=== PATIENT | male | born 1970 | race Caucasian/White ===

== ENCOUNTER 2016-10-22 19:08 | Inpatient (IN) | payer BC, OTHER ==
[~2016-10-22] VITALS: Ht 175.3 cm; Wt 111.5 kg
[~2016-10-22 19:08] MED LIST: ALBUAER2 INH; LACT1TAB4 PO; MULTTAB58 PO; OMEG10007 PO; PRED10TA PO; PSYL55.43 PO; SENN1TAB2 PO; SYMIN160 INH
[2016-10-22] MEDS ORDERED: ALBUT/IPRATROP 3MG/0.5MG NEB 3 ML VIAL INH STA (19:29)
[2016-10-22] MEDS ORDERED: METHYLPREDNISOLONE 125 MG VIAL IV STA (19:29)
--- NOTE | 2016-10-22 20:05 | DIAGNOSTIC IMAGING REPORT ---
CHEST ONE VIEW PORTABLE CLINICAL HISTORY: EVALUATE RESPIRATORY DISTRESS.DYSPNEA COMPARISON STUDY: 01/19/2016 FINDINGS: There is stable superior mediastinal soft tissue prominence. The heart is the upper limits of normal in size. There is no failure. There is no focal pulmonary consolidation. No pleural effusions are visualized. Slight prominence the basal interstitial markings, likely relates to technical factors IMPRESSION: AP portable study. Stable superior mediastinal fullness. No evidence of acute parenchymal consolidation Electronically signed by: Garcia Duran M.D. 10/22/2016 8:03 PM Dictated Date/Time: 10/22/2016 8:01 PM
[2016-10-22 20:24] LABS: BASO % 0.1 %; BASO ABS # 0.02 K/uL (0-0.2); COMPLETE YES; EOS % 1.1 %; HEMATOCRIT 45.5 % (42-52); IG% 0.8 %; LYMPH % 9.6 %; LYMPH ABS # 1.47 K/uL (1.2-3.4); MEAN CELL VOLUME 86.7 fL (80-100); MEAN CORPUSCULAR HEMOGLOBIN 30.1 pg (25-34); MEAN CORPUSCULAR HGB CONC 34.7 g/dl (32-36); MEAN PLATELET VOLUME 9.7 fL (7.4-10.4); MONO % 13.9 %; NEUT % 74.5 %; PLATELET COUNT 171 K/uL (130-400); RED BLOOD COUNT 5.25 M/uL (4.7-6.1); WHITE BLOOD COUNT 15.34 K/uL (4.8-10.8)
[2016-10-22] MEDS ORDERED: ALBUTEROL 0.083% NEBU SOLN 3 ML VIAL INH STA (20:26)
[2016-10-22] MEDS ORDERED: MAGNESIUM SULFATE 1GM / D5W 1 GM BAG IV STA (20:26)
[2016-10-22] MEDS ORDERED: HYDROCODONE/HOMATROPINE SYRUP 5MG/1.5MG 5ML UDP PO STA (20:31)
[2016-10-22] MEDS ORDERED: PSEU60TA80 PO (20:36)
[2016-10-22] MEDS ORDERED: CETI10TA84 PO (20:36)
[2016-10-22] MEDS ORDERED: BENZ100C84 PO (20:36)
[2016-10-22 20:40] LABS: PARTIAL THROMBOPLASTIN RATIO 0.9; PROTHROMBIN TIME (PATIENT) 10.7 SECONDS (9.0-12.0)
[2016-10-22 20:43] LABS: ALT/SGPT 51 U/L (12-78); BLOOD UREA NITROGEN 18 mg/dl (7-18); BUN/CREATININE RATIO 16.5 (10-20); CALCIUM 9.2 mg/dl (8.5-10.1); CARBON DIOXIDE 25 mmol/L (21-32); CHLORIDE 105 mmol/L (98-107); GLUCOSE 97 mg/dl (70-99); POTASSIUM 3.6 mmol/L (3.5-5.1); SODIUM 141 mmol/L (136-145)
[2016-10-22 20:44] VITALS: PULSE 111; O2SAT 95
[2016-10-22 20:47] LABS: ALB/GLOB RATIO 1.1 (0.9-2); ALKALINE PHOSPHATASE 61 U/L (45-117); AST/SGOT 30 U/L (15-37)
[2016-10-22 20:51] LABS: VEN BLD GAS O2 SATURATION 86.7 %; VEN BLOOD GAS BASE EXCESS 1.4 mmol/L
[2016-10-22] MEDS ORDERED: PIPERACILLIN/TAZOBACTAM 4.5 GM/100ML D5W IV STA (21:29)
[2016-10-22] MEDS ORDERED: PIPERACILLIN/TAZOBACTAM 4.5 GM/100ML D5W ONE (21:29)
[2016-10-22] MEDS ORDERED: LEVAQUIN 750MG / 150ML D5W IV ONE (21:30)
[2016-10-22] MEDS ORDERED: ACETAMINOPHEN IV 100 ML IV PRN (21:45)
[2016-10-22] MEDS ORDERED: DiphenhydrAMINE HCL 50 MG/ML VIAL IV PRN ×2 (21:45)
[2016-10-22] MEDS ORDERED: ACETAMINOPHEN 325 MG TAB PO PRN (21:45)
[2016-10-22] MEDS ORDERED: ONDANSETRON INJ 2 MG/ML 2 ML VIAL IV PRN (21:45)
[2016-10-22] MEDS ORDERED: ZOLPIDEM TARTRATE 5 MG TAB PO PRN (21:45)
[2016-10-22 21:50] VITALS: PULSE 126; O2SAT 92
[2016-10-22] MEDS ORDERED: LEVALBUTEROL 1.25MG/0.5ML NEB INH PRN (22:00)
[2016-10-22] MEDS ORDERED: IPRATROPIUM BROMIDE NEB SOLN 0.02% 2.5 ML VIAL INH PRN (22:00)
[2016-10-22] MEDS ORDERED: PIPERACILL/TAZOBAC IV 3.375 GM in DEXTROSE 5% 100ML 100 ML IV SCH (22:00)
[2016-10-22 22:04] VITALS: Ht 175.3 cm; Wt 111.5 kg
[2016-10-22] MEDS ORDERED: PIPERACILL/TAZOBAC CONSULT ACTIVE PRN (23:00)
[2016-10-22] MEDS ORDERED: PIPERACILL/TAZOBAC IV 4.5 GM in DEXTROSE 5% 100ML IV ONE (23:30)
[2016-10-22 23:49] VITALS: PULSE 105; O2SAT 92
[2016-10-23] VITALS (11 sets, daily range): BP systolic 127–142; BP diastolic 67–99; PULSE 82–111; TEMP 36.4–37.2; O2SAT 89–93
--- NOTE | 2016-10-23 01:23 | EMERGENCY ROOM VISIT NOTE ---
History Report prepared by Domonique: Whitney Lehman Under the Supervision of: Dr. Mehrdad Alberts D.O. First contact with patient: 19:21 Chief Complaint: RESPIRATORY PROBLEMS Stated Complaint: TROUBLE BREATHING, CHEST CONGESTION Nursing Triage Summary: Patient ambulatory to triage, states "I am having trouble breathing. I have a severe chest cold and am coughing a lot. I haven't been able to bring much up today. I was at my PCP yesterday for these symptoms and was given a shot and a zpak. I have a history of asthma and I feel worse today." Patient has been using nebs and a resuce inhaler at home without relief. History of Present Illness The patient is a 46 year old male who presents to the Emergency Room with complaints of worsening respiratory problems for the past 2 days. He has had cold symptoms including a productive cough, shortness of breath, and sinus congestion. He went to his PCP yesterday and was given "a shot" and a Z-Emery. Today he has been unable to cough anything up. He feels more short of breath that usual. He is short of breath with exertion and conversation. He rates his pain as a 6/10 in severity. The patient has a history of asthma. He is on prednisone for his asthma and has increased his dosage to 20mg BID for the past 2 days. He has also been using his inhaler and nebulizer treatments at home without relief. He denies any chest pain but reports chest tightness. He feels unable to take a deep breath. His family has been sick with similar symptoms. Pt denies headache, change in vision, fevers, nausea, vomiting, diarrhea, abdominal pain, pain with urination, and melena. He denies any recent long trips , coughing up blood, pain or swelling in his legs, and any history of blood clots. Source of History: patient Onset: 2 days ago Position: chest (respiratory) Symptom Intensity: 6/10 Quality: other (tightness) Timing: worsening Modifying Factors (Worsening): exertion, other (conversation) Associated Symptoms: + SOB, No abdominal pain, No chest pain, No diarrhea, No fevers, No headache, No melena, No nausea, No urinary symptoms, No vomiting Note: He denies any recent long trips, coughing up blood, pain or swelling in his legs , and any history of blood clots. Review of Systems See HPI for pertinent positives & negatives. A total of 10 systems reviewed and were otherwise negative. Past Medical & Surgical Medical Problems: (1) Abdominal pain (2) Asthma (3) Asthma exacerbation (4) Asthma exacerbation (5) Asthmatic bronchitis with acute exacerbation (6) Diverticulitis (7) Diverticulitis (8) Diverticulosis Colon (W/O Ment Of Hemorrhage) (9) GERD (gastroesophageal reflux disease) (10) Hyperlipidemia Nec/Nos (11) Hypoxia (12) Long-Term(Current)Use Of Steroids (13) Pancreatitis Family History No significant family history Social History Smoking Status: Never Smoker Drug Use: none Marital Status: in relationship Housing Status: lives with significant other Occupation Status: employed Current/Historical Medications Scheduled Benzonatate (Tessalon Perles), 1-2 CAP PO Q4 Budesonide/Formoterol Fumarate (Symbicort 160/4.5 Inhaler), 2 PUFFS INH BID Cetirizine (Zyrtec), 10 MG PO HS Fish Oil ([place]-3), 3 CAP PO DAILY Lactobacillus (Floranex), 1 TAB PO BID Multiple Vitamin (Multivitamin), 1 TAB PO DAILY Prednisone (Prednisone), 20 MG PO BID Pseudoephedrine-Guaifenesin (Mucinex D), 1 TAB PO BID Psyllium (Metamucil Powder), 2 TBS PO DAILY Senna-Fennel (Natural Vegetable Laxativ), 1 TAB PO BID Scheduled PRN Albuterol (Ventolin Hfa), 2 PUFFS INH UD PRN for Asthma Symptoms Allergies Coded Allergies: No Known Allergies (Unverified , 10/22/16) Physical Exam Vital Signs Date Time Temp Pulse Resp B/P Pulse Ox O2 Delivery O2 Flow Rate FiO2 10/22/16 21:02 37.1 119 30 146/98 95 Nebulizer 10/22/16 20:44 111 22 95 Room Air 10/22/16 20:26 112 32 117/87 93 3.0 10/22/16 19:41 94 Nasal Cannula 10/22/16 19:32 100 10/22/16 19:25 93 Nasal Cannula 2.0 10/22/16 19:17 89 Room Air 10/22/16 19:17 37.2 110 26 135/86 89 Room Air Physical Exam GENERAL: alert, sitting up in bed, dyspneic with conversation, ill appearing, well nourished, no distress, non-toxic EYE EXAM: normal conjunctiva OROPHARYNX: no exudate, no erythema, lips, buccal mucosa, and tongue normal and mucous membranes are moist NECK: supple, no nuchal rigidity, no adenopathy, non-tender LUNGS: Diffuse wheezing bilaterally with minimal air movement. Normal chest wall mechanics HEART: Tachycardic, no murmurs, S1 normal and S2 normal ABDOMEN: abdomen soft, non-tender, normo-active bowel sounds, no masses, no rebound or guarding. BACK: Back is symmetrical on inspection and there is no deformity, no midline tenderness, no CVA tenderness. SKIN: no rashes and no bruising UPPER EXTREMITIES: upper extremities are grossly normal. LOWER EXTREMITIES: No pitting edema. Calves equal bilaterally. NEURO EXAM: Normal sensorium, cranial nerves II-XII grossly intact, normal speech, no gross weakness of arms, no gross weakness of legs. Medical Decision & Procedures ER Provider Diagnostic Interpretation: Radiology results as stated below per my review and radiologist interpretation: CHEST ONE VIEW PORTABLE CLINICAL HISTORY: EVALUATE RESPIRATORY DISTRESS.DYSPNEA COMPARISON STUDY: 01/19/2016 FINDINGS: There is stable superior mediastinal soft tissue prominence. The heart is the upper limits of normal in size. There is no failure. There is no focal pulmonary consolidation. No pleural effusions are visualized. Slight prominence the basal interstitial markings, likely relates to technical factors IMPRESSION: AP portable study. Stable superior mediastinal fullness. No evidence of acute parenchymal consolidation Electronically signed by: Garcia Duran M.D. 10/22/2016 8:03 PM Dictated Date/Time: 10/22/2016 8:01 PM Laboratory Results 10/22/16 19:50 Red Blood Count 5.25, Mean Corpuscular Volume 86.7, Mean Corpuscular Hemoglobin 30.1, Mean Corpuscular Hemoglobin Concent 34.7, Mean Platelet Volume 9.7, Neutrophils (%) (Auto) 74.5, Lymphocytes (%) (Auto) 9.6, Monocytes (%) (Auto) 13.9, Eosinophils (%) (Auto) 1.1, Basophils (%) (Auto) 0.1, Neutrophils # (Auto ) 11.42, Lymphocytes # (Auto) 1.47, Monocytes # (Auto) 2.13, Eosinophils # (Auto ) 0.17, Basophils # (Auto) 0.02 10/22/16 19:50 Test 10/22/16 00:00 10/22/16 19:50 10/22/16 20:43 Influenza Type A Antigen Neg for Influ A (NEG) Influenza Type B Antigen Neg for Influ B (NEG) White Blood Count 15.34 K/uL (4.8-10.8) Red Blood Count 5.25 M/uL (4.7-6.1) Hemoglobin 15.8 g/dL (14.0-18.0) Hematocrit 45.5 % (42-52) Mean Corpuscular Volume 86.7 fL (80-100) Mean Corpuscular Hemoglobin 30.1 pg (25-34) Mean Corpuscular Hemoglobin Concent 34.7 g/dl (32-36) Platelet Count 171 K/uL (130-400) Mean Platelet Volume 9.7 fL (7.4-10.4) Neutrophils (%) (Auto) 74.5 % Lymphocytes (%) (Auto) 9.6 % Monocytes (%) (Auto) 13.9 % Eosinophils (%) (Auto) 1.1 % Basophils (%) (Auto) 0.1 % Neutrophils # (Auto) 11.42 K/uL (1.4-6.5) Lymphocytes # (Auto) 1.47 K/uL (1.2-3.4) Monocytes # (Auto) 2.13 K/uL (0.11-0.59) Eosinophils # (Auto) 0.17 K/uL (0-0.5) Basophils # (Auto) 0.02 K/uL (0-0.2) RDW Standard Deviation 44.5 fL (36.4-46.3) RDW Coefficient of Variation 14.0 % (11.5-14.5) Immature Granulocyte % (Auto) 0.8 % Immature Granulocyte # (Auto) 0.13 K/uL (0.00-0.02) Prothrombin Time 10.7 SECONDS (9.0-12.0) Prothromb Time International Ratio 1.0 (0.9-1.1) Activated Partial Thromboplast Time 23.9 SECONDS (21.0-31.0) Partial Thromboplastin Ratio 0.9 Anion Gap 11.0 mmol/L (3-11) Est Creatinine Clear Calc Drug Dose 102.9 ml/min Estimated GFR () 92.2 Estimated GFR (Non- 79.5 BUN/Creatinine Ratio 16.5 (10-20) Calcium Level 9.2 mg/dl (8.5-10.1) Total Bilirubin 1.1 mg/dl (0.2-1) Aspartate Amino Transf (AST/SGOT) 30 U/L (15-37) Alanine Aminotransferase (ALT/SGPT) 51 U/L (12-78) Alkaline Phosphatase 61 U/L (45-117) Troponin I < 0.015 ng/ml (0-0.045) Total Protein 7.2 gm/dl (6.4-8.2) Albumin 3.8 gm/dl (3.4-5.0) Globulin 3.4 gm/dl (2.5-4.0) Albumin/Globulin Ratio 1.1 (0.9-2) Venous Blood pH 7.45 (7.36-7.41) Venous Blood Partial Pressure CO2 38 mmHg (38.0-50.0) Venous Blood Partial Pressure O2 53 mmHg Venous Blood HCO3 25 mmol/L Venous Blood Oxygen Saturation 86.7 % Venous Blood Base Excess 1.4 mmol/L Laboratory results per my review. Medications Administered Medications (Trade) Dose Ordered Sig/Celia Route Start Time Stop Time Status Last Admin Dose Admin Methylprednisolone Sodium Succinate (Solu-Medrol IV) 125 mg NOW STAT IV 10/22/16 19:29 10/22/16 19:35 DC 10/22/16 19:51 125 MG Albuterol/ Ipratropium (Duoneb) 3 ml NOW STAT INH 10/22/16 19:29 10/22/16 19:35 DC 10/22/16 19:44 3 ML Albuterol Sulfate (Ventolin 0.083% 2.5MG/3ML Neb) 7 mg NOW STAT INH 10/22/16 20:26 10/22/16 20:27 DC 10/22/16 20:43 7 MG Magnesium Sulfate (Magnesium Sulfate) 2 gm NOW STAT IV 10/22/16 20:26 10/22/16 20:27 DC 10/22/16 21:20 2 GM Hydrocodone Bit/ Homatropine Methylb (Hycodan Syrup) 5 ml NOW STAT PO 10/22/16 20:31 10/22/16 20:32 DC 10/22/16 21:19 5 ML Piperacillin Sod/ Tazobactam Sod (Zosyn Iv) 4.5 gm STK-MED ONCE .ROUTE 10/22/16 21:29 10/22/16 21:30 DC 10/22/16 21:35 4.5 GM Levofloxacin (Levaquin / D5W) 750 mg NOW ONCE IV 10/22/16 21:30 10/22/16 21:47 DC 10/22/16 21:54 750 MG ECG Indication: SOB/dyspnea Rate (beats per minute): 108 Rhythm: sinus tachycardia Findings: no acute ischemic change, no ectopy ED Course ED COURSE: Vital signs were reviewed and showed tachycardic and hypoxic. The patients medical record was reviewed The above diagnostic studies were performed and reviewed. ED treatments and interventions as stated above. 1922: The patient was evaluated in room A11B. A complete history and physical examination was performed. 1928: Duoneb 3 ml INH, Solu-Medrol 125 mg IV 2025: Magnesium sulfate 2 gm IV, Albuterol sulfate 7 mg INH 2028: I updated the patient. He is tachypneic and his symptoms have not improved. 2030: Hycodan Syrup 5 ml PO 2058: The patient is going on BiPAP. 2120: I spoke with Dr. Granda. We discussed the patient's results and treatment plan. The patient will be evaluated by the [facility] for further management. 2146: Upon reevaluation, the patient is doing better. I discussed my findings with the patient and he understands and agrees with the treatment plan. Based on the patients age, coexisting illnesses, exam and lab findings the decision to treat as an inpatient was made. The patient remained stable while under my care. The patient will be evaluated for further management. Medical Decision Differential diagnoses includes but is not limited to pneumonia, bronchitis, COPD/Asthma exacerbation, pneumothorax, pulmonary embolism, congestive heart failure, acute coronary syndrome. Patient is a 46-year-old male who presents the ER for shortness of breath associated with cough. He is placed on antibiotics and steroids chest rate. Upon arrival he static 86% on room air. He is dyspneic with conversation. Does have a history of asthma. He was given an hour-long neb treatment along with magnesium and then later placed on BiPAP. With BiPAP. Significant improvement of symptoms. He is admitted to internal medicine on BiPAP. Patient was also given steroids and initially upon presentation. Consults Time Called: 2109 Consulting Physician: Dr. Granda Returned Call: [address] Granda. We discussed the patient's results and treatment plan. The patient will be evaluated by the [facility] for further management. Impression Primary Impression: Asthma exacerbation Critical Care I have personally spent 35 minutes of critical care time in the direct management of this patient. This includes bedside care, interpretation of diagnostic studies, and testing, discussion with consultants, patient, and family members, and other required patient management activities. This 35 minutes is in excess of all separately billable procedures. Scribe Attestation The scribe's documentation has been prepared under my direction and personally reviewed by me in its entirety. I confirm that the note above accurately reflects all work, treatment, procedures, and medical decision making performed by me. Departure Information Dispostion Being Evaluated By Hospitalist Referrals No Doctor, Assigned (PCP) Patient Instructions My [facility]
[2016-10-23] MEDS: METHYLPREDNISOLONE IV 60 MG in SYRINGE 0 ML IV SCH ×4 (01:53→20:15)
[2016-10-23] MEDS: IPRATROPIUM BROMIDE NEB SOLN 0.02% 2.5 ML VIAL INH SCH ×4 (02:03→19:37)
[2016-10-23] MEDS: LEVALBUTEROL 1.25MG/0.5ML NEB INH SCH ×4 (02:03→19:37)
[2016-10-23] MEDS ORDERED: LEVALBUTEROL/IPRATROPIUM NEB INH SCH (03:00)
[2016-10-23] MEDS: PIPERACILL/TAZOBAC IV 4.5 GM in DEXTROSE 5% 100ML IV SCH ×3 (03:42→20:16)
[2016-10-23 04:28] LABS: MANUAL MICROSCOPIC REQUIRED? NO; REVIEW REQ? NO; URINE APPEARANCE CLOUDY (CLEAR); URINE BILIRUBIN NEG (NEG); URINE COLOR YELLOW; URINE EPITHELIAL CELL AUTO 0-5 /lpf (0-5); URINE NITRITE NEG (NEG); URINE SPECIFIC GRAVITY 1.014 (1.000-1.030); UROBILINOGEN NEG (NEG)
--- NOTE | 2016-10-23 05:15 | History and Physical ---
History & Physical Date & Time of Service: Oct 23, 2016 at 05:05 Chief Complaint: Asthmatic Bronchitis With Acute Exacerbation Primary Care Physician: Elan Beasley D.O.Int.Med. History of Present Illness Source: patient, partner The patient is a 46-year-old male who presents to the emergency room with complaint of rapidly worsening difficulty breathing over the past 2 days in particular the past 12 hours. His symptoms initially began as without was a cold with sinus congestion, then led to a productive cough with shortness of breath. He saw his PCP yesterday and was given a shot of Toradol and a Z-Emery. Since he became more short of breath today, he presented to the emergency department for assessment, was very hypoxic, and was relatively quickly placed on BiPAP while in the emergency department. Past Medical/Surgical History Medical Problems: (1) Abdominal pain Status: Resolved (2) Asthma Status: Chronic (3) Asthma exacerbation Status: Resolved (4) Asthma exacerbation Status: Resolved (5) Asthmatic bronchitis with acute exacerbation Status: Resolved (6) Diverticulitis Status: Resolved (7) Diverticulitis Status: Resolved (8) Diverticulosis Colon (W/O Ment Of Hemorrhage) Status: Chronic (9) GERD (gastroesophageal reflux disease) Status: Chronic (10) Hyperlipidemia Nec/Nos Status: Chronic (11) Hypoxia Status: Resolved (12) Long-Term(Current)Use Of Steroids Status: Chronic (13) Pancreatitis Status: Resolved Family History No significant family history Social History Smoking Status: Never Smoker Smokeless Tobacco Use: No Drug Use: none Marital Status: in relationship Occupational Status: employed Multi-Drug Resistant Organisms History of MDRO: No Allergies Coded Allergies: No Known Allergies (Unverified , 10/22/16) Home Medications Scheduled Benzonatate (Tessalon Perles), 1-2 CAP PO Q4 Budesonide/Formoterol Fumarate (Symbicort 160/4.5 Inhaler), 2 PUFFS INH BID Cetirizine (Zyrtec), 10 MG PO HS Fish Oil ([place]-3), 3 CAP PO DAILY Lactobacillus (Floranex), 1 TAB PO BID Multiple Vitamin (Multivitamin), 1 TAB PO DAILY Prednisone (Prednisone), 20 MG PO BID Pseudoephedrine-Guaifenesin (Mucinex D), 1 TAB PO BID Psyllium (Metamucil Powder), 2 TBS PO DAILY Senna-Fennel (Natural Vegetable Laxativ), 1 TAB PO BID Scheduled PRN Albuterol (Ventolin Hfa), 2 PUFFS INH UD PRN for Asthma Symptoms Review of Systems The patient denies chest palpitations, lower extremity swelling, vision change, hearing change, fevers, chills, sweats, weight change, fatigue, nausea, vomiting , abdominal pain, pelvic pain, blood in urine or stool, dysuria, urinary frequency or urgency, lightheadedness, dizziness, headache, memory loss, rash, abnormal bruising or bleeding, imbalance, focal or generalized weakness, numbness or tingling in arms or legs, arthralgias or myalgias, back or neck pain , night sweats. The review of systems is otherwise negative other than for that already noted above, and at least 10 systems have been reviewed. Physical Exam Vital Signs Date Time Temp Pulse Resp B/P Pulse Ox O2 Delivery O2 Flow Rate FiO2 10/23/16 04:05 37.2 101 18 134/67 92 BiPAP 10/23/16 04:00 BiPAP 5.0 10/23/16 02:05 101 93 5.0 10/23/16 02:03 101 22 93 BiPAP/CPAP 5.0 10/22/16 23:59 BiPAP 5.0 10/22/16 23:49 105 92 5.0 10/22/16 22:36 37.1 116 24 135/95 90 10/22/16 22:32 116 24 135/95 90 BiPAP 6.0 10/22/16 22:04 BiPAP 10/22/16 21:53 122 26 135/91 90 BiPAP 6.0 10/22/16 21:50 126 92 10/22/16 21:02 37.1 119 30 146/98 95 Nebulizer 10/22/16 20:44 111 22 95 Room Air 10/22/16 20:26 112 32 117/87 93 3.0 10/22/16 19:41 94 Nasal Cannula 10/22/16 19:32 100 10/22/16 19:25 93 Nasal Cannula 2.0 10/22/16 19:17 89 Room Air 10/22/16 19:17 37.2 110 26 135/86 89 Room Air The patient is awake, well-developed and adequately nourished, alert and oriented 3, normocephalic and atraumatic, lying in bed and in moderately severe distress upon presentation to the emergency department. HEENT--PERRL, EOMI, mucous membranes moist, and oropharynx normal. Neck--supple, no JVD or bruits, thyroid normal, trachea midline, no adenopathy. Heart--tachycardic, no extra beats, no murmurs, rubs or gallops. Lungs--lungs are very tight, with wheezes and rhonchi throughout, moderately severe respiratory distress, no accessory muscle use. Abdomen--normal bowel sounds and soft, nontender and nondistended, no hernias or masses, no organomegaly. Extremities--no cyanosis, clubbing or edema. There are good distal pulses b/l. Dermatologic--normal skin turgor, normal color, warm and dry, no abnormal lymph nodes, no rash. Neurologic--cranial nerves II through XII grossly intact, motor and sensory examination normal. Rheumatologic--normal range of motion, nontender, muscles and joints. Psychiatric--normal affect. Diagnostics Laboratory Results Results Past 24 Hours Test 10/22/16 19:50 10/22/16 20:43 10/23/16 04:00 10/23/16 04:44 Range/Units White Blood Count 15.34 4.8-10.8 K/uL Red Blood Count 5.25 4.7-6.1 M/uL Hemoglobin 15.8 14.0-18.0 g/dL Hematocrit 45.5 42-52 % Mean Corpuscular Volume 86.7 80-100 fL Mean Corpuscular Hemoglobin 30.1 25-34 pg Mean Corpuscular Hemoglobin Concent 34.7 32-36 g/dl Platelet Count 171 130-400 K/uL Mean Platelet Volume 9.7 7.4-10.4 fL Neutrophils (%) (Auto) 74.5 % Lymphocytes (%) (Auto) 9.6 % Monocytes (%) (Auto) 13.9 % Eosinophils (%) (Auto) 1.1 % Basophils (%) (Auto) 0.1 % Neutrophils # (Auto) 11.42 1.4-6.5 K/uL Lymphocytes # (Auto) 1.47 1.2-3.4 K/uL Monocytes # (Auto) 2.13 0.11-0.59 K/uL Eosinophils # (Auto) 0.17 0-0.5 K/uL Basophils # (Auto) 0.02 0-0.2 K/uL RDW Standard Deviation 44.5 36.4-46.3 fL RDW Coefficient of Variation 14.0 11.5-14.5 % Immature Granulocyte % (Auto) 0.8 % Immature Granulocyte # (Auto) 0.13 0.00-0.02 K/uL Prothrombin Time 10.7 9.0-12.0 SECONDS Prothromb Time International Ratio 1.0 0.9-1.1 Activated Partial Thromboplast Time 23.9 21.0-31.0 SECONDS Partial Thromboplastin Ratio 0.9 Sodium Level 141 136-145 mmol/L Potassium Level 3.6 3.5-5.1 mmol/L Chloride Level 105 98-107 mmol/L Carbon Dioxide Level 25 21-32 mmol/L Anion Gap 11.0 3-11 mmol/L Blood Urea Nitrogen 18 7-18 mg/dl Creatinine 1.10 0.60-1.40 mg/dl Est Creatinine Clear Calc Drug Dose 102.9 ml/min Estimated GFR () 92.2 Estimated GFR (Non- 79.5 BUN/Creatinine Ratio 16.5 10-20 Random Glucose 97 70-99 mg/dl Calcium Level 9.2 8.5-10.1 mg/dl Total Bilirubin 1.1 0.2-1 mg/dl Aspartate Amino Transf (AST/SGOT) 30 15-37 U/L Alanine Aminotransferase (ALT/SGPT) 51 12-78 U/L Alkaline Phosphatase 61 45-117 U/L Troponin I < 0.015 0-0.045 ng/ml Total Protein 7.2 6.4-8.2 gm/dl Albumin 3.8 3.4-5.0 gm/dl Globulin 3.4 2.5-4.0 gm/dl Albumin/Globulin Ratio 1.1 0.9-2 Venous Blood pH 7.45 7.36-7.41 Venous Blood Partial Pressure CO2 38 38.0-50.0 mmHg Venous Blood Partial Pressure O2 53 mmHg Venous Blood HCO3 25 mmol/L Venous Blood Oxygen Saturation 86.7 % Venous Blood Base Excess 1.4 mmol/L Urine Color YELLOW Urine Appearance CLOUDY CLEAR Urine pH 5.0 4.5-7.5 Urine Specific Lillian 1.014 1.000-1.030 Urine Protein NEG NEG Urine Glucose (UA) NEG NEG Urine Ketones NEG NEG Urine Occult Blood NEG NEG Urine Nitrite NEG NEG Urine Bilirubin NEG NEG Urine Urobilinogen NEG NEG Urine Leukocyte Esterase NEG NEG Urine WBC (Auto) 1-5 0-5 /hpf Urine RBC (Auto) 0-4 0-4 /hpf Urine Hyaline Casts (Auto) 0 0-5 /lpf Urine Epithelial Cells (Auto) 0-5 0-5 /lpf Urine Bacteria (Auto) NEG NEG Diagnostic Radiology Patient Name: EMELY BAEZA Unit Number: [id number] Dictated: 10/22/162000 Transcribed: 10/22/162000 ARG Printed Date/Time: [~ rep prt dt]/[~ rep prt tm] [~ rep ct labl] - [~ rep ct ivnm] [facility] [place] [address] Dictated: 10/22/162000 Transcribed: 10/22/162000 ARG Printed Date/Time: [~ rep prt dt]/[~ rep prt tm] [~ rep ct labl] - [~ rep ct ivnm] CHEST ONE VIEW PORTABLE CLINICAL HISTORY: EVALUATE RESPIRATORY DISTRESS.DYSPNEA COMPARISON STUDY: 01/19/2016 FINDINGS: There is stable superior mediastinal soft tissue prominence. The heart is the upper limits of normal in size. There is no failure. There is no focal pulmonary consolidation. No pleural effusions are visualized. Slight prominence the basal interstitial markings, likely relates to technical factors IMPRESSION: AP portable study. Stable superior mediastinal fullness. No evidence of acute parenchymal consolidation Electronically signed by: Garcia Duran M.D. 10/22/2016 8:03 PM Dictated Date/Time: 10/22/2016 8:01 PM The status of this report is Signed. Draft = Not yet reviewed or approved by Radiologist. Signed = Reviewed and approved by Radiologist. <AttendingPhy></AttendingPhy> <FamilyPhy>Elan Beasley D.O.Int.Med.</ FamilyPhy> <PrimaryPhy>Elan Beasley D.O.Int.Med.</PrimaryPhy> <UnitNumber> [id number]</UnitNumber> <VisitNumber>[id number]</VisitNumber> <PatientName> EMELY BAEZA</PatientName> <DateOfBirth>1970</DateOfBirth> <Location>[facility]</ Location> <ServiceDate>10/22/16</ServiceDate> <MNE>ESINDI</MNE> <OrderingPhy> Mehrdad Alberts DO</OrderingPhy> <OrderingPhyMNE>f rep ord dr davalos</OrderingPhyMNE > <DictatingPhyMNE>f rep dict dr davalos</DictatingPhyMNE> <CCListMNE>f rep ct scottiee</ CCListMNE> <AdmittingPhyMNE>f pt admit dr davalos</AdmittingPhyMNE> <AttendingPhyMNE >f pt attend dr davalos</AttendingPhyMNE> <ConsultingPhyMNE>f pt consult dr davalos</ConsultingPhyMNE> <FamilyPhyMNE>f pt fam dr davalos</FamilyPhyMNE> <OtherPhyMNE>f pt other dr davalos</OtherPhyMNE> < PrimaryPhyMNE>f pt prim care dr davalos</PrimaryPhyMNE> <ReferringPhyMNE>f pt referring dr davalos</ReferringPhyMNE> EKG EKG shows sinus tachycardia at 108 bpm, there are no acute ST-T changes. Impression Assessment and Plan Moderately severe asthma exacerbation due to acute bronchitis, requiring placement of BiPAP while in the emergency department--the patient will be admitted to the telemetry unit for close oxygen monitoring and monitor tachycardia. He'll be placed on Solu-Medrol 60 mg IV every 6 hours, vancomycin IV per renal dosing, Zosyn 3.375 mg IV every 6 hours, levofloxacin 500 mg IV every 24 hours, guaifenesin extended release 600 mg by mouth twice a day, and Xopenex with Atrovent nebulizer to use every 6 hours while awake and every 2 hours when necessary. We will hold prednisone 20 mg by mouth twice a day, Symbicort, Mucinex daily, Ventolin HFA. We'll continue cetirizine 10 mg by mouth at bedtime. Level of Care Telemetry Advanced Directives Existing Advance Directive: No Existing Living Will: No Existing Power of Syruper: No Resuscitation Status FULL RESUSCITATION VTE Prophylaxis VTE Risk Assessment Done? Y/N: Yes Risk Level: Moderate Given or contraindicated: SCD's Social Service Consult None Apply
[2016-10-23 07:23] LABS: BASO % 0.1 %; BASO ABS # 0.01 K/uL (0-0.2); COMPLETE YES; EOS % 0.1 %; IG% 1.5 %; LYMPH % 5.6 %; LYMPH ABS # 0.77 K/uL (1.2-3.4); MEAN CELL VOLUME 88.1 fL (80-100); MEAN CORPUSCULAR HEMOGLOBIN 29.7 pg (25-34); MEAN CORPUSCULAR HGB CONC 33.8 g/dl (32-36); MEAN PLATELET VOLUME 9.8 fL (7.4-10.4); MONO % 3.2 %; NEUT % 89.5 %; PLATELET COUNT 175 K/uL (130-400); RED BLOOD COUNT 5.11 M/uL (4.7-6.1); WHITE BLOOD COUNT 13.78 K/uL (4.8-10.8)
[2016-10-23] MEDS: LACTOBACILLUS ACIDOPHILUS (FLORANEX) TAB PO SCH ×2 (08:00→21:09)
[2016-10-23] MEDS: MULTIVITAMIN TAB PO SCH (08:00)
[2016-10-23] MEDS: PSYLLIUM 58.6% PWD PACK S\\F PO SCH (08:00)
[2016-10-23] MEDS: GUAIFENESIN 600 MG TABCR PO SCH ×2 (08:01→21:09)
[2016-10-23 08:45] LABS: BLOOD UREA NITROGEN 17 mg/dl (7-18); BUN/CREATININE RATIO 13.8 (10-20); CALCIUM 9.3 mg/dl (8.5-10.1); CARBON DIOXIDE 24 mmol/L (21-32); CHLORIDE 105 mmol/L (98-107); GLUCOSE 165 mg/dl (70-99); SODIUM 140 mmol/L (136-145)
[2016-10-23 09:55] LABS: MAGNESIUM 2.9 mg/dl (1.8-2.4)
[2016-10-23 10:00] LABS: POTASSIUM 4.3 mmol/L (3.5-5.1)
[2016-10-23] MEDS: BENZONATATE 100MG CAP PO SCH ×2 (13:24→21:09)
--- NOTE | 2016-10-23 14:06 | CONSULTATION REPORT ---
DATE OF CONSULTATION: 10/23/2016 DATE OF CONSULTATION: 10/23/2016. HISTORY OF PRESENT ILLNESS: The patient is a 46-year-old male with past medical history of steroid dependent asthma, who was followed by Dr. Elan Beasley from pulmonology as an outpatient. The patient states that he has had asthma for a full long period of time. 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 He states she can get down to 20 mg, if they try to taper him down below 20 mg it does not really seem to improve and the patient usually has an exacerbation when he gets below 20. As long as he stays at 20 he usually does fairly well. The patient states that currently he started with symptoms on Wednesday and they progressively worsened to the point where he saw his PCP the day prior to admission. He states that at his PCP office they gave him an injection of Solu-Medrol and started him on Z-MARGAUX. Unfortunately his symptoms worsened and he presented to the Emergency Room at [facility] on 10/22/2016. In the Emergency Room, he was found to be hypoxic and was placed on BiPAP. The patient states that he is feeling better since admission. He states that his breathing is a little bit easier. He states he is not coughing as much. He states that the cough is the biggest problem and will make him very short of breath and very fatigued. He states that he was running a little bit of a fever yesterday but he has not had any other fevers that he is aware of. He states that he does have a nonproductive cough, but feels like there is mucus down in his chest. He states he feels like there is something in there that he needs to cough up but he can not do it. He states he will have wheezing which comes and goes. He states he does have some chest discomfort as well. He does get very short of breath on exertion and he states he feels like his chest is tight. He has no significant chest pain, it is more just tightness and pressure. He has no palpitations. He has no GI symptoms. He has never been diagnosed with gastroesophageal reflux disease. He states somebody did give him Prilosec at one point to use as needed. He has no difficulty swallowing. No difficulty with his bowels. No difficulty voiding. No problems with swelling in his extremities. He is on Symbicort and prednisone and he states that this usually keeps him somewhat under control. In reviewing his chart, his last PFT was in 2013 showed a forced vital capacity which was 72% predicted, an FEV1 which was 76% predicted and FEV1/FVC ratio of 105%. She did have alpha 1 antitrypsin testing done in 2015, it was negative. He also had an IgE level drawn in 2015 that was 93, but I am not sure if the patient was on prednisone at the time. PAST MEDICAL HISTORY: Includes asthma, colon polyp, diverticulitis, history of pancreatitis, hyperlipidemia and chronic steroid use. PAST SURGICAL HISTORY: Includes colon polyp removal. FAMILY HISTORY: His mother and sister have asthma. SOCIAL HISTORY: No tobacco, no alcohol. 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 HOME MEDICATIONS: Include Tessalon as needed, Symbicort 160/4.5 two puffs twice daily, Zyrtec 10 mg nightly, which he just started a week ago, fish oil 3 capsules daily, lactobacillus 1 tab twice daily, multivitamin 1 tablet daily, prednisone 20 mg twice daily, Mucinex D 1 tablet twice daily, Metamucil 2 tablespoons daily, natural vegetable laxative 1 tablet twice daily. ALLERGIES: Patient has no known drug allergies. OBJECTIVE: GENERAL: The patient is a 46-year-old male, does not appear in any acute distress, no respiratory distress. When I entered he did have BiPAP on but took that off and did not exhibit any signs of respiratory distress while I interviewed him. He is alert and oriented x3. Mood is good. Affect is good. VITAL SIGNS: Temp 36.4, pulse 95, respirations 18, blood pressure is 137/86, pulse ox 90% on room air. HEAD, EYES, EARS, NOSE, AND THROAT: Normocephalic, atraumatic. Pupils equal, round, reactive to light and accommodation. Extraocular movements are intact. [place], moist gingival and buccal mucosa. NECK: Supple, short neck. No mass, no adenopathy, no bruit. CHEST: The patient has significantly diminished breath sounds bilaterally. He does have some faint wheezing throughout. There are no rales or rhonchi noted. CARDIOVASCULAR: Regular rate and rhythm. No murmurs, gallops or rubs. ABDOMEN: Soft, nontender. No guarding, rigidity or organomegaly. Bowel sounds present. EXTREMITIES: No erythema, no edema. NEUROLOGIC: Cranial nerves II-XII are intact. No focal deficit noted. LABORATORY DATA: Shows white count of 13,000, H\T\H of 15.2 and 45.0, platelet count 175,000. Venous blood gas shows pH 7.45, pCO2 of 38, pO2 of 53, bicarbonate 25. Flu titers are negative. Chest x-ray shows some mediastinal fullness, no evidence of any other problem. IMPRESSION: This is a 46-year-old male with shelter history of steroid dependent asthma. At this point The patient is having exacerbation and I think we need to focus on treating that. I think that the patient's asthma we need to consider some other possibilities once he is back to his baseline including the possibility of using Xolair. However, currently we will work to get the patient under control. At this point I agree with his current medication regimen of antibiotics which include levofloxacin 500 mg daily, Zosyn. The patient was also given steroids at 60 mg IV q. 6 hours. He does have a pulmonary toilet q. 6 hours routinely and q. 2 hours as needed. The patient did report that the cough is usually very difficult for him and that Tessalon Perles usually work well. I will put an order in for Tessalon Perles also. I think at some point, the patient may benefit from a flutter valve or vibration vest however I am not sure that now would be appropriate for him as anything that triggers his cough really causes him some respiratory distress. May need to consider that in another day or two as he shows improvement. We may need to actually consider bronchoscopic evaluation if the patient does show improvement, but continues to have difficulty with producing mucous. Will continue to follow the patient through hospitalization. Thank you for the consultation on this patient.
--- NOTE | 2016-10-23 16:28 | Progress Note ---
Subjective Date of Service: Oct 23, 2016. Subjective pt with difficult steroid dependent asthma that is in exacerbation, and usually triggered by cough Problem List Medical Problems: (1) Acute asthma exacerbation Status: Acute (2) Asthma Status: Chronic (3) Bronchitis Status: Acute (4) Diverticulosis Colon (W/O Ment Of Hemorrhage) Status: Chronic (5) GERD (gastroesophageal reflux disease) Status: Chronic (6) Hyperlipidemia Nec/Nos Status: Chronic (7) Long-Term(Current)Use Of Steroids Status: Chronic (8) Shoulder injury Status: Acute Review of Systems Constitutional: + weakness, No chills, No fever Respiratory: + cough, + dyspnea on exertion, + shortness of breath Cardiac: No chest pain, No edema Abdomen: No diarrhea, No nausea, No pain, No vomiting Neurologic: No memory loss, No paralysis Objective Vital Signs Date Time Temp Pulse Resp B/P Pulse Ox O2 Delivery O2 Flow Rate FiO2 10/23/16 07:56 36.4 89 18 127/79 91 BiPAP 5.0 10/23/16 07:19 83 22 91 BiPAP/CPAP 5.0 10/23/16 04:05 37.2 101 18 134/67 92 BiPAP 10/23/16 04:00 BiPAP 5.0 10/23/16 02:05 101 93 5.0 10/23/16 02:03 101 22 93 BiPAP/CPAP 5.0 10/22/16 23:59 BiPAP 5.0 10/22/16 23:49 105 92 5.0 10/22/16 22:36 37.1 116 24 135/95 90 10/22/16 22:32 116 24 135/95 90 BiPAP 6.0 10/22/16 22:04 BiPAP 10/22/16 21:53 122 26 135/91 90 BiPAP 6.0 10/22/16 21:50 126 92 10/22/16 21:02 37.1 119 30 146/98 95 Nebulizer 10/22/16 20:44 111 22 95 Room Air 10/22/16 20:26 112 32 117/87 93 3.0 10/22/16 19:41 94 Nasal Cannula 10/22/16 19:32 100 10/22/16 19:25 93 Nasal Cannula 2.0 10/22/16 19:17 89 Room Air 10/22/16 19:17 37.2 110 26 135/86 89 Room Air Physical Exam General Appearance: WD/WN, + mild distress Eyes: PERRL, EOMI Neck: supple, no JVD Respiratory/Chest: chest non-tender, + respiratory distress, + decreased breath sounds, + accessory muscle use, + rhonchi Cardiovascular: regular rate, rhythm, no murmur Abdomen: non tender, soft Extremities: no pedal edema, no calf tenderness Laboratory Results Last 24 Hours Test 10/22/16 19:50 10/22/16 20:43 10/23/16 04:00 10/23/16 06:57 White Blood Count 15.34 K/uL 13.78 K/uL Red Blood Count 5.25 M/uL 5.11 M/uL Hemoglobin 15.8 g/dL 15.2 g/dL Hematocrit 45.5 % 45.0 % Mean Corpuscular Volume 86.7 fL 88.1 fL Mean Corpuscular Hemoglobin 30.1 pg 29.7 pg Mean Corpuscular Hemoglobin Concent 34.7 g/dl 33.8 g/dl Platelet Count 171 K/uL 175 K/uL Mean Platelet Volume 9.7 fL 9.8 fL Neutrophils (%) (Auto) 74.5 % 89.5 % Lymphocytes (%) (Auto) 9.6 % 5.6 % Monocytes (%) (Auto) 13.9 % 3.2 % Eosinophils (%) (Auto) 1.1 % 0.1 % Basophils (%) (Auto) 0.1 % 0.1 % Neutrophils # (Auto) 11.42 K/uL 12.35 K/uL Lymphocytes # (Auto) 1.47 K/uL 0.77 K/uL Monocytes # (Auto) 2.13 K/uL 0.44 K/uL Eosinophils # (Auto) 0.17 K/uL 0.01 K/uL Basophils # (Auto) 0.02 K/uL 0.01 K/uL RDW Standard Deviation 44.5 fL 45.5 fL RDW Coefficient of Variation 14.0 % 14.1 % Immature Granulocyte % (Auto) 0.8 % 1.5 % Immature Granulocyte # (Auto) 0.13 K/uL 0.20 K/uL Prothrombin Time 10.7 SECONDS Prothromb Time International Ratio 1.0 Activated Partial Thromboplast Time 23.9 SECONDS Partial Thromboplastin Ratio 0.9 Sodium Level 141 mmol/L Potassium Level 3.6 mmol/L Chloride Level 105 mmol/L Carbon Dioxide Level 25 mmol/L Anion Gap 11.0 mmol/L Blood Urea Nitrogen 18 mg/dl Creatinine 1.10 mg/dl Est Creatinine Clear Calc Drug Dose 102.9 ml/min Estimated GFR () 92.2 Estimated GFR (Non- 79.5 BUN/Creatinine Ratio 16.5 Random Glucose 97 mg/dl Calcium Level 9.2 mg/dl Total Bilirubin 1.1 mg/dl Aspartate Amino Transf (AST/SGOT) 30 U/L Alanine Aminotransferase (ALT/SGPT) 51 U/L Alkaline Phosphatase 61 U/L Troponin I < 0.015 ng/ml Total Protein 7.2 gm/dl Albumin 3.8 gm/dl Globulin 3.4 gm/dl Albumin/Globulin Ratio 1.1 Venous Blood pH 7.45 Venous Blood Partial Pressure CO2 38 mmHg Venous Blood Partial Pressure O2 53 mmHg Venous Blood HCO3 25 mmol/L Venous Blood Oxygen Saturation 86.7 % Venous Blood Base Excess 1.4 mmol/L Urine Color YELLOW Urine Appearance CLOUDY Urine pH 5.0 Urine Specific [place] 1.014 Urine Protein NEG Urine Glucose (UA) NEG Urine Ketones NEG Urine Occult Blood NEG Urine Nitrite NEG Urine Bilirubin NEG Urine Urobilinogen NEG Urine Leukocyte Esterase NEG Urine WBC (Auto) 1-5 /hpf Urine RBC (Auto) 0-4 /hpf Urine Hyaline Casts (Auto) 0 /lpf Urine Epithelial Cells (Auto) 0-5 /lpf Urine Bacteria (Auto) NEG Assessment and Plan 46 M with acute respiratory failure, acute exacerbation of chronic steroid dependent asthma improved with BiPAP asthma, has been seen by pulmonary med, steroids, inhalers, prn bipap, and tessalon, consideration of alternative therapy once progresses in positive way levaquin and zosyn for possible bronchitis
[2016-10-23] MEDS: CETIRIZINE HCL 10 MG TAB PO SCH (21:09)
[2016-10-23] MEDS ORDERED: LEVOFLOXACIN / D5W 500 MG in PREMIXED IN D5W 100 ML IV SCH (22:00)
[2016-10-24] VITALS (12 sets, daily range): BP systolic 138–153; BP diastolic 81–100; PULSE 89–105; TEMP 36.6–37.9; O2SAT 88–94
[2016-10-24] MEDS: IPRATROPIUM BROMIDE NEB SOLN 0.02% 2.5 ML VIAL INH SCH ×4 (02:24→20:18)
[2016-10-24] MEDS: LEVALBUTEROL 1.25MG/0.5ML NEB INH SCH ×4 (02:24→20:18)
[2016-10-24] MEDS: METHYLPREDNISOLONE IV 60 MG in SYRINGE 0 ML IV SCH ×3 (03:02→12:02)
[2016-10-24] MEDS: PIPERACILL/TAZOBAC IV 4.5 GM in DEXTROSE 5% 100ML IV SCH ×2 (04:23→12:02)
[2016-10-24 06:28] LABS: BASO % 0.1 %; BASO ABS # 0.02 K/uL (0-0.2); COMPLETE YES; HEMATOCRIT 45.4 % (42-52); IG% 1.1 %; LYMPH % 6.3 %; LYMPH ABS # 1.18 K/uL (1.2-3.4); MEAN CELL VOLUME 89.7 fL (80-100); MEAN CORPUSCULAR HEMOGLOBIN 29.4 pg (25-34); MEAN CORPUSCULAR HGB CONC 32.8 g/dl (32-36); MEAN PLATELET VOLUME 10.2 fL (7.4-10.4); MONO % 5.9 %; NEUT % 86.6 %; PLATELET COUNT 179 K/uL (130-400); RED BLOOD COUNT 5.06 M/uL (4.7-6.1); WHITE BLOOD COUNT 18.84 K/uL (4.8-10.8)
[2016-10-24 07:19] LABS: BUN/CREATININE RATIO 22.2 (10-20); CREATININE 1.2 mg/dl (0.60-1.40); MAGNESIUM 2.7 mg/dl (1.8-2.4)
[2016-10-24] MEDS: BENZONATATE 100MG CAP PO SCH ×3 (08:17→20:09)
[2016-10-24] MEDS: GUAIFENESIN 600 MG TABCR PO SCH ×2 (08:17→20:08)
[2016-10-24] MEDS: LACTOBACILLUS ACIDOPHILUS (FLORANEX) TAB PO SCH ×2 (08:17→20:08)
[2016-10-24] MEDS: PSYLLIUM 58.6% PWD PACK S\\F PO SCH (08:18)
[2016-10-24] MEDS: ENOXAPARIN 40 MG/0.4 ML SYR SQ SCH (08:19)
[2016-10-24] MEDS: MULTIVITAMIN TAB PO SCH (08:19)
--- NOTE | 2016-10-24 12:35 | Progress Note ---
Subjective Date of Service: Oct 24, 2016. Subjective pt states he feels somewhat better, less short of breath and not needing bipap, cough still persists but now is productive Problem List Medical Problems: (1) Acute asthma exacerbation Status: Acute (2) Asthma Status: Chronic (3) Bronchitis Status: Acute (4) Diverticulosis Colon (W/O Ment Of Hemorrhage) Status: Chronic (5) GERD (gastroesophageal reflux disease) Status: Chronic (6) Hyperlipidemia Nec/Nos Status: Chronic (7) Long-Term(Current)Use Of Steroids Status: Chronic (8) Shoulder injury Status: Acute Review of Systems Constitutional: No chills, No fever, No weakness Respiratory: + cough, + dyspnea on exertion, + sputum, No shortness of breath Cardiac: No chest pain, No edema Abdomen: No diarrhea, No nausea, No pain, No vomiting Male : No dysuria, No urinary frequency Objective Vital Signs Date Time Temp Pulse Resp B/P Pulse Ox O2 Delivery O2 Flow Rate FiO2 10/24/16 11:00 36.8 89 24 142/100 91 Nasal Cannula 4.0 95 144/91 10/24/16 08:02 105 20 90 Room Air 10/24/16 08:00 93 Room Air 4.0 10/24/16 07:44 36.6 91 20 153/81 88 Room Air 10/24/16 04:22 36.7 91 18 141/93 89 Room Air 10/24/16 04:00 Room Air 10/24/16 02:24 92 20 92 BiPAP/CPAP 5.0 10/24/16 00:07 36.8 96 20 142/86 89 Room Air 10/24/16 00:00 Room Air 10/23/16 20:00 Room Air 5.0 BiPAP 10/23/16 19:39 82 92 5.0 10/23/16 19:37 82 20 92 BiPAP/CPAP 5.0 10/23/16 19:34 37.0 106 18 137/93 89 Room Air 10/23/16 15:46 36.7 101 20 142/99 91 BiPAP 10/23/16 15:29 BiPAP 10/23/16 14:26 111 22 91 BiPAP/CPAP 5.0 Physical Exam General Appearance: WD/WN, + mild distress Neck: supple, thyroid normal Respiratory/Chest: + decreased breath sounds, + accessory muscle use, + rhonchi Cardiovascular: regular rate, rhythm, no murmur Abdomen: normal bowel sounds, non tender, soft Extremities: no pedal edema, no calf tenderness Laboratory Results Last 24 Hours Test 10/24/16 05:36 White Blood Count 18.84 K/uL Red Blood Count 5.06 M/uL Hemoglobin 14.9 g/dL Hematocrit 45.4 % Mean Corpuscular Volume 89.7 fL Mean Corpuscular Hemoglobin 29.4 pg Mean Corpuscular Hemoglobin Concent 32.8 g/dl Platelet Count 179 K/uL Mean Platelet Volume 10.2 fL Neutrophils (%) (Auto) 86.6 % Lymphocytes (%) (Auto) 6.3 % Monocytes (%) (Auto) 5.9 % Eosinophils (%) (Auto) 0.0 % Basophils (%) (Auto) 0.1 % Neutrophils # (Auto) 16.33 K/uL Lymphocytes # (Auto) 1.18 K/uL Monocytes # (Auto) 1.11 K/uL Eosinophils # (Auto) 0.00 K/uL Basophils # (Auto) 0.02 K/uL RDW Standard Deviation 46.0 fL RDW Coefficient of Variation 14.1 % Immature Granulocyte % (Auto) 1.1 % Immature Granulocyte # (Auto) 0.20 K/uL Sodium Level 140 mmol/L Potassium Level 4.0 mmol/L Chloride Level 103 mmol/L Carbon Dioxide Level 24 mmol/L Anion Gap 13.0 mmol/L Blood Urea Nitrogen 27 mg/dl Creatinine 1.20 mg/dl Est Creatinine Clear Calc Drug Dose 93.7 ml/min Estimated GFR () 83.0 Estimated GFR (Non- 71.6 BUN/Creatinine Ratio 22.2 Random Glucose 163 mg/dl Calcium Level 9.0 mg/dl Magnesium Level 2.7 mg/dl Assessment and Plan 46 M with acute respiratory failure, acute exacerbation of chronic steroid dependent asthma improved with BiPAP initially now after excessive mucus expectoration feels better ( ?mucus plugging) asthma, has been seen by pulmonary med, taper steriods to po, add aformoterol, continue other inhaled meds levaquin changed to po
--- NOTE | 2016-10-24 17:20 | Pulmonary Consultation ---
History General Date of Service: Oct 24, 2016. Stated Complaint: Asthmatic Bronchitis With Acute Exacerbation HPI The patient is a 46 year old male who presents to [facility] with complaints of Asthmatic Bronchitis With Acute Exacerbation. The patient's primary care provider is Elan Beasley D.O.Int.Med.. 46y/o male presented to the ED after 4-5 days of progressive respiratory insufficiency. He was seen by his PCP on 10/21/16 related to an asthma exacerbation and treated with: Kenalog, Zpak, and Benzonatate and prednisone vivian. In the ED he noted increasing SOB a rest, chest tightness, SERNA, Along with the prednisone from his PCP he was using his home nebulizer with no relief. In the ED he was tachycardia, tachypnea at 30 breaths per minute hypoxic with as SaO2 of 89% on room air. He was them placed on BiPAP for pending respiratory failure. During the interview the patient noted continuing chest tightness, intermittent mucus production and dyspnea on exertion. He has progressed in a positive direction over the last 48 hours with his current medical regimen. He no longer feels shortness of breath at rest and no signs of accessory muscle use. Denies: headache, change in vision, fevers, nausea, vomiting, diarrhea, abdominal pain, pain with urination, and melena. He denies any recent long trips , coughing up blood, pain or swelling in his legs, history of blood clots Peak flow meter: 325 Work-up: 1) WBC: 15K-14K-19K 2) CXR: evidence of acute parenchymal consolidation 3) EKG: WNL 4) Influenza A+B: negative 5) VBG (10/22/16) 7.45/38/53/25conversation to ABG---7.48/32 Treatment: 1)DuoNebs 2)Magnesium 2g IV 3)Hycodan Syrup 5ml 4)BIPAP 5)Levaquin 500mg po 6)Prednisone 40mg 7)Brovana BID 8)Zyrtec 10mg 9)Tessalon Perles 100mg ID 10)Mucinex 600mg Q12 11)Atrovent Neb 12)Xopenex Neb 13)Methylprednisolone 60mg Q6 Date: 10/31/13 PRE POST % CHANGE FEV1/FVC: 81 84 -1 FEV1: 3.02/76% 3.20/80% 6 FVC: 3.57/72% 3.82/78% 7 25-27%: 99 98 -2 T.81/86% VC: 3.69/75% RV: 2.12/114% FRC: DLCO: 68% DLCO/VA; 88% Historian: patient, family, EMS Review of Systems Constitutional: reports: weakness Eyes: reports: no symptoms ENT: reports: no symptoms Cardiovascular: reports: no symptoms Respiratory: reports: SERNA, cough, shortness of breath, wheezing Gastrointestinal: reports: no symptoms Genitourinary - Male: reports: no symptoms Musculoskeletal: reports: no symptoms Integumentary: reports: no symptoms Neurologic: reports: no symptoms Psychiatric: reports: no symptoms Endocrine: no symptoms Hematologic / Lymphatic: no symptoms Allergic / Immunologic: no symptoms Past Medical History Past Medical History: 1.Allergic rhinitis 2.Asthma/ 3.Recurrent Diverticulitis 4.GERD 5.Hypertriglyceridemia 6.Changing skin lesion 7.candidiasis of mouth 8. ETOH related pancreatitis 9.BCC right check 10.Colonic polyp Past Surgical History: 1.Oral Surgery Tooth Extraction 2.Shoulder Surgery Family History No significant family history Sibling: Asthma Social History Hx Tobacco Use In Past Year?: No Smoking Status: Never Smoker Marital status: in relationship Occupational Status: employed History of MDRO History of MDRO: No Allergies Coded Allergies: No Known Allergies (Unverified , 10/22/16) Current Medications Reported Home Medications Medications Dose Route/Sig Max Daily Dose Days Date Category Tessalon Perles (Benzonatate) 100 Mg Cap 1-2 Cap PO Q4 5 10/22/16 Reported Mucinex D (Pseudoephedrine-Guaifenesin) 1 Tab Tab 1 Tab PO BID 10 10/22/16 Reported Zyrtec (Cetirizine HCl) 10 Mg Tab 10 Mg PO HS 10/22/16 Reported Symbicort 160/4.5 Inhaler (Budesonide/Formoterol Fumarate) 120 Puffs/ Aero 2 Puffs INH BID 05/13/16 Reported Ventolin Hfa (Albuterol) Aers 2 Puffs INH UD PRN 05/13/16 Reported Prednisone 10 Mg Tab 20 Mg PO BID 06/12/15 Reported Metamucil Powder (Psyllium Hydrophilic Mucilloid) Powd 2 Tbs PO DAILY 02/11/15 Reported Natural Vegetable Laxativ (Senna-Fennel) 1 Tab Tab 1 Tab PO BID 02/11/15 Reported Floranex (Lactobacillus) 1 Tab Tab 1 Tab PO BID 02/11/15 Reported Multivitamin (Multiple Vitamin) 1 Tab Tab 1 Tab PO DAILY 02/11/15 Reported [place]-3 (Fish Oil) 1 Ea Cap 3 Cap PO DAILY 08/08/14 Reported Physical Physical Exam Vital Signs: Date Time Temp Pulse Resp B/P Pulse Ox O2 Delivery O2 Flow Rate FiO2 10/24/16 15:43 98 20 94 Nasal Cannula 4.0 10/24/16 14:55 37.9 99 18 152/93 92 Nasal Cannula 4.0 10/24/16 14:10 36.8 95 24 91 4.0 10/24/16 12:00 Room Air 4.0 10/24/16 11:00 36.8 89 24 142/100 91 Nasal Cannula 4.0 95 144/91 10/24/16 08:02 105 20 90 Room Air 10/24/16 08:00 93 Room Air 4.0 10/24/16 07:44 36.6 91 20 153/81 88 Room Air 10/24/16 04:22 36.7 91 18 141/93 89 Room Air 10/24/16 04:00 Room Air 10/24/16 02:24 92 20 92 BiPAP/CPAP 5.0 10/24/16 00:07 36.8 96 20 142/86 89 Room Air 10/24/16 00:00 Room Air 10/23/16 20:00 Room Air 5.0 BiPAP 10/23/16 19:39 82 92 5.0 10/23/16 19:37 82 20 92 BiPAP/CPAP 5.0 10/23/16 19:34 37.0 106 18 137/93 89 Room Air General Appearance: WELL-APPEARING, NO APPARENT DISTRESS Head: NORMOCEPHALIC, ATRAUMATIC Eyes: PERRLA, NO DISCHARGE, EOMI, SCLERAE NORMAL ENT: NORMAL EAR EXAM, NORMAL NASAL EXAM, NORMAL MOUTH EXAM, NORMAL THROAT EXAM , NORMAL DENTAL EXAM Neck: NORMAL RANGE OF MOTION, NO TENDERNESS, NO STRIDOR Respiratory: rhonchi, wheezing Cardiovasular: REGULAR RATE/RHYTHM, NORMAL S1S2, NO M/G/R, NO GALLOP Abdomen: NON TENDER, NORMAL BOWEL SOUNDS, NO REBOUND, NO MASSES, NO GUARDING Genitourinary - Male: EXTERNAL GENITALIA NORMAL Back: NORMAL INSPECTION, NO MIDLINE TENDERNESS, NO CVA TENDERNESS, NO PARAVERTEBRAL TTP Upper Extremities: NO EDEMA Lower Extremities: NO EDEMA Pulses: carotid (R) (2+), carotid (L) (2+), dorsalis pedis (R) (2+), dorsalis pedis (L) (2+) Neuro: ALERT, ORIENTED x 3, NORMAL MOTOR EXAM, NORMAL SENSATION, NORMAL CEREBELLAR EXAM Reflexes: biceps (R) (2+), bicpes (L) (2+) Babinski Testing: right (downgoing), left (downgoing) Psychiatric: NORMAL AFFECT, NO SUICIDAL IDEATION, CONTRACTS FOR SAFETY Diagnostics Labs Results Past 24 Hours Test 10/24/16 05:36 Range/Units White Blood Count 18.84 4.8-10.8 K/uL Red Blood Count 5.06 4.7-6.1 M/uL Hemoglobin 14.9 14.0-18.0 g/dL Hematocrit 45.4 42-52 % Mean Corpuscular Volume 89.7 80-100 fL Mean Corpuscular Hemoglobin 29.4 25-34 pg Mean Corpuscular Hemoglobin Concent 32.8 32-36 g/dl Platelet Count 179 130-400 K/uL Mean Platelet Volume 10.2 7.4-10.4 fL Neutrophils (%) (Auto) 86.6 % Lymphocytes (%) (Auto) 6.3 % Monocytes (%) (Auto) 5.9 % Eosinophils (%) (Auto) 0.0 % Basophils (%) (Auto) 0.1 % Neutrophils # (Auto) 16.33 1.4-6.5 K/uL Lymphocytes # (Auto) 1.18 1.2-3.4 K/uL Monocytes # (Auto) 1.11 0.11-0.59 K/uL Eosinophils # (Auto) 0.00 0-0.5 K/uL Basophils # (Auto) 0.02 0-0.2 K/uL RDW Standard Deviation 46.0 36.4-46.3 fL RDW Coefficient of Variation 14.1 11.5-14.5 % Immature Granulocyte % (Auto) 1.1 % Immature Granulocyte # (Auto) 0.20 0.00-0.02 K/uL Sodium Level 140 136-145 mmol/L Potassium Level 4.0 3.5-5.1 mmol/L Chloride Level 103 98-107 mmol/L Carbon Dioxide Level 24 21-32 mmol/L Anion Gap 13.0 3-11 mmol/L Blood Urea Nitrogen 27 7-18 mg/dl Creatinine 1.20 0.60-1.40 mg/dl Est Creatinine Clear Calc Drug Dose 93.7 ml/min Estimated GFR () 83.0 Estimated GFR (Non- 71.6 BUN/Creatinine Ratio 22.2 10-20 Random Glucose 163 70-99 mg/dl Calcium Level 9.0 8.5-10.1 mg/dl Magnesium Level 2.7 1.8-2.4 mg/dl Diagnostic Radiology CXR: evidence of acute parenchymal consolidation EKG Interpretation: NORMAL EKG Impression Assessment and Plan 46 year-old gentleman with acute on chronic asthma attack who is steroid dependent: #1: Asthma: Agree with current medical regimen, initial IV steroids have been switched to by mouth 40 mg per day. I suggest we titrate this very slowly over the next 2 weeks. Also suggest we initiate peak flow meter 3 times a day as a most recent one was 325 mg. I spoke to the patient and family at length as we should introduce peak flow monitoring at home morning, afternoon, and evening. We spoke that the patient should note whether his peak flow has dropped by 20% or more and if so initiate outpatient medical visit and/or titrate prednisone at that time. #2 ID: Patient's illness is most likely viral as the son was noted have viral type signs and symptoms a week prior to our patient becoming ill. Even though continuation of the current Levaquin dosing for 5 day window is appropriate for inpatient admission. #2: BINH: Patiently currently treated with CPAP at 18 cm H2O. We'll continue on BiPAP at this time as the patient is in house and still notably short of breath.
[2016-10-24] MEDS: CETIRIZINE HCL 10 MG TAB PO SCH (20:08)
[2016-10-24] MEDS: ARFORMOTEROL TART 15MCG/2ML VIAL INH SCH (20:18)
[2016-10-24] MEDS ORDERED: LEVOFLOXACIN 500 MG TAB PO SCH (21:00)
[2016-10-25 01:42] VITALS: PULSE 92; O2SAT 95
[2016-10-25] MEDS: IPRATROPIUM BROMIDE NEB SOLN 0.02% 2.5 ML VIAL INH SCH ×2 (01:42→09:00)
[2016-10-25] MEDS: LEVALBUTEROL 1.25MG/0.5ML NEB INH SCH ×2 (01:42→09:00)
[2016-10-25 07:11] VITALS: PULSE 90; O2SAT 90
[2016-10-25] MEDS: ARFORMOTEROL TART 15MCG/2ML VIAL INH SCH (07:11)
[2016-10-25 07:47] VITALS: BP 120/76; PULSE 75; TEMP 37; O2SAT 96
[2016-10-25 07:58] LABS: HEMATOCRIT 43.6 % (42-52); MEAN CELL VOLUME 87.9 fL (80-100); MEAN CORPUSCULAR HEMOGLOBIN 30.2 pg (25-34); MEAN CORPUSCULAR HGB CONC 34.4 g/dl (32-36); MEAN PLATELET VOLUME 9.8 fL (7.4-10.4); PLATELET COUNT 158 K/uL (130-400); RED BLOOD COUNT 4.96 M/uL (4.7-6.1); WHITE BLOOD COUNT 17.14 K/uL (4.8-10.8)
[2016-10-25] MEDS: MULTIVITAMIN TAB PO SCH (07:58)
[2016-10-25] MEDS: BENZONATATE 100MG CAP PO SCH (07:58)
[2016-10-25] MEDS: PSYLLIUM 58.6% PWD PACK S\\F PO SCH (07:58)
[2016-10-25] MEDS: GUAIFENESIN 600 MG TABCR PO SCH (07:59)
[2016-10-25] MEDS: ENOXAPARIN 40 MG/0.4 ML SYR SQ SCH (07:59)
[2016-10-25] MEDS: LACTOBACILLUS ACIDOPHILUS (FLORANEX) TAB PO SCH (07:59)
[2016-10-25 08:26] LABS: BASO % 0.1 %; BASO ABS # 0.02 K/uL (0-0.2); COMPLETE YES; EOS % 0.1 %; IG% 0.8 %; LYMPH % 11.7 %; LYMPH ABS # 2.01 K/uL (1.2-3.4); MONO % 9.7 %; NEUT % 77.6 %
[2016-10-25 08:34] LABS: BLOOD UREA NITROGEN 32 mg/dl (7-18); BUN/CREATININE RATIO 26.9 (10-20); CARBON DIOXIDE 27 mmol/L (21-32); CHLORIDE 103 mmol/L (98-107); GLUCOSE 125 mg/dl (70-99); SODIUM 140 mmol/L (136-145)
[2016-10-25 09:21] LABS: POTASSIUM 3.8 mmol/L (3.5-5.1)
[2016-10-25 09:22] LABS: MAGNESIUM 2.7 mg/dl (1.8-2.4)
[2016-10-25] MEDS ORDERED: PRED10TA PO (09:59)
[2016-10-25] MEDS ORDERED: NEBMAC (09:59)
[2016-10-25] MEDS ORDERED: LVQ500 PO (09:59)
[2016-10-25] MEDS ORDERED: ARFO15NE INH (09:59)
[2016-10-25] MEDS ORDERED: ATRINS INH (09:59)
[2016-10-25] MEDS ORDERED: XPNINS1255 INH (09:59)
--- NOTE | 2016-10-25 10:00 | Discharge Instructions ---
Discharge Instructions Admission Reason for Admission: Asthmatic Bronchitis With Acute Exacerbation Discharge Discharge Diagnosis / Problem: severe asthma, bronchitis Discharge Goals Goal(s): Diagnostic testing, Therapeutic intervention Activity Recommendations Activity Limitations: as noted below Lifting Limitations: gradually increase as tolerated . Current Hospital Diet Patient's current hospital diet: AHA Diet (Heart Healthy) Discharge Diet Recommended Diet: Regular Diet Pending Studies Studies pending at discharge: no Laboratory Results Lipid Panel Test 09/30/16 07:58 Range/Units Triglycerides Level 430 H 0-150 mg/dl Cholesterol Level 255 H 0-200 mg/dl HDL Cholesterol 42 mg/dl Cholesterol/HDL Ratio 6.1 LDL Cholesterol, Calculated mg/dl Medical Emergencies . Who to Call and When: Medical Emergencies: If at any time you feel your situation is an emergency, please call 911 immediately. . Non-Emergent Contact Non-Emergency issues call your: Primary Care Provider, Wrapper Layer (try to see in one week) . . "Provider Documentation" section prepared by Geo Dior. VTE Core Measure Inpt VTE Proph given/why not?: SCD's
[2016-10-25 10:53] VITALS: BP 120/76; PULSE 75; TEMP 37; O2SAT 96
--- NOTE | 2016-10-25 11:06 | Discharge Summary ---
Discharge Summary Admission Date: Oct 22, 2016 at 21:38 Discharge Date: Oct 25, 2016 Discharge Disposition: Home Principal Diagnosis: steroid dependent asthma exacerbation with bronchitis Problems/Secondary Diagnoses: (1) Asthma Status: Chronic (2) Diverticulosis Colon (W/O Ment Of Hemorrhage) Status: Chronic (3) GERD (gastroesophageal reflux disease) Status: Chronic (4) Hyperlipidemia Nec/Nos Status: Chronic (5) Long-Term(Current)Use Of Steroids Status: Chronic Consultations: Dr Carlton Medication Reconciliation New Medications: Nebulizer Machine (Home Use) (Nebulizer Machine (Home Use) ) Mis 1 EA N/A UD, #1 dx is severe asthma Arformoterol Tartrate (Brovana) 15 Mcg/2 Ml Neb 15 MCG INH BIDR for 30 Days, #60 DOSE 6 Refills Ipratropium [place] (Ipratropium [place]) 0.5 Mg/2.5 Ml Nebu 0.5 MG INH Q6R, #120 DOSE Levalbuterol (Levalbuterol) 1.25 Mg/0.5 Ml Nebu 1.25 MG INH Q6R, #120 DOSE 6 Refills Levofloxacin (Levofloxacin) 500 Mg Tab 500 MG PO DAILY@2100, #8 TAB Changed Medications: Prednisone (Prednisone) 10 Mg Tab 40 MG PO BID, #120 TAB 6 Refills (Changed from: 20 MG; Refills: ) keep on 40 mg twice a day until follow up appointment Continued Medications: Albuterol (Ventolin Hfa) Aers 2 PUFFS INH UD PRN for Asthma Symptoms Benzonatate (Tessalon Perles) 100 Mg Cap 1-2 CAP PO Q4 for 5 Days, #60 CAP Budesonide/Formoterol Fumarate (Symbicort 160/4.5 Inhaler) 120 Puffs/ Aero 2 PUFFS INH BID Cetirizine (Zyrtec) 10 Mg Tab 10 MG PO HS, TAB Fish Oil ([place]-3) 1 Ea Cap 3 CAP PO DAILY Lactobacillus (Floranex) 1 Tab Tab 1 TAB PO BID Multiple Vitamin (Multivitamin) 1 Tab Tab 1 TAB PO DAILY, TAB Pseudoephedrine-Guaifenesin (Mucinex D) 1 Tab Tab 1 TAB PO BID for 10 Days, #20 TAB Psyllium (Metamucil Powder) Powd 2 TBS PO DAILY, PACK Senna-Fennel (Natural Vegetable Laxativ) 1 Tab Tab 1 TAB PO BID Discharge Exam Review of Systems: Constitutional: No chills, No fever Respiratory: + cough, + shortness of breath, + sputum Cardiovascular: No chest pain, No edema Abdomen: No nausea, No pain, No vomiting Musculoskeletal: No joint pain, No muscle pain Genitourinary - Female: No dysuria, No urinary frequency Physical Exam: General Appearance: WD/WN, + mild distress Neck: supple, no JVD Respiratory/Chest: no respiratory distress, + decreased breath sounds ( right base), + rhonchi Cardiovascular: regular rate, rhythm, no murmur Abdomen / GI: normal bowel sounds, non tender, soft Extremities: no pedal edema, normal range of motion Neurologic/Psychiatric: alert, oriented x 3 Hospital Course 46 M with acute respiratory failure, acute exacerbation of chronic steroid dependent asthma, with bronchitis improved with BiPAP initially now after excessive mucus expectoration feels better ( ?mucus plugging) 2 step prior to discharge shows does not need home oxygen asthma, has been seen by pulmonary med, taper steriods to po, add aformoterol, continue other nebs, close outpt follow up given issues in the past with steroid taper being unachievable. discussion of bronchial thermoplasty were considered to be continued to discuss in outpt setting levaquin changed to po Total Time Spent: Greater than 30 minutes This includes examination of the patient, discharge planning, medication reconciliation, and communication with other providers. Discharge Instructions Please refer to the electronic Patient Visit Report (Discharge Instructions) for additional information.
[2017-01-09] MEDS ORDERED: LEVO-18 PO (10:32)
[2017-01-12] MEDS ORDERED: LEVO-18 PO (11:10)
[2017-01-12] MEDS ORDERED: PRED10TA PO (11:32)
== END 2016-10-25 11:37 | disposition home or self-care (01) | DRG 189 ==
LOC: ENRESERVTM → ENRESERVDT → C.EDB 19:09 → C.2T 21:38 → C.MS4W 10-24 14:35
PROVIDERS: ADMIT Hospitalist; ATTEND Hospitalist
DX: J96.00 Acute respiratory failure, unspecified whether with hypoxia or hypercapnia (principal); K57.31 Diverticulosis of large intestine without perforation or abscess with bleeding; J45.901 Unspecified asthma with (acute) exacerbation; J20.9 Acute bronchitis, unspecified; E78.5 Hyperlipidemia, unspecified; K21.9 Gastro-esophageal reflux disease without esophagitis; G47.33 Obstructive sleep apnea (adult) (pediatric); Z86.010 Personal history of colon polyps; Z79.52 Long term (current) use of systemic steroids; Z82.5 Family history of asthma and other chronic lower respiratory diseases

== ENCOUNTER 2016-11-12 00:58 | Emergency (ER) | payer BC ==
[~2016-11-12] VITALS: Ht 175.3 cm; Wt 113.0 kg
[~2016-11-12 00:58] MED LIST changes: +ARFO15NE INH; +ATRINS INH; +BENZ100C84 PO; +CETI10TA84 PO; +LVQ500 PO; +PSEU60TA80 PO; +XPNINS1255 INH
[2016-11-12 01:04] VITALS: Ht 175.3 cm; Wt 113.0 kg
[2016-11-12] MEDS ORDERED: ONDANSETRON INJ 2 MG/ML 2 ML VIAL IV STA (01:14)
[2016-11-12] MEDS ORDERED: FENTANYL CITRATE INJ 50 MCG/1 ML 2 ML VIAL IV STA (01:14)
[2016-11-12] MEDS ORDERED: SODIUM CHLORIDE 0.9% 1000ML 1,000 ML IV STA (01:14)
[2016-11-12 01:40] LABS: BASO % 0.1 %; BASO ABS # 0.01 K/uL (0-0.2); COMPLETE YES; EOS % 0.6 %; HEMATOCRIT 49.1 % (42-52); IG% 1.8 %; LYMPH % 6.2 %; LYMPH ABS # 0.74 K/uL (1.2-3.4); MEAN CELL VOLUME 89.9 fL (80-100); MEAN CORPUSCULAR HGB CONC 33.4 g/dl (32-36); MEAN PLATELET VOLUME 9.6 fL (7.4-10.4); MONO % 5.1 %; NEUT % 86.2 %; PLATELET COUNT 122 K/uL (130-400); RED BLOOD COUNT 5.46 M/uL (4.7-6.1); WHITE BLOOD COUNT 11.98 K/uL (4.8-10.8)
[2016-11-12 01:58] LABS: BUN/CREATININE RATIO 17.8 (10-20); CALCIUM 8.6 mg/dl (8.5-10.1); CREATININE 1.3 mg/dl (0.60-1.40); POTASSIUM 4.2 mmol/L (3.5-5.1)
[2016-11-12 02:00] LABS: ALB/GLOB RATIO 1.1 (0.9-2)
[2016-11-12] MEDS ORDERED: PRED10TA PO (02:01)
[2016-11-12] MEDS ORDERED: SPRIN/30 INH (02:05)
[2016-11-12] MEDS ORDERED: IPRASOL4 INH (02:07)
[2016-11-12] MEDS ORDERED: LEVA1.258 PO (02:09)
[2016-11-12] MEDS ORDERED: PSYL48.59 PO (02:10)
[2016-11-12] MEDS ORDERED: ONDA4TAB10 SL (02:55)
[2016-11-12] MEDS ORDERED: OXYC1TAB3 PO (02:55)
--- NOTE | 2016-11-12 02:58 | EMERGENCY ROOM VISIT NOTE ---
History First contact with patient: 01:06 Chief Complaint: ABDOMINAL PAIN Stated Complaint: ABD PAIN Nursing Triage Summary: Pt started with abdominal pain/nausea/vomiting around 2100 tonight. History of Present Illness The patient is a 46 year old male who presents to the Emergency Room with complaints of abdominal pain, nausea, vomiting and diarrhea. Patient reports that approximately 4 hours ago, she had a sudden onset of vomiting and diarrhea. He reports generalized abdominal cramping. He rates his discomfort a 10/10. He has a history of diverticulitis and pancreatitis. He states the symptoms feel similar to when he has had pancreatitis in the past. He has not taken any medications for his pain. He denies any chest pain, shortness of breath, urinary symptoms, blood in his stools, or blood in his vomit. The patient was recently hospitalized for asthma but states that his respiratory symptoms have significantly improved. Review of Systems A complete 10-point Review of Systems was discussed with the patient, with pertinent positives and negatives listed in the History of Present Illness. All remaining Review of Systems questions can be considered negative unless otherwise specified. Past Medical/Surgical History Medical Problems: (1) Abdominal pain (2) Asthma (3) Asthma exacerbation (4) Asthma exacerbation (5) Asthmatic bronchitis with acute exacerbation (6) Diverticulitis (7) Diverticulitis (8) Diverticulosis Colon (W/O Ment Of Hemorrhage) (9) GERD (gastroesophageal reflux disease) (10) Hyperlipidemia Nec/Nos (11) Hypoxia (12) Long-Term(Current)Use Of Steroids (13) Pancreatitis Family History No significant family history Social History Smoking Status: Never Smoker Drug Use: none Marital Status: in relationship Housing Status: lives with significant other Occupation Status: employed Current/Historical Medications Scheduled Budesonide/Formoterol Fumarate (Symbicort 160/4.5 Inhaler), 2 PUFFS INH BID Cetirizine (Zyrtec), 10 MG PO HS Fish Oil ([place]-3), 3 CAP PO DAILY Lactobacillus (Floranex), 1 TAB PO BID Multiple Vitamin (Multivitamin), 1 TAB PO DAILY Ondasetron Odt (Zofran Odt), 4 MG SL Q6H Prednisone Tab (Prednisone), 30 MG PO BID Psyllium (Metamucil), 2 TBS PO DAILY Senna-Fennel (Natural Vegetable Laxativ), 1 TAB PO BID Tiotropium [place] (Spiriva Handihaler), 1 CAP INH DAILY Scheduled PRN Benzonatate (Tessalon Perles), 1 CAP PO TID PRN for Cough Ipratropium-Albuterol (Duoneb), 1 TREATMENT INH QID PRN for SOB/Wheezing Levalbuterol Hcl (Levalbuterol Hcl), 1 DOSE PO Q6 PRN for SOB/Wheezing Oxycodone Ir (Roxicodone Ir), 1-2 TAB PO Q4H PRN for Pain Allergies Coded Allergies: No Known Allergies (Unverified , 11/12/16) Physical Exam Vital Signs Date Time Temp Pulse Resp B/P Pulse Ox O2 Delivery O2 Flow Rate FiO2 11/12/16 05:35 103 18 110/78 98 11/12/16 04:44 105 18 121/79 97 Room Air 11/12/16 03:34 101 18 110/73 94 Room Air 11/12/16 01:48 103 11/12/16 01:45 98 11/12/16 01:04 180 18 136/80 96 Room Air Physical Exam VITALS: Vitals are noted on the nurse's note and reviewed by myself. Vital signs stable. GENERAL: This is a 46-year-old male, in no acute distress, nondiaphoretic, well- developed well-nourished. SKIN: Capillary reflex less than 2 seconds. HEENT: Normocephalic. PERRLA. EOMI. Nares patent. Mucous membranes moist. Neck is supple without nuchal rigidity. HEART: Regular rate and rhythm without murmurs gallops or rubs. LUNGS: Clear to auscultation bilaterally without wheezes, rales or rhonchi. ABDOMEN: Positive bowel sounds x 4. Soft, nontender to palpation. No guarding or rebound tenderness. NEURO: Patient was alert and oriented to person place and time. Medical Decision & Procedures ER Provider Diagnostic Interpretation: CT ABDOMEN & PELVIS: Sigmoid colon diverticulosis with minimal adjacent stranding, suggesting possible minimal acute diverticulitis, but this may be residual prior episode of diverticulitis seen on CT 06/12/15, when there was extensive inflammatory change in this region. Appendix is normal. Liver is mildly enlarged. No evidence of bowel obstruction. No free air or fluid. Small fat-containing right inguinal hernia. Multiple Schmorl's nodes the lower thoracic and lumbar spine. Laboratory Results 11/12/16 01:30 Red Blood Count 5.46, Mean Corpuscular Volume 89.9, Mean Corpuscular Hemoglobin 30.0, Mean Corpuscular Hemoglobin Concent 33.4, Mean Platelet Volume 9.6, Neutrophils (%) (Auto) 86.2, Lymphocytes (%) (Auto) 6.2, Monocytes (%) (Auto) 5.1, Eosinophils (%) (Auto) 0.6, Basophils (%) (Auto) 0.1, Neutrophils # (Auto) 10.34, Lymphocytes # (Auto) 0.74, Monocytes # (Auto) 0.61, Eosinophils # (Auto) 0.07, Basophils # (Auto) 0.01 11/12/16 01:30 Test 11/12/16 01:30 11/12/16 03:32 White Blood Count 11.98 K/uL (4.8-10.8) Red Blood Count 5.46 M/uL (4.7-6.1) Hemoglobin 16.4 g/dL (14.0-18.0) Hematocrit 49.1 % (42-52) Mean Corpuscular Volume 89.9 fL (80-100) Mean Corpuscular Hemoglobin 30.0 pg (25-34) Mean Corpuscular Hemoglobin Concent 33.4 g/dl (32-36) Platelet Count 122 K/uL (130-400) Mean Platelet Volume 9.6 fL (7.4-10.4) Neutrophils (%) (Auto) 86.2 % Lymphocytes (%) (Auto) 6.2 % Monocytes (%) (Auto) 5.1 % Eosinophils (%) (Auto) 0.6 % Basophils (%) (Auto) 0.1 % Neutrophils # (Auto) 10.34 K/uL (1.4-6.5) Lymphocytes # (Auto) 0.74 K/uL (1.2-3.4) Monocytes # (Auto) 0.61 K/uL (0.11-0.59) Eosinophils # (Auto) 0.07 K/uL (0-0.5) Basophils # (Auto) 0.01 K/uL (0-0.2) RDW Standard Deviation 46.4 fL (36.4-46.3) RDW Coefficient of Variation 14.2 % (11.5-14.5) Immature Granulocyte % (Auto) 1.8 % Immature Granulocyte # (Auto) 0.21 K/uL (0.00-0.02) Anion Gap 9.0 mmol/L (3-11) Est Creatinine Clear Calc Drug Dose 87.1 ml/min Estimated GFR () 75.3 Estimated GFR (Non- 65.0 BUN/Creatinine Ratio 17.8 (10-20) Calcium Level 8.6 mg/dl (8.5-10.1) Total Bilirubin 0.8 mg/dl (0.2-1) Aspartate Amino Transf (AST/SGOT) 20 U/L (15-37) Alanine Aminotransferase (ALT/SGPT) 42 U/L (12-78) Alkaline Phosphatase 65 U/L (45-117) Total Protein 6.3 gm/dl (6.4-8.2) Albumin 3.3 gm/dl (3.4-5.0) Globulin 3.0 gm/dl (2.5-4.0) Albumin/Globulin Ratio 1.1 (0.9-2) Lipase 751 U/L (73-393) Chemistry Specimen Hemolysis Urine Color YELLOW Urine Appearance CLEAR (CLEAR) Urine pH 6.5 (4.5-7.5) Urine Specific [place] 1.020 (1.000-1.030) Urine Protein NEG (NEG) Urine Glucose (UA) NEG (NEG) Urine Ketones NEG (NEG) Urine Occult Blood NEG (NEG) Urine Nitrite NEG (NEG) Urine Bilirubin NEG (NEG) Urine Urobilinogen NEG (NEG) Urine Leukocyte Esterase NEG (NEG) Medications Administered Medications (Trade) Dose Ordered Sig/Celia Route Start Time Stop Time Status Last Admin Dose Admin Sodium Chloride (Nss 1000ml) 1,000 ml @ 999 mls/hr Q1H1M STAT IV 11/12/16 01:14 11/12/16 02:14 DC 11/12/16 01:38 999 MLS/HR Ondansetron HCl (Zofran Inj) 4 mg NOW STAT IV 11/12/16 01:14 11/12/16 01:18 DC 11/12/16 01:37 4 MG Fentanyl Citrate (Fentanyl Inj) 50 mcg NOW STAT IV 11/12/16 01:14 11/12/16 01:18 DC 11/12/16 01:38 50 MCG Oxycodone HCl (Roxicodone Immediate Rel 5MG Home Pack) 1 homepack UD ONCE PO 11/12/16 03:00 11/12/16 03:01 DC 11/12/16 05:30 1 HOMEPACK Ondansetron HCl (ZOFRAN ODT 4MG Home Pack) 1 homepack UD ONCE PO 11/12/16 03:00 11/12/16 03:01 DC 11/12/16 05:30 1 HOMEPACK Morphine Sulfate (MoRPHine SULFATE INJ) 4 mg NOW STAT IV 11/12/16 03:20 11/12/16 03:21 DC 11/12/16 03:30 4 MG Medical Decision Differential diagnosis includes appendicitis, diverticulitis, appendicitis, gastroenteritis, colitis, among others. The patient was evaluated as above. Labs were drawn and IV access was obtained. Imaging studies were performed and read by radiology as above. The patient was medicated with 1 L normal saline solution, 4 mg Zofran, and 50 g fentanyl. He did have continued pain and was then given 4 million his morphine IV. He was reassessed multiple times during their stay in the emergency department and remained in stable condition. The patient is a 46-year-old male who presents today complaining of vomiting and diarrhea. Labs revealed a mild leukocytosis consistent with vomiting. No significant anemia. Lipase is slightly elevated but not significantly. CT of the abdomen and pelvis was performed and showed questionable diverticulitis. However, the patient does not have any left lower quadrant pain or tenderness and I feel this is unlikely. He had a sudden onset of vomiting and diarrhea which would be consistent with a gastroenteritis. He may have some mild pancreatitis. The patient was reevaluated multiple times and complained of feeling sleepy, but denied any continued pain or nausea. I do feel that he is stable for outpatient treatment and follow-up with his primary care provider. He'll be given a prescription of OxyIR. Based on the patient's presentation, lab results, and imaging studies, I feel the patient is stable for outpatient treatment. The patient's case was reviewed with Dr. Wooten, ED attending physician, who agreed with my assessment and treatment plan. Discharge instructions were reviewed with the patient. The patient verbalized understanding of my assessment and treatment plan and was discharged home in good condition. [place] Drug Monitoring Program Search Results: patient reviewed within database, no issues identified Impression Primary Impression: Generalized abdominal discomfort Departure Information Dispostion Home / Self-Care Condition GOOD Prescriptions Ondasetron Odt (ZOFRAN ODT) 4 Mg Tab 4 MG SL Q6H for Nausea, #15 TAB Prov: Ana Cristina Salgado PA-C 11/12/16 Oxycodone Ir (Roxicodone Ir) 5 Mg Tab 1-2 TAB PO Q4H Y for Pain, #15 TAB For Initial Treatment Prov: Ana Cristina Salgado PA-C 11/12/16 Referrals Elan Beasley D.O.Int.Med. (PCP) Patient Instructions My [facility] Additional Instructions You have been treated in the Emergency Department your Abdominal Pain. Laboratory results and imaging studies have ruled out any emergent causes for your abdominal pain which would warrant admission or surgery. You have been prescribed OxyIR to be used for pain control. This is a narcotic medication. You cannot drive or consume alcohol while on this medicine. This medicine should only be used for pain that cannot be controlled with over-the- counter pain medicines. You have been prescribed Zofran to be used for any nausea or vomiting. Take as prescribed. For pain control, you can use the following [id number] medicines (if >12 yo): - Regular strength (325mg/tab) Tylenol (acetaminophen) 2 tabs every 4-6 hours as needed. Do not exceed 12 tablets in a 24 hour period. Avoid taking more than 4 grams (4000 mg) of Tylenol per day. This includes any other sources of acetaminophen you may take on a regular basis. - Regular strength (200 mg/tab) Advil (ibuprofen) 1-2 tabs every 4-6 hours as needed. Do not exceed a dose of 3200 mg per day. Drink plenty of water and stay well hydrated. Follow up with your primary care provider within 2-3 days for your abdominal pain. Return to the emergency department if your symptoms persist despite treatment plan outlined above or if the following symptoms occur: increased fevers, chills , worsening nausea/vomiting, blood in your stool or urine.
[2016-11-12] MEDS ORDERED: OXYCODONE IR HOME PACK PO ONE ×2 (03:00→05:22)
[2016-11-12] MEDS ORDERED: ONDANSETRON HOME PACK 4MG OD TAB PO ONE (03:00)
[2016-11-12] MEDS ORDERED: MoRPHine SULFATE 4 MG/ML 1 ML CARP\\VIAL IV STA (03:20)
[2016-11-12 03:39] LABS: URINE APPEARANCE CLEAR (CLEAR); URINE BILIRUBIN NEG (NEG); URINE COLOR YELLOW; URINE NITRITE NEG (NEG); URINE PH 6.5 (4.5-7.5); UROBILINOGEN NEG (NEG); ZZUR CULT IF INDIC CLEAN CATCH NO
[2016-11-12 03:47] LABS: MANUAL MICROSCOPIC REQUIRED? NO; REVIEW REQ? NO
[2016-11-12] MEDS ORDERED: OPTIRAY 320 IV PRN (04:15)
[2016-11-12] MEDS ORDERED: ONDANSETRON HOME PACK 4MG OD TAB ONE (05:22)
[2016-11-12 05:35] VITALS: BP 110/78; PULSE 103; O2SAT 98
--- NOTE | 2016-11-12 06:48 | DIAGNOSTIC IMAGING REPORT ---
ABDOMEN AND PELVIS CT WITH IV CONTRAST CT DOSE: 1112.01 mGy.cm HISTORY: Abdominal and pelvic pain. abdominal pain, vomiting TECHNIQUE: Multiaxial CT images of the abdomen and pelvis were performed following the use of intravenous contrast. COMPARISON STUDY: 06/12/2015 FINDINGS: Lung bases are clear. Mild fatty infiltration of liver. Spleen pancreas are unremarkable. Bowel pattern suggests a component of mild enteritis with a component of mild chronic sigmoid diverticulosis. Trace amount of pericolonic infiltrative change is identified proximal sigmoid. There is no evidence for abscess collection or obstruction. Bladder is midline. IMPRESSION: Mild chronic sigmoid diverticulosis with a trace amount of proximal sigmoid diverticulitis. No evidence for abscess collection or obstruction. Potential mild nonspecific enteritis. Electronically signed by: Donny Sesay M.D. 11/12/2016 6:47 AM Dictated Date/Time: 11/12/2016 6:45 AM
[2017-01-09] MEDS ORDERED: LEVO-18 PO (10:32)
[2017-01-12] MEDS ORDERED: LEVO-18 PO (11:10)
[2017-01-12] MEDS ORDERED: PRED10TA PO (11:32)
== END 2016-11-12 05:36 | disposition home or self-care (01) ==
LOC: C.EDB 00:59
DX: R10.84 Generalized abdominal pain (principal); R11.2 Nausea with vomiting, unspecified; R19.7 Diarrhea, unspecified; J45.909 Unspecified asthma, uncomplicated; K57.30 Diverticulosis of large intestine without perforation or abscess without bleeding; K21.9 Gastro-esophageal reflux disease without esophagitis; E78.5 Hyperlipidemia, unspecified; Z79.52 Long term (current) use of systemic steroids

== ENCOUNTER 2016-12-26 11:11 | Emergency (ER) | payer BC ==
[~2016-12-26] VITALS: Ht 172.7 cm; Wt 115.2 kg
[~2016-12-26 11:11] MED LIST changes: -ALBUAER2 INH; -ARFO15NE INH; -ATRINS INH; +IPRASOL4 INH; +LEVA1.258 PO; -LVQ500 PO; +ONDA4TAB10 SL; +OXYC1TAB3 PO; -PSEU60TA80 PO; +PSYL48.59 PO; -PSYL55.43 PO; +SPRIN/30 INH; -XPNINS1255 INH
[2016-12-26 11:15] VITALS: O2SAT 96; Ht 172.7 cm; Wt 115.2 kg
[2016-12-26] MEDS ORDERED: BLACKSEED OIL PO (12:06)
[2016-12-26 12:54] LABS: BASO % 0.6 %; BASO ABS # 0.07 K/uL (0-0.2); COMPLETE YES; EOS % 2.9 %; HEMATOCRIT 39.3 % (42-52); IG% 1.1 %; LYMPH % 24.5 %; LYMPH ABS # 2.83 K/uL (1.2-3.4); MEAN CELL VOLUME 86.6 fL (80-100); MEAN CORPUSCULAR HEMOGLOBIN 29.1 pg (25-34); MEAN CORPUSCULAR HGB CONC 33.6 g/dl (32-36); MEAN PLATELET VOLUME 9.3 fL (7.4-10.4); MONO % 10.3 %; NEUT % 60.6 %; PLATELET COUNT 203 K/uL (130-400); RED BLOOD COUNT 4.54 M/uL (4.7-6.1); WHITE BLOOD COUNT 11.56 K/uL (4.8-10.8)
[2016-12-26 13:17] LABS: ALT/SGPT 76 U/L (12-78); BLOOD UREA NITROGEN 15 mg/dl (7-18); BUN/CREATININE RATIO 13.5 (10-20); CALCIUM 9.7 mg/dl (8.5-10.1); CARBON DIOXIDE 27 mmol/L (21-32); CHLORIDE 106 mmol/L (98-107); GLUCOSE 101 mg/dl (70-99); SODIUM 142 mmol/L (136-145); URIC ACID 8.2 mg/dl (2.6-7.2)
[2016-12-26 13:27] LABS: ALB/GLOB RATIO 1.1 (0.9-2); ALKALINE PHOSPHATASE 69 U/L (45-117); AST/SGOT 34 U/L (15-37)
--- NOTE | 2016-12-26 13:36 | EMERGENCY ROOM VISIT NOTE ---
History Report prepared by Domonique: Nara Funez Under the Supervision of: Dr. Margret Tinsley D.O. First contact with patient: 11:39 Chief Complaint: SYNCOPE (NEAR SYNCOPE) Stated Complaint: SYNCOPE (NEAR SYNCOPE) Nursing Triage Summary: Pt was at [facility] to be seen for pain in right great toe. Pt was sitting and became lightheaded, dizzy, hot, and blurred vision for about 30 seconds. Pt then had BM and felt better. Denies any symptoms at this time. PT did not eat breakfast which is normal. BSG 99. Pt states "I have just been feeling really run down for the last week." History of asthma. 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 The patient came to the ED via ambulance. The patient was seen at [facility] for pain in his right great toe that started 3-4 days ago. The patient stubbed his toe 2-3 weeks ago, but denies any other injury. He states that the pain and edema in his right great toe started at the same time. He was sitting and talking to the doctor when he became lightheaded, dizzy, pale, and felt like he had to have a bowel movement. The patient then experienced blurred vision for about 30 seconds. He did not experience LOC. He states that he went to the bathroom and had a normal bowel movement. The patient felt better after he used the bathroom. The patient denies any chest pain or shortness of breath prior to the lightheadedness. He also denies urinary symptoms and any recent changes in his bowel movements. The patient denies any symptoms currently other than the pain in his right great toe. He is also experiencing chills and generalized body aches that started 1 week ago. The patient's adds that the patient the patient experiences nausea after eating and he states that he has not been eating as much recently. The patient's states that the patient has been on prednisone for the past 7-8 years for asthma. However, the patient has been taking black seed oil for his asthma and he has been off of prednisone completely for the past 7 days. The patient denies any history of kidney problems. Additionally, the patient's states that the patient was previously diagnosed with influenza but she states that has resolved. The patient denies any family history of autoimmune or rheumatological disease. 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 A total of 10 systems reviewed and were otherwise negative. Past Medical & Surgical Medical Problems: (1) Abdominal pain (2) Asthma (3) Asthma exacerbation (4) Asthma exacerbation (5) Asthmatic bronchitis with acute exacerbation (6) Diverticulitis (7) Diverticulitis (8) Diverticulosis Colon (W/O Ment Of Hemorrhage) (9) GERD (gastroesophageal reflux disease) (10) Hyperlipidemia Nec/Nos (11) Hypoxia (12) Long-Term(Current)Use Of Steroids (13) Pancreatitis Family History Asthma Social History Smoking Status: Never Smoker Drug Use: none Marital Status: in relationship Housing Status: lives with significant other Occupation Status: employed Current/Historical Medications Scheduled Budesonide/Formoterol Fumarate (Symbicort 160/4.5 Inhaler), 2 PUFFS INH BID Cetirizine (Zyrtec), 10 MG PO HS Fish Oil ([place]-3), 3 CAP PO DAILY Indomethacin (Indocin), 50 MG PO TID Lactobacillus (Floranex), 1 TAB PO BID Multiple Vitamin (Multivitamin), 1 TAB PO DAILY Ondasetron Odt (Zofran Odt), 4 MG SL Q6H Psyllium (Metamucil), 2 TBS PO DAILY Senna-Fennel (Natural Vegetable Laxativ), 1 TAB PO BID [Blackseed Oil], 1 CAP PO BID Scheduled PRN Benzonatate (Tessalon Perles), 1 CAP PO TID PRN for Cough Ipratropium-Albuterol (Duoneb), 1 TREATMENT INH QID PRN for SOB/Wheezing Levalbuterol Hcl (Levalbuterol Hcl), 1 DOSE PO Q6 PRN for SOB/Wheezing Oxycodone Ir (Roxicodone Ir), 1-2 TAB PO Q4H PRN for Pain Allergies Coded Allergies: No Known Allergies (Unverified , 11/12/16) Physical Exam Vital Signs Date Time Temp Pulse Resp B/P Pulse Ox O2 Delivery O2 Flow Rate FiO2 12/26/16 15:22 37.3 106 16 133/87 95 12/26/16 13:53 105 16 125/98 94 12/26/16 12:57 77 20 125/72 95 12/26/16 11:31 85 12/26/16 11:15 96 Room Air 12/26/16 11:15 36.7 85 18 130/94 97 Room Air Physical Exam GENERAL: alert, well appearing, well nourished, no distress, non-toxic EYE EXAM: normal conjunctiva, PERRL and EOM's grossly intact OROPHARYNX: no exudate, no erythema, lips, buccal mucosa, and tongue normal and mucous membranes are moist NECK: supple, no nuchal rigidity, no adenopathy, non-tender LUNGS: Clear to auscultation. Normal chest wall mechanics HEART: no murmurs, S1 normal and S2 normal ABDOMEN: abdomen soft, non-tender, normo-active bowel sounds, no masses, no rebound or guarding. BACK: Back is symmetrical on inspection and there is no deformity, no midline tenderness, no CVA tenderness. SKIN: no rashes and no bruising UPPER EXTREMITIES: upper extremities are grossly normal. LOWER EXTREMITIES: Right great toe and MTP have increased edema and erythema, mild warmth, tender to palpation, decreased range of motion secondary to pain, normal capillary refill, normal pulses, normal sensation, no ecchymosis, no deformity, no evidence of trauma. NEURO EXAM: Normal sensorium, cranial nerves II-XII grossly intact, normal speech, no gross weakness of arms, no gross weakness of legs. Medical Decision & Procedures ER Provider Diagnostic Interpretation: Xray results per the radiologist and my interpretation. CHEST 1 VW FRONT-NOT PORTABLE IMPRESSION: Negative chest. Electronically signed by: Donny Sesay M.D. 12/26/2016 1:54 PM Dictated Date/Time: 12/26/2016 1:54 PM RIGHT FOOT MIN 3 VIEWS ROUTINE IMPRESSION: Negative study. Electronically signed by: Donny Sesay M.D. 12/26/2016 1:57 PM Dictated Date/Time: 12/26/2016 1:57 PM Laboratory Results 12/26/16 12:40 Red Blood Count 4.54, Mean Corpuscular Volume 86.6, Mean Corpuscular Hemoglobin 29.1, Mean Corpuscular Hemoglobin Concent 33.6, Mean Platelet Volume 9.3, Neutrophils (%) (Auto) 60.6, Lymphocytes (%) (Auto) 24.5, Monocytes (%) (Auto) 10.3, Eosinophils (%) (Auto) 2.9, Basophils (%) (Auto) 0.6, Neutrophils # (Auto ) 7.01, Lymphocytes # (Auto) 2.83, Monocytes # (Auto) 1.19, Eosinophils # (Auto ) 0.33, Basophils # (Auto) 0.07 12/26/16 12:40 Test 12/26/16 00:00 12/26/16 12:40 Influenza Type A Antigen Neg for Influ A (NEG) Influenza Type B Antigen Neg for Influ B (NEG) White Blood Count 11.56 K/uL (4.8-10.8) Red Blood Count 4.54 M/uL (4.7-6.1) Hemoglobin 13.2 g/dL (14.0-18.0) Hematocrit 39.3 % (42-52) Mean Corpuscular Volume 86.6 fL (80-100) Mean Corpuscular Hemoglobin 29.1 pg (25-34) Mean Corpuscular Hemoglobin Concent 33.6 g/dl (32-36) Platelet Count 203 K/uL (130-400) Mean Platelet Volume 9.3 fL (7.4-10.4) Neutrophils (%) (Auto) 60.6 % Lymphocytes (%) (Auto) 24.5 % Monocytes (%) (Auto) 10.3 % Eosinophils (%) (Auto) 2.9 % Basophils (%) (Auto) 0.6 % Neutrophils # (Auto) 7.01 K/uL (1.4-6.5) Lymphocytes # (Auto) 2.83 K/uL (1.2-3.4) Monocytes # (Auto) 1.19 K/uL (0.11-0.59) Eosinophils # (Auto) 0.33 K/uL (0-0.5) Basophils # (Auto) 0.07 K/uL (0-0.2) RDW Standard Deviation 45.6 fL (36.4-46.3) RDW Coefficient of Variation 14.6 % (11.5-14.5) Immature Granulocyte % (Auto) 1.1 % Immature Granulocyte # (Auto) 0.13 K/uL (0.00-0.02) Anion Gap 9.0 mmol/L (3-11) Est Creatinine Clear Calc Drug Dose 102.3 ml/min Estimated GFR () 92.2 Estimated GFR (Non- 79.5 BUN/Creatinine Ratio 13.5 (10-20) Uric Acid 8.2 mg/dl (2.6-7.2) Calcium Level 9.7 mg/dl (8.5-10.1) Total Bilirubin 0.6 mg/dl (0.2-1) Aspartate Amino Transf (AST/SGOT) 34 U/L (15-37) Alanine Aminotransferase (ALT/SGPT) 76 U/L (12-78) Alkaline Phosphatase 69 U/L (45-117) Total Creatine Kinase 125 U/L (39-308) Troponin I < 0.015 ng/ml (0-0.045) Total Protein 6.9 gm/dl (6.4-8.2) Albumin 3.6 gm/dl (3.4-5.0) Globulin 3.3 gm/dl (2.5-4.0) Albumin/Globulin Ratio 1.1 (0.9-2) Thyroid Stimulating Hormone (TSH) 1.620 uIu/ml (0.300-4.500) Laboratory results per my review. Medications Administered Medications (Trade) Dose Ordered Sig/Celia Route Start Time Stop Time Status Last Admin Dose Admin Colchicine (Colchicine Tab) 1.2 mg NOW ONCE PO 12/26/16 13:45 12/26/16 13:46 DC 12/26/16 13:52 1.2 MG Indomethacin (Indocin Cap) 50 mg NOW ONCE PO 17 15:15 1817 15:16 DC 17 15:17 50 MG Colchicine (Colchicine Tab) 0.6 mg NOW ONCE PO 12/26/16 15:15 1817 15:16 DC 12/26/16 15:17 0.6 MG ECG Indication: syncope Rate (beats per minute): 95 Rhythm: sinus rhythm Findings: no acute ischemic change, no ectopy, other (normal axis, normal intervals) ED Course 1141: The patient was evaluated in room C3. A complete history and physical exam was performed. 1345: Ordered Colchicine Tab 1.2 mg PO 1500: Upon reevaluation, the patient is feeling better. I discussed the findings and the treatment plan with the patient. He verbalizes agreement and understanding. He was discharged home. 1515: Ordered Colchicine 0.6 mg PO, Indocin Cap 50 mg PO Medical Decision Differential diagnosis: Etiologies such as vasovagal syncope, medication reaction, cardiac, trauma, gout , cellulitis, as well as others were entertained. Pt well appearing here throughout, no recurrent near syncope. Likely vasovagal given pain and need to have BM. Doubt acs, dysrhythmia, underlying infectious etiology, cva/tia, sah. Normal neuro exam here. STable VS. Foot pain likely from gout, likely reason for mild leukocytosis. Possible leukocytosis from recent cessation of steroids. Doubt seizure. Possible viral syndrome related to generalized aches, no evidence of rhabdo/renal failure. Impression Primary Impression: Pain of right great toe Additional Impressions: Gout Near syncope Scribe Attestation The scribe's documentation has been prepared under my direction and personally reviewed by me in its entirety. I confirm that the note above accurately reflects all work, treatment, procedures, and medical decision making performed by me. Departure Information Dispostion Home / Self-Care Prescriptions Indomethacin (Indocin) 50 Mg Cap 50 MG PO TID, #20 CAP WITH FOOD UNTIL PAIN RESOLVES Prov: Margret Tinsley, DO 12/26/16 Referrals Elan Beasley D.O.Int.Med. (PCP) Forms HOME CARE DOCUMENTATION FORM, IMPORTANT VISIT INFORMATION Patient Instructions My [facility] Additional Instructions Please call and follow-up with your family doctor to discuss your symptoms and have them recheck your foot. Please take the antiinflammatories as prescribed and take them with food in your stomach. If you have any recurrent episodes of dizziness/lightheadedness, develop chest pain, trouble breathing, headache, fevers, increased pain/swelling in the foot or leg, develop rash, vomiting, black or bloody stools, or you have any other new or concerning symptoms, please return to the emergency room. Problem Qualifiers Additional Impressions: Gout Gout site: toe Gout etiology: unspecified cause Laterality: right Chronicity: acute Qualified Codes: M10.9 - Gout, unspecified
[2016-12-26] MEDS ORDERED: COLCHICINE 0.6 MG TAB PO ONE ×2 (13:45→15:15)
--- NOTE | 2016-12-26 13:56 | DIAGNOSTIC IMAGING REPORT ---
CHEST 1 VW FRONT-NOT PORTABLE CLINICAL HISTORY: near syncope dyspnea COMPARISON STUDY: 10/22/2016 FINDINGS: The bones soft tissues and hemidiaphragms are normal. The cardiomediastinal silhouette is normal. The lungs are clear. The pulmonary vasculature is normal. IMPRESSION: Negative chest. Electronically signed by: Donny Sesay M.D. 12/26/2016 1:54 PM Dictated Date/Time: 12/26/2016 1:54 PM
--- NOTE | 2016-12-26 13:59 | DIAGNOSTIC IMAGING REPORT ---
RIGHT FOOT MIN 3 VIEWS ROUTINE CLINICAL HISTORY: RIGHT GREAT TOE PAIN, POSS TRAUMA Right trauma. Pain. COMPARISON: None. DISCUSSION: The bones and joint spaces appear intact. There is no evidence of fracture, dislocation or bony disease. There is no evidence for soft tissue swelling. IMPRESSION: Negative study. Electronically signed by: Donny Sesay M.D. 12/26/2016 1:57 PM Dictated Date/Time: 12/26/2016 1:57 PM
[2016-12-26] MEDS ORDERED: INDOMETHACIN 25 MG CAP PO ONE (15:15)
[2016-12-26] MEDS ORDERED: INDO-24 PO (15:17)
[2016-12-26 15:22] VITALS: BP 133/87; PULSE 106; TEMP 37.3; O2SAT 95
[2017-01-09] MEDS ORDERED: LEVO-18 PO (10:32)
[2017-01-12] MEDS ORDERED: LEVO-18 PO (11:10)
[2017-01-12] MEDS ORDERED: PRED10TA PO (11:32)
== END 2016-12-26 16:23 | disposition home or self-care (01) ==
LOC: EDBD 11:11 → C.EDC 11:12
DX: M10.9 Gout, unspecified (principal); R55 Syncope and collapse; J45.909 Unspecified asthma, uncomplicated; K21.9 Gastro-esophageal reflux disease without esophagitis

== ENCOUNTER 2016-12-28 13:56 | Inpatient (IN) | payer BC ==
[~2016-12-28] VITALS: Ht 175.3 cm; Wt 114.1 kg
[~2016-12-28 13:56] MED LIST changes: +BLACKSEED OIL PO; +INDO-24 PO; -PRED10TA PO; -SPRIN/30 INH
[2016-12-28] MEDS ORDERED: DIAZEPAM INJ 5 MG/ML 2 ML CARP IV STA (15:32)
[2016-12-28] MEDS ORDERED: ONDANSETRON INJ 2 MG/ML 2 ML VIAL IV STA ×2 (15:32→17:24)
[2016-12-28] MEDS ORDERED: SODIUM CHLORIDE 0.9% 1000ML 1,000 ML IV STA (15:32)
[2016-12-28 15:41] LABS: BASO % 0.4 %; BASO ABS # 0.05 K/uL (0-0.2); COMPLETE YES; EOS % 2.8 %; IG% 1.1 %; LYMPH ABS # 3.07 K/uL (1.2-3.4); MEAN CELL VOLUME 84.6 fL (80-100); MEAN CORPUSCULAR HEMOGLOBIN 29.4 pg (25-34); MEAN CORPUSCULAR HGB CONC 34.7 g/dl (32-36); MEAN PLATELET VOLUME 9.2 fL (7.4-10.4); MONO % 10.8 %; NEUT % 58.9 %; PLATELET COUNT 221 K/uL (130-400); RED BLOOD COUNT 4.49 M/uL (4.7-6.1); WHITE BLOOD COUNT 11.83 K/uL (4.8-10.8)
--- NOTE | 2016-12-28 16:00 | EMERGENCY ROOM VISIT NOTE ---
History First contact with patient: 15:22 Chief Complaint: DIZZY Stated Complaint: DIZZINESS,HEADACHE Nursing Triage Summary: Pt states he was driving and got dizzy, "felt like things were in slow motion." H/A. N/V. Pt seen here yesterday. History of Present Illness The patient is a 46 year old male who presents to the Emergency Room with complaints of headache and dizziness. The patient states that around 1 PM he had a sudden onset of a sensation that the room was spinning. He reports associated nausea and vomiting. The patient states he was here a few days ago for toe pain but states he felt completely back to normal until 1 PM today. He reports a headache behind his eyes. He states that the spinning started first. He rates his discomfort a 7/10. He denies any fevers, chills, earache, sore throat, cough. He denies any pain in his chest or trouble breathing. He denies any numbness, tingling, weakness in the extremities. He denies any other symptoms. Review of Systems A 10 system review of systems was completed with positives and pertinent negatives listed in the HPI. Past Medical/Surgical History Medical Problems: (1) Abdominal pain (2) Asthma (3) Asthma exacerbation (4) Asthma exacerbation (5) Asthmatic bronchitis with acute exacerbation (6) Diverticulitis (7) Diverticulitis (8) Diverticulosis Colon (W/O Ment Of Hemorrhage) (9) GERD (gastroesophageal reflux disease) (10) Hyperlipidemia Nec/Nos (11) Hypoxia (12) Long-Term(Current)Use Of Steroids (13) Pancreatitis (14) Vertigo Family History Asthma Social History Smoking Status: Never Smoker Drug Use: none Marital Status: in relationship Housing Status: lives with significant other Occupation Status: employed Current/Historical Medications Scheduled Budesonide/Formoterol Fumarate (Symbicort 160/4.5 Inhaler), 2 PUFFS INH BID Cetirizine (Zyrtec), 10 MG PO HS Fish Oil ([place]-3), 3 CAP PO DAILY Indomethacin (Indocin), 50 MG PO TID Lactobacillus (Floranex), 1 TAB PO BID Multiple Vitamin (Multivitamin), 1 TAB PO DAILY Ondasetron Odt (Zofran Odt), 4 MG SL Q6H Psyllium (Metamucil), 2 TBS PO DAILY Senna-Fennel (Natural Vegetable Laxativ), 1 TAB PO BID [Blackseed Oil], 1 CAP PO BID Scheduled PRN Benzonatate (Tessalon Perles), 1 CAP PO TID PRN for Cough Ipratropium-Albuterol (Duoneb), 1 TREATMENT INH QID PRN for SOB/Wheezing Levalbuterol Hcl (Levalbuterol Hcl), 1 DOSE PO Q6 PRN for SOB/Wheezing Oxycodone Ir (Roxicodone Ir), 1-2 TAB PO Q4H PRN for Pain Allergies Coded Allergies: No Known Allergies (Unverified , 11/12/16) Physical Exam Vital Signs Date Time Temp Pulse Resp B/P Pulse Ox O2 Delivery O2 Flow Rate FiO2 12/28/16 19:22 97 Nasal Cannula 3.0 12/28/16 19:20 83 Room Air 12/28/16 18:12 87 20 145/90 95 Room Air 12/28/16 16:26 84 18 139/80 96 Room Air 12/28/16 15:13 72 28 127/89 99 Room Air 12/28/16 14:17 36.5 76 18 143/94 96 Room Air Physical Exam VITALS: Vitals are noted on the nurse's note and reviewed by myself. Vital signs stable. The patient is afebrile. GENERAL: This is a 46-year-old male, in no acute distress, nondiaphoretic, well- developed well-nourished. SKIN: The skin was without rashes, erythema, edema, or bruising. There is no tenting of the skin. Capillary reflex less than 2 seconds. HEAD: Normocephalic atraumatic. EARS: External auditory canals clear, tympanic membranes pearly ihll without erythema or effusion bilaterally. EYES: Pupils equal round and reactive to light and accommodation. Conjunctivae without injection, sclerae without icterus. Extraocular movements intact. NOSE: Patent, turbinates without inflammation or discharge. No sinus tenderness. MOUTH: Mucous membranes moist. Tonsils are not enlarged. Pharynx without erythema or exudate. Uvula midline. Airway patent. Tongue does not deviate. NECK: Supple without nuchal rigidity. No lymphadenopathy. No thyromegaly. Cervical spine is nontender. No JVD. HEART: Regular rate and rhythm without murmurs gallops or rubs. LUNGS: Clear to auscultation bilaterally without wheezes, rales or rhonchi. No retractions or accessory muscle use. ABDOMEN: Positive bowel sounds x 4. Soft, nontender, without masses or organomegaly. MUSCULOSKELETAL: No muscle atrophy, erythema, or edema noted. Full range of motion in all extremities. No tenderness to palpation Strength 5/5 throughout. NEURO: Patient was alert and oriented to person place and time. Cranial nerves II through XII grossly intact. No focal neurological deficits. Medical Decision & Procedures ER Provider Diagnostic Interpretation: [~ rep ct add3]] HEAD CT NONCONTRAST CT DOSE: 767.83 mGy.cm HISTORY: Mental status change dizziness, headache TECHNIQUE: Multiaxial CT images of the head were performed without the use of intravenous contrast. Comparison: None. Findings: Moderate mucosal thickening of the maxillary as well as ethmoid sinuses. Frontal sinuses are clear. The calvarium and skull base are intact. The ventricles and sulci are within normal limits. There is no mass, hematoma, midline shift, or acute infarct. Impression: No acute intracranial abnormality. Chronic sinusitis SINGLE VIEW CHEST CLINICAL HISTORY: Dizziness. FINDINGS: An AP, portable, upright chest radiograph is compared to study dated 12/26/2016. The examination is degraded by portable technique, large body habitus, and patient rotation. The cardiomediastinal silhouette is unremarkable. There is chronic elevation of the right hemidiaphragm with mild bibasilar atelectasis. The lungs and pleural spaces are otherwise clear. No pneumothorax is seen. The bony thorax is grossly intact. IMPRESSION: No active disease in the chest. Laboratory Results 12/28/16 15:25 Red Blood Count 4.49, Mean Corpuscular Volume 84.6, Mean Corpuscular Hemoglobin 29.4, Mean Corpuscular Hemoglobin Concent 34.7, Mean Platelet Volume 9.2, Neutrophils (%) (Auto) 58.9, Lymphocytes (%) (Auto) 26.0, Monocytes (%) (Auto) 10.8, Eosinophils (%) (Auto) 2.8, Basophils (%) (Auto) 0.4, Neutrophils # (Auto ) 6.97, Lymphocytes # (Auto) 3.07, Monocytes # (Auto) 1.28, Eosinophils # (Auto ) 0.33, Basophils # (Auto) 0.05 12/28/16 15:25 Test 12/28/16 15:25 White Blood Count 11.83 K/uL (4.8-10.8) Red Blood Count 4.49 M/uL (4.7-6.1) Hemoglobin 13.2 g/dL (14.0-18.0) Hematocrit 38.0 % (42-52) Mean Corpuscular Volume 84.6 fL (80-100) Mean Corpuscular Hemoglobin 29.4 pg (25-34) Mean Corpuscular Hemoglobin Concent 34.7 g/dl (32-36) Platelet Count 221 K/uL (130-400) Mean Platelet Volume 9.2 fL (7.4-10.4) Neutrophils (%) (Auto) 58.9 % Lymphocytes (%) (Auto) 26.0 % Monocytes (%) (Auto) 10.8 % Eosinophils (%) (Auto) 2.8 % Basophils (%) (Auto) 0.4 % Neutrophils # (Auto) 6.97 K/uL (1.4-6.5) Lymphocytes # (Auto) 3.07 K/uL (1.2-3.4) Monocytes # (Auto) 1.28 K/uL (0.11-0.59) Eosinophils # (Auto) 0.33 K/uL (0-0.5) Basophils # (Auto) 0.05 K/uL (0-0.2) RDW Standard Deviation 43.0 fL (36.4-46.3) RDW Coefficient of Variation 14.0 % (11.5-14.5) Immature Granulocyte % (Auto) 1.1 % Immature Granulocyte # (Auto) 0.13 K/uL (0.00-0.02) Prothrombin Time 9.9 SECONDS (9.0-12.0) Prothromb Time International Ratio 0.9 (0.9-1.1) Activated Partial Thromboplast Time 24.4 SECONDS (21.0-31.0) Partial Thromboplastin Ratio 0.9 Anion Gap 9.0 mmol/L (3-11) Est Creatinine Clear Calc Drug Dose 115.5 ml/min Estimated GFR () 103.4 Estimated GFR (Non- 89.2 BUN/Creatinine Ratio 24.1 (10-20) Calcium Level 9.2 mg/dl (8.5-10.1) Magnesium Level 2.3 mg/dl (1.8-2.4) Total Bilirubin 0.5 mg/dl (0.2-1) Aspartate Amino Transf (AST/SGOT) 32 U/L (15-37) Alanine Aminotransferase (ALT/SGPT) 73 U/L (12-78) Alkaline Phosphatase 70 U/L (45-117) Troponin I < 0.015 ng/ml (0-0.045) Total Protein 7.1 gm/dl (6.4-8.2) Albumin 3.7 gm/dl (3.4-5.0) Globulin 3.4 gm/dl (2.5-4.0) Albumin/Globulin Ratio 1.1 (0.9-2) Medications Administered Medications (Trade) Dose Ordered Sig/Celia Route Start Time Stop Time Status Last Admin Dose Admin Sodium Chloride (Nss 1000ml) 1,000 ml @ 999 mls/hr Q1H1M STAT IV 12/28/16 15:32 12/28/16 16:32 DC 12/28/16 15:30 999 MLS/HR Diazepam (Valium Inj) 5 mg NOW STAT IV 12/28/16 15:32 12/28/16 15:34 DC 12/28/16 15:41 5 MG Ondansetron HCl (Zofran Inj) 4 mg NOW STAT IV 12/28/16 15:32 12/28/16 15:34 DC 12/28/16 15:41 4 MG Meclizine HCl (Antivert Tab) 25 mg NOW STAT PO 12/28/16 16:46 12/28/16 16:47 DC 12/28/16 16:51 25 MG Ondansetron HCl (Zofran Inj) 4 mg NOW STAT IV 12/28/16 17:24 12/28/16 17:25 DC 12/28/16 17:44 4 MG Procedure The patient was monitored on a playground monitor. They maintained a normal sinus rhythm without ectopy. ECG Indication: other (dizziness) Rate (beats per minute): 69 Rhythm: normal sinus Findings: no acute ischemic change Change: no significant change ED Course The patient was seen and examined. Previous visits were reviewed. The patient does not have a fever. He hasn't held leukocytosis of 11.83. He does not have any significant electrolyte abnormalities. Troponin was not elevated. INR was 0.9. CT scan of the brain does not reveal any acute abnormality. There is chronic sinusitis. The patient states he has had trouble with his sinuses in the recent past. The patient was hydrated with normal saline He was given 5 mg IV Valium and 4 mg IV Zofran. He was very sleepy and felt slightly improved He woke later and was feeling dizzy again and was given 25 mg oral meclizine He then began to complain of nausea and was given 4 mg IV Zofran An ambulatory trial was attempted but the patient could not even sit up without significant dizziness, distress and vomiting. Given the patient's intractable dizziness and vertiginous symptoms, he would benefit from further evaluation and management in the hospital. I discussed the case with the [facility] hospitalist service and they will evaluate the patient. The case was discussed with Dr. Wooten who agrees with the assessment and treatment plan Medical Decision The differential diagnosis includes vertigo, intracranial bleeding, TIA, CVA, intracranial mass, electrolyte abnormality, sinus infection, inner ear problem, among others Impression Primary Impression: Vertigo Additional Impression: intractable dizziness Departure Information Referrals Elan Beasley D.O.Int.Med. (PCP) Patient Instructions My [facility] Problem Qualifiers
[2016-12-28 16:02] LABS: ALT/SGPT 73 U/L (12-78); AST/SGOT 32 U/L (15-37); BLOOD UREA NITROGEN 24 mg/dl (7-18); BUN/CREATININE RATIO 24.1 (10-20); CALCIUM 9.2 mg/dl (8.5-10.1); CARBON DIOXIDE 26 mmol/L (21-32); CHLORIDE 107 mmol/L (98-107); GLUCOSE 101 mg/dl (70-99); MAGNESIUM 2.3 mg/dl (1.8-2.4); POTASSIUM 3.9 mmol/L (3.5-5.1); SODIUM 142 mmol/L (136-145)
[2016-12-28 16:07] LABS: ALB/GLOB RATIO 1.1 (0.9-2); ALKALINE PHOSPHATASE 70 U/L (45-117)
--- NOTE | 2016-12-28 16:11 | DIAGNOSTIC IMAGING REPORT ---
HEAD CT NONCONTRAST CT DOSE: 767.83 mGy.cm HISTORY: Mental status change dizziness, headache TECHNIQUE: Multiaxial CT images of the head were performed without the use of intravenous contrast. Comparison: None. Findings: Moderate mucosal thickening of the maxillary as well as ethmoid sinuses. Frontal sinuses are clear. The calvarium and skull base are intact. The ventricles and sulci are within normal limits. There is no mass, hematoma, midline shift, or acute infarct. Impression: No acute intracranial abnormality. Chronic sinusitis Electronically signed by: Donny Sesay M.D. 12/28/2016 4:09 PM Dictated Date/Time: 12/28/2016 4:09 PM
--- NOTE | 2016-12-28 16:15 | DIAGNOSTIC IMAGING REPORT ---
SINGLE VIEW CHEST CLINICAL HISTORY: Dizziness. FINDINGS: An AP, portable, upright chest radiograph is compared to study dated 12/26/2016. The examination is degraded by portable technique, large body habitus, and patient rotation. The cardiomediastinal silhouette is unremarkable. There is chronic elevation of the right hemidiaphragm with mild bibasilar atelectasis. The lungs and pleural spaces are otherwise clear. No pneumothorax is seen. The bony thorax is grossly intact. IMPRESSION: No active disease in the chest. Electronically signed by: Jace Bravo M.D. 12/28/2016 4:14 PM Dictated Date/Time: 12/28/2016 4:14 PM
[2016-12-28] MEDS ORDERED: MECLIZINE HCL 25 MG TAB PO STA (16:46)
[2016-12-28] MEDS ORDERED: ALBUT/IPRATROP 3MG/0.5MG NEB 3 ML VIAL INH PRN (19:30)
[2016-12-28] MEDS ORDERED: DIAZEPAM 5MG TAB PO PRN (19:30)
[2016-12-28] MEDS ORDERED: LEVALBUTEROL 1.25MG/3ML NEB INH PRN (19:30)
[2016-12-28] MEDS ORDERED: OXYCODONE HCL IR 5 MG TAB (IMMEDIATE RELEASE) PO PRN (19:30)
[2016-12-28] MEDS ORDERED: POLYETHYLENE (MIRALAX) 17 GM PACK PO PRN (19:30)
[2016-12-28] MEDS ORDERED: ACETAMINOPHEN 325 MG TAB PO PRN (19:30)
[2016-12-28] MEDS ORDERED: BENZONATATE 100MG CAP PO PRN (19:30)
[2016-12-28] MEDS ORDERED: MAGNESIUM HYDROXIDE SUSP 30 ML UDC PO PRN (19:30)
[2016-12-28] MEDS ORDERED: ONDANSETRON INJ 2 MG/ML 2 ML VIAL IV PRN (19:30)
[2016-12-28 20:19] LABS: INR 0.9 (0.9-1.1); PARTIAL THROMBOPLASTIN RATIO 0.9; PROTHROMBIN TIME (PATIENT) 9.9 SECONDS (9.0-12.0)
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
[2016-12-28 20:45] VITALS: O2SAT 97
--- NOTE | 2016-12-28 20:59 | DIAGNOSTIC IMAGING REPORT ---
MRI OF THE BRAIN WITHOUT CONTRAST CLINICAL HISTORY: Vertigo and headache. COMPARISON STUDY: Head CT dated 12/28/2016 FINDINGS: Sagittal T1, axial diffusion, proton density and T2 weighted axial, coronal FLAIR, and axial T1-weighted images were acquired. No intra or extra-axial mass lesions are visualized Axial diffusion-weighted images reveal no evidence of acute or subacute infarction. There is no evidence of ventricular dilatation. Proton density T2-weighted and FLAIR images reveal no significant intraparenchymal signal abnormalities. There are no abnormal flow voids. There is moderate mucosal thickening within the maxillary sinuses bilaterally. There is extensive mucosal disease within the ethmoid sinuses left greater than right. IMPRESSION: 1. Paranasal sinus disease 2. No acute intracranial findings. Electronically signed by: Garcia Duran M.D. 12/28/2016 8:57 PM Dictated Date/Time: 12/28/2016 8:54 PM
[2016-12-28] MEDS ORDERED: CETIRIZINE HCL 10 MG TAB PO SCH (21:00)
[2016-12-28] MEDS: HEPARIN SOD 5000 UNIT/0.5 ML CARP SQ SCH ×2 (21:00→22:03)
[2016-12-28 21:15] VITALS: BP 146/91; PULSE 83; TEMP 36.5; O2SAT 100
[2016-12-28 21:33] VITALS: Ht 175.3 cm; Wt 114.1 kg
[2016-12-28] MEDS: NSS + 20MEQ KCL 1000ML 1,000 ML IV SCH (21:49)
[2016-12-28] MEDS: BUDESONIDE/FORMOTEROL FUMARATE 160/4.5 60 PUFFS/INHALER INH SCH (21:51)
[2016-12-28] MEDS: MECLIZINE HCL 25 MG TAB PO SCH (21:59)
[2016-12-28] MEDS: LACTOBACILLUS ACIDOPHILUS (FLORANEX) TAB PO SCH (22:00)
[2016-12-28] MEDS: INDOMETHACIN 25 MG CAP PO SCH (22:00)
[2016-12-29 00:13] VITALS: BP 129/80; PULSE 78; TEMP 36.6; O2SAT 96
[2016-12-29] MEDS: NSS + 20MEQ KCL 1000ML 1,000 ML IV SCH (04:50)
[2016-12-29 06:53] LABS: HEMATOCRIT 37.7 % (42-52); MEAN CELL VOLUME 87.5 fL (80-100); MEAN CORPUSCULAR HGB CONC 33.2 g/dl (32-36); MEAN PLATELET VOLUME 9.7 fL (7.4-10.4); PLATELET COUNT 210 K/uL (130-400); RED BLOOD COUNT 4.31 M/uL (4.7-6.1); WHITE BLOOD COUNT 6.76 K/uL (4.8-10.8)
[2016-12-29 07:18] LABS: BUN/CREATININE RATIO 18.2 (10-20); CALCIUM 8.4 mg/dl (8.5-10.1); CREATININE 0.99 mg/dl (0.60-1.40); POTASSIUM 4.3 mmol/L (3.5-5.1)
[2016-12-29 07:58] VITALS: BP 144/80; PULSE 68; TEMP 36.6; O2SAT 98
[2016-12-29] MEDS: BUDESONIDE/FORMOTEROL FUMARATE 160/4.5 60 PUFFS/INHALER INH SCH (08:38)
[2016-12-29] MEDS: INDOMETHACIN 25 MG CAP PO SCH (08:40)
[2016-12-29] MEDS: LACTOBACILLUS ACIDOPHILUS (FLORANEX) TAB PO SCH (08:40)
[2016-12-29] MEDS: MECLIZINE HCL 25 MG TAB PO SCH (08:41)
[2016-12-29] MEDS: HEPARIN SOD 5000 UNIT/0.5 ML CARP SQ SCH (08:46)
[2016-12-29] MEDS ORDERED: MULTIVITAMIN TAB PO SCH (09:00)
[2016-12-29] MEDS ORDERED: PSYLLIUM 58.6% PWD PACK S\\F PO SCH (09:00)
[2016-12-29] MEDS ORDERED: OMEGA-3 (PURIFIED FISH OIL) 1 GM CAP PO SCH (09:00)
[2016-12-29] MEDS ORDERED: ANT25 PO (09:15)
--- NOTE | 2016-12-29 09:20 | Discharge Instructions ---
Discharge Instructions Date of Service Dec 29, 2016. Admission Reason for Admission: Vertigo Discharge Discharge Diagnosis / Problem: benign positional vertigo Discharge Goals Goal(s): Improve function Activity Recommendations Activity Limitations: per Instructions/Follow-up section Lifting Limitations: gradually increase as tolerated Exercise/Sports Limitations: gradually increase as tolerated Shower/Bathe: no limitations Driving or Machine Use: resume 3 days after discharge . Instructions / Follow-Up Instructions / Follow-Up Primary Care Doctor in 1 week Current Hospital Diet Patient's current hospital diet: AHA Diet (Heart Healthy) Discharge Diet Recommended Diet: Regular Diet Pending Studies Studies pending at discharge: no Laboratory Results Lipid Panel Test 09/30/16 07:58 Range/Units Triglycerides Level 430 H 0-150 mg/dl Cholesterol Level 255 H 0-200 mg/dl HDL Cholesterol 42 mg/dl Cholesterol/HDL Ratio 6.1 LDL Cholesterol, Calculated mg/dl Medical Emergencies . Who to Call and When: Medical Emergencies: If at any time you feel your situation is an emergency, please call 911 immediately. . Non-Emergent Contact Non-Emergency issues call your: Primary Care Provider . . "Provider Documentation" section prepared by Donnie Sethi. VTE Core Measure Inpt VTE Proph given/why not?: Unfractionated heparin SQ
--- NOTE | 2016-12-29 09:33 | Discharge Summary ---
Discharge Summary Date of Service Dec 29, 2016. Discharge Summary Admission Date: Dec 28, 2016 at 19:33 Discharge Date: Dec 29, 2016 Discharge Disposition: Home Principal Diagnosis: Benign Positional Vertigo Problems/Secondary Diagnoses: (1) Asthma Status: Chronic (2) Diverticulosis Colon (W/O Ment Of Hemorrhage) Status: Chronic (3) GERD (gastroesophageal reflux disease) Status: Chronic (4) Hyperlipidemia Nec/Nos Status: Chronic (5) Long-Term(Current)Use Of Steroids Status: Chronic Consultations: None Medication Reconciliation New Medications: Meclizine HCl (Meclizine HCl) 25 Mg Tab 25 MG PO TID PRN for Dizziness or Vertigo for 15 Days, #45 TAB Continued Medications: Benzonatate (Tessalon Perles) 100 Mg Cap 1 CAP PO TID PRN for Cough Budesonide/Formoterol Fumarate (Symbicort 160/4.5 Inhaler) 120 Puffs/ Aero 2 PUFFS INH BID Cetirizine (Zyrtec) 10 Mg Tab 10 MG PO HS, TAB Fish Oil ([place]-3) 1 Ea Cap 3 CAP PO DAILY Indomethacin (Indocin) 50 Mg Cap 50 MG PO TID, #20 CAP WITH FOOD UNTIL PAIN RESOLVES Ipratropium-Albuterol (Duoneb) 3 Ml Nebu 1 TREATMENT INH QID PRN for SOB/Wheezing, INHA Lactobacillus (Floranex) 1 Tab Tab 1 TAB PO BID Levalbuterol Hcl (Levalbuterol Hcl) 1.25 Mg/3 Ml Neb 1 DOSE PO Q6 PRN for SOB/Wheezing Multiple Vitamin (Multivitamin) 1 Tab Tab 1 TAB PO DAILY, TAB Ondasetron Odt (Zofran Odt) 4 Mg Tab 4 MG SL Q6H for Nausea, #15 TAB Oxycodone Ir (Roxicodone Ir) 5 Mg Tab 1-2 TAB PO Q4H PRN for Pain, #15 TAB For Initial Treatment Psyllium (Metamucil) 48.57 % Pow 2 TBS PO DAILY Senna-Fennel (Natural Vegetable Laxativ) 1 Tab Tab 1 TAB PO BID [Blackseed Oil] () 1 CAP PO BID Discharge Exam Physical Exam: General Appearance: no apparent distress Eyes: sclerae normal ENT: hearing grossly normal Neck: supple, no JVD Respiratory/Chest: chest non-tender, lungs clear, normal breath sounds Cardiovascular: regular rate, rhythm, no edema Hospital Course Patient came in with vertigo. W/u CT and MrI Of brain unremarkable chronic sinusitis. Total Time Spent: Greater than 30 minutes This includes examination of the patient, discharge planning, medication reconciliation, and communication with other providers. Discharge Instructions Please refer to the electronic Patient Visit Report (Discharge Instructions) for additional information. Follow-Up Museum Specialist in 1 week
[2016-12-29 10:11] VITALS: BP 144/80; PULSE 68; TEMP 36.6; O2SAT 98
== END 2016-12-29 10:43 | disposition home or self-care (01) | DRG 149 ==
LOC: ENRESERVDT → ENRESERVTM → C.EDB 13:58 → C.MS2W 19:33
PROVIDERS: ADMIT Hospitalist; ATTEND Hospitalist
DX: H81.10 Benign paroxysmal vertigo, unspecified ear (principal); K21.9 Gastro-esophageal reflux disease without esophagitis; J32.9 Chronic sinusitis, unspecified; J45.909 Unspecified asthma, uncomplicated; E78.5 Hyperlipidemia, unspecified; K57.30 Diverticulosis of large intestine without perforation or abscess without bleeding; M10.9 Gout, unspecified; R11.2 Nausea with vomiting, unspecified; R51 Headache; Z79.51 Long term (current) use of inhaled steroids; Z79.899 Other long term (current) drug therapy; Z79.891 Long term (current) use of opiate analgesic

== ENCOUNTER → 2017-01-04 | Outpatient (CLI) | payer BC ==
[~2017-01-04] MED LIST changes: +AMOX875T PO; +ANT25 PO; +FLUT0.15 NAE; +LEVO-18 PO; +PRED10TA PO
[2017-01-04 17:19] LABS: CHOLESTEROL/HDL RATIO 7.2
[2017-01-05 07:46] LABS: ESTIMATED AVERAGE GLUCOSE 105 mg/dl; HA1C FLAG Normal (Normal)
== END | disposition home or self-care (01) ==
LOC: C.LABBC 14:07
PROVIDERS: ATTEND Family Medicine
DX: Z13.1 Encounter for screening for diabetes mellitus (principal); E78.1 Pure hyperglyceridemia; R52 Pain, unspecified

== ENCOUNTER 2017-01-08 10:20 | Inpatient (IN) | payer BC ==
[~2017-01-08] VITALS: Ht 175.3 cm; Wt 110.8 kg
[~2017-01-08 10:20] MED LIST changes: -AMOX875T PO; -FLUT0.15 NAE; -LEVO-18 PO; -PRED10TA PO
[2017-01-08] MEDS ORDERED: METHYLPREDNISOLONE 125 MG VIAL IV STA (10:55)
[2017-01-08] MEDS ORDERED: SODIUM CHLORIDE 0.9% 1000ML 1,000 ML IV STA (10:55)
[2017-01-08] MEDS ORDERED: ALBUT/IPRATROP 3MG/0.5MG NEB 3 ML VIAL INH ONE (11:00)
--- NOTE | 2017-01-08 11:02 | EMERGENCY ROOM VISIT NOTE ---
History Report prepared by Domonique: Mckenzie Milian Under the Supervision of: Dr. Donnie Riojas M.D. First contact with patient: 10:47 Chief Complaint: SHORTNESS OF BREATH Stated Complaint: ASTHMA Nursing Triage Summary: Triage note: Pt reports increased shortness breath since yesterday. History of Present Illness The patient is a 46 year old male who presents to the Emergency Room with complaints of worsening shortness of breath since yesterday. The patient states that he recently developed a stuffy nose and sinus pressure. He was seen by his doctor and put on antibiotics for a sinus infection. Yesterday, he developed shortness of breath. He has a history of asthma and states that his symptoms feel like a flare up, other than the sinus congestion and pressure that he also currently has. He has been using nebulizer treatments about every 4 hours and his inhaler with little to no relief. Currently, the patient also complains of a cough. He is unsure if he has had a fever. His significant other notes that he has had a significantly decreased appetite. Denies chest pain or other complaints. His significant other states that he was on Prednisone for about 8 years and was weaned off it recently. He has not had any Prednisone in 3 weeks. Source of History: patient, spouse/significant other Onset: yesterday Position: other (respiratory) Quality: other (shortness of breath) Timing: worsening Associated Symptoms: + cough, No chest pain Note: Other symptoms: stuffy nose, sinus pressure, decreased appetite Review of Systems See HPI for pertinent positives & negatives. A total of 10 systems reviewed and were otherwise negative. Past Medical & Surgical Medical Problems: (1) Abdominal pain (2) Asthma (3) Asthma exacerbation (4) Asthma exacerbation (5) Asthmatic bronchitis with acute exacerbation (6) Diverticulitis (7) Diverticulitis (8) Diverticulosis Colon (W/O Ment Of Hemorrhage) (9) GERD (gastroesophageal reflux disease) (10) Hyperlipidemia Nec/Nos (11) Hypoxia (12) Long-Term(Current)Use Of Steroids (13) Pancreatitis (14) Vertigo Old medical records were reviewed. Nurse's notes were reviewed and I agree with. Family History Asthma Social History Smoking Status: Never Smoker Drug Use: none Marital Status: in relationship Housing Status: lives with significant other Occupation Status: employed Current/Historical Medications Scheduled Amoxicillin & Pot Clavulanate (Augmentin 875-125 mg), 1 TAB PO Q12 Budesonide/Formoterol Fumarate (Symbicort 160/4.5 Inhaler), 2 PUFFS INH BID Cetirizine (Zyrtec), 10 MG PO HS Fish Oil ([place]-3), 3 CAP PO DAILY Fluticasone Propionate (Nasal) (Flonase Allergy Relief), 2 SPRAYS BRITTNEY DAILY Indomethacin (Indocin), 50 MG PO TID Lactobacillus (Floranex), 1 TAB PO BID Multiple Vitamin (Multivitamin), 1 TAB PO DAILY Ondasetron Odt (Zofran Odt), 4 MG SL Q6H Psyllium (Metamucil), 2 TBS PO DAILY Senna-Fennel (Natural Vegetable Laxativ), 1 TAB PO BID [Blackseed Oil], 1 CAP PO BID Scheduled PRN Benzonatate (Tessalon Perles), 1 CAP PO TID PRN for Cough Ipratropium-Albuterol (Duoneb), 1 TREATMENT INH QID PRN for SOB/Wheezing Levalbuterol Hcl (Levalbuterol Hcl), 1 DOSE PO Q6 PRN for SOB/Wheezing Meclizine HCl (Meclizine HCl), 25 MG PO TID PRN for Dizziness or Vertigo Oxycodone Ir (Roxicodone Ir), 1-2 TAB PO Q4H PRN for Pain Allergies Coded Allergies: No Known Allergies (Unverified , 11/12/16) Physical Exam Vital Signs Date Time Temp Pulse Resp B/P Pulse Ox O2 Delivery O2 Flow Rate FiO2 01/08/17 12:51 Nasal Cannula 2.0 01/08/17 12:49 121 26 146/82 91 01/08/17 11:46 108 28 143/91 100 Room Air 8.0 01/08/17 11:16 113 34 96 Room Air 01/08/17 10:57 90 Room Air 01/08/17 10:46 117 01/08/17 10:36 36.9 125 36 116/87 90 Room Air Physical Exam General: Mildly ill appearing middle aged male who appears mildly tachypneic. Well developed well nourished. Normal speech HEENT: Normal cephalic atraumatic. The sinuses are tender to palpation. Pupils are equal round and reactive to light. Extraocular movements are intact. Oropharynx is pink with moist mucous membranes. No swelling of the mouth lips or tongue. Neck: Supple with a midline trachea. No meningeal signs or stiffness, no JVD or bruits. No Stridor. Chest: Scattered wheezes auscultation bilaterally. No rhonchi. Mild tachypnea. Heart: regular rate and rhythm. Abdomen: Soft nontender, nondistended without rebound guarding or rigidity. Extremities: No cyanosis clubbing or edema. No calf tenderness or assymetry Spine/Back. Non tender to palpation. No CVA tenderness Skin: Good turgor without rashes. Neurologic exam: Cranial nerves two through 12 are intact. Motor and sensation are intact and symmetrical throughout. Medical Decision & Procedures ER Provider Diagnostic Interpretation: Radiology results as stated below per my review and radiologist interpretation: CHEST ONE VIEW PORTABLE CLINICAL HISTORY: Chest pain. Asthma. COMPARISON STUDY: Chest radiograph December 28, 2016. FINDINGS: This exam is significantly compromised by motion artifact. Cardiomediastinal silhouette is stable. There is no pneumothorax or pleural effusion. There is no lobar consolidation. There is mild left basilar opacity. IMPRESSION: 1. Study significantly compromised by motion artifact. 2. Mild left basilar opacity which could reflect atelectasis or mild infectious process. Electronically signed by: Kye Swain M.D. 01/08/2017 11:28 AM Dictated Date/Time: 01/08/2017 11:27 AM Laboratory Results 01/08/17 10:50 Red Blood Count 5.43, Mean Corpuscular Volume 87.3, Mean Corpuscular Hemoglobin 29.7, Mean Corpuscular Hemoglobin Concent 34.0, Mean Platelet Volume 9.8, Neutrophils (%) (Auto) 56.7, Lymphocytes (%) (Auto) 23.6, Monocytes (%) (Auto) 8.2, Eosinophils (%) (Auto) 9.6, Basophils (%) (Auto) 0.8, Neutrophils # (Auto) 10.42, Lymphocytes # (Auto) 4.34, Monocytes # (Auto) 1.51, Eosinophils # (Auto) 1.77, Basophils # (Auto) 0.15 01/08/17 10:50 Test 01/08/17 10:50 01/08/17 11:06 01/08/17 11:08 White Blood Count 18.40 K/uL (4.8-10.8) Red Blood Count 5.43 M/uL (4.7-6.1) Hemoglobin 16.1 g/dL (14.0-18.0) Hematocrit 47.4 % (42-52) Mean Corpuscular Volume 87.3 fL (80-100) Mean Corpuscular Hemoglobin 29.7 pg (25-34) Mean Corpuscular Hemoglobin Concent 34.0 g/dl (32-36) Platelet Count 292 K/uL (130-400) Mean Platelet Volume 9.8 fL (7.4-10.4) Neutrophils (%) (Auto) 56.7 % Lymphocytes (%) (Auto) 23.6 % Monocytes (%) (Auto) 8.2 % Eosinophils (%) (Auto) 9.6 % Basophils (%) (Auto) 0.8 % Neutrophils # (Auto) 10.42 K/uL (1.4-6.5) Lymphocytes # (Auto) 4.34 K/uL (1.2-3.4) Monocytes # (Auto) 1.51 K/uL (0.11-0.59) Eosinophils # (Auto) 1.77 K/uL (0-0.5) Basophils # (Auto) 0.15 K/uL (0-0.2) RDW Standard Deviation 45.3 fL (36.4-46.3) RDW Coefficient of Variation 14.3 % (11.5-14.5) Immature Granulocyte % (Auto) 1.1 % Immature Granulocyte # (Auto) 0.21 K/uL (0.00-0.02) Anion Gap 9.0 mmol/L (3-11) Est Creatinine Clear Calc Drug Dose 85.7 ml/min Estimated GFR () 75.3 Estimated GFR (Non- 65.0 BUN/Creatinine Ratio 9.9 (10-20) Calcium Level 9.8 mg/dl (8.5-10.1) Total Bilirubin 0.7 mg/dl (0.2-1) Direct Bilirubin 0.1 mg/dl (0-0.2) Aspartate Amino Transf (AST/SGOT) 22 U/L (15-37) Alanine Aminotransferase (ALT/SGPT) 50 U/L (12-78) Alkaline Phosphatase 99 U/L (45-117) Total Protein 7.7 gm/dl (6.4-8.2) Albumin 3.7 gm/dl (3.4-5.0) Lipase 174 U/L (73-393) Bedside Troponin I 0.000 ng/ml (0-0.045) CD-Dng-O-Type Natriuretic Peptide 26 pg/ml (0-450) Bedside Lactic Acid Venous 1.72 mmol/L (0.90-1.70) Laboratory studies as stated above per my review. Medications Administered Medications (Trade) Dose Ordered Sig/Celia Route Start Time Stop Time Status Last Admin Dose Admin Albuterol/ Ipratropium (Duoneb) 12 ml ONE ONCE INH 01/08/17 11:00 01/08/17 11:01 DC 01/08/17 11:16 12 ML Methylprednisolone Sodium Succinate 125 mg 125 mg NOW STAT IV 01/08/17 10:55 01/08/17 10:57 DC 01/08/17 11:14 125 MG Sodium Chloride (Nss 1000ml) 1,000 ml @ 999 mls/hr Q1H1M STAT IV 01/08/17 10:55 01/08/17 11:55 DC 01/08/17 11:14 999 MLS/HR Levofloxacin (Levaquin / D5W) 750 mg NOW STAT IV 01/08/17 12:00 01/08/17 12:03 DC 01/08/17 12:49 750 MG Piperacillin Sod/ Tazobactam Sod 4.5 gm 4.5 gm NOW STAT IV 01/08/17 12:00 01/08/17 12:03 DC 01/08/17 12:19 4.5 GM Sodium Chloride (Nss 1000ml) 1,000 ml @ 125 mls/hr Q8H IV 01/08/17 12:46 01/08/17 20:45 01/08/17 13:30 125 MLS/HR ECG Indication: SOB/dyspnea Rate (beats per minute): 122 Rhythm: sinus tachycardia Findings: no acute ischemic change, no ectopy Comparison ECG Date: 12/28/16 Change: Heart rate has increased since previous EKG. ED Course 1050: Past medical records reviewed. The patient was evaluated in room A10, and a complete history and physical examination were performed. 1055: Ordered NSS 1000 ml @ 999 mls/hr IV, Solu-Medrol 125 mg IV, DuoNeb 12 ml INH. 1130: I reassessed the patient. he was starting to feel better. 1200: Ordered Zosyn 4.5 gm IV, Levaquin 750 mg IV. 1210: Upon reevaluation, the patient is doing much better. I discussed the results and treatment plan with the patient. He verbalized agreement of the treatment plan. The patient will be evaluated for further management. 1218: I discussed the case with Dr. Catalina ROBERTS Hospitalist. The patient will be evaluated for further management. Medical Decision Differentials include but are not limited to sinusitis, asthma exacerbation, pneumonia, electrolyte or metabolic abnormality. This patient comes in as described above. He has a history of asthma that's been significant in the past. He's had sinus infections been on amoxicillin. He had a rough night last night from a respiratory standpoint. He has loud nasal congestion and this makes it hard to breathe. Also, it seems like his asthma has gotten exacerbated with this as well. On exam, he does have nasal congestion. He is tender over sinuses. He also has scattered wheezes and tachypnea. The nurse came and got me to see him as he was hypoxemic at times in the high 80s. I saw him and we quickly worked to give him a 1 hour albuterol /Atrovent neb, 125 mg Solu-Medrol 125 mg IV and IV hydration. With these measures, he felt significantly better . he was much less tachypneic and much less hypoxemic. His white count is elevated at 18, his lactic acid is normal however. He's been normotensive. He was given IV Levaquin and IV Zosyn to cover pulmonary pathogens. I think he does have a sinusitis that has progressed to bronchitis and perhaps pneumonia. I do think he needs to be admitted for antibiotics and further respiratory treatment and evaluation. I have consulted the hospitalist. They will see him in the ER. Consults Time Called: 1210 Consulting Physician: Dr. Catalina ROBERTS Hospitalist Returned Call: 1218 I discussed the case with him. The patient will be evaluated for further management. Impression Primary Impression: Asthma with exacerbation Additional Impressions: Acute bronchitis Sinusitis Pneumonia Scribe Attestation The scribe's documentation has been prepared under my direction and personally reviewed by me in its entirety. I confirm that the note above accurately reflects all work, treatment, procedures, and medical decision making performed by me. Departure Information Dispostion Being Evaluated By Hospitalist Referrals Elan Beasley D.O.Int.Med. (PCP) Patient Instructions My [facility] Problem Qualifiers
[2017-01-08 11:16] VITALS: PULSE 113; O2SAT 96
[2017-01-08 11:17] LABS: BASO % 0.8 %; BASO ABS # 0.15 K/uL (0-0.2); COMPLETE YES; EOS % 9.6 %; HEMATOCRIT 47.4 % (42-52); IG% 1.1 %; LYMPH % 23.6 %; LYMPH ABS # 4.34 K/uL (1.2-3.4); MEAN CELL VOLUME 87.3 fL (80-100); MEAN CORPUSCULAR HEMOGLOBIN 29.7 pg (25-34); MEAN PLATELET VOLUME 9.8 fL (7.4-10.4); MONO % 8.2 %; NEUT % 56.7 %; PLATELET COUNT 292 K/uL (130-400); RED BLOOD COUNT 5.43 M/uL (4.7-6.1)
[2017-01-08 11:27] LABS: BUN/CREATININE RATIO 9.9 (10-20); CALCIUM 9.8 mg/dl (8.5-10.1); CREATININE 1.3 mg/dl (0.60-1.40); POTASSIUM 4.3 mmol/L (3.5-5.1)
--- NOTE | 2017-01-08 11:30 | DIAGNOSTIC IMAGING REPORT ---
CHEST ONE VIEW PORTABLE CLINICAL HISTORY: Chest pain. Asthma. COMPARISON STUDY: Chest radiograph December 28, 2016. FINDINGS: This exam is significantly compromised by motion artifact. Cardiomediastinal silhouette is stable. There is no pneumothorax or pleural effusion. There is no lobar consolidation. There is mild left basilar opacity. IMPRESSION: 1. Study significantly compromised by motion artifact. 2. Mild left basilar opacity which could reflect atelectasis or mild infectious process. Electronically signed by: Kye Swain M.D. 01/08/2017 11:28 AM Dictated Date/Time: 01/08/2017 11:27 AM
[2017-01-08] MEDS ORDERED: FLUT0.15 NAE (11:46)
[2017-01-08] MEDS ORDERED: AMOX875T PO (11:46)
[2017-01-08] MEDS ORDERED: LEVAQUIN 750MG / 150ML D5W IV STA (12:00)
[2017-01-08] MEDS ORDERED: PIPERACILLIN/TAZOBACTAM 4.5 GM/100ML D5W IV STA (12:00)
[2017-01-08] MEDS ORDERED: SODIUM CHLORIDE 0.9% 1000ML 1,000 ML IV SCH (12:46)
[2017-01-08] MEDS ORDERED: ALUMINUM/MAGNESIUM/SIMETH (MAALOX MAX) 30 ML UDC PO PRN (13:00)
[2017-01-08] MEDS ORDERED: BENZONATATE 100MG CAP PO PRN (13:00)
[2017-01-08] MEDS ORDERED: ACETAMINOPHEN 325 MG TAB PO PRN (13:00)
[2017-01-08] MEDS ORDERED: MECLIZINE HCL 25 MG TAB PO PRN (13:00)
[2017-01-08] MEDS ORDERED: NITROGLYCERIN 0.4 MG SL PER TAB CHARGE SL PRN (13:00)
[2017-01-08] MEDS ORDERED: ONDANSETRON INJ 2 MG/ML 2 ML VIAL IV PRN (13:00)
[2017-01-08] MEDS ORDERED: MAGNESIUM HYDROXIDE SUSP 30 ML UDC PO PRN (13:00)
[2017-01-08] MEDS ORDERED: POLYETHYLENE (MIRALAX) 17 GM PACK PO PRN (13:00)
--- NOTE | 2017-01-08 13:15 | History and Physical ---
History & Physical Date & Time of Service: Jan 08, 2017 at 12:56 Chief Complaint: Asthma Primary Care Physician: Elan Beasley D.O.Int.Med. History of Present Illness Source: patient, family, clinic records, hospital records Patient is a pleasant 46 y/o male, with PMHx of asthma, vertigo, h/o diverticulitis, h/o pancreatitis, hyperlipidemia, and gout, who presented to the ED because of worsening SOB. The patient recently developed a stuffy nose and sinus pressure. He was placed on Amoxicillin on 01/04 by PCP. Yesterday, he started to develop extreme SOB. Patient states symptoms feel similar to his h/o asthma flare. Patient admits to diffuse body aches/chills. +cough. Patient has been on Prednisone for the past 8 years. He has been off Prednisone for 3 weeks now. He weaned himself off by decreasing by 10 mg every 5 days. At the time of weaning, patient was taking 40 mg PO BID. Patient states in October he tried to wean himself from Prednisone and was hospitalized due to an asthmatic flare. Patient denies any fever, chills, sweats, lightheadedness, dizziness, vision changes, CP, palpitations, edema, abdominal pain, nausea, vomiting, diarrhea, urinary symptoms, melena, numbness/tingling, weakness, anxiety/depression, active bleeding, or new skin discoloration/changes. Past Medical/Surgical History Medical Problems: 1. Asthma 2. Vertigo 3. h/o diverticulitis 4. h/o pancreatitis 5. Hyperlipidemia 6. Gout Family History Asthma Social History Smoking Status: Never Smoker Drug Use: none Marital Status: in relationship Occupational Status: employed Multi-Drug Resistant Organisms History of MDRO: No Allergies Coded Allergies: No Known Allergies (Unverified , 11/12/16) Home Medications Scheduled Amoxicillin & Pot Clavulanate (Augmentin 875-125 mg), 1 TAB PO Q12 Budesonide/Formoterol Fumarate (Symbicort 160/4.5 Inhaler), 2 PUFFS INH BID Cetirizine (Zyrtec), 10 MG PO HS Fish Oil ([place]-3), 3 CAP PO DAILY Fluticasone Propionate (Nasal) (Flonase Allergy Relief), 2 SPRAYS BRITTNEY DAILY Indomethacin (Indocin), 50 MG PO TID Lactobacillus (Floranex), 1 TAB PO BID Multiple Vitamin (Multivitamin), 1 TAB PO DAILY Ondasetron Odt (Zofran Odt), 4 MG SL Q6H Psyllium (Metamucil), 2 TBS PO DAILY Senna-Fennel (Natural Vegetable Laxativ), 1 TAB PO BID [Blackseed Oil], 1 CAP PO BID Scheduled PRN Benzonatate (Tessalon Perles), 1 CAP PO TID PRN for Cough Ipratropium-Albuterol (Duoneb), 1 TREATMENT INH QID PRN for SOB/Wheezing Levalbuterol Hcl (Levalbuterol Hcl), 1 DOSE PO Q6 PRN for SOB/Wheezing Meclizine HCl (Meclizine HCl), 25 MG PO TID PRN for Dizziness or Vertigo Oxycodone Ir (Roxicodone Ir), 1-2 TAB PO Q4H PRN for Pain Physical Exam Vital Signs Date Time Temp Pulse Resp B/P Pulse Ox O2 Delivery O2 Flow Rate FiO2 01/08/17 12:51 Nasal Cannula 2.0 01/08/17 12:49 121 26 146/82 91 01/08/17 11:46 108 28 143/91 100 Room Air 8.0 01/08/17 11:16 113 34 96 Room Air 01/08/17 10:57 90 Room Air 01/08/17 10:46 117 01/08/17 10:36 36.9 125 36 116/87 90 Room Air General Appearance: no apparent distress, + obese Head: normocephalic, atraumatic Eyes: normal inspection, PERRL ENT: hearing grossly normal Neck: supple Respiratory/Chest: no respiratory distress, no accessory muscle use, + decreased breath sounds (diffuse), + wheezing (diffuse, expiratory) Cardiovascular: + tachycardia (regular rhythm ) Abdomen/GI: normal bowel sounds, non tender, soft Back: normal inspection Extremities/Musculoskelatal: no calf tenderness, no pedal edema Neurologic/Psych: alert, normal mood/affect, oriented x 3 Skin: normal color, warm/dry, no rash Diagnostics Laboratory Results Results Past 24 Hours Test 01/08/17 10:50 01/08/17 11:06 01/08/17 11:08 Range/Units White Blood Count 18.40 4.8-10.8 K/uL Red Blood Count 5.43 4.7-6.1 M/uL Hemoglobin 16.1 14.0-18.0 g/dL Hematocrit 47.4 42-52 % Mean Corpuscular Volume 87.3 80-100 fL Mean Corpuscular Hemoglobin 29.7 25-34 pg Mean Corpuscular Hemoglobin Concent 34.0 32-36 g/dl Platelet Count 292 130-400 K/uL Mean Platelet Volume 9.8 7.4-10.4 fL Neutrophils (%) (Auto) 56.7 % Lymphocytes (%) (Auto) 23.6 % Monocytes (%) (Auto) 8.2 % Eosinophils (%) (Auto) 9.6 % Basophils (%) (Auto) 0.8 % Neutrophils # (Auto) 10.42 1.4-6.5 K/uL Lymphocytes # (Auto) 4.34 1.2-3.4 K/uL Monocytes # (Auto) 1.51 0.11-0.59 K/uL Eosinophils # (Auto) 1.77 0-0.5 K/uL Basophils # (Auto) 0.15 0-0.2 K/uL RDW Standard Deviation 45.3 36.4-46.3 fL RDW Coefficient of Variation 14.3 11.5-14.5 % Immature Granulocyte % (Auto) 1.1 % Immature Granulocyte # (Auto) 0.21 0.00-0.02 K/uL Sodium Level 139 136-145 mmol/L Potassium Level 4.3 3.5-5.1 mmol/L Chloride Level 104 98-107 mmol/L Carbon Dioxide Level 26 21-32 mmol/L Anion Gap 9.0 3-11 mmol/L Blood Urea Nitrogen 13 7-18 mg/dl Creatinine 1.30 0.60-1.40 mg/dl Est Creatinine Clear Calc Drug Dose 85.7 ml/min Estimated GFR () 75.3 Estimated GFR (Non- 65.0 BUN/Creatinine Ratio 9.9 10-20 Random Glucose 113 70-99 mg/dl Calcium Level 9.8 8.5-10.1 mg/dl Total Bilirubin 0.7 0.2-1 mg/dl Direct Bilirubin 0.1 0-0.2 mg/dl Aspartate Amino Transf (AST/SGOT) 22 15-37 U/L Alanine Aminotransferase (ALT/SGPT) 50 12-78 U/L Alkaline Phosphatase 99 45-117 U/L Total Protein 7.7 6.4-8.2 gm/dl Albumin 3.7 3.4-5.0 gm/dl Lipase 174 73-393 U/L Bedside Troponin I 0.000 0-0.045 ng/ml TA-Mdh-R-Type Natriuretic Peptide 26 0-450 pg/ml Bedside Lactic Acid Venous 1.72 0.90-1.70 mmol/L Microbiology Results 01/08/17 Blood Culture, Received Pending 01/08/17 Blood Culture, Received Pending Diagnostic Radiology CHEST ONE VIEW PORTABLE CLINICAL HISTORY: Chest pain. Asthma. COMPARISON STUDY: Chest radiograph December 28, 2016. FINDINGS: This exam is significantly compromised by motion artifact. Cardiomediastinal silhouette is stable. There is no pneumothorax or pleural effusion. There is no lobar consolidation. There is mild left basilar opacity. IMPRESSION: 1. Study significantly compromised by motion artifact. 2. Mild left basilar opacity which could reflect atelectasis or mild infectious process. Electronically signed by: Kye Swain M.D. 01/08/2017 11:28 AM Dictated Date/Time: 01/08/2017 11:27 AM The status of this report is Signed. Draft = Not yet reviewed or approved by Radiologist. Signed = Reviewed and approved by Radiologist. EKG EMELY BAEZA ID:[id number] 08-JAN-2017 10:42:17 [facility] Sinus tachycardia Otherwise normal ECG When compared with ECG of 28-DEC-2016 15:13, Vent. rate has increased BY 53 BPM Nonspecific T wave abnormality now evident in Inferior leads 25mm/s 10mm/mV 150Hz 8.0 SP2 12SL 241 MARGARITO: 0 Referred by: ER Unconfirmed Vent. rate 122 BPM NV interval 156 ms QRS duration 86 ms QT/QTc 318/453 ms P-R-T axes 56 74 66 1970 (46 yr) Male 1lb Room: Loc:15 Paleobotanist:HERMINIO Goss ind: Impression Assessment and Plan 46 y/o male, with PMHx of asthma, vertigo, h/o diverticulitis, h/o pancreatitis , hyperlipidemia, and gout, who presented to the ED because of worsening SOB. Asthma exacerbation w/ hypoxia: - Admit to tele for cardiac monitoring due to tachycardia/hypoxia - IV NSS @ 125 ml/hr x1 bag - IV Solu Medrol 60 mg q8 hrs - DuoNeb QID & q2 hrs PRN - O2 protocol, wean as tolerated - BCx pending - Check rapid influenza - Continue home inhalers - Follows with Dr. Beasley ?Left basilar pneumonia: - IV Levaquin, IV Zosyn x1 dose in ED - Repeat CXR tomorrow AM Leukocytosis, ?secondary to asthma flare vs ?pneumonia: Follow CBC Vertigo: Continue Meclizine PRN Hyperlipidemia: Continue fish oil Gout: Completed course of Indomethacin GI Prophylaxis: Maalox PRN, IV Zofran PRN, Colace and/or Milk of Mag PRN DVT prophylaxis: Lovenox 40 mg SQ q24 hrs, RENETTA and SCDs Code Status: LEVEL I, FULL Dispo: From home, lives w/ . No discharge needs anticipated Level of Care Telemetry Resuscitation Status FULL RESUSCITATION VTE Prophylaxis VTE Risk Assessment Done? Y/N: Yes Risk Level: Low Given or contraindicated: Enoxaparin (Lovenox)SQ, T.E.D. Stockings, SCD's
[2017-01-08 14:59] VITALS: BP 142/78; PULSE 120; TEMP 37.2; O2SAT 92; Ht 175.3 cm; Wt 110.8 kg
[2017-01-08 16:20] VITALS: PULSE 112; O2SAT 92; O2SAT 95
[2017-01-08] MEDS: ALBUT/IPRATROP 3MG/0.5MG NEB 3 ML VIAL INH SCH ×2 (16:20→19:37)
[2017-01-08] MEDS: METHYLPREDNISOLONE IV 60 MG in SYRINGE 0 ML IV SCH (19:20)
[2017-01-08 19:36] VITALS: BP 138/84; PULSE 97; TEMP 37.1; O2SAT 90
[2017-01-08 19:37] VITALS: PULSE 113; O2SAT 93
[2017-01-08 20:00] VITALS: O2SAT 93
[2017-01-08] MEDS: ENOXAPARIN 40 MG/0.4 ML SYR SC SCH ×2 (21:00→21:09)
[2017-01-08] MEDS: CETIRIZINE HCL 10 MG TAB PO SCH (21:10)
[2017-01-08] MEDS: BUDESONIDE/FORMOTEROL FUMARATE 160/4.5 60 PUFFS/INHALER INH SCH (21:10)
[2017-01-08] MEDS: LACTOBACILLUS ACIDOPHILUS (FLORANEX) TAB PO SCH (21:10)
[2017-01-09] VITALS (13 sets, daily range): BP systolic 107–138; BP diastolic 63–82; PULSE 88–125; TEMP 36.7–37.1; O2SAT 91–98
[2017-01-09] MEDS: METHYLPREDNISOLONE IV 60 MG in SYRINGE 0 ML IV SCH ×3 (04:23→20:09)
[2017-01-09 06:58] LABS: HEMATOCRIT 40.5 % (42-52); MEAN CELL VOLUME 85.8 fL (80-100); MEAN CORPUSCULAR HGB CONC 33.8 g/dl (32-36); MEAN PLATELET VOLUME 9.6 fL (7.4-10.4); PLATELET COUNT 262 K/uL (130-400); RED BLOOD COUNT 4.72 M/uL (4.7-6.1); WHITE BLOOD COUNT 18.37 K/uL (4.8-10.8)
[2017-01-09] MEDS: ALBUT/IPRATROP 3MG/0.5MG NEB 3 ML VIAL INH SCH ×4 (07:16→19:01)
[2017-01-09 07:36] LABS: BUN/CREATININE RATIO 15.3 (10-20); CALCIUM 9.1 mg/dl (8.5-10.1); CREATININE 1.1 mg/dl (0.60-1.40); POTASSIUM 4.4 mmol/L (3.5-5.1)
--- NOTE | 2017-01-09 07:47 | DIAGNOSTIC IMAGING REPORT ---
CHEST ONE VIEW PORTABLE CLINICAL HISTORY: Asthma. Possible pneumonia. COMPARISON STUDY: Chest radiograph January 08, 2017. FINDINGS: There is no pneumothorax. There is minimal left basilar opacity. Lung volumes are mildly diminished. Cardiomediastinal silhouette is normal. There is no evidence of pulmonary edema. IMPRESSION: Minimal left basilar opacity. Atelectasis is favored although a mild infectious process could appear similar. Electronically signed by: Kye Swain M.D. 01/09/2017 7:46 AM Dictated Date/Time: 01/09/2017 7:45 AM
[2017-01-09] MEDS: MULTIVITAMIN TAB PO SCH (08:02)
[2017-01-09] MEDS: BUDESONIDE/FORMOTEROL FUMARATE 160/4.5 60 PUFFS/INHALER INH SCH ×2 (08:02→20:10)
[2017-01-09] MEDS: OMEGA-3 (PURIFIED FISH OIL) 1 GM CAP PO SCH (08:02)
[2017-01-09] MEDS: FLUTICASONE PROPIONATE NA SPR 16 GM BTL NAE SCH (08:02)
[2017-01-09] MEDS: LACTOBACILLUS ACIDOPHILUS (FLORANEX) TAB PO SCH ×2 (08:02→20:09)
[2017-01-09] MEDS ORDERED: LEVO-18 PO (10:32)
--- NOTE | 2017-01-09 10:34 | Discharge Instructions ---
Discharge Instructions Date of Service Jan 09, 2017. Admission Reason for Admission: Asthma Exacerbation, Hypoxia Discharge Discharge Diagnosis / Problem: Pneumonia, asthma exacerbation Discharge Goals Goal(s): Decrease discomfort, Improve function, Increase independence, Improve disease control, Diagnostic testing, Therapeutic intervention Activity Recommendations Activity Limitations: resume your previous activity Exercise/Sports Limitations: none Shower/Bathe: no limitations . Instructions / Follow-Up Instructions / Follow-Up Patient can be discharged home Please take antibiotic levaquin once a day for 3 more days, script sent to pharmacy If worsening shortness of breath, fevers, chest pain please report to ER Please follow up with Dr Beasley in 1-2 weeks Current Hospital Diet Patient's current hospital diet: Regular Diet Discharge Diet Recommended Diet: Regular Diet Pending Studies Studies pending at discharge: no Laboratory Results Hemoglobin A1c Test 01/04/17 14:10 Range/Units Estimated Average Glucose 105 mg/dl Hemoglobin A1c 5.3 4.5-5.6 % Lipid Panel Test 01/04/17 14:10 Range/Units Triglycerides Level 417 H 0-150 mg/dl Cholesterol Level 224 H 0-200 mg/dl HDL Cholesterol 31 mg/dl LDL Cholesterol Direct 136 mg/dl Cholesterol/HDL Ratio 7.2 LDL Cholesterol, Calculated mg/dl Medical Emergencies . Who to Call and When: Medical Emergencies: If at any time you feel your situation is an emergency, please call 911 immediately. . Non-Emergent Contact Non-Emergency issues call your: Primary Care Provider Call Non-Emergent contact if: you have a fever, your pain is worsening . . "Provider Documentation" section prepared by Jose Mccallum. VTE Core Measure Inpt VTE Proph given/why not?: Enoxaparin (Lovenox)KASANDRA, Mj Richard, SCD's
[2017-01-09] MEDS ORDERED: VANCOMYCIN INJ 2,700 MG in SODIUM CHLORIDE 0.9% 500ML 500 ML IV ONE (11:30)
--- NOTE | 2017-01-09 11:56 | Pharmacy Progress Note ---
Pharmacy Antibiotic Consult Date of Service: Jan 09, 2017. Pharmacy Dosing Scope Pharmacy is consulted to initiate vancomycin IV dosing therapy, order appropriate labs and adjust drug dose/frequency. Mr Romero was admitted yesterday with SOB/wheezing. He was admitted for IV Levaquin and was scheduled for discharge today. However, 1/2 blood cultures came back as positive today. Subjective The patient is a 46 year old male admitted on Jan 08, 2017 at 12:54. Objective Height (Feet): 5 Height (Inches): 9.00 Weight (Kilograms): 109.600 Lab Results (24hrs): Laboratory Tests Test 01/09/17 06:30 BUN/Creatinine Ratio 15.3 Blood Urea Nitrogen 17 mg/dl Creatinine 1.10 mg/dl White Blood Count 18.37 K/uL Assessment & Plan Loading dose: vancomycin 1500 mg (25 mg/kg) IV X 1 dose then: vancomycin 1500 mg IV every 8 hours (13.7 mg/kg/dose; population pharmacokinetics suggest a half-life of 7.96 hours with an elimination constant of 0.087 hr-1. Due to his BMI fo 35.7 kg/m2 he is at risk for accumulation so lower mg/kg/dose was utilized). Goal peak level estimate: between 35 - 40 mcg/mL. Goal trough level estimate: between 15 - 20 mcg/mL (indication bacteremia). Trough has been ordered for: prior 1200 dose. Pharmacy will continue to follow and will adjust dose/frequency as necessary. Thank you
[2017-01-09] MEDS ORDERED: VANCOMYCIN CONSULT ACTIVE PRN (12:00)
--- NOTE | 2017-01-09 13:35 | Progress Note ---
Subjective Date of Service: Jan 09, 2017. Subjective Pt evaluation today including: conversation w/ patient, physical exam, chart review, lab review, review of studies, review of inpatient medication list Pt reports feeling better No weakness or fatigue Resting comfortably in bed Still productive cough Problem List Medical Problems: (1) Acute asthma exacerbation Status: Acute (2) Acute bronchitis Status: Acute (3) Asthma Status: Chronic (4) Asthma with exacerbation Status: Acute (5) Bronchitis Status: Acute (6) Diverticulosis Colon (W/O Ment Of Hemorrhage) Status: Chronic (7) Generalized abdominal discomfort Status: Acute (8) GERD (gastroesophageal reflux disease) Status: Chronic (9) Gout Status: Acute (10) Hyperlipidemia Nec/Nos Status: Chronic (11) Long-Term(Current)Use Of Steroids Status: Chronic (12) Near syncope Status: Acute (13) Pain of right great toe Status: Acute (14) Pneumonia Status: Acute (15) Shoulder injury Status: Acute (16) Sinusitis Status: Acute Review of Systems Constitutional: No chills, No fatigue, No fever, No weakness Respiratory: No cough, No sputum Cardiac: No chest pain, No orthopnea Abdomen: No constipation, No diarrhea, No nausea, No pain, No vomiting Musculoskeletal: No joint pain, No muscle pain Male : No dysuria, No urinary frequency Neurologic: No paralysis, No weakness Objective Vital Signs Date Time Temp Pulse Resp B/P Pulse Ox O2 Delivery O2 Flow Rate FiO2 01/09/17 11:58 91 Room Air 01/09/17 11:42 36.7 115 18 109/70 91 Room Air 01/09/17 11:09 115 16 91 Room Air 01/09/17 07:28 36.7 98 18 138/82 95 Nasal Cannula 2.0 01/09/17 07:27 94 Nasal Cannula 2.0 01/09/17 07:15 100 18 93 Nasal Cannula 2.0 01/09/17 05:20 36.7 102 18 116/69 94 Nasal Cannula 2.0 01/09/17 04:00 Nasal Cannula 2.0 01/09/17 00:07 37.1 117 18 128/79 93 Nasal Cannula 2.0 01/09/17 00:00 Nasal Cannula 2.0 01/08/17 20:00 93 Nasal Cannula 2.0 01/08/17 19:37 113 18 93 Nasal Cannula 2.0 01/08/17 19:36 37.1 97 18 138/84 90 Nasal Cannula 2.0 01/08/17 16:20 112 20 95 Nasal Cannula 2.0 01/08/17 16:20 92 2.0 01/08/17 14:59 37.2 120 24 142/78 92 2.0 01/08/17 14:38 119 25 131/94 94 01/08/17 13:31 119 25 131/94 94 Nasal Cannula 2.0 Physical Exam General Appearance: WD/WN, no apparent distress Eyes: PERRL, EOMI Neck: supple, no adenopathy Respiratory/Chest: lungs clear, normal breath sounds Cardiovascular: no edema, no gallop Abdomen: non tender, soft Neurologic/Psychiatric: alert, oriented x 3 Laboratory Results Last 24 Hours Test 01/08/17 15:00 01/08/17 15:30 01/09/17 06:30 Influenza Type A Antigen Neg for Influ A Influenza Type B Antigen Neg for Influ B Lactic Acid Level 1.9 mmol/L White Blood Count 18.37 K/uL Red Blood Count 4.72 M/uL Hemoglobin 13.7 g/dL Hematocrit 40.5 % Mean Corpuscular Volume 85.8 fL Mean Corpuscular Hemoglobin 29.0 pg Mean Corpuscular Hemoglobin Concent 33.8 g/dl RDW Standard Deviation 43.7 fL RDW Coefficient of Variation 14.1 % Platelet Count 262 K/uL Mean Platelet Volume 9.6 fL Sodium Level 139 mmol/L Potassium Level 4.4 mmol/L Chloride Level 108 mmol/L Carbon Dioxide Level 24 mmol/L Anion Gap 7.0 mmol/L Blood Urea Nitrogen 17 mg/dl Creatinine 1.10 mg/dl Est Creatinine Clear Calc Drug Dose 101.3 ml/min Estimated GFR () 92.2 Estimated GFR (Non- 79.5 BUN/Creatinine Ratio 15.3 Random Glucose 153 mg/dl Calcium Level 9.1 mg/dl Assessment and Plan 46 y/o male, with PMHx of asthma, vertigo, h/o diverticulitis, h/o pancreatitis , hyperlipidemia, and gout, who presented to the ED because of worsening SOB. Asthma exacerbation w/ hypoxia: - Admit to tele for cardiac monitoring due to tachycardia/hypoxia - IV NSS @ 125 ml/hr x1 bag - IV Solu Medrol 60 mg q8 hrs - DuoNeb QID & q2 hrs PRN - O2 protocol, wean as tolerated - BCx (1/2) pos for gram pos cocci - Check rapid influenza - Continue home inhalers - Follows with Dr. Beasley ?Left basilar pneumonia: - IV Levaquin, IV Zosyn x1 dose in ED - Repeat CXR tomorrow AM - Vanc added due to pos 1/2 cult Leukocytosis, ?secondary to asthma flare vs ?pneumonia: Follow CBC Vertigo: Continue Meclizine PRN Hyperlipidemia: Continue fish oil Gout: Completed course of Indomethacin GI Prophylaxis: Maalox PRN, IV Zofran PRN, Colace and/or Milk of Mag PRN DVT prophylaxis: Lovenox 40 mg SQ q24 hrs, RENETTA and SCDs Code Status: LEVEL I, FULL
[2017-01-09] MEDS: LEVOFLOXACIN / D5W 750 MG in PREMIXED IN D5W 150 ML IV SCH (14:33)
[2017-01-09] MEDS: VANCOMYCIN INJ 1,500 MG in SODIUM CHLORIDE 0.9% 500ML 500 ML IV SCH (20:09)
[2017-01-09] MEDS: CETIRIZINE HCL 10 MG TAB PO SCH (20:09)
[2017-01-09] MEDS: ENOXAPARIN 40 MG/0.4 ML SYR SC SCH (20:10)
[2017-01-10] VITALS (12 sets, daily range): BP systolic 123–136; BP diastolic 73–84; PULSE 62–97; TEMP 36.3–36.8; O2SAT 3–97
[2017-01-10] MEDS: METHYLPREDNISOLONE IV 60 MG in SYRINGE 0 ML IV SCH (04:28)
[2017-01-10] MEDS: VANCOMYCIN INJ 1,500 MG in SODIUM CHLORIDE 0.9% 500ML 500 ML IV SCH ×3 (04:28→22:10)
[2017-01-10 06:54] LABS: HEMATOCRIT 39.5 % (42-52); MEAN CELL VOLUME 88.8 fL (80-100); MEAN CORPUSCULAR HEMOGLOBIN 29.4 pg (25-34); MEAN CORPUSCULAR HGB CONC 33.2 g/dl (32-36); PLATELET COUNT 257 K/uL (130-400); RED BLOOD COUNT 4.45 M/uL (4.7-6.1); WHITE BLOOD COUNT 23.44 K/uL (4.8-10.8)
[2017-01-10] MEDS: ALBUT/IPRATROP 3MG/0.5MG NEB 3 ML VIAL INH SCH ×4 (07:05→20:29)
[2017-01-10] MEDS ORDERED: PIPERACILL/TAZOBAC CONSULT ACTIVE PRN (07:30)
[2017-01-10 07:31] LABS: BUN/CREATININE RATIO 21.7 (10-20); CALCIUM 8.9 mg/dl (8.5-10.1); POTASSIUM 4.4 mmol/L (3.5-5.1)
[2017-01-10] MEDS ORDERED: PIPERACILL/TAZOBAC IV 4.5 GM in DEXTROSE 5% 100ML IV ONE (08:00)
[2017-01-10] MEDS: LACTOBACILLUS ACIDOPHILUS (FLORANEX) TAB PO SCH ×2 (08:17→20:26)
[2017-01-10] MEDS: BUDESONIDE/FORMOTEROL FUMARATE 160/4.5 60 PUFFS/INHALER INH SCH ×2 (08:17→20:27)
[2017-01-10] MEDS: MULTIVITAMIN TAB PO SCH (08:17)
[2017-01-10] MEDS: FLUTICASONE PROPIONATE NA SPR 16 GM BTL NAE SCH (08:17)
[2017-01-10] MEDS: OMEGA-3 (PURIFIED FISH OIL) 1 GM CAP PO SCH (08:18)
--- NOTE | 2017-01-10 09:59 | Progress Note ---
Progress Note Date of Service Jan 10, 2017. Progress Note ID Consult Dictated #[id number] A/P: 1. + blood culture, staph species -Continue vanco for now, repeat cultures -Await final ID -will follow, thank you
[2017-01-10 11:21] LABS: URINE APPEARANCE CLEAR (CLEAR); URINE BILIRUBIN NEG (NEG); URINE COLOR YELLOW; URINE NITRITE NEG (NEG); URINE SPECIFIC GRAVITY 1.029 (1.000-1.030); UROBILINOGEN NEG (NEG)
[2017-01-10] MEDS ORDERED: VANCOMYCIN TROUGH SCH (11:30)
[2017-01-10 11:35] LABS: MANUAL MICROSCOPIC REQUIRED? NO; REVIEW REQ? NO
[2017-01-10] MEDS ORDERED: PIPERACILL/TAZOBAC IV 3.375 GM in DEXTROSE 5% 100ML 100 ML IV SCH (12:00)
--- NOTE | 2017-01-10 13:10 | Progress Note ---
Subjective Date of Service: Jan 10, 2017. Subjective Pt evaluation today including: conversation w/ patient, physical exam, chart review, lab review, review of studies, review of inpatient medication list Pt resting in bed comfortably Denies any fevers or chills, chest pain or shortness of breath Problem List Medical Problems: (1) Acute asthma exacerbation Status: Acute (2) Acute bronchitis Status: Acute (3) Asthma Status: Chronic (4) Asthma with exacerbation Status: Acute (5) Bronchitis Status: Acute (6) Diverticulosis Colon (W/O Ment Of Hemorrhage) Status: Chronic (7) Generalized abdominal discomfort Status: Acute (8) GERD (gastroesophageal reflux disease) Status: Chronic (9) Gout Status: Acute (10) Hyperlipidemia Nec/Nos Status: Chronic (11) Long-Term(Current)Use Of Steroids Status: Chronic (12) Near syncope Status: Acute (13) Pain of right great toe Status: Acute (14) Pneumonia Status: Acute (15) Shoulder injury Status: Acute (16) Sinusitis Status: Acute Review of Systems Constitutional: No chills, No fever Respiratory: + cough, + sputum, No dyspnea on exertion, No shortness of breath , No wheezing Cardiac: No PND, No chest pain, No claudication, No edema, No orthopnea Abdomen: No constipation, No diarrhea, No nausea, No pain, No vomiting Musculoskeletal: No joint pain, No muscle pain Male : No dysuria, No urinary frequency Objective Vital Signs Date Time Temp Pulse Resp B/P Pulse Ox O2 Delivery O2 Flow Rate FiO2 01/10/17 11:18 36.4 93 18 123/79 93 Room Air 01/10/17 11:05 93 16 93 Room Air 01/10/17 08:00 95 Room Air 01/10/17 07:15 36.8 81 18 135/81 95 Room Air 01/10/17 07:05 74 16 92 Room Air 01/10/17 04:36 36.3 97 20 130/75 92 Room Air 01/10/17 04:00 Room Air 01/10/17 00:00 Room Air 01/09/17 22:52 37.0 105 20 128/81 93 Room Air 01/09/17 20:00 Room Air 01/09/17 19:57 36.9 125 20 107/63 91 Room Air 01/09/17 19:03 88 12 98 Room Air 01/09/17 16:00 Nasal Cannula 2.0 01/09/17 15:25 109 12 91 Room Air 01/09/17 15:15 36.9 115 18 118/68 94 Nasal Cannula 2.0 Physical Exam General Appearance: WD/WN, no apparent distress Neck: supple, no adenopathy Respiratory/Chest: lungs clear, normal breath sounds Cardiovascular: no edema, no gallop Abdomen: non tender, soft Neurologic/Psychiatric: alert, oriented x 3 Laboratory Results Last 24 Hours Test 01/10/17 06:28 01/10/17 11:00 01/10/17 11:17 White Blood Count 23.44 K/uL Red Blood Count 4.45 M/uL Hemoglobin 13.1 g/dL Hematocrit 39.5 % Mean Corpuscular Volume 88.8 fL Mean Corpuscular Hemoglobin 29.4 pg Mean Corpuscular Hemoglobin Concent 33.2 g/dl RDW Standard Deviation 46.2 fL RDW Coefficient of Variation 14.2 % Platelet Count 257 K/uL Mean Platelet Volume 10.0 fL Sodium Level 141 mmol/L Potassium Level 4.4 mmol/L Chloride Level 109 mmol/L Carbon Dioxide Level 23 mmol/L Anion Gap 9.0 mmol/L Blood Urea Nitrogen 22 mg/dl Creatinine 1.00 mg/dl Est Creatinine Clear Calc Drug Dose 112.1 ml/min Estimated GFR () 103.4 Estimated GFR (Non- 89.2 BUN/Creatinine Ratio 21.7 Random Glucose 166 mg/dl Calcium Level 8.9 mg/dl Urine Color YELLOW Urine Appearance CLEAR Urine pH 6.0 Urine Specific [place] 1.029 Urine Protein NEG Urine Glucose (UA) TRACE Urine Ketones NEG Urine Occult Blood NEG Urine Nitrite NEG Urine Bilirubin NEG Urine Urobilinogen NEG Urine Leukocyte Esterase NEG Vancomycin Level Trough 17.6 mcg/ml Assessment and Plan 46 y/o male, with PMHx of asthma, vertigo, h/o diverticulitis, h/o pancreatitis , hyperlipidemia, and gout, who presented to the ED because of worsening SOB. Asthma exacerbation w/ hypoxia: - Admit to tele for cardiac monitoring due to tachycardia/hypoxia - IV NSS @ 125 ml/hr x1 bag - IV Solu Medrol 60 mg q8 hrs then transitioned to pred taper - DuoNeb QID & q2 hrs PRN - O2 protocol, wean as tolerated - BCx (10/12) pos for gram pos cocci - Continue home inhalers - Follows with Dr. Beasley ?Left basilar pneumonia: - IV Levaquin, IV Zosyn and IV vanc - Vanc added due to pos 1/2 cult Leukocytosis, ?secondary to asthma flare vs ?pneumonia: Follow CBC, ID consulted , BC x 1 pos for staph, repeat BC, vanc started, DCed solumedrol and now on prednisone Vertigo: Continue Meclizine PRN Hyperlipidemia: Continue fish oil Gout: Completed course of Indomethacin GI Prophylaxis: Maalox PRN, IV Zofran PRN, Colace and/or Milk of Mag PRN DVT prophylaxis: Lovenox 40 mg SQ q24 hrs, RENETTA and SCDs Code Status: LEVEL I, FULL
--- NOTE | 2017-01-10 13:21 | Pharmacy Progress Note ---
Pharmacy Antibiotic Prog Note Date of Service: Jan 10, 2017. Subjective: The patient is currently receiving vancomycin 1500 mg IV every 8 hours. The patient is currently on day # 2 of IV therapy. Objective: Height (Feet): 5 Height (Inches): 9.00 Weight (Kilograms): 110.900 Levels: Item Value Date Time Vancomycin Level Trough 17.6 mcg/ml 01/10/17 1117 Lab Results (24hrs): Laboratory Tests Test 01/10/17 06:28 BUN/Creatinine Ratio 21.7 Blood Urea Nitrogen 22 mg/dl Creatinine 1.00 mg/dl White Blood Count 23.44 K/uL Micro Results: RUN DATE: 01/10/17 [facility] LAB PAGE 1 RUN TIME: 905 Specimen Inquiry PATIENT: EMELY BEAZA LOC: [facility] # : [id number] AGE/SX: 46/M ROOM: N2 REG : 01/08/[address]: Jose Mccallum D.O : 1970 BED: 1 DIS : STATUS: ADM IN TLOC: SPEC #: [id number] HENRRY: 01/08/17 STATUS: RES REQ #: [id number] RECD: 01/08/17-1150 [facility] DR: Donnie Riojas M.D. SOURCE: BLOOD ENTR: 01/08/17-[address] [facility] [address]: Elan Beasley D.O.Int.Med. [facility]: ORDERED: BLOOD CULTURE COMMENTS: Comments to Endoscopy Support Specialist SAME TIME DIFFERENT SITES Procedure Result Verified Site BLD CULT Preliminary 01/10/17-0906 Organism 1 STAPH SPECIES SENS SENSITIVITY TO FOLLOW Phoned Positive Blood Culture Gram Stain Report to LAVERN HASSAN on 01/09/17 At 1022 By LEONILA. Results were verbalized back to LEONILA. Assessment & Plan: This drug level is: Therapeutic Change to vancomycin 1500 mg IV every 10 hours. (dose reduction implemented due to patient's BMI > 35 kg/m2...dose reduction of 20% appropriate to keep trough therapeutic rather than supratherapeutic) Goal peak level estimate: between 35 - 40 mcg/mL. Goal trough level estimate: between 15 - 20 mcg/mL (indication bacteremia). Trough has been ordered for: prior to the 0400 dose. Pharmacy will continue to follow and will adjust dose/frequency as necessary. Thank you
[2017-01-10] MEDS: LEVOFLOXACIN / D5W 750 MG in PREMIXED IN D5W 150 ML IV SCH (14:19)
--- NOTE | 2017-01-10 14:45 | INFECT. DISEASE CONSULTATION ---
DATE OF CONSULTATION: 01/10/2017 REQUESTING PHYSICIAN: Dr. Mccallum. HISTORY OF PRESENT ILLNESS: This is a 46-year-old gentleman who was admitted with an asthma exacerbation. He had been on a prolonged course of prednisone as an outpatient but recently was tapering himself off this. He began to have upper respiratory symptoms and sinus congestion. He was placed on a course of amoxicillin on the 04 of January; however, he did not have any significant improvement with this. He presented to the hospital and was treated for asthma exacerbation. He was placed on prednisone, vancomycin and Zosyn. He did have blood cultures initially on the and 10/12 bottles is growing gram positive cocci. His chest x-ray most recently on the was negative for pneumonia. He did present with a leukocytosis of 18,000 and this has increased to 23; however, he has been on steroids. He currently states he is feeling significantly better. He denies any cough, shortness of breath or wheezing on my examination today. He denies any chest pain. He denies any fevers or chills. He denies any nausea, vomiting, diarrhea or abdominal pain. He is eating well. He is tolerating antibiotics. All remaining review of systems is reviewed and is negative except for as noted above. PAST MEDICAL HISTORY: Significant for asthma, vertigo, diverticulitis, pancreatitis, high cholesterol and gout. PAST SURGICAL HISTORY: Unremarkable. FAMILY HISTORY: Noncontributory. SOCIAL HISTORY: Negative for tobacco use, alcohol use or drug use. ALLERGIES: He denies any allergies. CURRENT MEDICATIONS: Zosyn, prednisone, vancomycin, Levaquin, fish oil, fluticasone, multivitamins, Lovenox, Symbicort, Zyrtec, Floranex, DuoNebs, Tylenol, milk of magnesia, Maalox, Zofran, Antivert. PHYSICAL EXAMINATION: VITAL SIGNS: He has been afebrile since admission to the hospital, pulse 81, respiratory rate is 18, blood pressure is 135/81 and oxygen saturation is 95% on room air. GENERAL: He is awake, alert and oriented x3. He is in no acute distress. HEENT: Mucous membranes are moist. Extraocular muscles are intact. HEART: Regular. LUNGS: Clear without wheezing on my examination. ABDOMEN: Soft, nontender, nondistended. EXTREMITIES: There is no lower extremity edema bilaterally. SKIN: Without rash. LABORATORY STUDIES: CBC today reveals a white blood cell count of 23, hemoglobin 13.1, platelets are 257. Chemistry panel reveals a sodium of 141, potassium 4.4, chloride 109, bicarbonate 23, BUN 22, creatinine 1.0, glucose is 166. Flu swab was negative on January 08. Blood cultures are staph species which is yet to be identified. A sputum culture from the is pending. There are no previous cultures for review. IMAGING DATA: Again, most recent imaging on the did not show any evidence of pneumonia. ASSESSMENT AND PLAN: 1. Positive blood culture with staph species questionable contaminant versus a pathogen on patient with prolonged steroid use. 2. Leukocytosis, likely multifactorial from upper respiratory infection, on long-term steroid use. He can be continued on his antibiotics pending the result of his blood cultures. These also should be repeated. Thank you for this consultation.
[2017-01-10] MEDS: PIPERACILL/TAZOBAC IV 4.5 GM in DEXTROSE 5% 100ML IV SCH ×2 (16:21→22:10)
[2017-01-10] MEDS: CETIRIZINE HCL 10 MG TAB PO SCH (20:26)
[2017-01-10] MEDS: ENOXAPARIN 40 MG/0.4 ML SYR SC SCH (20:27)
[2017-01-11] VITALS (11 sets, daily range): BP systolic 123–153; BP diastolic 72–88; PULSE 86–100; TEMP 36.6–36.9; O2SAT 92–96
[2017-01-11] MEDS: PIPERACILL/TAZOBAC IV 4.5 GM in DEXTROSE 5% 100ML IV SCH ×3 (05:56→22:05)
[2017-01-11 07:06] LABS: HEMATOCRIT 38.5 % (42-52); MEAN CELL VOLUME 88.5 fL (80-100); MEAN CORPUSCULAR HEMOGLOBIN 29.4 pg (25-34); MEAN CORPUSCULAR HGB CONC 33.2 g/dl (32-36); MEAN PLATELET VOLUME 9.9 fL (7.4-10.4); PLATELET COUNT 221 K/uL (130-400); RED BLOOD COUNT 4.35 M/uL (4.7-6.1); WHITE BLOOD COUNT 15.72 K/uL (4.8-10.8)
[2017-01-11] MEDS: ALBUT/IPRATROP 3MG/0.5MG NEB 3 ML VIAL INH SCH ×4 (07:15→19:42)
[2017-01-11 07:43] LABS: BUN/CREATININE RATIO 15.6 (10-20); CALCIUM 8.6 mg/dl (8.5-10.1)
[2017-01-11] MEDS: BUDESONIDE/FORMOTEROL FUMARATE 160/4.5 60 PUFFS/INHALER INH SCH ×2 (08:21→20:40)
[2017-01-11] MEDS: FLUTICASONE PROPIONATE NA SPR 16 GM BTL NAE SCH (08:21)
[2017-01-11] MEDS: VANCOMYCIN INJ 1,500 MG in SODIUM CHLORIDE 0.9% 500ML 500 ML IV SCH ×2 (08:21→18:54)
[2017-01-11] MEDS: MULTIVITAMIN TAB PO SCH (08:22)
[2017-01-11] MEDS: OMEGA-3 (PURIFIED FISH OIL) 1 GM CAP PO SCH (08:22)
[2017-01-11] MEDS: LACTOBACILLUS ACIDOPHILUS (FLORANEX) TAB PO SCH ×2 (08:22→20:40)
--- NOTE | 2017-01-11 11:19 | Progress Note ---
Subjective Date of Service: Jan 11, 2017. Subjective awaiting ID of "staph species" from blood cultures. repeats pending. afebrile. tolerating abx. no overnight events. wbc improved. Problem List Medical Problems: (1) Acute asthma exacerbation Status: Acute (2) Acute bronchitis Status: Acute (3) Asthma Status: Chronic (4) Asthma with exacerbation Status: Acute (5) Bronchitis Status: Acute (6) Diverticulosis Colon (W/O Ment Of Hemorrhage) Status: Chronic (7) Generalized abdominal discomfort Status: Acute (8) GERD (gastroesophageal reflux disease) Status: Chronic (9) Gout Status: Acute (10) Hyperlipidemia Nec/Nos Status: Chronic (11) Long-Term(Current)Use Of Steroids Status: Chronic (12) Near syncope Status: Acute (13) Pain of right great toe Status: Acute (14) Pneumonia Status: Acute (15) Shoulder injury Status: Acute (16) Sinusitis Status: Acute Objective Vital Signs Date Time Temp Pulse Resp B/P Pulse Ox O2 Delivery O2 Flow Rate FiO2 01/11/17 08:00 Room Air 01/11/17 07:45 36.6 86 16 132/87 92 Room Air 01/11/17 07:15 87 16 93 Room Air 01/11/17 04:00 36.8 89 20 123/77 94 Room Air 01/11/17 04:00 Room Air 01/11/17 00:00 Room Air 01/10/17 23:29 36.7 89 20 136/84 92 Room Air 01/10/17 20:29 88 14 97 Room Air 01/10/17 20:00 Room Air 01/10/17 20:00 36.8 62 20 125/73 96 Room Air 01/10/17 16:00 Room Air 01/10/17 15:38 88 14 96 Room Air 01/10/17 14:54 36.5 95 20 127/81 93 Room Air 01/10/17 12:00 3 Room Air 01/10/17 11:18 36.4 93 18 123/79 93 Room Air Laboratory Results Item Value Date Time Blood Culture - Preliminary Resulted 01/08/17 1135 Blood Staph Species Blood Culture - Preliminary Resulted 01/08/17 1130 Blood NO GROWTH TO DATE. Last 24 Hours Test 01/11/17 06:14 White Blood Count 15.72 K/uL Red Blood Count 4.35 M/uL Hemoglobin 12.8 g/dL Hematocrit 38.5 % Mean Corpuscular Volume 88.5 fL Mean Corpuscular Hemoglobin 29.4 pg Mean Corpuscular Hemoglobin Concent 33.2 g/dl RDW Standard Deviation 45.8 fL RDW Coefficient of Variation 14.1 % Platelet Count 221 K/uL Mean Platelet Volume 9.9 fL Sodium Level 144 mmol/L Potassium Level 4.0 mmol/L Chloride Level 110 mmol/L Carbon Dioxide Level 25 mmol/L Anion Gap 9.0 mmol/L Blood Urea Nitrogen 16 mg/dl Creatinine 1.00 mg/dl Est Creatinine Clear Calc Drug Dose 112.8 ml/min Estimated GFR () 103.4 Estimated GFR (Non- 89.2 BUN/Creatinine Ratio 15.6 Random Glucose 114 mg/dl Calcium Level 8.6 mg/dl Assessment and Plan (1) Positive blood culture Assessment & Plan: ? skin lorene, repeat pending. 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 will follow.
--- NOTE | 2017-01-11 12:10 | Progress Note ---
Subjective Date of Service: Jan 11, 2017. Subjective Pt evaluation today including: conversation w/ patient, physical exam, chart review, lab review, review of studies, review of inpatient medication list Problem List Medical Problems: (1) Acute asthma exacerbation Status: Acute (2) Acute bronchitis Status: Acute (3) Asthma Status: Chronic (4) Asthma with exacerbation Status: Acute (5) Bronchitis Status: Acute (6) Diverticulosis Colon (W/O Ment Of Hemorrhage) Status: Chronic (7) Generalized abdominal discomfort Status: Acute (8) GERD (gastroesophageal reflux disease) Status: Chronic (9) Gout Status: Acute (10) Hyperlipidemia Nec/Nos Status: Chronic (11) Long-Term(Current)Use Of Steroids Status: Chronic (12) Near syncope Status: Acute (13) Pain of right great toe Status: Acute (14) Pneumonia Status: Acute (15) Shoulder injury Status: Acute (16) Sinusitis Status: Acute Review of Systems Constitutional: No chills, No fever Eyes: No eye pain, No worsening of vision Respiratory: + cough, + sputum, No dyspnea on exertion, No shortness of breath , No wheezing Cardiac: No chest pain, No orthopnea Abdomen: No diarrhea, No nausea, No pain, No vomiting Musculoskeletal: No joint pain, No muscle pain Male : No dysuria, No urinary frequency Psychiatric: No anxiety, No depression symptoms Objective Vital Signs Date Time Temp Pulse Resp B/P Pulse Ox O2 Delivery O2 Flow Rate FiO2 01/11/17 11:42 36.8 90 16 124/74 95 Room Air 01/11/17 11:05 90 16 96 Room Air 01/11/17 08:00 Room Air 01/11/17 07:45 36.6 86 16 132/87 92 Room Air 01/11/17 07:15 87 16 93 Room Air 01/11/17 04:00 36.8 89 20 123/77 94 Room Air 01/11/17 04:00 Room Air 01/11/17 00:00 Room Air 01/10/17 23:29 36.7 89 20 136/84 92 Room Air 01/10/17 20:29 88 14 97 Room Air 01/10/17 20:00 Room Air 01/10/17 20:00 36.8 62 20 125/73 96 Room Air 01/10/17 16:00 Room Air 01/10/17 15:38 88 14 96 Room Air 01/10/17 14:54 36.5 95 20 127/81 93 Room Air Physical Exam General Appearance: WD/WN, no apparent distress Neck: supple, no adenopathy Respiratory/Chest: chest non-tender, lungs clear Cardiovascular: no edema, no gallop Abdomen: non tender, soft Neurologic/Psychiatric: alert, oriented x 3 Laboratory Results Last 24 Hours Test 01/11/17 06:14 White Blood Count 15.72 K/uL Red Blood Count 4.35 M/uL Hemoglobin 12.8 g/dL Hematocrit 38.5 % Mean Corpuscular Volume 88.5 fL Mean Corpuscular Hemoglobin 29.4 pg Mean Corpuscular Hemoglobin Concent 33.2 g/dl RDW Standard Deviation 45.8 fL RDW Coefficient of Variation 14.1 % Platelet Count 221 K/uL Mean Platelet Volume 9.9 fL Sodium Level 144 mmol/L Potassium Level 4.0 mmol/L Chloride Level 110 mmol/L Carbon Dioxide Level 25 mmol/L Anion Gap 9.0 mmol/L Blood Urea Nitrogen 16 mg/dl Creatinine 1.00 mg/dl Est Creatinine Clear Calc Drug Dose 112.8 ml/min Estimated GFR () 103.4 Estimated GFR (Non- 89.2 BUN/Creatinine Ratio 15.6 Random Glucose 114 mg/dl Calcium Level 8.6 mg/dl Assessment and Plan 46 y/o male, with PMHx of asthma, vertigo, h/o diverticulitis, h/o pancreatitis , hyperlipidemia, and gout, who presented to the ED because of worsening SOB. Asthma exacerbation w/ hypoxia: - Admit to tele for cardiac monitoring due to tachycardia/hypoxia - IV NSS @ 125 ml/hr x1 bag - IV Solu Medrol 60 mg q8 hrs then transitioned to pred taper - DuoNeb QID & q2 hrs PRN - O2 protocol, wean as tolerated - BCx (1/2) pos for gram pos cocci, repeat cx pending, ?contaminant, appreciate ID recs - Continue home inhalers - Follows with Dr. Beasley ?Left basilar pneumonia: - IV Levaquin, IV Zosyn and IV vanc - Vanc added due to pos 1/2 cult Leukocytosis, ?secondary to asthma flare vs ?pneumonia: Follow CBC, ID consulted , BC x 1 pos for staph, repeat BC, vanc started, DCed solumedrol and now on prednisone Vertigo: Continue Meclizine PRN Hyperlipidemia: Continue fish oil Gout: Completed course of Indomethacin GI Prophylaxis: Maalox PRN, IV Zofran PRN, Colace and/or Milk of Mag PRN DVT prophylaxis: Lovenox 40 mg SQ q24 hrs, RENETTA and SCDs Code Status: LEVEL I, FULL
[2017-01-11] MEDS: LEVOFLOXACIN / D5W 750 MG in PREMIXED IN D5W 150 ML IV SCH (12:52)
[2017-01-11] MEDS: ENOXAPARIN 40 MG/0.4 ML SYR SC SCH (20:39)
[2017-01-11] MEDS: CETIRIZINE HCL 10 MG TAB PO SCH (20:40)
[2017-01-12] VITALS (8 sets, daily range): BP systolic 100–149; BP diastolic 63–94; PULSE 77–87; TEMP 36.5–37.1; O2SAT 91–95
[2017-01-12] MEDS ORDERED: VANCOMYCIN TROUGH SCH (03:30)
[2017-01-12 04:06] LABS: HEMATOCRIT 38.6 % (42-52); MEAN CELL VOLUME 87.5 fL (80-100); MEAN CORPUSCULAR HGB CONC 33.2 g/dl (32-36); MEAN PLATELET VOLUME 9.6 fL (7.4-10.4); PLATELET COUNT 222 K/uL (130-400); RED BLOOD COUNT 4.41 M/uL (4.7-6.1)
[2017-01-12] MEDS: VANCOMYCIN INJ 1,500 MG in SODIUM CHLORIDE 0.9% 500ML 500 ML IV SCH (04:07)
[2017-01-12] MEDS: PIPERACILL/TAZOBAC IV 4.5 GM in DEXTROSE 5% 100ML IV SCH (06:06)
[2017-01-12] MEDS: ALBUT/IPRATROP 3MG/0.5MG NEB 3 ML VIAL INH SCH (07:39)
[2017-01-12] MEDS: LACTOBACILLUS ACIDOPHILUS (FLORANEX) TAB PO SCH (07:58)
[2017-01-12] MEDS: BUDESONIDE/FORMOTEROL FUMARATE 160/4.5 60 PUFFS/INHALER INH SCH (07:58)
[2017-01-12] MEDS: FLUTICASONE PROPIONATE NA SPR 16 GM BTL NAE SCH (07:58)
[2017-01-12] MEDS: MULTIVITAMIN TAB PO SCH (07:58)
[2017-01-12] MEDS: OMEGA-3 (PURIFIED FISH OIL) 1 GM CAP PO SCH (07:58)
[2017-01-12] MEDS ORDERED: LEVO-18 PO (11:10)
[2017-01-12] MEDS ORDERED: PRED10TA PO (11:32)
[2017-01-12] MEDS ORDERED: IPRATROPIUM BROMIDE/ALBUTEROL respimat INH INH SCH (13:00)
--- NOTE | 2017-01-12 13:49 | Discharge Summary ---
Discharge Summary Date of Service Jan 12, 2017. Discharge Summary Admission Date: Jan 08, 2017 at 12:54 Discharge Date: Jan 09, 2017 Discharge Disposition: Home Principal Diagnosis: PNA Problems/Secondary Diagnoses: (1) Asthma Status: Chronic (2) Diverticulosis Colon (W/O Ment Of Hemorrhage) Status: Chronic (3) GERD (gastroesophageal reflux disease) Status: Chronic (4) Hyperlipidemia Nec/Nos Status: Chronic (5) Long-Term(Current)Use Of Steroids Status: Chronic Consultations: ID Discharge Exam Review of Systems: Constitutional: No chills, No fever Eyes: No eye pain, No worsening of vision Respiratory: + cough, No dyspnea on exertion, No shortness of breath, No sputum, No wheezing Cardiovascular: No chest pain, No orthopnea Abdomen: No constipation, No diarrhea, No nausea, No pain, No vomiting Musculoskeletal: No joint pain, No muscle pain Genitourinary - Male: No hematuria Neurologic: No paralysis, No weakness Physical Exam: General Appearance: WD/WN, no apparent distress Neck: supple, no adenopathy Respiratory/Chest: lungs clear, normal breath sounds Cardiovascular: no edema, no gallop Abdomen / GI: non tender, soft Neurologic/Psychiatric: alert, oriented x 3 Hospital Course 46 y/o male, with PMHx of asthma, vertigo, h/o diverticulitis, h/o pancreatitis , hyperlipidemia, and gout, who presented to the ED because of worsening SOB. Asthma exacerbation w/ hypoxia: - Admitted to tele for cardiac monitoring due to tachycardia/hypoxia - IV NSS @ 125 ml/hr x1 bag - IV Solu Medrol 60 mg q8 hrs then transitioned to pred taper on discharge - DuoNeb QID & q2 hrs PRN - O2 protocol, wean as tolerated - Continue home inhalers - Follows with Dr. Gale Dasilva basilar pneumonia: - IV Levaquin, IV Zosyn and IV vanc during hospital course - Vanc added due to pos 1/2 cult, repeat cult neg likely contaminant, discharged on levaquin for 3 more days for 7 days total tx, appreciate ID recs Leukocytosis, ?secondary to asthma flare vs ?pneumonia vs steroids: Follow CBC, ID consulted, BC x 1 pos for staph, repeat BC neg Vertigo: Continue Meclizine PRN Hyperlipidemia: Continue fish oil Gout: Completed course of Indomethacin GI Prophylaxis: Maalox PRN, IV Zofran PRN, Colace and/or Milk of Mag PRN DVT prophylaxis: Lovenox 40 mg SQ q24 hrs, RENETTA and SCDs Code Status: LEVEL I, FULL Total Time Spent: Greater than 30 minutes This includes examination of the patient, discharge planning, medication reconciliation, and communication with other providers. Discharge Instructions Please refer to the electronic Patient Visit Report (Discharge Instructions) for additional information. Additional Copies To Elan Beasley D.O.Int.Med.
== END 2017-01-12 11:48 | disposition home or self-care (01) | DRG 194 ==
LOC: ENRESERVTM → ENRESERVDT → C.EDB 10:21 → C.MED 12:54
PROVIDERS: ADMIT Hospitalist; ATTEND Hospitalist
DX: J18.9 Pneumonia, unspecified organism (principal); J45.901 Unspecified asthma with (acute) exacerbation; J01.90 Acute sinusitis, unspecified; R09.02 Hypoxemia; R00.0 Tachycardia, unspecified; D72.829 Elevated white blood cell count, unspecified; T38.0X5A Adverse effect of glucocorticoids and synthetic analogues, initial encounter; K21.9 Gastro-esophageal reflux disease without esophagitis; K57.30 Diverticulosis of large intestine without perforation or abscess without bleeding; E78.5 Hyperlipidemia, unspecified; M10.9 Gout, unspecified; R42 Dizziness and giddiness; Z79.52 Long term (current) use of systemic steroids; Z79.51 Long term (current) use of inhaled steroids; Z79.899 Other long term (current) drug therapy; Z79.891 Long term (current) use of opiate analgesic; Z79.1 Long term (current) use of non-steroidal anti-inflammatories (NSAID)

== ENCOUNTER → 2017-01-18 | Outpatient (CLI) | payer BC ==
[~2017-01-18] MED LIST changes: +FLUT0.15 NAE; +PRED10TA PO
--- NOTE | 2017-01-18 16:11 | DIAGNOSTIC IMAGING REPORT ---
CHEST 2 VIEWS ROUTINE CLINICAL HISTORY: PNEUMONIA dyspnea COMPARISON STUDY: 01/09/2017 FINDINGS: minimal poorly defined parenchymal infiltrate left base. Mild fullness mediastinum unchanged. Lungs otherwise appear clear. Mild chronic elevation right hemidiaphragm. IMPRESSION: Poorly defined minimal parenchymal infiltrate left base. Electronically signed by: Donny Sesay M.D. 01/18/2017 4:08 PM Dictated Date/Time: 01/18/2017 4:07 PM
== END | disposition home or self-care (01) ==
LOC: C.RADBC 15:57
PROVIDERS: ATTEND Physician Assistant Medical
DX: J18.9 Pneumonia, unspecified organism (principal)

== ENCOUNTER → 2017-04-22 | Outpatient (CLI) | payer BC ==
[~2017-04-22] MED LIST changes: -PRED10TA PO
--- NOTE | 2017-04-22 12:05 | DIAGNOSTIC IMAGING REPORT ---
SINUSES MIN 3 VIEWS ROUTINE CLINICAL HISTORY: ACUTE SINUSITIS (461.9) COMPARISON STUDY: No previous studies for comparison. FINDINGS: There is extensive mucosal thickening involving both maxillary sinuses. There is a small air-fluid level within one of the maxillary sinuses as visualized in the lateral projection. There is a sphenoid sinus air-fluid level. Mild mucosal disease is suspected within the frontal sinuses. IMPRESSION: Extensive mucosal thickening within the maxillary sinuses with an air-fluid level. Also evident is a sphenoid sinus air-fluid level. The findings are consistent with sinusitis. Electronically signed by: Garcia Duran M.D. 04/22/2017 12:04 PM Dictated Date/Time: 04/22/2017 12:03 PM
== END | disposition home or self-care (01) ==
LOC: C.RADBBURG 11:42
PROVIDERS: ATTEND Physician Assistant
DX: J01.90 Acute sinusitis, unspecified (principal)

== ENCOUNTER 2017-10-12 17:22 | Inpatient (IN) | payer BC ==
[~2017-10-12] VITALS: Ht 172.7 cm; Wt 104.0 kg
[~2017-10-12 17:22] MED LIST changes: -CETI10TA84 PO; -INDO-24 PO; +IPRA-64 INH; -IPRASOL4 INH; +LEVA1.258 NEB; -LEVA1.258 PO; -ONDA4TAB10 SL; -OXYC1TAB3 PO; -SYMIN160 INH
[2017-10-12] MEDS ORDERED: DEXAMETHASONE SOD INJ 4 MG/ML VIAL IV STA (18:07)
[2017-10-12] MEDS ORDERED: KETOROLAC TROMETHAMINE 30 MG/ML VIAL IV STA (18:13)
[2017-10-12] MEDS ORDERED: ALBUT/IPRATROP 3MG/0.5MG NEB 3 ML VIAL INH ONE ×3 (18:15→20:30)
[2017-10-12] MEDS ORDERED: SYMIN160 INH (18:18)
[2017-10-12 18:25] VITALS: PULSE 120; O2SAT 90
[2017-10-12] MEDS ORDERED: CEFU1TAB35 PO (18:31)
[2017-10-12] MEDS ORDERED: MECL1TAB42 PO (18:31)
[2017-10-12] MEDS ORDERED: IPRA1AER2 INH (18:31)
[2017-10-12] MEDS ORDERED: PRED10TA PO (18:31)
[2017-10-12] MEDS ORDERED: PANT40TA2 PO (18:31)
[2017-10-12] MEDS ORDERED: BENZ100C7 PO (18:31)
[2017-10-12 19:42] LABS: BASO % 0.2 %; BASO ABS # 0.03 K/uL (0-0.2); EOS % 1.5 %; EOS ABS # 0.19 K/uL (0-0.5); HEMATOCRIT 46.2 % (42-52); HEMOGLOBIN 15.7 g/dL (14.0-18.0); IG# 0.26 K/uL (0.00-0.02); LYMPH % 15.5 %; LYMPH ABS # 1.95 K/uL (1.2-3.4); MEAN CORPUSCULAR HEMOGLOBIN 29.9 pg (25-34); MEAN PLATELET VOLUME 9.7 fL (7.4-10.4); MONO % 10.4 %; MONO ABS # 1.31 K/uL (0.11-0.59); NEUT % 70.3 %; NEUT ABS # 8.86 K/uL (1.4-6.5); PLATELET COUNT 131 K/uL (130-400); RED CELL DISTRIBUTION WIDTH CV 14.1 % (11.5-14.5); RED CELL DISTRIBUTION WIDTH SD 45.3 fL (36.4-46.3)
[2017-10-12 20:04] LABS: INFLUENZA B PCR Neg for Influ B (NEG)
[2017-10-12 20:06] LABS: INFLUENZA A PCR POS for Influ A (NEG)
--- NOTE | 2017-10-12 20:12 | DIAGNOSTIC IMAGING REPORT ---
CHEST 2 VIEWS ROUTINE HISTORY: 47 years-old Male COUGH, FEVER acute cough and fever COMPARISON: Chest radiographs 01/18/2017 TECHNIQUE: PA and lateral views of the chest FINDINGS: Cardiac silhouette is within normal limits. Mild right hemidiaphragmatic elevation is unchanged. There is no pneumothorax, pleural effusion or focal airspace consolidation to suggest pneumonia. Linear subsegmental opacity of the inferior segment lingula compatible with atelectasis. Bones of the chest appear grossly intact. Mild levoscoliosis of the thoracic spine. IMPRESSION: No acute process. The above report was generated using voice recognition software. It may contain grammatical, syntax or spelling errors. Electronically signed by: Gilbert Crespo M.D. 10/12/2017 8:11 PM Dictated Date/Time: 10/12/2017 8:09 PM
[2017-10-12 20:20] LABS: CREATININE 1.12 mg/dl (0.60-1.40); POTASSIUM 3.5 mmol/L (3.5-5.1)
[2017-10-12] MEDS ORDERED: TRAMADOL HCL 50 MG TAB PO STA (20:26)
[2017-10-12] MEDS ORDERED: OSELTAMIVIR PHOSPHATE 75 MG CAP PO STA (20:26)
[2017-10-12] MEDS ORDERED: CETI10TA84 PO (20:36)
--- NOTE | 2017-10-12 21:53 | EMERGENCY ROOM VISIT NOTE ---
History First contact with patient: 18:00 Chief Complaint: RESPIRATORY PROBLEMS Stated Complaint: ASTHMA Nursing Triage Summary: pt became ill yesterday with resp s/s pt has asthma using nebulizer several times pt sitting at triage station with hyperventilating pt gives minimal info, sig other with him giving information productive cough fever no flu shot malaise, body aches History of Present Illness The patient is a 47 year old male who presents to the Emergency Room with complaints of difficulty breathing, fever and productive cough. The patient reports that his symptoms started yesterday, and escalated quickly. The patient has had's contact with others that have been sick. The patient did not receive the flu immunization this fall. The patient is asthmatic area he has been using nebulizers without any relief. He rates his discomfort an 8 out of 10. Review of Systems HEENT: Denies dizziness, visual problems, hearing loss, tinnitus. Denies difficulty swallowing or oral lesions. PULMONARY: See history of present illness. CARDIOVASCULAR: Denies chest pain, palpitations, dyspnea on exertion, orthopnea or peripheral edema. GASTROINTESTINAL: Denies diarrhea, constipation, nausea, vomiting, or abdominal pain. GENITOURINARY: Denies dysuria, frequency, urgency or nocturia. NEUROLOGIC: Denies history of epilepsy, CVA, TIA or chronic headaches. MUSCULOSKELETAL: Denies history of joint tenderness/swelling. SKIN: Denies rashes or lesions. PSYCHIATRIC: Denies history of depression or mental illness. ENDOCRINE: Denies history of diabetes or thyroid disorders. Past Medical/Surgical History Medical Problems: (1) Abdominal pain (2) Asthma (3) Asthma exacerbation (4) Asthma exacerbation (5) Asthmatic bronchitis with acute exacerbation (6) Diverticulitis (7) Diverticulitis (8) Diverticulosis Colon (W/O Ment Of Hemorrhage) (9) GERD (gastroesophageal reflux disease) (10) Hyperlipidemia Nec/Nos (11) Hypoxia (12) Long-Term(Current)Use Of Steroids (13) Pancreatitis (14) Positive blood culture (15) Vertigo Family History Asthma Social History Smoking Status: Never Smoker Alcohol Use: none Drug Use: none Marital Status: in relationship Housing Status: lives with significant other Occupation Status: employed Current/Historical Medications Scheduled Budesonide/Formoterol Fumarate (Symbicort 160/4.5 Inhaler), 2 PUFFS INH BID Cefuroxime Axetil (Cefuroxime Axetil), 500 MG PO BID Cetirizine (Zyrtec), 10 MG PO HS Fish Oil ([place]-3), 3 CAP PO DAILY Lactobacillus (Floranex), 1 TAB PO BID Multiple Vitamin (Multivitamin), 1 TAB PO DAILY Pantoprazole (Pantoprazole Sodium), 40 MG PO DAILY Prednisone (Prednisone), 30 MG PO DAILY Psyllium (Metamucil), 2 TBS PO DAILY Senna-Fennel (Natural Vegetable Laxativ), 1 TAB PO BID [Blackseed Oil], 1 CAP PO BID Scheduled PRN Benzonatate (Benzonatate), 100 MG PO TID PRN for Cough Ipratropium-Albuterol (Duoneb), 1 TREATMENT INH QID PRN for SOB/Wheezing Ipratropium-Albuterol (Combivent Respimat), 1 PUFF INH QID PRN for Shortness of Breath Levalbuterol Hcl (Levalbuterol Hcl), 3 ML NEB Q6H PRN for SOB/Wheezing Meclizine Hcl (Meclizine Hcl), 25 MG PO TID PRN for Dizziness or Vertigo Physical Exam Vital Signs Date Time Temp Pulse Resp B/P (MAP) Pulse Ox O2 Delivery O2 Flow Rate FiO2 10/12/17 19:41 97 Mask 7.0 10/12/17 19:39 37.0 139 30 132/80 97 Mask 7.0 Nebulizer 10/12/17 18:27 118 10/12/17 18:25 120 34 90 Room Air 10/12/17 17:58 90 Room Air 10/12/17 17:56 38.0 124 20 135/80 90 Room Air Physical Exam CONSTITUTIONAL: Healthy and well nourished. Alert and oriented X 3. The patient appears in moderate distress, and does not engage in complication. His significant other speaks for him. HEENT: Normocephalic, atraumatic. Pupils equal, round and reactive. Ears and nares are clear. No conjunctival injection. OROPHARYNX: Mild posterior pharyngeal erythema without tonsillar hypertrophy or exudates. NECK: Full active range of motion without discomfort. RESPIRATORY: Patient is not moving any air, and appears in moderate respiratory distress. No obvious wheezing, crackles or rhonchi. CARDIOVASCULAR: Tachycardic with no murmurs, rubs or gallops. GASTROINTESTINAL: Bowel sounds present in all quadrants. Soft and nontender to palpation. MUSCULOSKELETAL: Full range of motion of all joints without discomfort. INTEGUMENTARY: No rash or other significant dermatologic conditions noted. HEMATOLOGIC: No ecchymosis or petechiae noted. NEUROLOGIC: No focal neurologic deficits noted. Medical Decision & Procedures ER Provider Diagnostic Interpretation: My interpretation of a two-view chest x-ray does not show any consolidations, pneumothorax or other acute findings. Radiologist report is as follows: CHEST 2 VIEWS ROUTINE HISTORY: 47 years-old Male COUGH, FEVER acute cough and fever COMPARISON: Chest radiographs 01/18/2017 TECHNIQUE: PA and lateral views of the chest FINDINGS: Cardiac silhouette is within normal limits. Mild right hemidiaphragmatic elevation is unchanged. There is no pneumothorax, pleural effusion or focal airspace consolidation to suggest pneumonia. Linear subsegmental opacity of the inferior segment lingula compatible with atelectasis. Bones of the chest appear grossly intact. Mild levoscoliosis of the thoracic spine. IMPRESSION: No acute process. Laboratory Results 10/12/17 19:01 Red Blood Count 5.25, Mean Corpuscular Volume 88.0, Mean Corpuscular Hemoglobin 29.9, Mean Corpuscular Hemoglobin Concent 34.0, Mean Platelet Volume 9.7, Neutrophils (%) (Auto) 70.3, Lymphocytes (%) (Auto) 15.5, Monocytes (%) (Auto) 10.4, Eosinophils (%) (Auto) 1.5, Basophils (%) (Auto) 0.2, Neutrophils # (Auto ) 8.86, Lymphocytes # (Auto) 1.95, Monocytes # (Auto) 1.31, Eosinophils # (Auto ) 0.19, Basophils # (Auto) 0.03 10/12/17 19:01 Test 10/12/17 18:40 10/12/17 19:01 Bedside Lactic Acid Venous 2.46 mmol/L (0.90-1.70) Influenza Type A (RT-PCR) POS for Influ A (NEG) Influenza Type B (RT-PCR) Neg for Influ B (NEG) White Blood Count 12.60 K/uL (4.8-10.8) Red Blood Count 5.25 M/uL (4.7-6.1) Hemoglobin 15.7 g/dL (14.0-18.0) Hematocrit 46.2 % (42-52) Mean Corpuscular Volume 88.0 fL (80-100) Mean Corpuscular Hemoglobin 29.9 pg (25-34) Mean Corpuscular Hemoglobin Concent 34.0 g/dl (32-36) Platelet Count 131 K/uL (130-400) Mean Platelet Volume 9.7 fL (7.4-10.4) Neutrophils (%) (Auto) 70.3 % Lymphocytes (%) (Auto) 15.5 % Monocytes (%) (Auto) 10.4 % Eosinophils (%) (Auto) 1.5 % Basophils (%) (Auto) 0.2 % Neutrophils # (Auto) 8.86 K/uL (1.4-6.5) Lymphocytes # (Auto) 1.95 K/uL (1.2-3.4) Monocytes # (Auto) 1.31 K/uL (0.11-0.59) Eosinophils # (Auto) 0.19 K/uL (0-0.5) Basophils # (Auto) 0.03 K/uL (0-0.2) RDW Standard Deviation 45.3 fL (36.4-46.3) RDW Coefficient of Variation 14.1 % (11.5-14.5) Immature Granulocyte % (Auto) 2.1 % Immature Granulocyte # (Auto) 0.26 K/uL (0.00-0.02) Erythrocyte Sedimentation Rate 4 mm/hr (0-14) Anion Gap 7.0 mmol/L (3-11) Est Creatinine Clear Calc Drug Dose 94.4 ml/min Estimated GFR () 89.5 Estimated GFR (Non- 77.3 BUN/Creatinine Ratio 14.5 (10-20) Calcium Level 9.0 mg/dl (8.5-10.1) C-Reactive Protein 2.53 mg/dl (0-0.29) The above labs were reviewed. The patient was positive for influenza A. His white count is also mildly elevated with left shift and bandemia. C-reactive protein and sedimentation rate are also elevated. Blood cultures were ordered and are pending. Point of care lactate was also elevated. Medications Administered Medications (Trade) Dose Ordered Sig/Celia Route Start Time Stop Time Status Last Admin Dose Admin Albuterol/ Ipratropium (Duoneb) 12 ml ONE ONCE INH 10/12/17 18:15 10/12/17 18:16 DC 10/12/17 18:23 12 ML Dexamethasone Sodium Phosphate (Decadron Inj) 10 mg NOW STAT IV 10/12/17 18:07 10/12/17 18:12 DC 10/12/17 18:43 4 MG Ketorolac Tromethamine (Toradol Inj) 30 mg NOW STAT IV 10/12/17 18:13 10/12/17 18:15 DC 10/12/17 18:43 30 MG ED Course Patient history and physical exam were performed. Nurse's notes were reviewed. Vital signs were reviewed, showing a temperature of 38C. The patient is also tachycardic at 124 bpm with an O2 saturation of 90% on room air. The patient is normotensive. IV access was established, and labs were drawn, including blood cultures 2 and [id number] lactate. The patient was administered IV Decadron and Toradol, and an hour-long DuoNeb treatment was administered. Review of labs shows a positive influenza A with leukocytosis, left shift and bandemia. Sedimentation rate, CRP and a bedside lactate are elevated. Two-view chest x-ray was normal. The patient was administered an hour-long DuoNeb treatment on initial exam. The patient did report moderate relief of his symptoms, but still felt short of breath. O2 saturation was 90%, and was therefore administered oxygen via nasal cannula at 3 L/m. The case was further discussed with Dr. Schmidt, ED at any physician, who recommended repeating an hour-long DuoNeb treatment. The patient also requested something for headache, and was ordered Ultram 50 mg. The patient was also ordered Tamovir 75 mg. These medications had not yet been administered at the time of transfer of shift. Patient care was transferred to Ana Cristina Salgado PA-C. Please see her dictation for further treatment and final disposition. Medical Decision Patient presents with upper respiratory symptoms and findings today suggestive of asthma exacerbation secondary to influenza A. My final reassessment, the patient did have improvement of his symptoms with an hour-long DuoNeb treatment , Toradol and Decadron. He was still somewhat hypoxic, and an additional hour- long DuoNeb treatment was ordered. This had not been completed at the time of change of shift, and the patient will be reassessed after his DuoNeb treatment. Patient does not have any pneumonia or other consolidations on chest x-ray. Medication Reconcilliation Current Medication List: was personally reviewed by me Blood Pressure Screening Patient's blood pressure: Normal blood pressure Impression Primary Impression: Influenza A Additional Impression: Asthma exacerbation Departure Information Referrals No Doctor, Assigned (PCP) Patient Instructions My [facility] Problem Qualifiers Additional Impression: Asthma exacerbation Asthma severity: moderate Asthma persistence: unspecified Qualified Codes: J45.901 - Unspecified asthma with (acute) exacerbation
[2017-10-12 21:54] VITALS: PULSE 113; O2SAT 94
[2017-10-12] MEDS ORDERED: MAGNESIUM SULFATE 1GM / D5W 1 GM BAG IV STA (23:04)
[2017-10-13] VITALS (14 sets, daily range): BP systolic 120–148; BP diastolic 77–90; PULSE 87–100; TEMP 36.4–37; O2SAT 92–99; Ht 172.7 cm; Wt 104.0 kg
--- NOTE | 2017-10-13 00:36 | EMERGENCY ROOM VISIT NOTE ---
ED Visit Note Care of this patient was signed out to me at change of shift by MELANIA Hess. At that time, the patient was receiving a second hour-long DuoNeb treatment. Patient is an asthmatic with history of multiple hospitalizations for asthma exacerbations. He had a positive influenza A today. He has been given 2 DuoNeb treatments as well as Decadron and Tamiflu. On reassessment, the patient was still having a significant amount of difficulty breathing and required supplemental oxygen. I feel he will need to be admitted for asthma exacerbation in the setting of influenza. 2 g magnesium was ordered. [facility], who will evaluate the patient for admission.
[2017-10-13] MEDS ORDERED: BENZONATATE 100MG CAP PO PRN (01:30)
[2017-10-13] MEDS ORDERED: ACETAMINOPHEN 325 MG TAB PO PRN (01:30)
[2017-10-13] MEDS ORDERED: ALUMINUM/MAGNESIUM/SIMETH (MAALOX MAX) 30 ML UDC PO PRN (01:30)
[2017-10-13] MEDS ORDERED: MECLIZINE HCL 12.5 MG TAB PO PRN (01:30)
[2017-10-13] MEDS ORDERED: ALBUTEROL 0.083% NEBU SOLN 3 ML VIAL INH PRN (01:30)
[2017-10-13] MEDS ORDERED: ZOLPIDEM TARTRATE 5 MG TAB PO PRN (01:30)
[2017-10-13] MEDS ORDERED: POLYETHYLENE (MIRALAX) 17 GM PACK PO PRN (01:30)
[2017-10-13] MEDS ORDERED: ONDANSETRON INJ 2 MG/ML 2 ML VIAL IV PRN (01:30)
[2017-10-13] MEDS ORDERED: MAGNESIUM HYDROXIDE SUSP 30 ML UDC PO PRN (01:30)
--- NOTE | 2017-10-13 01:39 | History and Physical ---
History & Physical Date & Time of Service: Oct 13, 2017 at 01:32 Chief Complaint: Asthma Primary Care Physician: No Doctor, Assigned History of Present Illness Source: patient 47 y/o M Hx asthma, HPL, vertigo. Presents with fever, wheezing and persistent SOB. Was hypoxic on arrival to the ER and had only a marginal response to multiple neb treatments. Rapid flu returned + for influenza A. Past Medical/Surgical History 1) Asthma - severe 2) Gout 3) HTN 4) HPL 5) Pancreatitis 6) Chronic vertigo Family History Asthma Social History Smoking Status: Never Smoker Drug Use: none Marital Status: in relationship Occupational Status: employed Multi-Drug Resistant Organisms History of MDRO: No Allergies Coded Allergies: No Known Allergies (Unverified , 11/12/16) Home Medications Scheduled Budesonide/Formoterol Fumarate (Symbicort 160/4.5 Inhaler), 2 PUFFS INH BID Cefuroxime Axetil (Cefuroxime Axetil), 500 MG PO BID Cetirizine (Zyrtec), 10 MG PO HS Fish Oil ([place]-3), 3 CAP PO DAILY Lactobacillus (Floranex), 1 TAB PO BID Multiple Vitamin (Multivitamin), 1 TAB PO DAILY Pantoprazole (Pantoprazole Sodium), 40 MG PO DAILY Prednisone (Prednisone), 30 MG PO DAILY Psyllium (Metamucil), 2 TBS PO DAILY Senna-Fennel (Natural Vegetable Laxativ), 1 TAB PO BID [Blackseed Oil], 1 CAP PO BID Scheduled PRN Benzonatate (Benzonatate), 100 MG PO TID PRN for Cough Ipratropium-Albuterol (Duoneb), 1 TREATMENT INH QID PRN for SOB/Wheezing Ipratropium-Albuterol (Combivent Respimat), 1 PUFF INH QID PRN for Shortness of Breath Levalbuterol Hcl (Levalbuterol Hcl), 3 ML NEB Q6H PRN for SOB/Wheezing Meclizine Hcl (Meclizine Hcl), 25 MG PO TID PRN for Dizziness or Vertigo Review of Systems Constitutional: + fever, + chills, No sweats Eyes: No worsening of vision ENT: No hearing loss, No nasal symptoms Respiratory: + cough, + sputum, + wheezing, + shortness of breath Cardiovascular: No chest pain, No orthopnea, No PND Abdomen: No pain, No vomiting Musculoskeletal: No joint pain Genitourinary - Male: No hematuria, No dysuria, No urinary frequency Neurologic: No memory loss, No paralysis, No weakness Psychiatric: No depression symptoms Endocrine: No fatigue Hematologic / Lymphatic: No abnormal bleeding/bruising Physical Exam Vital Signs Date Time Temp Pulse Resp B/P (MAP) Pulse Ox O2 Delivery O2 Flow Rate FiO2 10/13/17 01:17 37.4 102 23 118/72 95 Nasal Cannula 5.0 10/13/17 01:14 102 22 94 Nasal Cannula 5.0 10/13/17 00:14 108 95 Nasal Cannula 5.0 10/13/17 00:09 110 24 96 Nasal Cannula 5.0 10/13/17 00:01 138/88 10/12/17 23:09 122 26 94 Nasal Cannula 5.0 10/12/17 23:04 156/93 10/12/17 23:00 124 26 94 Nasal Cannula 5.0 10/12/17 22:54 93 Nasal Cannula 5.0 10/12/17 22:52 92 Nasal Cannula 3.0 10/12/17 22:52 92 Nasal Cannula 4.0 10/12/17 22:51 25 92 Nasal Cannula 3.0 10/12/17 22:51 30 89 Room Air 10/12/17 22:48 37.8 123 27 154/84 92 Room Air 10/12/17 22:34 118 10/12/17 22:26 118 28 148/92 96 Room Air 10/12/17 21:54 113 26 94 Room Air 10/12/17 20:30 134 29 132/98 97 Nebulizer 7.0 10/12/17 19:41 97 Mask 7.0 10/12/17 19:39 37.0 139 30 132/80 97 Mask 7.0 Nebulizer 10/12/17 18:27 118 10/12/17 18:25 120 34 90 Room Air 10/12/17 17:58 90 Room Air 10/12/17 17:56 38.0 124 20 135/80 90 Room Air General Appearance: WD/WN, no apparent distress Head: normocephalic ENT: normal ENT inspection, pharynx normal Neck: supple, no JVD Respiratory/Chest: no respiratory distress, + accessory muscle use, + wheezing Cardiovascular: regular rate, rhythm, no edema, no gallop Abdomen/GI: normal bowel sounds, non tender, soft Back: normal inspection, no CVA tenderness Extremities/Musculoskelatal: normal inspection, no calf tenderness, normal capillary refill Neurologic/Psych: patient information coordinator II-XII nml as tested, no motor/sensory deficits, alert, oriented x 3 Skin: normal color Diagnostics Laboratory Results Results Past 24 Hours Test 10/12/17 18:40 10/12/17 19:01 Range/Units Bedside Lactic Acid Venous 2.46 0.90-1.70 mmol/L Influenza Type A (RT-PCR) POS for Influ A NEG Influenza Type B (RT-PCR) Neg for Influ B NEG White Blood Count 12.60 4.8-10.8 K/uL Red Blood Count 5.25 4.7-6.1 M/uL Hemoglobin 15.7 14.0-18.0 g/dL Hematocrit 46.2 42-52 % Mean Corpuscular Volume 88.0 80-100 fL Mean Corpuscular Hemoglobin 29.9 25-34 pg Mean Corpuscular Hemoglobin Concent 34.0 32-36 g/dl Platelet Count 131 130-400 K/uL Mean Platelet Volume 9.7 7.4-10.4 fL Neutrophils (%) (Auto) 70.3 % Lymphocytes (%) (Auto) 15.5 % Monocytes (%) (Auto) 10.4 % Eosinophils (%) (Auto) 1.5 % Basophils (%) (Auto) 0.2 % Neutrophils # (Auto) 8.86 1.4-6.5 K/uL Lymphocytes # (Auto) 1.95 1.2-3.4 K/uL Monocytes # (Auto) 1.31 0.11-0.59 K/uL Eosinophils # (Auto) 0.19 0-0.5 K/uL Basophils # (Auto) 0.03 0-0.2 K/uL RDW Standard Deviation 45.3 36.4-46.3 fL RDW Coefficient of Variation 14.1 11.5-14.5 % Immature Granulocyte % (Auto) 2.1 % Immature Granulocyte # (Auto) 0.26 0.00-0.02 K/uL Erythrocyte Sedimentation Rate 4 0-14 mm/hr Sodium Level 133 136-145 mmol/L Potassium Level 3.5 3.5-5.1 mmol/L Chloride Level 99 98-107 mmol/L Carbon Dioxide Level 27 21-32 mmol/L Anion Gap 7.0 3-11 mmol/L Blood Urea Nitrogen 16 7-18 mg/dl Creatinine 1.12 0.60-1.40 mg/dl Est Creatinine Clear Calc Drug Dose 94.4 ml/min Estimated GFR () 89.5 Estimated GFR (Non- 77.3 BUN/Creatinine Ratio 14.5 10-20 Random Glucose 97 70-99 mg/dl Calcium Level 9.0 8.5-10.1 mg/dl C-Reactive Protein 2.53 0-0.29 mg/dl Microbiology Results 10/12/17 Blood Culture, Received Pending 10/12/17 Blood Culture, Received Pending CXR normal Impression Assessment and Plan 47 y/o M Hx asthma, HPL, vertigo. Presents with fever, wheezing and persistent SOB. Was hypoxic on arrival to the ER and had only a marginal response to multiple neb treatments. Rapid flu returned + for influenza A. 1) Status asthmaticus - pt is normally on duonebs so that we have placed him on scheduled duonebs, Albuterol and IV steroids - he will remain on his long- acting inhaler. Assigned to telemetry with an 02 protocol. 2) Influenza A - placed on Tamiflu 3) HPL - continue fish oil 4) Vertigo - Meclizine PRN Full code - Lovenox prophylaxis Total time for this admit including review of labs, meds, imaging - discussion with pt and ER attending - 35 min Level of Care Telemetry Resuscitation Status FULL RESUSCITATION VTE Prophylaxis VTE Risk Assessment Done? Y/N: Yes Risk Level: Low Given or contraindicated: Enoxaparin (Lovenox)SQ
--- NOTE | 2017-10-13 03:17 | NUR ---
Admit: Refer to admission nursing assessment for nursing history, admission vital signs, and assessment details; Report received from LEAD TANK MECHANIC Hortencia; 47 y/o Pt. in NAD being admitted Asthma & Flu A+ - Droplet precautions established; Pt. Received and Placed in room 216 via Wheelchair; Pt. walked to bed; Vital signs obtained Pt. Tachypneic at this time, Currently on 5 LPM NC, Respirations Labored w use of accessory muscles SPO2 in 95% on arrival; Pt. oriented to room, call dominguez, and hospital environment, fall agreement & Code word previously established; Residential Installer applied - Admit strip printed and verified showing NSR 90-100; Pt. denies any chest pain, Reports shortness of breath. Patient agrees to ring for assistance; No discharge needs anticipated; Bed lowest position, Call dominguez & items of necessity within reach, Will continue to monitor & assess.
[2017-10-13] MEDS ORDERED: NSS + 20MEQ KCL 1000ML 1,000 ML IV SCH (04:00)
[2017-10-13] MEDS: ALBUT/IPRATROP 3MG/0.5MG NEB 3 ML VIAL INH SCH ×4 (04:09→20:31)
[2017-10-13] MEDS: METHYLPREDNISOLONE IV 60 MG in SYRINGE 0 ML IV SCH ×4 (04:19→21:40)
[2017-10-13] MEDS ORDERED: INFLUENZA VIRUS QUAD VACCINE 0.5 ML SYR IM. ONE (05:30)
[2017-10-13] MEDS ORDERED: INFLUENZA ADMINISTRATION CHARGE ONE (05:30)
[2017-10-13] MEDS: LACTOBACILLUS ACIDOPHILUS (FLORANEX) TAB PO SCH ×2 (07:56→20:58)
[2017-10-13] MEDS: PSYLLIUM 58.6% PWD PACK PO SCH (07:56)
[2017-10-13] MEDS: BUDESONIDE/FORMOTEROL FUMARATE 160/4.5 60 PUFFS/INHALER INH SCH ×2 (07:56→20:56)
[2017-10-13] MEDS: OSELTAMIVIR PHOSPHATE 75 MG CAP PO SCH ×2 (07:57→20:57)
[2017-10-13] MEDS: OMEGA-3 (PURIFIED FISH OIL) 1 GM CAP PO SCH (07:57)
[2017-10-13] MEDS: SENNA 8.6 MG TAB PO SCH ×2 (07:57→20:58)
[2017-10-13] MEDS: PANTOprazole SOD 40 MG TAB PO SCH (07:57)
[2017-10-13] MEDS: ENOXAPARIN 40 MG/0.4 ML SYR SC SCH (07:58)
--- NOTE | 2017-10-13 08:00 | NUR ---
Patient A+Ox4, in NAD. Denies any CP/pressure/palpitations. NSR on monitor. Pulses palpable. Lung sounds diminished throughout. Breathing currently unlabored; he reports that it's much better. Sats > 92% on 3L O2 via NC. Denies N/V. +BS x 4. Voiding CYU in urinal. Skin intact- patient has rash to posterior left thomas/ankle, which he reports has been there x 3 years. Peripheral IV left hand intact and infusing NS + 20K @ 100 ml/hr. Explained plan for day. Will administer Flu vaccine. Will continue to monitor.
[2017-10-13] MEDS ORDERED: CEFUROXIME AXETIL 500 MG TAB PO ONE (11:12)
[2017-10-13] MEDS ORDERED: ALBUT/IPRATROP 3MG/0.5MG NEB 3 ML VIAL INH PRN (11:15)
--- NOTE | 2017-10-13 11:23 | Progress Note ---
Progress Note Date of Service Oct 13, 2017. (Zeinab Brown ., BRENDA) Progress Note Patient admitted after midnight. Seen and examined by me this morning. The patient reports feeling better. He states that he is still short of breath but improved from admission. He does report a productive cough and wheezing. He noted feeling warm earlier this morning but temperature was normal. Denies sweats and chills. He reports some RUQ pain with coughing but no pain at rest. He admits to fatigue. The patient denies fevers, chills, sweats, chest pain, palpitations, claudication, nausea, vomiting, dysuria, hematuria, urinary retention, paralysis, weakness, numbness and tingling. Physical exam: Pt currently weaned down to 2L NC. Does not wear O2 at home. Lungs sounds very tight, poor air movement with diffuse wheezing throughout. Heart RRR, no murmurs. Normal bowel sounds, RUQ mildly TTP, abdomen soft. Physical exam otherwise unremarkable. A/P: Influenza A, exacerbation of severe persistent asthma--improving -Admit to telemetry. No acute events overnight. Pt in sinus rhythm with HR 80s- 90s -Tamiflu 75 mg PO BID. Day #1 of 5. -DuoNebs QIDR. Will also add q2h prn SOB/wheezing -Solu-Medrol 60 mg IV q6h -Continue Symbicort BID -O2 by protocol. Wean as tolerated. Currently on 2L NC. -Elevated POC lactic acid on admission, will repeat. Pt does not appear septic -Leukocytosis is chronic due to chronic Prednisone use Recent left otitis media w/effusion -Complete outpt regimen of Ceftin 500 mg PO BID. Day #8 (Zeinab Brown ., JALEESAC) Supervising Note Dr. Yuan I performed a history and physical examination on the patient. I reviewed above note and agree with it. I discussed plan with APC and patient. During my face to face encounter with the patient, I answered all of the patient's questions. (Kike Yuan M.D.)
[2017-10-13 11:44] LABS: HEMATOCRIT 45.2 % (42-52); HEMOGLOBIN 14.9 g/dL (14.0-18.0); MEAN CELL VOLUME 89.5 fL (80-100); MEAN CORPUSCULAR HEMOGLOBIN 29.5 pg (25-34); MEAN PLATELET VOLUME 9.8 fL (7.4-10.4); PLATELET COUNT 139 K/uL (130-400); RED CELL DISTRIBUTION WIDTH CV 14.8 % (11.5-14.5); WHITE BLOOD COUNT 11.21 K/uL (4.8-10.8)
--- NOTE | 2017-10-13 12:00 | NUR ---
Patient in NAD. Sats 95% on 2L O2 via NC. Lung sounds restricted, but patient denies SOB. Labs done- Lactic acid 3.0. VSS. SR on monitor. Informed hospitalist about Lactic acid results. Flu vaccine administered. Will continue to monitor.
[2017-10-13 12:06] LABS: CREATININE 1.19 mg/dl (0.60-1.40); POTASSIUM 4.7 mmol/L (3.5-5.1)
--- NOTE | 2017-10-13 16:00 | NUR ---
A/ID: Patient admitted for Flu A and status asthmaticus. He is alert and oriented x4. Denies pain or shortness of breath. Wearing 2L NC O2 at this time, does not wear home O2. Sinus rhythm on monitor. Saline lock intact. Please see EMR for further assessment documentation. Remains in hospital receiving IV Solumedrol and breathing treatments. Droplet precautions being implemented for Flu A. No plans for discharge at this time. All needs met, visitor at bedside, call dominguez in reach.
--- NOTE | 2017-10-13 16:35 | NUR ---
A: Report called to Gladis in medical.
--- NOTE | 2017-10-13 17:00 | NUR ---
A: Patient received into room 250-2 at this time via wheelchair from PCU with all belongings. Report received from CODY Burnett. Alert and oriented, lungs diminished on 2L/min NC. Patient denies any SOB. Productive cough of thick, white/dubose sputum per patient report. Will continue to monitor.
[2017-10-13] MEDS: CEFUROXIME AXETIL 500 MG TAB PO SCH (20:56)
[2017-10-13] MEDS ORDERED: CETIRIZINE HCL 10 MG TAB PO SCH (21:00)
[2017-10-14] MEDS: ALBUT/IPRATROP 3MG/0.5MG NEB 3 ML VIAL INH SCH ×2 (02:05→06:59)
[2017-10-14 02:08] VITALS: PULSE 91; O2SAT 94
[2017-10-14] MEDS: METHYLPREDNISOLONE IV 60 MG in SYRINGE 0 ML IV SCH (03:19)
[2017-10-14 07:00] VITALS: PULSE 94; O2SAT 94
[2017-10-14] MEDS: ENOXAPARIN 40 MG/0.4 ML SYR SC SCH (07:27)
[2017-10-14] MEDS: BUDESONIDE/FORMOTEROL FUMARATE 160/4.5 60 PUFFS/INHALER INH SCH (07:28)
[2017-10-14] MEDS: PANTOprazole SOD 40 MG TAB PO SCH (07:29)
[2017-10-14] MEDS: OSELTAMIVIR PHOSPHATE 75 MG CAP PO SCH (07:29)
[2017-10-14] MEDS: LACTOBACILLUS ACIDOPHILUS (FLORANEX) TAB PO SCH (07:29)
[2017-10-14] MEDS: PSYLLIUM 58.6% PWD PACK PO SCH (07:29)
[2017-10-14] MEDS: CEFUROXIME AXETIL 500 MG TAB PO SCH (07:29)
[2017-10-14] MEDS: SENNA 8.6 MG TAB PO SCH (07:29)
[2017-10-14] MEDS: OMEGA-3 (PURIFIED FISH OIL) 1 GM CAP PO SCH (07:29)
[2017-10-14 07:51] VITALS: BP 127/79; PULSE 81; TEMP 36.9; O2SAT 91
[2017-10-14 07:52] LABS: HEMATOCRIT 47.8 % (42-52); HEMOGLOBIN 16.1 g/dL (14.0-18.0); MEAN CELL VOLUME 88.8 fL (80-100); MEAN CORPUSCULAR HEMOGLOBIN 29.9 pg (25-34); MEAN CORPUSCULAR HGB CONC 33.7 g/dl (32-36); MEAN PLATELET VOLUME 9.6 fL (7.4-10.4); PLATELET COUNT 161 K/uL (130-400); RED CELL DISTRIBUTION WIDTH CV 14.4 % (11.5-14.5); RED CELL DISTRIBUTION WIDTH SD 46.8 fL (36.4-46.3); WHITE BLOOD COUNT 19.95 K/uL (4.8-10.8)
[2017-10-14 09:05] LABS: CALCIUM 9.1 mg/dl (8.5-10.1); CREATININE 1.09 mg/dl (0.60-1.40); POTASSIUM 4.5 mmol/L (3.5-5.1)
--- NOTE | 2017-10-14 09:39 | Hospitalist Progress Note ---
Hospitalist Progress Note Date of Service Oct 14, 2017. (Zeinab Brown ., JALEESAC) Subjective Pt evaluation today including: conversation w/ patient, physical exam, chart review, lab review, review of inpatient medication list Pain: None PO Intake: Tolerating PO diet Voiding: no voiding problems Patient reports feeling better. He states that his shortness of breath continues to improve. He still complains of a productive cough, but notes that coughing no longer causes abdominal or back pain. He still complains of wheezing. The patient denies fevers, chills, sweats, chest pain, palpitations, claudication, nausea, vomiting, abdominal pain, dysuria, hematuria, urinary retention, paralysis, weakness, numbness and tingling. Additional Comments: See HPI for pertinent positives and negatives. All other systems reviewed and negative. (Zeinab Brown ., MELANIA-C) Objective Vital Signs Date Time Temp Pulse Resp B/P (MAP) Pulse Ox O2 Delivery O2 Flow Rate FiO2 10/14/17 08:00 Nasal Cannula 2.0 10/14/17 07:51 36.9 81 16 127/79 (95) 91 Nasal Cannula 2.0 10/14/17 07:00 94 18 94 Nasal Cannula 2.0 10/14/17 02:08 91 18 94 BiPAP/CPAP 2.0 10/14/17 00:00 Nasal Cannula 2.0 10/13/17 23:54 97 92 2.0 10/13/17 23:45 37.0 91 18 123/80 (94) 93 Nasal Cannula 2.0 10/13/17 20:36 94 18 93 Nasal Cannula 2.0 10/13/17 17:26 36.9 94 18 139/86 (103) 92 Nasal Cannula 1.5 10/13/17 16:46 36.6 96 20 93 2.0 10/13/17 16:00 Nasal Cannula 2.0 10/13/17 15:02 36.6 96 20 144/83 (103) 93 Nasal Cannula 2.0 10/13/17 14:26 94 20 94 Nasal Cannula 2.0 10/13/17 12:00 Nasal Cannula 2.0 10/13/17 11:07 36.5 87 20 120/77 (91) 95 Nasal Cannula 2.0 (Zeinab Brown PA-C) Physical Exam Notes: General appearance: +Obese. Well-developed, well-nourished, no apparent distress Head: Normocephalic, atraumatic Eyes: Normal inspection, PERRL, EOMI ENT: Normal ENT inspection, hearing grossly normal, pharynx normal Neck: Supple, no JVD, trachea midline Respiratory/Chest: +Decreased breath sounds. Improved air movement. No wheezing, just received DuoNeb. On 2L NC. Lungs clear to auscultation, no respiratory distress Cardiovascular: Regular rate & rhythm, no gallop, no murmur Abdomen/GI: Normal bowel sounds, non-tender, soft Extremities/Musculoskeletal: Normal inspection, no calf tenderness, no pedal edema Neurological/Psych: Alert, normal mood/affect, oriented x 3 Skin: Normal color, warm/dry, no rash (Zeinab Brown, JALEESAC) Laboratory Results Last 24 Hours Test 10/13/17 11:07 10/14/17 07:36 10/14/17 07:40 White Blood Count 11.21 K/uL 19.95 K/uL Red Blood Count 5.05 M/uL 5.38 M/uL Hemoglobin 14.9 g/dL 16.1 g/dL Hematocrit 45.2 % 47.8 % Mean Corpuscular Volume 89.5 fL 88.8 fL Mean Corpuscular Hemoglobin 29.5 pg 29.9 pg Mean Corpuscular Hemoglobin Concent 33.0 g/dl 33.7 g/dl RDW Standard Deviation 48.0 fL 46.8 fL RDW Coefficient of Variation 14.8 % 14.4 % Platelet Count 139 K/uL 161 K/uL Mean Platelet Volume 9.8 fL 9.6 fL Sodium Level 133 mmol/L 135 mmol/L Potassium Level 4.7 mmol/L 4.5 mmol/L Chloride Level 101 mmol/L 103 mmol/L Carbon Dioxide Level 26 mmol/L 26 mmol/L Anion Gap 6.0 mmol/L 6.0 mmol/L Blood Urea Nitrogen 18 mg/dl 23 mg/dl Creatinine 1.19 mg/dl 1.09 mg/dl Est Creatinine Clear Calc Drug Dose 88.7 ml/min 96.9 ml/min Estimated GFR () 83.2 92.5 Estimated GFR (Non- 71.8 79.8 BUN/Creatinine Ratio 15.0 21.0 Random Glucose 189 mg/dl 168 mg/dl Lactic Acid Level 3.0 mmol/L 2.1 mmol/L Calcium Level 9.0 mg/dl 9.1 mg/dl (Zeinab Brown .JALEESAC) Assessment and Plan 47 y/o male with a history of severe persistent asthma, HTN, HLD, gout, GERD, and BPPV who presents with fevers, wheezing, and SOB. Rapid flu positive. Influenza A, exacerbation of severe persistent asthma--improving -Admit to telemetry. No acute events overnight. Pt in sinus rhythm with HR 80s- 90s. Transfer to med/surg -Tamiflu 75 mg PO BID. Day #2 of 5. -DuoNebs QIDR and q2h prn SOB/wheezing -Decrease Solu-Medrol to 40 mg IV BID. Home Prednisone on hold -Continue Symbicort BID -O2 by protocol. Wean as tolerated. Currently on 2L NC at rest and has not been ambulating much. Does not wear oxygen at home. Wean as tolerated and check for desaturating with ambulation -Lactic acid trending down to 2.1 on 10/14. No other s/s of infection, unclear significance -Leukocytosis is chronic due to chronic Prednisone use Recent left otitis media w/effusion -Complete outpt regimen of Ceftin 500 mg PO BID. Day #9/ HTN, HLD--stable -Continue fish oil supplement Gout--stable, no exacerbation GERD -Continue Protonix 40 mg PO qd BPPV--stable -Continue meclizine 25 mg PO TID prn dizziness/vertigo DVT prophylaxis -Enoxaparin 40 mg SC q24h Code Status -Level I, FULL RESUSCITATION STATUS (Zeinab Brown .BRENDA) Supervising Note Dr. Yuan I performed a history and physical examination on the patient. I reviewed above note and agree with it. I discussed plan with APC and patient. During my face to face encounter with the patient, I answered all of the patient's questions. Patient appears to have improved today. We may be able to discharge patient on prednisone taper and gradually taper down to his usual dose. His lungs sounded clear when I examined him today. (Kike Yuan M.D.)
--- NOTE | 2017-10-14 10:32 | NUR ---
A: Patient ambulated hallways once independently with nurse. Patient tolerated well on RA. No Sob, gait steady. Rechecked 02 Saturation while on RA 97%.
[2017-10-14] MEDS ORDERED: SODIUM CHLORIDE 0.9% 1000ML 1,000 ML IV SCH (11:30)
[2017-10-14] MEDS ORDERED: PRED20TA PO ×2 (12:46→12:52)
[2017-10-14] MEDS ORDERED: TMF75 PO (12:46)
--- NOTE | 2017-10-14 12:56 | Discharge Instructions ---
Discharge Instructions Date of Service Oct 14, 2017. Admission Reason for Admission: Influenza A, Status Asthmaticus Discharge Discharge Diagnosis / Problem: Influenza A, asthma exacerbation Discharge Goals Goal(s): Decrease discomfort, Improve function, Diagnostic testing, Therapeutic intervention Activity Recommendations Activity Limitations: resume your previous activity (as tolerated) . Instructions / Follow-Up Instructions / Follow-Up You were admitted to the hospital after presenting with fevers, wheezing and shortness of breath. You were found to be positive for influenza A as well as having an acute asthma exacerbation. The flu is being treated with an antiviral called Tamiflu, which you will continue on discharge. Your asthma exacerbation was treated with IV steroids and nebulizers. As your breathing is back to baseline and you are off oxygen, you are now medically stable for discharge. Medications: *Please take Tamiflu (oseltamivir) 75 mg by mouth twice daily for 3 more days. *Please take the following Prednisone taper as instructed: -Take prednisone 80 mg (4 tablets) TONIGHT, 10/14/17 -Take 60 mg (3 tablets) once a day for 3 days, starting on 10/15/17. Then, -40 mg (2 tablets) once a day for 3 days, then stop and resume your chronic 30 mg a day. *Continue Ceftin, the antibiotic for your left ear infection, for one more day to complete the 10 day course prescribed. *Continue your home medications as prescribed. You may schedule your DuoNeb treatments four times a day for the first few days following discharge until you are feeling better, then go back to using as needed. Follow up: *You will be scheduled to follow up with your primary care provider. Please seek medical attention if you experience fevers, chills, sweats, dizziness/lightheadedness, loss of consciousness, chest pain, shortness of breath, nausea, vomiting, numbness or tingling. Current Hospital Diet Patient's current hospital diet: AHA Diet (Heart Healthy) Discharge Diet Recommended Diet: AHA Diet (Heart Healthy) Pending Studies Studies pending at discharge: no Medical Emergencies . Who to Call and When: Medical Emergencies: If at any time you feel your situation is an emergency, please call 911 immediately. . Non-Emergent Contact Non-Emergency issues call your: Primary Care Provider . Past History Medical & Surgical History: (1) Influenza A (2) Status asthmaticus . "Provider Documentation" section prepared by Zeinab Brown. . VTE Core Measure Inpt VTE Proph given/why not?: Enoxaparin (Lovenox)SQ
[2017-10-14 13:11] VITALS: BP 127/79; PULSE 81; TEMP 36.9; O2SAT 91
--- NOTE | 2017-10-14 13:12 | Discharge Summary ---
Discharge Summary Date of Service Oct 14, 2017. Discharge Summary Admission Date: Oct 13, 2017 at 01:31 Discharge Date: Oct 14, 2017 Discharge Disposition: Home Principal Diagnosis: Influenza A, asthma exacerbation Problems/Secondary Diagnoses: (1) Asthma Status: Chronic (2) Diverticulosis Colon (W/O Ment Of Hemorrhage) Status: Chronic (3) GERD (gastroesophageal reflux disease) Status: Chronic (4) Hyperlipidemia Nec/Nos Status: Chronic (5) Long-Term(Current)Use Of Steroids Status: Chronic Gout HTN BPPV Procedures: CHEST 2 VIEWS ROUTINE HISTORY: 47 years-old Male COUGH, FEVER acute cough and fever COMPARISON: Chest radiographs 01/18/2017 TECHNIQUE: PA and lateral views of the chest FINDINGS: Cardiac silhouette is within normal limits. Mild right hemidiaphragmatic elevation is unchanged. There is no pneumothorax, pleural effusion or focal airspace consolidation to suggest pneumonia. Linear subsegmental opacity of the inferior segment lingula compatible with atelectasis. Bones of the chest appear grossly intact. Mild levoscoliosis of the thoracic spine. IMPRESSION: No acute process. Medication Reconciliation New Medications: Prednisone (Prednisone) 20 Mg Tab 20 MG PO UD for 6 Days, #15 TAB Take 60 mg (3 tabs) daily for 3 days, then 40 mg (2 tabs) daily for 3 days, then stop. Prednisone (Prednisone) 20 Mg Tab 80 MG PO HS for 1 Day, #4 TAB Take 80 mg (4 tablets) the evening of 10/14/17 Oseltamivir Phosphate (Tamiflu) 75 Mg Cap 75 MG PO BID for 3 Days, #6 CAP Continued Medications: Benzonatate (Benzonatate) 100 Mg Cap 100 MG PO TID PRN for Cough Budesonide/Formoterol Fumarate (Symbicort 160/4.5 Inhaler) 120 Puffs/ Aero 2 PUFFS INH BID Cefuroxime Axetil (Cefuroxime Axetil) 500 Mg Tab 500 MG PO BID, #20 PRESCRIBED 10/06/2017, TAKE DIRECTED UNTIL GONE Cetirizine (Zyrtec) 10 Mg Tab 10 MG PO HS, TAB Fish Oil (Sunspot-3) 1 Ea Cap 3 CAP PO DAILY Ipratropium-Albuterol (Duoneb) 3 Ml Nebu 1 TREATMENT INH QID PRN for SOB/Wheezing, INHA Ipratropium-Albuterol (Combivent Respimat) 1 Aer Aer 1 PUFF INH QID PRN for Shortness of Breath Lactobacillus (Floranex) 1 Tab Tab 1 TAB PO BID Levalbuterol Hcl (Levalbuterol Hcl) 1.25 Mg/3 Ml Neb 3 ML NEB Q6H PRN for SOB/Wheezing Meclizine Hcl (Meclizine Hcl) 25 Mg Tab 25 MG PO TID PRN for Dizziness or Vertigo, TAB Multiple Vitamin (Multivitamin) 1 Tab Tab 1 TAB PO DAILY, TAB Pantoprazole (Pantoprazole Sodium) 40 Mg Tab 40 MG PO DAILY Prednisone (Prednisone) 10 Mg Tab 30 MG PO DAILY Psyllium (Metamucil) 48.57 % Pow 2 TBS PO DAILY Senna-Fennel (Natural Vegetable Laxativ) 1 Tab Tab 1 TAB PO BID [Blackseed Oil] () 1 CAP PO BID Discharge Exam Patient reports feeling better. He ambulated in the hallway with nursing on room air and maintained O2 sat of 97%. He states that his breathing is at baseline. He still complains of a productive cough, but notes that coughing no longer causes abdominal or back pain. He still complains of wheezing. The patient denies fevers, chills, sweats, chest pain, palpitations, claudication, cough, wheezing, nausea, vomiting, abdominal pain, dysuria, hematuria, urinary retention, paralysis, weakness, numbness and tingling. Constitutional: No fever, No chills, No sweats Eyes: No worsening of vision, No eye pain, No diplopia ENT: No hearing loss, No nasal symptoms, No trouble swallowing Respiratory: +Wheezing. Cough. No shortness of breath Cardiovascular: No chest pain, No claudication, No palpitations Abdomen: No pain, No nausea, No vomiting Musculoskeletal: No joint pain, No muscle pain, No swelling Genitourinary - Male: No dysuria, No urinary retention, No hematuria Neurologic: No paralysis, No weakness, No numbness/tingling Integumentary: No rash, No itch, No color change General appearance: +Obese. Well-developed, well-nourished, no apparent distress Head: Normocephalic, atraumatic Eyes: Normal inspection, PERRL, EOMI ENT: Normal ENT inspection, hearing grossly normal, pharynx normal Neck: Supple, no JVD, trachea midline Respiratory/Chest: +Decreased breath sounds. Improved air movement. Lungs clear to auscultation, no respiratory distress Cardiovascular: Regular rate & rhythm, no gallop, no murmur Abdomen/GI: Normal bowel sounds, non-tender, soft Extremities/Musculoskeletal: Normal inspection, no calf tenderness, no pedal edema Neurological/Psych: Alert, normal mood/affect, oriented x 3 Skin: Normal color, warm/dry, no rash Supervising Note Dr. Yuan I performed a history and physical examination on the patient. I reviewed above note and agree with it. I discussed plan with APC and patient. During my face to face encounter with the patient, I answered all of the patient's questions. Patient will be discharged today given his improvement in his respiratory function. as well as the fact that he no longer requires oxygen while ambulating or at rest. In regards to possibly having getting osteoporosis, patient may benefit from a bisphosphonate as he is nearing age 49 and is on a large dose of prednisone. Will defer management to PCP. Hospital Course 47 y/o male with a history of severe persistent asthma, HTN, HLD, gout, GERD, and BPPV who presents with fevers, wheezing, and SOB. Rapid flu positive. Influenza A, exacerbation of severe persistent asthma--improving -Admit to telemetry. No acute events overnight. Pt in sinus rhythm with HR 80s- 90s. Transfer to med/surg -Tamiflu 75 mg PO BID. Day #2 of 5 completed inpatient. Discharge with remaining 3 days of course -DuoNebs QIDR and q2h prn SOB/wheezing -Discharge on Prednisone 80 mg tonight, then 60 mg PO qd x 3 days, 40 mg PO qd x 3 days, then resume chronic 30 mg PO qd dose -Continue Symbicort BID -O2 by protocol. Wean as tolerated. Saturating well on room air, ambulating without desaturation -Lactic acid trending down to 2.1 on 10/14. No other s/s of infection, unclear significance -Leukocytosis is chronic due to chronic Prednisone use Recent left otitis media w/effusion -Complete outpt regimen of Ceftin 500 mg PO BID. Day #9/10 HTN, HLD--stable -Continue fish oil supplement Gout--stable, no exacerbation GERD -Continue Protonix 40 mg PO qd BPPV--stable -Continue meclizine 25 mg PO TID prn dizziness/vertigo DVT prophylaxis -Enoxaparin 40 mg SC q24h Code Status -Level I, FULL RESUSCITATION STATUS Total Time Spent: Greater than 30 minutes This includes examination of the patient, discharge planning, medication reconciliation, and communication with other providers. Discharge Instructions Please refer to the electronic Patient Visit Report (Discharge Instructions) for additional information. Additional Copies To Bindu Oakes P.A.
--- NOTE | 2017-10-14 13:19 | NUR ---
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 This info was added to the DC instructions.
[2017-10-14] MEDS ORDERED: METHYLPREDNISOLONE IV 40 MG in SYRINGE 0 ML IV SCH (21:00)
== END 2017-10-14 13:50 | disposition home or self-care (01) | DRG 194 ==
LOC: C.EDB 17:22 → C.2T 10-13 01:31 → ENRESERV 10-13 15:38 → C.MS2W 10-13 17:11
PROVIDERS: ADMIT Internal Medicine; ATTEND Internal Medicine
DX: J10.1 Influenza due to other identified influenza virus with other respiratory manifestations (principal); J45.51 Severe persistent asthma with (acute) exacerbation; H65.92 Unspecified nonsuppurative otitis media, left ear; E78.5 Hyperlipidemia, unspecified; I10 Essential (primary) hypertension; M10.9 Gout, unspecified; K21.9 Gastro-esophageal reflux disease without esophagitis; H81.10 Benign paroxysmal vertigo, unspecified ear; Z79.52 Long term (current) use of systemic steroids; Z79.899 Other long term (current) drug therapy; Z82.5 Family history of asthma and other chronic lower respiratory diseases

== ENCOUNTER → 2018-01-05 | Outpatient (CLI) | payer BC ==
[~2018-01-05] MED LIST changes: -ANT25 PO; +BENZ100C7 PO; -BENZ100C84 PO; +CEFU1TAB35 PO; +CETI10TA84 PO; -FLUT0.15 NAE; -IPRA-64 INH; +IPRA1AER2 INH; +IPRASOL4 INH; +MECL1TAB42 PO; +PANT40TA2 PO; +PRED10TA PO; +SYMIN160 INH; +TMF75 PO
--- NOTE | 2018-01-05 09:59 | DIAGNOSTIC IMAGING REPORT ---
SINUSES MIN 3 VIEWS ROUTINE CLINICAL HISTORY: 47 years-old Male presenting with J45.909 [id number] Allergic [id number]. TECHNIQUE: 3 views of the sinuses were obtained. COMPARISON: 04/22/2017. FINDINGS: Redemonstration of significant mucosal thickening in the maxillary sinuses. Petrosal thickening in the frontal sinuses also suggested, left greater than right. Mucosal thickening in the sphenoid sinus may also be present. Mastoid air cells grossly clear. No evidence of layering fluid. Bony nasal septum is essentially midline. Bony orbits intact. No gross evidence of osseous structures and IMPRESSION: Significant mucosal thickening of the paranasal sinuses which may have increased since the prior exam. Electronically signed by: Nitesh Spring M.D. 01/05/2018 9:57 AM Dictated Date/Time: 01/05/2018 9:56 AM
--- NOTE | 2018-01-05 10:34 | DIAGNOSTIC IMAGING REPORT ---
CT OF THE CHEST WITH IV CONTRAST CLINICAL HISTORY: J45.909 [id number] Allergic [id number] COMPARISON STUDY: 08/08/2014 TECHNIQUE: Following the IV administration of 92 mL of Optiray-320, CT of the thorax was performed from the thoracic inlet to the lung bases. Images are reviewed in the axial, sagittal, and coronal planes. IV contrast was administered without complication. A dose lowering technique was utilized adhering to the principles of ALARA. CT DOSE: 694.07 mGycm FINDINGS: Thyroid: Imaged portions of the thyroid gland are normal in appearance. Thoracic aorta: The thoracic aorta is normal in course and caliber, noting standard 3-vessel arch anatomy. No aneurysm or dissection is seen. Pulmonary vasculature: The pulmonary trunk is normal in caliber. There are no central filling defects identified to suggest pulmonary embolus. Note that this examination was not protocoled for the evaluation of pulmonary emboli. HEART: The heart is normal in size and configuration, without pericardial effusion. Lungs and pleural spaces: There are no pleural effusions. There is no focal pulmonary consolidation. There are no suspicious pulmonary masses. There are very mild bronchiectatic changes present. There is mild dependent atelectasis. There is a calcified granuloma within the lingula. Mediastinum: There is a stable mildly enlarged right paratracheal lymph node measuring 13 mm in short axis. Borderline enlarged subcarinal lymph nodes remain stable. Ita: There is no evidence of pathologic hilar lymphadenopathy Axilla: There is no nodes of pathologic axillary lymphadenopathy Upper abdomen: There is hepatic steatosis. Skeletal structures: There are no lytic or blastic osseous lesions. IMPRESSION: 1. No acute intrathoracic findings 2. Stable mild mediastinal lymphadenopathy 3. No evidence of focal pulmonary consolidation. Very mild bronchiectatic changes. 4. Hepatic steatosis Electronically signed by: Garcia Duran M.D. 01/05/2018 10:32 AM Dictated Date/Time: 01/05/2018 10:25 AM
== END | disposition home or self-care (01) ==
LOC: C.CTS 09:09
PROVIDERS: ATTEND Internal Medicine Pulmonary Disease
DX: J30.9 Allergic rhinitis, unspecified (principal); J45.909 Unspecified asthma, uncomplicated; K76.0 Fatty (change of) liver, not elsewhere classified

== ENCOUNTER → 2018-01-20 | Outpatient (CLI) | payer BC ==
[2018-01-20 12:31] LABS: BASO % 0.2 %; BASO ABS # 0.02 K/uL (0-0.2); EOS % 1.6 %; EOS ABS # 0.18 K/uL (0-0.5); HEMATOCRIT 47.5 % (42-52); HEMOGLOBIN 15.7 g/dL (14.0-18.0); LYMPH % 10.4 %; LYMPH ABS # 1.15 K/uL (1.2-3.4); MEAN CELL VOLUME 88.3 fL (80-100); MEAN CORPUSCULAR HEMOGLOBIN 29.2 pg (25-34); MEAN CORPUSCULAR HGB CONC 33.1 g/dl (32-36); MEAN PLATELET VOLUME 10.3 fL (7.4-10.4); MONO % 5.4 %; NEUT % 81.5 %; NEUT ABS # 9.01 K/uL (1.4-6.5); PLATELET COUNT 184 K/uL (130-400); RED CELL DISTRIBUTION WIDTH SD 45.3 fL (36.4-46.3); WHITE BLOOD COUNT 11.06 K/uL (4.8-10.8)
== END | disposition home or self-care (01) ==
LOC: C.LAB1850 10:21
PROVIDERS: ATTEND Internal Medicine Pulmonary Disease
DX: Z51.81 Encounter for therapeutic drug level monitoring (principal); Z79.52 Long term (current) use of systemic steroids

== ENCOUNTER 2019-03-05 16:40 | Inpatient (IN) ==
--- OUTSIDE RECORDS SUMMARY | 2019-03-05 16:43 | External Medical Summary | Continuity of Care Document ---
:1970 Author Name Hina Zhao, Provider Address Unavailable Unavailable , Care Team Providers Name Role Phone Spike GUTIERREZ, Giovani Unavailable [email or web address] Bindu Oakes [email or web address] Unavailable [email or web address] Danae Esposito [email or web address] Jessica Zhao, Jarrod Vieira Unavailable [email or web address] Problems Sciatica of right side (724.3) (M54.31) Increased appetite (783.6) (R63.2) Tingling of both feet (782.0) (R20.2) Increased thirst (783.5) (R63.1) GERD without esophagitis (530.81) (K21.9) Hypertriglyceridemia (272.1) (E78.1) Nasal polyps (471.9) (J33.9) BPPV (benign paroxysmal positional vertigo) (386.11) (H81.10 ) Diverticulosis (562.10) (K57.90) Asthma (493.90) (J45.909) Sleep apnea (780.57) (G47.30) On prednisone therapy (V58.65) (Z79.52) Allergic rhinitis (477.9) (J30.9) Allergies and Adverse Reactions No Known Drug Allergies (Allergy) Medications Fish Oil 1000 MG Oral Capsule; TAKE 3 CAPSULES DAILY BRENDA Esposito Start: 29-Aug-2014 Quantity: 90 Refills: 0 Ipratropium-Albuterol 0.5-2.5 (3) MG/3ML Inhalation Solution; INHALE 1 UNIT DOSE 4 times daily BRENDA Duckworth Start: 18-Jun-2015 Quantity: 4 60 x 3 ML Plas Cont Refills: 3 Pantoprazole Sodium 40 MG Oral Tablet Delayed Release; TAKE 1 TABLET DAILY. BRENDA Lala Start: 18-Jun-2015 Quantity: 90 Refills: 1 Metamucil 48.57 % Oral Powder; TAKE 2 TBSP Daily Start: 18-Jun-2015 Refills: 0 Symbicort 160-4.5 MCG/ACT Inhalation Aer osol; INHALE 2 PUFFS TWICE DAILY. RINSE MOUTH AFTER USE. BRENDA Lala Start: 21-Sep-2016 Quantity: 1 10.2 GM Inhaler Refills: 5 Nucala 100 MG Subcutaneous Solution Trip nstituted; Inject 100mg Subcutaneously every 4 weeks Cece Lopez Start: 22-Aug-2018 Quantity: 1 Refills: 11 EpiPen 2-Emery 0.3 MG/0.3ML Injection Solution Auto-inje ctor; USE DIRECTED Cece Lopez Start: 14-Mar-2018 Quantity: 1 2 Pre-filled Pen Syr oc Pen Refills: 1 Senna Laxative 8.6 MG Oral Tablet; TAKE 1 TABLET Daily PRN Start: 18-Oct-2017 Refills: 0 Combivent Respimat 20-100 MCG/ACT Inhala tion Aerosol Solution; INHALE 1 PUFF 4 TIMES DAILY (MAXIMUM OF 6 PUFFS IN 24 HOURS) BRENDA Oakes Start: 28-Jan-2017 Quantity: 1 4 GM Inhaler Refills: 6 predniSONE 1 MG Oral Tablet; TAKE DIRECTED. BRENDA Lala Start: 09-May-2018 Quantity: 120 Refills: 3 predniSONE 10 MG Oral Tablet; TAKE 1 TABLET DAILY. MELANIA Lala Start: 26-May-2018 Quantity: 90 Refills: 3 ZyrTEC Allergy 10 MG Oral Capsule; TAKE 1 CAPSULE Daily Start: 21-Oct-2016 Refills: 0 Probiotic Oral Capsule; TAKE 1 CAPSULE Daily Refills: 0 Multi-Vitamin TABS; TAKE 1 TABLET DAILY. Refills: 0 Procedures History of Oral Surgery Tooth Extraction Status: Completed History of Shoulder Surgery Status: Comp leted Immunizations Pneumococcal polysaccharide vaccine, 23 valent On: 10-Aug-20 14 Influenza On: 09-Jul-2015 12:51 Lot #: [id number], [employer] PASTEUR Influenza On: 21-Sep-2016 11:08 Lot #: [id number], SANOFI PASTEUR Shingrix 50 MCG Intramuscular Suspension Reconstituted On: 9:30 Lot #: [id number], GLAXO LALA RESENDIZ Flublok Quadrivalent 0.5 ML Intramuscular Solution Pre filled Syringe On: 26-Jul-2018 14:47 Lot #: [id number], [employer]FI PASTEUR Family History Mother Family history of asthma (V17.5) (Z82.5) Status: Active Family history of allergies (V19.6) (Z84.89) Status: Active Sister Family history of asthma (V17.5) (Z82.5) Status: Active Family history of allergies (V19.6) (Z84.89) Status: Active Social History - Smoking Status Never smoker Plan of Treatment Planned Encounters Appointment; Giovani Lala PA-C Start: 10-May-2019 14:00 Re quest Planned Observations Planned Goals not documented Results No Known Results Results not documented Encounters Appointment; Nurse, Allergy 24-Feb-2019 15:10 Encounter Diagnosis: Problem not documented Appointment; Nurse, Allergy 06-Feb-2019 15:30 Encounter Diagnosis: Problem not documented Appointment; Nurse, Allergy 06-Jan-2019 9:10 Encounter Diagnosis: Problem not documented Appointment; Giovani Lala PA-C 04-Jan-2019 15:15 Encounter Diagnosis: Problem not documented Appointment; Nurse, Allergy 16-Dec-2018 8:50 Encounter Diagnosis: Problem not documented Appointment; Nurse, Allergy 07-Dec-2018 16:25 Encounter Diagnosis: Problem not documented Appointment; Jarrod Lopez M.D. 30-Nov-2018 8:30 Encounter Diagnosis: Problem not documented Appointment; Ciera Frye M.D. 11-Nov-2018 14:30 Encounter Diagnosis: Problem not documented Appointment; Giovani Lala PA-C 09-Nov-2018 15:30 Encounter Diagnosis: Problem not documented Appointment; Nurse, Allergy 09-Nov-2018 15:00 Encounter Diagnosis: Problem not documented Appointment; Nurse, Allergy 31-Oct-2018 14:30 Encounter Diagnosis: Problem not documented Appointment; Nurse, Allergy 30-Sep-2018 15:15 Encounter Diagnosis: Problem not documented Appointment; Nurse, Allergy 29-Sep-2018 14:50 Encounter Diagnosis: Problem not documented Appointment; Ciera Frye M.D. 16-Sep-2018 11:30 Encounter Diagnosis: Problem not documented Appointment; Giovani Lala PA-C 08-Sep-2018 11:00 Encounter Diagnosis: Problem not documented Appointment; Kayce Banks CRNP 05-Sep-2018 14:30 Encounter Diagnosis: Problem not documented Appointment; Nurse, Allergy 30-Aug-2018 14:50 Encounter Diagnosis: Problem not documented Appointment; Nurse, Allergy 29-Aug-2018 14:50 Encounter Diagnosis: Problem not documented Appointment; Nurse, Allergy 26-Aug-2018 12:30 Encounter Diagnosis: Problem not documented Appointment; Giovani Lala PA-C 26-Jul-2018 14:00 Encounter Diagnosis: Problem not documented Appointment; Nurse, Allergy 26-Jul-2018 13:50 Encounter Diagnosis: Problem not documented Appointment; Nurse, Allergy 23-Jun-2018 14:50 Encounter Diagnosis: Problem not documented Appointment; Nurse, Allergy 26-May-2018 13:50 Encounter Diagnosis: Problem not documented Appointment; Giovani Lala PA-C 26-May-2018 13:45 Encounter Diagnosis: Problem not documented Appointment; Terri Helton PA-C 16-May-2018 9:00 Encounter Diagnosis: Problem not documented Appointment; Ciera Frye M.D. 09-May-2018 9:00 Encounter Diagnosis: Problem not documented Appointment; Nurse, Allergy 25-Apr-2018 13:50 Encounter Diagnosis: Problem not documented Appointment; Giovani Lala PA-C 14-Apr-2018 13:15 Encounter Diagnosis: Problem not documented Appointment; [facility]ergy, Testing Room 28-Mar-2018 14:00 Encounter Diagnosis: Problem not documented Appointment; Jarrod Lopez M.D. 14-Mar-2018 9:00 Encounter Diagnosis: Problem not documented Appointment; Jarrod Lopez M.D. 21-Feb-2018 11:00 Encounter Diagnosis: Problem not documented Appointment; Giovani Lala PA-C 10-Feb-2018 14:15 Encounter Diagnosis: Problem not documented Appointment; Pulmonary, Funct Testing 10-Feb-2018 13:45 Encounter Diagnosis: Problem not documented Appointment; Jarrod Lopez M.D. 20-Jan-2018 8:30 Encounter Diagnosis: Problem not documented Appointment; Daniel Caldwell M.D. 29-Dec-2017 9:15 Encounter Diagnosis: Problem not documented Appointment; Giovani Lala PA-C 02-Nov-2017 15:30 Encounter Diagnosis: Problem not documented Appointment; Bindu Oakes PA-C 19-Oct-2017 11:00 Encounter Diagnosis: Problem not documented Appointment; Kamala De La Rosa M.D. 06-Oct-2017 14:40 Encounter Diagnosis: Problem not documented Appointment; Giovani Lala PA-C 01-Sep-2017 14:30 Encounter Diagnosis: Problem not documented Appointment; Giovani Lala PA-C 22-Jul-2017 16:00 Encounter Diagnosis: Problem not documented Appointment; Giovani Lala PA-C 08-Jun-2017 15:15 Encounter Diagnosis: Problem not documented Appointment; Giovani Lala PA-C 25-May-2017 9:15 Encounter Diagnosis: Problem not documented Appointment; Darian Melchor M.D. 20-May-2017 15:00 Encounter Diagnosis: Problem not documented Appointment; Giovani Lala PA-C 22-Apr-2017 10:45 Encounter Diagnosis: Problem not documented Appointment; Giovani Lala PA-C 11-Mar-2017 16:00 Encounter Diagnosis: Problem not documented Appointment; Giovani Lala PA-C 10-May-2019 14:00 Encounter Diagnosis: Problem not documented
[2019-03-05] MEDS ORDERED: ALBUT/IPRATROP 3MG/0.5MG NEB 3 ML VIAL INH STA (16:59)
[2019-03-05] MEDS ORDERED: methylPREDNISolone 125 MG/2 ML VIAL IV STA (16:59)
[2019-03-05] MEDS ORDERED: SODIUM CHLORIDE 0.9% 1000ML 1,000 ML IV SCH (17:00)
[2019-03-05 17:24] LABS: Base Excess VBG 4.1 mEq/L; HCO3 VBG 29 mmol/L; Oxygen Saturation VBG < 60.0 %; PCO2 VBG 44 mmHg (38-50); PO2 VBG 22 mmHg; pH VBG 7.44 (7.36-7.41)
--- NOTE | 2019-03-05 17:31 | XRay Report ---
XR chest 1V portable HISTORY: Short of breath. Dyspnea COMPARISON: Chest 12/28/2017. FINDINGS: No pneumothorax. No pleural effusions. The right lung remains clear. The heart is normal in size. Small focal left basilar density. IMPRESSION: Small focal left basilar density. This may represent atelectasis or pneumonia. Electronically signed by: John Foley M.D. 03/05/2019 5:30 PM
[2019-03-05 17:38] LABS: Appearance Urine Clear (Clear); Bilirubin Urine Negative (Negative); Blood Urine Negative (Negative); Color Urine Yellow; Glucose Urine UA Negative (Negative); Ketones Urine Negative (Negative); Leukocyte Esterase Urine Negative (Negative); Nitrite Urine Negative (Negative); Protein Urine Negative (Negative); Specific Gravity Urine 1.025 (1.000-1.030); Urobilinogen Urine Negative (Negative); pH Urine 7.5 (4.5-7.5)
[2019-03-05 17:39] LABS: Basophils # (auto) 0.02 K/uL (0-0.2); Basophils % (auto) 0.1 %; Eosinophils # (auto) 0.05 K/uL (0-0.5); Eosinophils % (auto) 0.3 %; Hematocrit (blood only) 45.1 % (42-52); Hemoglobin 15.5 g/dL (14.0-18.0); Immature Granulocytes # (auto) 0.15 K/uL (0.00-0.02); Immature Granulocytes % (auto) 0.8 %; Lymphocytes # (auto) 1.39 K/uL (1.2-3.4); Lymphocytes % (auto) 7.9 %; Mean Corpuscular Hgb Conc 34.4 g/dL (32-36); Mean Corpuscular Volume 86.6 fL (80-100); Mean Platelet Volume 10.2 fL (7.4-10.4); Monocytes # (auto) 1.44 K/uL (0.11-0.59); Monocytes % (auto) 8.1 %; Neutrophils # (auto) 14.64 K/uL (1.4-6.5); Neutrophils % (auto) 82.8 %; Platelet Count 154 K/uL (130-400); RDW Coefficient of Variation 13.8 % (11.5-14.5); RDW Standard Deviation 43.7 fL (36.4-46.3); Red Blood Count 5.21 M/uL (4.7-6.1); White Blood Count 17.69 K/uL (4.8-10.8)
[2019-03-05 17:53] LABS: D Dimer 430 ug/L FEU (0-500); Partial Thromboplastin Ratio 0.8; Partial Thromboplastin Time 22.2 Seconds (21.0-31.0); Prothrombin Time 9.9 Seconds (9.0-12.0)
[2019-03-05 17:54] LABS: Alanine Aminotransferase 48 U/L (12-78); Albumin Level 3.9 gm/dl (3.4-5.0); Aspartate Aminotransferase 29 U/L (15-37); BUN Creatinine Ratio 22.4 (10-20); Blood Urea Nitrogen 26 mg/dl (7-18); Calcium 9.4 mg/dl (8.5-10.1); Carbon Dioxide 28 mmol/L (21-32); Chloride 101 mmol/L (98-107); Creatinine Clr Calc Pharmacy 95.8 ml/min; Est GFR (Non-African American) 75.1; Glucose 102 mg/dl (70-99); Potassium 4.1 mmol/L (3.5-5.1); Sodium 139 mmol/L (136-145)
[2019-03-05] MEDS ORDERED: ALBUT/IPRATROP 3MG/0.5MG NEB 3 ML VIAL NEB STA ×2 (17:56→19:17)
[2019-03-05] MEDS ORDERED: SODIUM CHLORIDE 0.9% 1000ML 1,000 ML IV ONE (17:56)
[2019-03-05] MEDS ORDERED: cefTRIAXone SODIUM 1,000 MG/50 ML BAG IV STA (17:56)
[2019-03-05 17:59] LABS: Albumin Globulin Ratio 1.1 (0.9-2); Alkaline Phosphatase 101 U/L (45-117); Globulin 3.6 gm/dl (2.5-4.0); Total Protein 7.5 gm/dl (6.4-8.2); Troponin I < 0.015 ng/ml (0-0.045)
--- NOTE | 2019-03-05 19:43 | History & Physical Report ---
Date of Service March 05, 2019 Assessment & Plan (1) Pneumonia: 48 y/o M Hx Asthma, HLD, GERD, vertigo. Presents with SOB, cough and a fever. The pt had just returned form the [facility]. He was hypoxic on arrival to the ER and remained so following a dose of IV steroids and 3, hour-long neb t reatments. Initial labs are notable for leukocytosis. A CXR is consistent with a LLL PNM. The pt also states that 4 weeks ago he pulled a tick of himself and has recently experienced bone pain, primarily in his hips and back. 1) PNM and asthma exacerbation - Placed on IV steroids, scheduled nebs, antibiotics, 02 protocol. Sputum cultures pending. The pt was taking prednisone while in the [facility] so there is some concern for a more exotic pneumonia. Consider broadening coverage and repeating imaging if there is no short-term improvement. 2) Bone pain following a tick bite - he specifically states that this was a deer tick and that this occurred 3-4 weeks prior. We will obtain titers therefore. 3) HLD - states that he does not know if he has high cholesterol. On review of prior labs, in 2017 his profile was entirely sub par (LDL 136, HDL 31, high triglycerides. He should certainly be treated and this should be addressed prior to his departure. 4) GERD - cont Pantoprazole 5) Meclizine PRN provided for vertigo - does not take frequently Full code - Lovenox prophylaxis Total time for this admit including review of labs, meds, imaging, records - discussion with pt and ER attending - 38 min Present on Admission?: Yes History of Present Illness Chief Complaint: SOB, cough, fever Primary Care Provider: Ciera Frye MD 48 y/o M Hx Asthma, HLD, GERD, vertigo. Presents with SOB, cough and a fever. The pt had just returned form the [facility]. He was hypoxic on arrival to the ER and remained so following a dose of IV steroids and 3, hour-long neb treatments. Initial labs are notable for leukocytosis. A CXR is consistent with a LLL PNM. The pt also states that 4 weeks ago he pulled a tick of himself and has recently experienced bone pain, primarily in his hips and back. PMH: 1) Asthma 2) HLD 3) Diverticulitis 4) Vertigo 5) Obese Surgical: Denies Social: Does not smoke - drinks in moderation Family: Mother due to PNM at age 72 - history of asthma Father is alive and well Allergies Allergy/AdvReac Type Severity Reaction Status Date / Time No Known Allergies Allergy Unverified 03/05/19 17:50 Home Medications Home Medications Medication Instructions Recorded Confirmed Type Probiotic 1 cap PO QAM 03/05/19 03/05/19 History acetaminophen [Tylenol Extra 1,000 mg PO UD PRN 03/05/19 03/05/19 History Strength] budesonide-formoterol [Symbicort] 2 puff INHALATION BID 03/05/19 03/05/19 History cetirizine 10 mg PO HS 03/05/19 03/05/19 History ibuprofen 800 mg PO QID PRN 03/05/19 03/05/19 History ipratropium-albuterol 3 ml INHALATION QID PRN 03/05/19 03/05/19 History ipratropium-albuterol [Combivent 1 puff INHALATION QID PRN 03/05/19 03/05/19 History Respimat] meclizine 25 mg PO TID PRN 03/05/19 03/05/19 History multivitamin 1 tab PO QAM 03/05/19 03/05/19 History omega 4-wzt-akn-fish oil [Fish Oil] 2 cap PO BID 03/05/19 03/05/19 History pantoprazole 40 mg PO QAM 03/05/19 03/05/19 History prednisone 9 mg PO QAM 03/05/19 03/05/19 History psyllium husk [Metamucil] 2 tbsp PO QAM 03/05/19 03/05/19 History senna-fennel 1 tab PO BID 03/05/19 03/05/19 History Past Med/Surg History Medical History GERD (gastroesophageal reflux disease) HLD (hyperlipidemia) Asthma Diverticulitis (Resolved) Social History Preferred Language: Indonesian Feels Safe at Home: Yes Smoking Status: Never smoker Review of Systems Review of Systems: Gen: Denies fevers, night sweats, rigors, fatigue, malaise, weight loss/gain ENT: Denies congestion, throat pain, hearing loss Eyes: Denies acute visual changes CV: Denies CP, palpitations Pulmonary: Denies SOB, cough, wheezing GI: Denies N/V, diarrhea, constipation Neuro: Denies acute or unilateral weakness, acute gait impairment, headache or acute visual changes Musculoskeletal: Reports pain in back and hips for few days Endocrine: Denies polydipsia, polyuria Skin: Denies acute rashes or ulcers Physical Exam Physical Exam: General: Overweight, middle-aged male, AAO x 3, no distress ENT: No erythema or exudates, no thrush Eyes: ARMOND, EOMI Head and neck: Normocephalic, atraumatic, No JVD, neck is supple. Chest/heart: Nontender, S1,2, RRR, no murmurs, no gallops Lungs: Lungs are largely clear excepting a wheeze which is limited to the left lower lung Abdomen: Nontender, nondistended, BS+ Neuro: AAO x 3, speech is clear, no unilateral weakness or loss of sensation, coordination intact Musculoskeletal: No joint inflammation, muscle tenderness, FROM Skin: No acute rashes or ulcers Extremities: No clubbing, cyanosis, edema Results & Data Vital Signs (Past 12 Hours) Vital Signs Temp Pulse Pulse Resp BP BP Pulse Ox 03/05/19 19:26 117 H 24 91 03/05/19 19:00 88 L 03/05/19 18:17 110 H 22 167/88 H 98 03/05/19 18:10 109 H 26 H 96 03/05/19 17:59 93 03/05/19 17:28 105 H 26 H 90 03/05/19 17:25 108 H 112 H 29 H 90 03/05/19 16:42 100.0 F H 126 H 24 156/86 H 95 (1) Pneumonia Laterality: left Lung location: lower lobe of lung Pneumonia type: due to unspecified organism Qualified Code(s): J18.1 - Lobar pneumonia, unspecified organism
[2019-03-05] MEDS ORDERED: IBUPROFEN 600 MG TAB PO STA (19:53)
--- NOTE | 2019-03-05 19:59 | Emergency Department Note ---
Entered by Juanita Ramachandran acting as a scribe for History of Present Illness General Chief complaint: Shortness of Breath/Dyspnea Stated complaint: asthma - breathing issues - body aches - hip pain Source: patient History of Present Illness Onset (ago): day(s) 1 Location: left (Lung) and right (Lung) Severity: similar to prior episodes Pain Consistency: + other (Worsening) Maximum Pain Intensity: 6 Quality: + other (Shortness of breath) Relieved By: + other (Breathing treatments) Associated symptoms: + chest pain, + cough, + fever/chills and + shortness of breath Treatments prior to arrival: other (Breathing treatments) The patient is a 48 year old male presenting to the Emergency Department complaining of worsening shortness of breath starting 1 day ago. The patient reports he is short of breath. He states that he has a cough that is producing phlegm. He explains that he has a low grade fever and is experiencing chills. He notes that he has experienced these symptoms before as he has asthma. He adds that his chest is sore from coughing. The patient reports that he had 2 breathing treatment at home [employer] that temporarily improved his shortness of breath. He states that he is currently being tapered off of Prednisone but missed his last shot which was supposed to be 1 week ago. He notes that he just returned from the [facility] 1 day ago. The patient denies any history of PE and tobacco use. Home Medications Home Medications Medication Instructions Recorded Confirmed Type Probiotic 1 cap PO QAM 03/05/19 03/05/19 History acetaminophen [Tylenol Extra 1,000 mg PO UD PRN 03/05/19 03/05/19 History Strength] budesonide-formoterol [Symbicort] 2 puff INHALATION BID 03/05/19 03/05/19 Histor y cetirizine 10 mg PO HS 03/05/19 03/05/19 History ibuprofen 800 mg PO QID PRN 03/05/19 03/05/19 History ipratropium-albuterol 3 ml INHALATION QID PRN 03/05/19 03/05/19 History ipratropium-albuterol [Combivent 1 puff INHALATION QID PRN 03/05/19 03/05/19 History Respimat] meclizine 25 mg PO TID PRN 03/05/19 03/05/19 History multivitamin 1 tab PO QAM 03/05/19 03/05/19 History omega 5-azn-iir-fish oil [Fish Oil] 2 cap PO BID 03/05/19 03/05/19 History pantoprazole 40 mg PO QAM 03/05/19 03/05/19 History prednisone 9 mg PO QAM 03/05/19 03/05/19 History psyllium husk [Metamucil] 2 tbsp PO QAM 03/05/19 03/05/19 History senna-fennel 1 tab PO BID 03/05/19 03/05/19 History Allergies Allergy/AdvReac Type Severity Reaction Status Date / Time No Known Allergies Allergy Unverified 03/05/19 17:50 Past Med/Surg History Medical History GERD (gastroesophageal reflux disease) HLD (hyperlipidemia) Asthma Diverticulitis (Resolved) Social History Preferred Language: Thai Communication Ability: Effective Egg Crater Required: No Beliefs That Will Affect Care: None Current Living Situation: Family Feels Safe at Home: Yes Safety Concerns: Feels Safe At This Time Smoking Status: Never smoker Hx Alcohol Use: Yes Alcohol type: beer and hard liquor Hx Substance Use: No Review of Systems See HPI for pertinent positives & negatives. and A total of 10 systems reviewed and were otherwise negative Physical Exam Vital Signs Vital Signs - 24 hr 03/05/19 19:26 03/05/19 19:51 Temperature 36.9 C Temperature Source Oral Pulse Rate [Finger] 117 H 116 H Respiratory Rate 24 24 Respiratory Effort / Characteristics Spontaneous Non-Labored Respiratory Depth Normal Blood Pressure [Left Arm] 135/81 Blood Pressure Mean [Left Arm] 99 Blood Pressure Position [Left Arm] Lying Pulse Oximetry 91 91 Oxygen Delivery Method Room Air Room Air GENERAL: Patient is awake, alert, and in no acute distress.Patient is resting comfortably and somewhat anxious appearing. EYES: The conjunctivae are clear. The pupils are round and reactive. EARS, NOSE, MOUTH AND THROAT: The nose is without any evidence of any deformity. Mucous membranes are moist.Tongue is midline NECK: The neck is nontender and supple. RESPIRATORY: Normal respiratory effort is noted. Lung sounds were diminished throughout with scattered expiratory wheezing in both upper lung lazcano. CARDIOVASCULAR: Tachycardic rate and regular rhythm noted. There no definite murmurs rubs or gallops normal S1 normal S2. GASTROINTESTINAL: The abdomen is soft. Bowel sounds are present in all quadrants. Abdomen is nontender. MUSCULOSKELETAL/EXTREMITIES: There is no evidence of gross deformity. Full range of motion is noted in the hips and shoulders. SKIN: There is no obvious evidence of any rash. There are no petechiae, pallor or cyanosis noted. NEUROLOGIC: Patient is awake alert and oriented x3. Course 1654: The patient was evaluated in room C1B, and a complete history and physical examination were performed. 1800: I updated the patient on his imaging studies at this time. 0 I discussed the patient's case with Dr. Mariella ROBERTS hospitalist. He will evaluate the patient for further management. Consultations Consultation #1: I discussed the patient's case with Dr. Mariella ROBERTS hospitalist. He will evaluate the patient for further management. Time: 19:30 Administered Medications Albuterol (Ventolin 0.083% 2.5mg/3ml) 2.5 mg NEB Q4H PRN PRN Reason: Shortness Of Breath Stop: 04/04/19 21:34 Last Admin: 03/05/19 22:40 Dose: 2.5 mg Documented by: [id number] Albuterol (Combivent Respimat) 1 puffs INH QID CATIA Stop: 04/05/19 16:59 Last Admin: 03/06/19 16:37 Dose: 1 puffs Documented by: [id number] Cetirizine HCl (Zyrtec) 10 mg PO HS CATIA Stop: 04/04/19 21:34 Last Admin: 03/05/19 22:54 Dose: 10 mg Documented by: [id number] Enoxaparin Sodium (Lovenox) 40 mg SQ Q24H CATIA Stop: 04/04/19 22:29 Last Admin: 03/05/19 22:56 Dose: Not Given Documented by: [id number] Ceftriaxone Sodium 2,000 mg/ (Dextrose) 50 mls @ 100 mls/hr IV Q24H CATIA; Protocol Stop: 03/13/19 17:59 Last Infusion: 03/06/19 18:55 Dose: 0 mls/hr Documented by: [id number] Admin: 03/06/19 18:17 Dose: 100 mls/hr Documented by: [id number] Azithromycin 500 mg/ Dextrose 255 mls @ 125 mls/hr IV Q24H CATIA Stop: 03/12/19 22:29 Last Infusion: 03/06/19 01:15 Dose: 0 mls/hr Documented by: [id number] Admin: 03/05/19 22:52 Dose: 125 mls/hr Documented by: [id number] Lactobacillus Acidophilus (Floranex) 4 tab PO QAM [facility] Stop: 04/05/19 08:59 Last Admin: 03/06/19 08:30 Dose: 4 tab Documented by: [id number] Pantoprazole Sodium (Protonix) 40 mg PO QAM [facility] Stop: 04/05/19 08:59 Last Admin: 03/06/19 08:30 Dose: 40 mg Documented by: [id number] Psyllium Hydrophilic Mucilloid (Metamucil) 1 pkt PO QAM [facility] Stop: 04/05/19 08:59 Last Admin: 03/06/19 08:30 Dose: 1 pkt Documented by: [id number] Discontinued Medications Albuterol (Duoneb) 3 ml INH NOW STA Stop: 03/05/19 17:00 Last Admin: 03/05/19 17:28 Dose: 3 ml Documented by: [id number] Albuterol (Duoneb) 3 ml NEB NOW STA Stop: 03/05/19 17:57 Last Admin: 03/05/19 18:10 Dose: 3 ml Documented by: [id number] Albuterol (Duoneb) 3 ml NEB NOW STA Stop: 03/05/19 19:18 Last Admin: 03/05/19 19:26 Dose: 3 ml Documented by: [id number] Albuterol (Duoneb) 3 ml INH QIDR CATIA Stop: 04/05/19 07:59 Last Admin: 03/06/19 11:29 Dose: 3 ml Documented by: [id number] Admin: 03/06/19 07:29 Dose: 3 ml Documented by: [id number] Sodium Chloride (Nss 1000ml) 1,000 mls @ 999 mls/hr IV .Q1H1M [facility] Stop: 03/05/19 18:00 Last Infusion: 03/05/19 18:27 Dose: 0 mls/hr Documented by: [id number] Admin: 03/05/19 17:24 Dose: 999 mls/hr Documented by: [id number] Sodium Chloride (Nss 1000ml) 1,000 mls @ 999 mls/hr IV .Q1H1M ONE Stop: 03/05/19 18:56 Last Infusion: 03/05/19 18:26 Dose: 999 mls/hr Documented by: [id number] Admin: 03/05/19 18:11 Dose: 999 mls/hr Documented by: [id number] Ceftriaxone Sodium (Rocephin) 1,000 mg in 50 mls @ 100 mls/hr IV NOW STA Stop: 03/05/19 18:25 Last Infusion: 03/05/19 19:00 Dose: 0 mls/hr Documented by: [id number] Admin: 03/05/19 18:16 Dose: 100 mls/hr Documented by: [id number] Methylprednisolone 60 mg/ (Syringe) 0.96 mls @ 1.5 mls/min IV Q6H CATIA Stop: 04/04/19 21:59 Last Admin: 03/06/19 10:18 Dose: 1.5 mls/min Documented by: [id number] Admin: 03/06/19 03:29 Dose: 1.5 mls/min Documented by: [id number] Admin: 03/05/19 22:54 Dose: 1.5 mls/min Documented by: [id number] Ibuprofen (Motrin) 600 mg PO NOW STA Stop: 03/05/19 19:54 Last Admin: 03/05/19 20:02 Dose: 600 mg Documented by: [id number] Methylprednisolone (Solumedrol) 125 mg IV NOW STA Stop: 03/05/19 17:00 Last Admin: 03/05/19 17:24 Dose: 125 mg Documented by: [id number] Medical Decision Making Differential Diagnosis Differential diagnoses includes but is not limited to pneumonia, bronchitis, COPD/Asthma exacerbation, pneumothorax, pulmonary embolism, congestive heart failure, acute coronary syndrome. Medical Records Attestation: I reviewed the patient's medical records. Home Medications Current Medication List: was personally reviewed by me Laboratory Data Attestation: I reviewed the patient's lab results. Result diagrams: 03/06/19 05:37 03/06/19 05:37 Lab Results 03/05/19 03/05/19 03/05/19 Range/Units 17:15 17:18 17:18 WBC 17.69 H (4.8-10.8) K/uL RBC 5.21 (4.7-6.1) M/uL Hgb 15.5 (14.0-18.0) g/dL Hct 45.1 (42-52) % MCV 86.6 (80-100) fL MCH 29.8 (25-34) pg MCHC 34.4 (32-36) g/dL RDW Std Deviation 43.7 (36.4-46.3) fL RDW Coeff of Peyman 13.8 (11.5-14.5) % Plt Count 154 (130-400) K/uL MPV 10.2 (7.4-10.4) fL Immature Gran % (Auto) 0.8 % Neut % (Auto) 82.8 % Lymph % (Auto) 7.9 % [place] % (Auto) 8.1 % Eos % (Auto) 0.3 % Baso % (Auto) 0.1 % Immature Gran # (Auto) 0.15 H (0.00-0.02) K/uL Neut # (Auto) 14.64 H (1.4-6.5) K/uL Lymph # (Auto) 1.39 (1.2-3.4) K/uL [place] # (Auto) 1.44 H (0.11-0.59) K/uL Eos # (Auto) 0.05 (0-0.5) K/uL Baso # (Auto) 0.02 (0-0.2) K/uL PT 9.9 (9.0-12.0) Seconds INR 1.0 (0.9-1.1) APTT 22.2 (21.0-31.0) Seconds PTT Ratio 0.8 D-Dimer 430 (0-500) ug/L FEU VBG pH 7.44 H (7.36-7.41) VBG pCO2 44 (38-50) mmHg VBG pO2 22 mmHg VBG HCO3 29 mmol/L VBG O2 Saturation < 60.0 % VBG Base Excess 4.1 mEq/L Barometric Pressure 730.5 mm/Hg Sodium (136-145) mmol/L Potassium (3.5-5.1) mmol/L Chloride (98-107) mmol/L Carbon Dioxide (21-32) mmol/L Anion Gap (3-11) BUN (7-18) mg/dl Creatinine (0.6-1.4) mg/dl Est Cr Clr Drug Dosing ml/min Est GFR ( Amer) Est GFR (Non-Af Amer) BUN/Creatinine Ratio (10-20) Glucose (70-99) mg/dl Calcium (8.5-10.1) mg/dl Magnesium (1.8-2.4) mg/dl Total Bilirubin (0.2-1) mg/dl AST (15-37) U/L ALT (12-78) U/L Alkaline Phosphatase (45-117) U/L Troponin I (0-0.045) ng/ml Total Protein (6.4-8.2) gm/dl Albumin (3.4-5.0) gm/dl Globulin (2.5-4.0) gm/dl Albumin/Globulin Ratio (0.9-2) Urine Color Urine Appearance (Clear) Urine pH (4.5-7.5) Ur Specific [place] (1.000-1.030) Urine Protein (Negative) Urine Glucose (UA) (Negative) Urine Ketones (Negative) Urine Blood (Negative) Urine Nitrite (Negative) Urine Bilirubin (Negative) Urine Urobilinogen (Negative) Ur Leukocyte Esterase (Negative) 03/05/19 03/05/19 Range/Units 17:18 17:26 WBC (4.8-10.8) K/uL RBC (4.7-6.1) M/uL Hgb (14.0-18.0) g/dL Hct (42-52) % MCV (80-100) fL MCH (25-34) pg MCHC (32-36) g/dL RDW Std Deviation (36.4-46.3) fL RDW Coeff of Peyman (11.5-14.5) % Plt Count (130-400) K/uL MPV (7.4-10.4) fL Immature Gran % (Auto) % Neut % (Auto) % Lymph % (Auto) % [place] % (Auto) % Eos % (Auto) % Baso % (Auto) % Immature Gran # (Auto) (0.00-0.02) K/uL Neut # (Auto) (1.4-6.5) K/uL Lymph # (Auto) (1.2-3.4) K/uL [place] # (Auto) (0.11-0.59) K/uL Eos # (Auto) (0-0.5) K/uL Baso # (Auto) (0-0.2) K/uL PT (9.0-12.0) Seconds INR (0.9-1.1) APTT (21.0-31.0) Seconds PTT Ratio D-Dimer (0-500) ug/L FEU VBG pH (7.36-7.41) VBG pCO2 (38-50) mmHg VBG pO2 mmHg VBG HCO3 mmol/L VBG O2 Saturation % VBG Base Excess mEq/L Barometric Pressure mm/Hg Sodium 139 (136-145) mmol/L Potassium 4.1 (3.5-5.1) mmol/L Chloride 101 (98-107) mmol/L Carbon Dioxide 28 (21-32) mmol/L Anion Gap 10.0 (3-11) BUN 26 H (7-18) mg/dl Creatinine 1.14 (0.6-1.4) mg/dl Est Cr Clr Drug Dosing 95.8 ml/min Est GFR ( Amer) 87.0 Est GFR (Non-Af Amer) 75.1 BUN/Creatinine Ratio 22.4 H (10-20) Glucose 102 H (70-99) mg/dl Calcium 9.4 (8.5-10.1) mg/dl Magnesium 2.0 (1.8-2.4) mg/dl Total Bilirubin 1.0 (0.2-1) mg/dl AST 29 (15-37) U/L ALT 48 (12-78) U/L Alkaline Phosphatase 101 (45-117) U/L Troponin I < 0.015 (0-0.045) ng/ml Total Protein 7.5 (6.4-8.2) gm/dl Albumin 3.9 (3.4-5.0) gm/dl Globulin 3.6 (2.5-4.0) gm/dl Albumin/Globulin Ratio 1.1 (0.9-2) Urine Color Yellow Urine Appearance Clear (Clear) Urine pH 7.5 (4.5-7.5) Ur Specific [place] 1.025 (1.000-1.030) Urine Protein Negative (Negative) Urine Glucose (UA) Negative (Negative) Urine Ketones Negative (Negative) Urine Blood Negative (Negative) Urine Nitrite Negative (Negative) Urine Bilirubin Negative (Negative) Urine Urobilinogen Negative (Negative) Ur Leukocyte Esterase Negative (Negative) Imaging Data Radiologist's Impression: Radiology results as stated below per my review and the radiologist's interpretation: XR chest 1V portable HISTORY: Short of breath. Dyspnea COMPARISON: Chest 12/28/2017. FINDINGS: No pneumothorax. No pleural effusions. The right lung remains clear. The heart is normal in size. Small focal left basilar density. IMPRESSION: Small focal left basilar density. This may represent atelectasis or pneumonia. Electronically signed by: John Foely M.D. 03/05/2019 5:30 PM ECG Data Attestation: I personally reviewed and interpreted this ECG as follows: Indication: SOB/dyspnea Rate (beats per minute): 115 Rhythm: sinus tachycardia Findings: no ST depression, no ST elevation and no ectopy Blood Pressure Blood Pressure Findings: Elevated blood pressure Blood Pressure Disposition: further management by hospitalist TRE Narrative The patient is a 48-year-old male who presented to the emergency department for an evaluation of shortness of breath. I was concerned the patient may have a pulmonary embolism as his shortness of breath was worsening despite his home treatment for asthma. He also had recent travel. I discussed patient's laboratory and radiographic studies with him. Ultimately his condition appears to be consistent with an exacerbation of asthma with superimposed pneumonia. He was treated with IV steroids IV fluids and IV antibiotics. He was reevaluated multiple times. The patient started to develop hypoxia. For this reason I discussed his case with the on-call [facility] hospitalist group. They have agreed to evaluate the patient in the emergency department for further managemen t and disposition Impression & Plan Pneumonia, Asthma exacerbation, Hypoxia Discharge Plan Visit Data *Final* Discharge Date/Time: 03/05/19 20:46 Chief Complaint: Shortness of Breath/Dyspnea Stated Complaint: asthma - breathing issues - body aches - hip pain ED Provider: Daniel Schmidt Discharge Problem: Pneumonia, Asthma exacerbation, Hypoxia Patient Disposition: Admitted As Inpatient Discharge Instructions Interventions: ED Discharge Assessment Last Done: 03/05/19 20:46 Discharge Problem: Pneumonia Qualifiers: Pneumonia type: due to unspecified organism Laterality: left Lung location: lower lobe of lung Qualified Code(s): J18.1 - Lobar pneumonia, unspecified orga nism Asthma exacerbation Qualifiers: Asthma severity: moderate Asthma persistence: persistent Qualified Code(s): J45.41 - Moderate persistent asthma with (acute) exacerbation The scribe's documentation has been prepared under my direction and personally reviewed by me in its entirety. I confirm that the note above accurately reflects all work, treatment, procedures, and medical decision making performed by me.
[2019-03-05] MEDS ORDERED: IBUPROFEN 800 MG TAB PO PRN (21:35)
[2019-03-05] MEDS ORDERED: ALUMINUM/MAGNESIUM SUSP 30 ML UDC PO PRN (21:35)
[2019-03-05] MEDS ORDERED: POLYETHYLENE (MIRALAX) 17 GM PACK PO PRN (21:35)
[2019-03-05] MEDS ORDERED: ZOLPIDEM TARTRATE 5 MG TAB PO PRN (21:35)
[2019-03-05] MEDS ORDERED: ALBUTEROL 0.083% NEBU SOLN 3 ML VIAL NEB PRN (21:35)
[2019-03-05] MEDS ORDERED: MECLIZINE HCL 25 MG TAB PO PRN (21:35)
[2019-03-05] MEDS ORDERED: ACETAMINOPHEN 500 MG TAB PO PRN (21:35)
[2019-03-05] MEDS ORDERED: MAGNESIUM HYDROXIDE SUSP 30 ML UDC PO PRN (21:35)
[2019-03-05] MEDS ORDERED: TRAMADOL HCL 50 MG TABLET PO PRN (21:35)
[2019-03-05] MEDS: AZITHROMYCIN 500 MG in DEXTROSE 5% 250 ML IV SCH (22:52)
[2019-03-05] MEDS: methylPREDNISolone 60 MG in SYRINGE 0 ML IV SCH (22:54)
[2019-03-05] MEDS: CETIRIZINE HCL 10 MG TABLET PO SCH (22:54)
[2019-03-05] MEDS: ENOXAPARIN INJ 40 MG/0.4 ML SYR SQ SCH (22:56)
[2019-03-06] MEDS: methylPREDNISolone 60 MG in SYRINGE 0 ML IV SCH ×2 (03:29→10:18)
[2019-03-06 06:07] LABS: Basophils # (auto) 0.02 K/uL (0-0.2); Basophils % (auto) 0.1 %; Eosinophils # (auto) 0.01 K/uL (0-0.5); Hematocrit (blood only) 44.9 % (42-52); Hemoglobin 15.4 g/dL (14.0-18.0); Immature Granulocytes # (auto) 0.16 K/uL (0.00-0.02); Immature Granulocytes % (auto) 0.8 %; Lymphocytes # (auto) 1.24 K/uL (1.2-3.4); Mean Corpuscular Hgb Conc 34.3 g/dL (32-36); Mean Corpuscular Volume 86.2 fL (80-100); Mean Platelet Volume 9.8 fL (7.4-10.4); Monocytes # (auto) 0.66 K/uL (0.11-0.59); Monocytes % (auto) 3.2 %; Neutrophils # (auto) 18.61 K/uL (1.4-6.5); Neutrophils % (auto) 89.9 %; Platelet Count 170 K/uL (130-400); RDW Coefficient of Variation 13.7 % (11.5-14.5); RDW Standard Deviation 43.2 fL (36.4-46.3); Red Blood Count 5.21 M/uL (4.7-6.1)
[2019-03-06 06:35] LABS: BUN Creatinine Ratio 20.6 (10-20); Calcium 9.3 mg/dl (8.5-10.1); Creatinine Clr Calc Pharmacy 100.8 ml/min; Est GFR (African American) 92.9; Est GFR (Non-African American) 80.2; Magnesium 2.5 mg/dl (1.8-2.4); Potassium 4.3 mmol/L (3.5-5.1)
[2019-03-06] MEDS: ALBUT/IPRATROP 3MG/0.5MG NEB 3 ML VIAL INH SCH ×2 (07:29→11:29)
[2019-03-06] MEDS: PSYLLIUM 58.6% POWDER PACKET PO SCH (08:30)
[2019-03-06] MEDS: LACTOBACILLUS ACIDOPHILUS (FLORANEX) TAB PO SCH (08:30)
[2019-03-06] MEDS: PANTOprazole 40 MG TAB PO SCH (08:30)
[2019-03-06] MEDS: IPRATROPIUM BROMIDE/ALBUTEROL respimat INH INH SCH ×2 (16:37→22:00)
--- NOTE | 2019-03-06 17:18 | Hospitalist Progress Note ---
Date of Service March 06, 2019 Assessment & Plan (1) Pneumonia: PNM and asthma exacerbation - Placed on IV steroids, scheduled nebs, ceftriaxone and azithromycin, 02 protocol. Sputum cultures pending. The pt was taking prednisone while in the [facility] so there is some concern for a more exoti c pneumonia however he has had marked improvement with current regimen (2) Tick bite: Bone pain following a tick bite - he specifically states that this was a deer tick and that this occurred 3-4 weeks prior. We will obtain titers therefore. (3) Hyperlipidemia: 2017 lipids were LDL 136, HDL 31, high triglycerides but he does not appear to be treated. Should consider treatment on follow up with primary care provider. (4) GERD (gastroesophageal reflux disease): cont Pantoprazole (5) Vertigo: Meclizine PRN provided for vertigo - does not take frequently (6) DVT prophylaxis: Enoxaparin Subjective Mr. Romero is feeling much better this morning, ambulating around the room ok. Not too much cough. Review of Systems Review of Systems: All systems reviewed & are unremarkable except as noted in HPI & below Physical Exam Physical Exam: General: no distress Eyes: normal inspection, PERLL Respiratory: chest non tender, rhonchi bilaterally, no respiratory distress, no accessory muscle use Cardiac: regular rate and rhythm, no rub or gallop, no murmur, no edema, no jvd GI/: active bowel sounds, no abd pain or tenderness, soft, non distended Extremities: normal range of motion, normal strength, non tender Neuro/Psych: alert and oriented x 3, normal mood and affect Skin: normal color, dry Results & Data Vital Signs (Past 12 Hours) Vital Signs Temp Pulse Resp BP BP Pulse Ox 03/06/19 15:42 36.5 C 91 H 18 139/70 93 03/06/19 11:29 105 H 14 93 03/06/19 08:08 36.4 C L 93 H 18 125/76 91 03/06/19 07:30 84 16 91 (1) Pneumonia Laterality: left Lung location: lower lobe of lung Pneumonia type: due to unspecified organism Qualified Code(s): J18.1 - Lobar pneumonia, unspecified organism
[2019-03-06] MEDS ORDERED: cefTRIAXone SODIUM 2,000 MG in DEXTROSE 5% 50 ML IV SCH (18:00)
[2019-03-06] MEDS: BUDESONIDE/FORMOTEROL FUMARATE 160/4.5 60 PUFFS/INHALER INH SCH (22:01)
[2019-03-06] MEDS: methylPREDNISolone 40 MG in SYRINGE 0 ML IV SCH (22:03)
[2019-03-06] MEDS: CETIRIZINE HCL 10 MG TABLET PO SCH (22:03)
[2019-03-06] MEDS: ENOXAPARIN INJ 40 MG/0.4 ML SYR SQ SCH (22:06)
[2019-03-06] MEDS: AZITHROMYCIN 500 MG in DEXTROSE 5% 250 ML IV SCH (22:42)
[2019-03-07 06:50] LABS: Hematocrit (blood only) 41.3 % (42-52); Hemoglobin 14.3 g/dL (14.0-18.0); Mean Corpuscular Hgb Conc 34.6 g/dL (32-36); Mean Corpuscular Volume 85.3 fL (80-100); Mean Platelet Volume 9.7 fL (7.4-10.4); Platelet Count 182 K/uL (130-400); RDW Coefficient of Variation 13.7 % (11.5-14.5); RDW Standard Deviation 42.5 fL (36.4-46.3); Red Blood Count 4.84 M/uL (4.7-6.1); White Blood Count 24.81 K/uL (4.8-10.8)
[2019-03-07 07:23] LABS: BUN Creatinine Ratio 25.1 (10-20); Calcium 8.8 mg/dl (8.5-10.1); Creatinine Clr Calc Pharmacy 123.7 ml/min; Est GFR (African American) 116.9; Est GFR (Non-African American) 100.9; Potassium 4.2 mmol/L (3.5-5.1)
[2019-03-07 07:33] LABS: Basophils # (auto) 0.02 K/uL (0-0.2); Basophils % (auto) 0.1 %; Immature Granulocytes # (auto) 0.36 K/uL (0.00-0.02); Immature Granulocytes % (auto) 1.5 %; Lymphocytes # (auto) 1.64 K/uL (1.2-3.4); Lymphocytes % (auto) 6.6 %; Monocytes # (auto) 1.69 K/uL (0.11-0.59); Monocytes % (auto) 6.8 %
[2019-03-07] MEDS: IPRATROPIUM BROMIDE/ALBUTEROL respimat INH INH SCH (07:53)
[2019-03-07] MEDS: methylPREDNISolone 40 MG in SYRINGE 0 ML IV SCH (07:53)
[2019-03-07] MEDS: LACTOBACILLUS ACIDOPHILUS (FLORANEX) TAB PO SCH (07:53)
[2019-03-07] MEDS: PANTOprazole 40 MG TAB PO SCH (07:54)
[2019-03-07] MEDS: BUDESONIDE/FORMOTEROL FUMARATE 160/4.5 60 PUFFS/INHALER INH SCH (07:54)
[2019-03-07] MEDS: PSYLLIUM 58.6% POWDER PACKET PO SCH (07:55)
--- NOTE | 2019-03-07 11:03 | Discharge Summary ---
Date of Service March 07, 2019 Admission HPI Per Admitting Provider 48 y/o M Hx Asthma, HLD, GERD, vertigo. Presents with SOB, cough and a fever. The pt had just returned form the [facility]. He was hypoxic on arrival to the ER and remained so following a dose of IV steroids and 3, hour-long neb treatments. Initial labs are notable for leukocytosis. A CXR is consistent with a LLL PNM. The pt also states that 4 weeks ago he pulled a tick of himself and has recently experienced bone pain, primarily in his hips and back. PMH: 1) Asthma 2) HLD 3) Diverticulitis 4) Vertigo 5) Obese Surgical: Denies Social: Does not smoke - drinks in moderation Family: Mother due to PNM at age 72 - history of asthma Father is alive and well Principal Diagnosis Pneumonia Discharge Exam Constitutional WD/WN, vitals as above Respiratory normal respiratory effort; no respiratory distress, no labored breathing and does not use accessory muscles Auscultation: + rhonchi and + wheezes rhonchi and expiratory wheezing bilaterally, improved from yesterday Cardiovascular RRR, no murmur, no edema Gastrointestinal (Abdomen) normal bowel sounds, soft, nontender, no hepatosplenomegaly Musculoskeletal no cyanosis or clubbing, extremities motor strength 5/5 Neurologic moves all extremities and awake Psychiatric A+Ox3, euthymic affect Discharge Data Allergies Allergy/AdvReac Type Severity Reaction Status Date / Time No Known Allergies Allergy Unverified 03/05/19 17:50 Consultations 03/05/19 19:35 ED Decision to Admit Stat Hospital Course (1) Pneumonia: PNM and asthma exacerbation - CXR showed small left focal basilar density. Placed on IV steroids, scheduled nebs, ceftriaxone and azithromycin, 02 protocol. The pt was taking prednisone while in the [facility] so there is some concern for a more exotic pneumonia however he has had marked improvement with current regimen. - Will discharge with doxycycline and Augmentin to provide coverage for pneumonia as well as Lyme. Will send out with 7 days antibiotics total as patient is immune compromised due to chronic steroid use. I did talk to Dr. Lopez's office concerning his scheduled Nucala injection today and they would like him to reschedule for after he completes his antibiotic regimen. - 9 day steroid taper and then return to 9 mg daily dosing of prednisone, continue home nebulizers - I did ask patient to touch base with his primary care provider before he finishes his doxy regimen to see if his Lyme came back positive which would require a longer antibiotic duration. - Nursing walked patient in the halls and checked saturations which did not drop below 92%. (2) Tick bite: Bone pain following a tick bite - he specifically states that this was a deer tick and that this occurred 3-4 weeks prior. Titers pending. Has been on ceftriaxone, doxy - continue as above (3) Hyperlipidemia: 2017 lipids were LDL 136, HDL 31, high triglycerides but he does not appear to be treated. Should consider treatment on follow up with primary care provider. (4) GERD (gastroesophageal reflux disease): cont Pantoprazole (5) Vertigo: Meclizine PRN provided for vertigo - does not take frequently (6) DVT prophylaxis: Enoxaparin while inpatient Total Time Total Time Spent Total Time Spent (In Minutes): greater than 30 minutes Discharge Plan Discharge Items Patient Disposition: Home - Self-Care Reason For Visit: [id number] Discharge Goals: Improve disease control Activity: Resume your previous activity Activity Comment: gradually as tolerated Non-emergency contact: Primary Care Provider Call non-emergency contact if: you have any medication questions, your symptoms worsen and you have a fever Follow-up/Referrals: Ciera Frye MD [Primary Care Provider] - Diet: Regular Addtl Provider Instructions: Please see your primary care provider within a week. Please see Dr. Lopez within the next couple of weeks. Dr. Lopez's office asked that you call to have your Nucala injection rescheduled for after you have completed your antibiotics. Please do not discontinue the doxycycline before you have talked to your provider about your results from your tick born illness panel as you will need to extend the regimen if they are positive. You will taper your prednisone as follows: 60 mg x 3 days 40 mg x 3 days 20 mg x 3 days Then return to your 9 mg home dosing until instructed otherwise by your primary or pulmonology provider Prescriptions: New amoxicillin-pot clavulanate 875-125 mg tablet 1 tab PO BID Qty: 9 RF: 0 doxycycline hyclate 100 mg tablet 100 mg PO BID Qty: 9 RF: 0 prednisone 20 mg tablet 20 mg PO DAILY Qty: 18 RF: 0 Continued multivitamin Tablet 1 tab PO QAM RF: 0 ipratropium-albuterol 0.5 mg-3 mg(2.5 mg base)/3 mL Solution For Nebulization 3 ml inhalation QID PRN (Reason: Shortness Of Breath Or Wheezing) RF: 0 cetirizine 10 mg Tablet 10 mg PO HS RF: 0 acetaminophen [Tylenol Extra Strength] 500 mg Tablet 1,000 mg PO UD PRN (Reason: Pain) RF: 0 meclizine 25 mg Tablet 25 mg PO TID PRN (Reason: Dizziness) RF: 0 pantoprazole 40 mg tablet,delayed release (DR/EC) 40 mg PO QAM RF: 0 ibuprofen 200 mg Tablet 800 mg PO QID PRN (Reason: Pain) RF: 0 senna-fennel Tablet 1 tab PO BID RF: 0 Symbicort 160-4.5 mcg/actuation HFA aerosol inhaler 2 puff inhalation BID RF: 0 omega 7-kco-mts-fish oil [Fish Oil] 1,000 mg (120 mg-180 mg) Capsule 2 cap PO BID RF: 0 Combivent Respimat 20-100 mcg/actuation Mist 1 puff inhalation QID PRN (Reason: Shortness Of Breath Or Wheezing) RF: 0 Metamucil 3.4 gram/5.4 gram Powder 2 tbsp PO QAM RF: 0 Probiotic 1 cap PO QAM RF: 0 Discontinued prednisone 1 mg tablet 9 mg PO QAM RF: 0 Stand-Alone Forms: [facility] Discharge Orders: Discharge Order (Routine); Ordered 03/07/19 Ordered By: Savana Banks Admission Data Admit Date/Time: 03/05/19 20:11 Attending Provider: Geo Dior Admit Provider: Rafiq Wolff Primary Care Provider: Ciera Frye Other Providers: Rafiq Wolff Service: Medical
[2019-03-09 19:30] LABS: Anaplasma phagocytophila IgM <1:20 (<1:20)
[2019-03-13 09:45] LABS: 18KDIGG Band NONREACTIVE (NONREACTIVE); 23KDIGG Band REACTIVE (NONREACTIVE); 23KDIGM Band REACTIVE (NONREACTIVE); 28KDIGG Band NONREACTIVE (NONREACTIVE); 30KDIGG Band NONREACTIVE (NONREACTIVE); 39KDIGG Band NONREACTIVE (NONREACTIVE); 39KDIGM Band NONREACTIVE (NONREACTIVE); 41KDIGG Band NONREACTIVE (NONREACTIVE); 41KDIGM Band NONREACTIVE (NONREACTIVE); 45KDIGG Band NONREACTIVE (NONREACTIVE); 58KDIGG Band NONREACTIVE (NONREACTIVE); 66KDIGG Band NONREACTIVE (NONREACTIVE); 93KDIGG Band NONREACTIVE (NONREACTIVE); Lyme Antibodies, WB IgG NEGATIVE (NEGATIVE); Lyme Antibodies, WB IgM NEGATIVE (NEGATIVE)
== END 2019-03-07 12:15 | disposition home or self-care (01) | DRG 195 ==
LOC: ED 16:40 → 4W 20:11 → SUATTDRO 20:11 → 4W 20:46

== ENCOUNTER 2019-09-11 07:37 | Inpatient (IN) ==
[2019-09-11] MEDS ORDERED: ALBUT/IPRATROP 3MG/0.5MG NEB 3 ML VIAL NEB STA ×3 (08:04→11:25)
[2019-09-11] MEDS ORDERED: methylPREDNISolone 125 MG/2 ML VIAL IV STA (08:04)
[2019-09-11] MEDS ORDERED: SODIUM CHLORIDE 0.9% 1000ML 1,000 ML IV SCH (08:15)
[2019-09-11 08:44] LABS: Basophils # (auto) 0.02 K/uL (0-0.2); Basophils % (auto) 0.1 %; Eosinophils # (auto) 0.13 K/uL (0-0.5); Eosinophils % (auto) 0.7 %; Hematocrit (blood only) 43.4 % (42-52); Immature Granulocytes # (auto) 0.15 K/uL (0.00-0.02); Immature Granulocytes % (auto) 0.8 %; Lymphocytes # (auto) 2.38 K/uL (1.2-3.4); Lymphocytes % (auto) 13.2 %; Mean Corpuscular Hemoglobin 29.5 pg (25-34); Mean Corpuscular Hgb Conc 34.6 g/dL (32-36); Mean Corpuscular Volume 85.4 fL (80-100); Mean Platelet Volume 9.8 fL (7.4-10.4); Monocytes # (auto) 1.53 K/uL (0.11-0.59); Monocytes % (auto) 8.5 %; Neutrophils % (auto) 76.7 %; Platelet Count 157 K/uL (130-400); RDW Coefficient of Variation 13.5 % (11.5-14.5); RDW Standard Deviation 42.1 fL (36.4-46.3); Red Blood Count 5.08 M/uL (4.7-6.1); White Blood Count 18.01 K/uL (4.8-10.8)
[2019-09-11 09:01] LABS: Albumin Level 3.4 gm/dl (3.4-5.0); BUN Creatinine Ratio 20.5 (10-20); Creatinine Clr Calc Pharmacy 116.5 ml/min; Est GFR (African American) 115.6; Est GFR (Non-African American) 99.7; Potassium 3.6 mmol/L (3.5-5.1)
[2019-09-11 09:04] LABS: Bilirubin,Total 0.8 mg/dl (0.2-1); Globulin 3.3 gm/dl (2.5-4.0); Phosphorus 2.9 mg/dl (2.5-4.9); Total Protein 6.7 gm/dl (6.4-8.2)
--- NOTE | 2019-09-11 09:07 | Emergency Department Note ---
History of Present Illness General Chief complaint: Respiratory Problems Stated complaint: WHEEZING, CONGESTION Time Seen by Provider: 09/11/19 07:59 History of Present Illness Maximum Pain Intensity: 5 This 49-year-old asthmatic male presents the ER with chief complaint of shortness of breath, chest congestion and wheezing which started yesterday. The patient states that he used his nebulizer at 530 this morning with some relief of the wheezing and shortness of breath. The patient denies any associated chest pain, neck pain or tingling in his arms. The patient states that he feels achy all over. He did not take his temperature. The patient denies any ear pain or sore throat. He does admit to some head congestion. The patient admits to nonproductive cough. The patient currently takes Symbicort for his asthma. He also uses his nebulizer on as-needed basis. Patient denies any known sick contacts. He did not have the influenza vaccine. Home Medications Home Medications Medication Instructions Recorded Confirmed Type Combivent Respimat 1 puff INHALATION QID PRN 03/05/19 09/11/19 History Metamucil 2 tbsp PO QAM 03/05/19 09/11/19 History Symbicort 2 puff INHALATION BID 03/05/19 09/11/19 History cetirizine 10 mg PO HS 03/05/19 09/11/19 History ibuprofen 200 mg PO UD PRN 03/05/19 09/11/19 History ipratropium-albuterol 3 ml INHALATION QID PRN 03/05/19 09/11/19 History meclizine 25 mg PO TID PRN 03/05/19 09/11/19 History multivitamin 1 tab PO QAM 03/05/19 09/11/19 History omega 2-xuh-fga-fish oil [Fish Oil] 2 cap PO BID 03/05/19 09/11/19 History pantoprazole 40 mg PO QAM 03/05/19 09/11/19 History senna-fennel 1 tab PO BID 03/05/19 09/11/19 History epinephrine 0.3 mg/0.3 mL 0.3 mg IM UD #1 ea 05/15/19 09/11/19 History injection, auto-injector mepolizumab 100 mg/mL subcutaneous 100 mg SQ .COMPLEX #1 ml 06/09/19 09/11/19 Rx syringe prednisone 10 mg tablet See Rx Instructions PO DAILY #36 08/28/19 09/11/19 Rx tab methylprednisolone [Medrol (Emery)] See Rx Instructions .ROUTE 09/11/19 Rx .COMPLEX #21 ea [id number] 1 ea PO UD 09/11/19 09/11/19 History [Theraflu Multi-Symptom Cold] Allergies Allergy/AdvReac Type Severity Reaction Status Date / Time No Known Drug Allergies Allergy Verified 09/11/19 09:28 Past Med/Surg History Medical History Asthma Diverticulitis (Resolved) GERD (gastroesophageal reflux disease) HLD (hyperlipidemia) Surgical History H/O shoulder surgery Family History Other Asthma Social History Preferred Language: [place]alese Communication Ability: Effective 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 Beliefs That Will Affect Care: None Current Living Situation: Family Feels Safe at Home: Yes Smoking Status: Never smoker Hx Alcohol Use: Yes Alcohol type: beer and hard liquor Hx Substance Use: No Review of Systems A total of 10 systems reviewed and were otherwise negative Physical Exam Vital Signs Vital Signs - 24 hr 09/11/19 07:48 09/11/19 07:55 09/11/19 08:25 Temperature 37.1 C Temperature Source Oral Pulse Rate 92 H Pulse Rate [Exercises] Pulse Rate [Right Finger] 83 Pulse Rate from SpO2 Sensor Pulse Rhythm Regular Pulse Strength Normal Respiratory Rate 20 19 Respiratory Rate [Exercises] Respiratory Effort / Characteristics Non-Labored Non-Labored Spontaneous Respiratory Depth Normal Respiratory Pattern Regular Blood Pressure 150/101 H Blood Pressure [Right Arm] Blood Pressure Mean 117 Blood Pressure Mean [Right Arm] Blood Pressure Position Sitting Pulse Oximetry 91 93 91 Pulse Oximetry [Exercises] Oxygen Delivery Method Room Air Room Air Room Air Oxygen Flow Rate Sepsis Recent Fever Within 48 Hours No Sepsis New/Unexplained Change in Mental Status No Sepsis Action Taken by Nursing No Action Required 09/11/19 08:35 09/11/19 09:00 09/11/19 10:00 Temperature Temperature Source Pulse Rate 90 90 74 Pulse Rate [Exercises] Pulse Rate [Right Finger] Pulse Rate from SpO2 Sensor 90 90 69 Pulse Rhythm Pulse Strength Respiratory Rate 17 24 20 Respiratory Rate [Exercises] Respiratory Effort / Characteristics Respiratory Depth Respiratory Pattern Blood Pressure 136/93 159/100 H 143/88 H Blood Pressure [Right Arm] Blood Pressure Mean 99 116 109 Blood Pressure Mean [Right Arm] Blood Pressure Position Pulse Oximetry 95 94 91 Pulse Oximetry [Exercises] Oxygen Delivery Method Oxygen Flow Rate Sepsis Recent Fever Within 48 Hours Sepsis New/Unexplained Change in Mental Status Sepsis Action Taken by Nursing 09/11/19 10:23 09/11/19 11:10 09/11/19 11:12 Temperature Temperature Source Pulse Rate Pulse Rate [Exercises] 110 H Pulse Rate [Right Finger] 83 104 H Pulse Rate from SpO2 Sensor Pulse Rhythm Pulse Strength Respiratory Rate 18 25 H Respiratory Rate [Exercises] 25 H Respiratory Effort / Characteristics Non-Labored Spontaneous Non-Labored Respiratory Depth Normal Respiratory Pattern Regular Blood Pressure Blood Pressure [Right Arm] 157/93 H Blood Pressure Mean Blood Pressure Mean [Right Arm] 114 Blood Pressure Position Pulse Oximetry 90 Pulse Oximetry [Exercises] 89 L Oxygen Delivery Method Room Air Room Air Oxygen Flow Rate Sepsis Recent Fever Within 48 Hours Sepsis New/Unexplained Change in Mental Status Sepsis Action Taken by Nursing 09/11/19 11:25 09/11/19 11:36 09/11/19 12:00 Temperature Temperature Source Pulse Rate 112 H Pulse Rate [Exercises] Pulse Rate [Right Finger] 105 H Pulse Rate from SpO2 Sensor 113 H Pulse Rhythm Pulse Strength Respiratory Rate 18 22 Respiratory Rate [Exercises] Respiratory Effort / Characteristics Non-Labored Spontaneous Respiratory Depth Respiratory Pattern Blood Pressure 141/78 H Blood Pressure [Right Arm] Blood Pressure Mean 96 Blood Pressure Mean [Right Arm] Blood Pressure Position Pulse Oximetry 89 L 89 L 89 L Pulse Oximetry [Exercises] Oxygen Delivery Method Room Air Room Air Oxygen Flow Rate Sepsis Recent Fever Within 48 Hours Sepsis New/Unexplained Change in Mental Status Sepsis Action Taken by Nursing 09/11/19 12:19 Temperature Temperature Source Pulse Rate Pulse Rate [Exercises] Pulse Rate [Right Finger] Pulse Rate from SpO2 Sensor Pulse Rhythm Pulse Strength Respiratory Rate Respiratory Rate [Exercises] Respiratory Effort / Characteristics Respiratory Depth Respiratory Pattern Blood Pressure Blood Pressure [Right Arm] Blood Pressure Mean Blood Pressure Mean [Right Arm] Blood Pressure Position Pulse Oximetry 92 Pulse Oximetry [Exercises] Oxygen Delivery Method Nasal Cannula Oxygen Flow Rate 2 Sepsis Recent Fever Within 48 Hours Sepsis New/Unexplained Change in Mental Status Sepsis Action Taken by Nursing PHYSICAL EXAM: Vital Signs were reviewed: Reviewed Nurse's notes and agree. Oxygen saturation is 95 % on room air which is normal . GENERAL: 49 year-old male appears in no acute distress. MENTAL STATUS: Alert, oriented, coherent. EARS: Canals clear. TMs good light reflex, no erythema or fluid level noted. NOSE: Nasal mucosa with moderate erythema engorgement. PHARYNX: No erythema, no edema noted. No exudate noted. Airway is adequate. NECK: Supple, non-tender. No lymphadenopathy noted. LUNGS: Patient has diffuse wheezing noted throughout both lung lazcano as well as crackles noted at the bases bilaterally. CARDIAC: Regular rate and rhythm without murmur. SKIN: No rashes noted. Course Administered Medications Discontinued Medications Albuterol (Duoneb) 3 ml NEB NOW STA Stop: 09/11/19 08:05 Last Admin: 09/11/19 08:23 Dose: 3 ml Documented by: [id number] Albuterol (Duoneb) 3 ml NEB NOW STA Stop: 09/11/19 10:18 Last Admin: 09/11/19 10:23 Dose: 3 ml Documented by: [id number] Albuterol (Duoneb) 3 ml NEB NOW STA Stop: 09/11/19 11:26 Last Admin: 09/11/19 11:36 Dose: 3 ml Documented by: [id number] Sodium Chloride (Nss 1000ml) 1,000 mls @ 999 mls/hr IV .Q1H1M CATIA Stop: 09/11/19 09:15 Last Infusion: 09/11/19 09:38 Dose: 0 mls/hr Documented by: [id number] Admin: 09/11/19 08:36 Dose: 999 mls/hr Documented by: [id number] Methylprednisolone (Solumedrol) 125 mg IV NOW STA Stop: 09/11/19 08:05 Last Admin: 09/11/19 08:36 Dose: 125 mg Documented by: [id number] Medical Decision Making Differential Diagnosis Asthma exacerbation, influenza, URI, asthma Medical Records Attestation: I reviewed the patient's medical records. Home Medications Current Medication List: was personally reviewed by me Laboratory Data Attestation: I reviewed the patient's lab results. Result diagrams: 09/11/19 08:32 09/11/19 08:32 Lab Results 1209/11/19 09/11/19 Range/Units 08:00 08:32 08:32 WBC 18.01 H (4.8-10.8) K/uL RBC 5.08 (4.7-6.1) M/uL Hgb 15.0 (14.0-18.0) g/dL Hct 43.4 (42-52) % MCV 85.4 (80-100) fL MCH 29.5 (25-34) pg MCHC 34.6 (32-36) g/dL RDW Std Deviation 42.1 (36.4-46.3) fL RDW Coeff of Peyman 13.5 (11.5-14.5) % Plt Count 157 (130-400) K/uL MPV 9.8 (7.4-10.4) fL Immature Gran % (Auto) 0.8 % Neut % (Auto) 76.7 % Lymph % (Auto) 13.2 % Mccracken % (Auto) 8.5 % Eos % (Auto) 0.7 % Baso % (Auto) 0.1 % Immature Gran # (Auto) 0.15 H (0.00-0.02) K/uL Neut # (Auto) 13.80 H (1.4-6.5) K/uL Lymph # (Auto) 2.38 (1.2-3.4) K/uL Mccracken # (Auto) 1.53 H (0.11-0.59) K/uL Eos # (Auto) 0.13 (0-0.5) K/uL Baso # (Auto) 0.02 (0-0.2) K/uL Sodium 139 (136-145) mmol/L Potassium 3.6 (3.5-5.1) mmol/L Chloride 106 (98-107) mmol/L Carbon Dioxide 24 (21-32) mmol/L Anion Gap 9.0 (3-11) BUN 18 (7-18) mg/dl Creatinine 0.89 (0.6-1.4) mg/dl Est Cr Clr Drug Dosing 116.5 ml/min Est GFR ( Amer) 115.6 Est GFR (Non-Af Amer) 99.7 BUN/Creatinine Ratio 20.5 H (10-20) Glucose 92 (70-99) mg/dl Calcium 9.0 (8.5-10.1) mg/dl Phosphorus 2.9 (2.5-4.9) mg/dl Total Bilirubin 0.8 (0.2-1) mg/dl AST 17 (15-37) U/L ALT 27 (12-78) U/L Alkaline Phosphatase 80 (45-117) U/L Total Protein 6.7 (6.4-8.2) gm/dl Albumin 3.4 (3.4-5.0) gm/dl Globulin 3.3 (2.5-4.0) gm/dl Albumin/Globulin Ratio 1.0 (0.9-2) Influenza Type A Ag Neg for Influ A (Neg) Influenza Type B Ag Neg for Influ B (Neg) Imaging Data Attestation: I personally reviewed and interpreted this imaging study as fol lows: My Impression: No acute infiltrate noted Radiologist's Impression: XR chest 2V PA/lateral HISTORY: 49 years-old Male cough, wheezing acute cough with congestion and shortness of breath COMPARISON: Chest radiograph 03/05/2019 and 10/12/2017, chest CT 01/05/2018. TECHNIQUE: PA and lateral views of the chest FINDINGS: Cardiomediastinal and hilar silhouettes are within normal limits. Opacity of the right cardiophrenic angle suggests prominent epicardial fat pad. No pneumothorax, pleural effusion, overt pulmonary edema or focal airspace consolidation. Mild degenerative changes of the shoulders and spine. IMPRESSION: No acute process. The above report was generated using voice recognition software. It may contain grammatical, syntax or spelling errors. Electronically signed by: Gilbert Crespo M.D. 09/11/2019 9:37 AM Dictated: 09/11/19 0935 Transcribed: 09/11/19 0935 ECG Data Attestation: I personally reviewed and interpreted this ECG as follows: Indication: + SOB/dyspnea Rate (beats per minute): 88 Rhythm: + normal sinus ECG Intervals/blocks: + Normal QRS and + Normal QT ECG [place]: + Normal Blood Pressure Blood Pressure Findings: Normal blood pressure MDM Narrative The patient was evaluated. EKG was reviewed as above without any acute findings. IV access was obtained. The patient was placed on a monitoring tech and continuous pulse ox. The patient was given 1 L normal saline wide open. He was given Solu-Medrol 125 mg IV. He was given a DuoNeb. CBC differential, renal profile was ordered. Rapid influenza was negative for influenza A and influenza B. Chest x-ray was ordered interpreted by the radiologist and myself without any acute findings. Labs are reviewed. Patient's white count was elevated 18,000 otherwise labs were unremarkable. I feel that the patient's white count is elevated due to him being on Symbicort on a chronic basis. I looked back over the patient's EMR and his white count is always elevated. It has been up as high as 24 in the past. The patient was reevaluated and expiratory wheezes were noted but no crackles noted. A second DuoNeb was given and post DuoNeb he was feeling better and still had audible wheezes bilaterally. The patient was given a third DuoNeb. Ambulatory pulse ox was 89% on room air. The patient's case was discussed with . Dr. Nava who independently evaluated the patient and decided the patient should be admitted. Hospitalist was consulted for admission. Impression & Plan Asthma exacerbation Discharge Plan Visit Data Chief Complaint: Respiratory Problems Stated Complaint: WHEEZING, CONGESTION ED Provider: Jarrod Nava ED Midlevel Provider: Violeta Sesay Discharge Problem: Asthma exacerbation Patient Disposition: Being Evaluated by Hospitalist Condition: Good Prescriptions Prescriptions: New methylprednisolone [Medrol (Emery)] 4 mg tablets,dose pack See Rx Instructions .ROUTE .COMPLEX Qty: 21 RF: 0 No Action Nucala 100 mg/mL syringe 100 mg SQ .COMPLEX Qty: 1 RF: 11 prednisone 10 mg tablet See Rx Instructions PO DAILY Qty: 36 RF: 0 epinephrine 0.3 mg/0.3 mL auto-injector 0.3 mg IM UD Qty: 1 RF: 0 multivitamin Tablet 1 tab PO QAM RF: 0 ipratropium-albuterol 0.5 mg-3 mg(2.5 mg base)/3 mL Solution For Nebulization 3 ml inhalation QID PRN (Reason: Shortness Of Breath Or Wheezing) RF: 0 cetirizine 10 mg Tablet 10 mg PO HS RF: 0 meclizine 25 mg Tablet 25 mg PO TID PRN (Reason: Dizziness) RF: 0 pantoprazole 40 mg tablet,delayed release (DR/EC) 40 mg PO QAM RF: 0 ibuprofen 200 mg Tablet 200 mg PO UD PRN (Reason: Pain) RF: 0 senna-fennel Tablet 1 tab PO BID RF: 0 Symbicort 160-4.5 mcg/actuation HFA aerosol inhaler 2 puff inhalation BID RF: 0 omega 6-ett-mma-fish oil [Fish Oil] 1,000 mg (120 mg-180 mg) Capsule 2 cap PO BID RF: 0 Combivent Respimat 20-100 mcg/actuation Mist 1 puff inhalation QID PRN (Reason: Shortness Of Breath Or Wheezing) RF: 0 Metamucil 3.4 gram/5.4 gram Powder 2 tbsp PO QAM RF: 0 Theraflu Multi-Symptom Cold 10-20-500 mg Powder In Packet 1 ea PO UD RF: 0 Referrals Referrals: Ciera Frye MD [Primary Care Provider] -
--- NOTE | 2019-09-11 09:38 | XRay Report ---
XR chest 2V PA/lateral HISTORY: 49 years-old Male cough, wheezing acute cough with congestion and shortness of breath COMPARISON: Chest radiograph 03/05/2019 and 10/12/2017, chest CT 01/05/2018. TECHNIQUE: PA and lateral views of the chest FINDINGS: Cardiomediastinal and hilar silhouettes are within normal limits. Opacity of the right cardiophrenic angle suggests prominent epicardial fat pad. No pneumothorax, pleural effusion, overt pulmonary edema or focal airspace consolidation. Mild degenerative changes of the shoulders and spine. IMPRESSION: No acute process. The above report was generated using voice recognition software. It may contain grammatical, syntax o r spelling errors. Electronically signed by: Gilbert Crespo M.D. 09/11/2019 9:37 AM
[2019-09-11] MEDS ORDERED: ALBUT/IPRATROP 3MG/0.5MG NEB 3 ML VIAL NEB ONE (12:23)
[2019-09-11] MEDS: MAGNESIUM SULFATE / D5W 1 GM/100 ML BAG IV SCH ×2 (12:36→13:43)
--- NOTE | 2019-09-11 13:15 | History & Physical Report ---
Date of Service September 11, 2019 Assessment & Plan (1) Asthma exacerbation: 49-year-old male with history of severe, steroid-dependent asthma on mepolizumab q. monthly presenting with acute asthma exacerbation. Patient received Solu-Medrol, albuterol and magnesium in the ER. Still with markedly diminished breath sounds, diffuse wheezing and speaking in short sentences. No history of intubation. Saturation improved to 94% now with 2 L. No overt evidence of infectious process. -Admit to medical floor -Continuous pulse oximetry -Supplemental oxygen as needed to maintain saturations over 94% -DuoNeb every 4 hours scheduled -Albuterol every 2 hours as needed for shortness of breath or wheeze -Solu-Medrol 30 mg IV 3 times daily -Continue Symbicort -Continue cetirizine -We will hold antibiotics for now Present on Admission?: Yes (2) GERD without esophagitis: Chronic. Stable. Continue Protonix daily Present on Admission?: Yes (3) Sleep apnea: Chronic. Stable. Continue CPAP FENnormal saline at 125 mL/h x 2 L, monitor electrolytes and replete as needed, regular diet as tolerated ProphylaxisLovenox 40 mg daily, continue Protonix Codefull Dispositionadmit to medical floor for management of asthma exacerbation Present on Admission?: Yes History of Present Illness Chief Complaint: Shortness of breath, cough, wheeze Primary Care Provider: Ciera Frye MD Arya Romero is a pleasant 49-year-old male with history of very severe steroid dependent asthma. He is presently on Mepolizumab (Nucala) 100mcg monthly and prednisone. He follows with Dr. Lopez, last seen 07/26/2019. He has been on fairly high doses of prednisone for at least the last 9 years. Prior attempts to withdraw steroids led to symptoms of adrenal insufficiency. He is presently on a slow steroid taper, decreasing his prednisone by 1 mg/month. Daily dose now 3 mg/day. He receives Nucala injection q. monthly with good response. Last on 08/18/2019. He presents today with persistent shortness of breath/SERNA, cough, wheeze. Also with nasal congestion, rhinorrhea (yellow in color), sinus pressure and frontal headache, sore throat. He had some chills yesterday. No documented fever. Denies chest pain/palpitations. Denies abdominal pain/nausea/vomiting/diarrhea. Symptoms have been ongoing and progressively worsening for at least 2 weeks. Patient notified his PCP with the above symptoms 2 weeks ago and was prescribed a course of Levaquin which he completed and is in the midst of a prednisone taperstarted at 40 mg and currently on 15 mg/day. He has been taking DuoNeb treatment every 4 hours since yesterday. + Sick contactsmultiple family members and coworkers with URIs. No recent tr bharati. Patient did not receive flu shot yet this year. Believes he has received pneumonia vaccine in the past. ER course: Solu-Medrol 125 mg IV, normal saline x1 L, albuterol 3 mL neb x3, albuterol 12 mL neb x1, magnesium sulfate x1 g Allergies Allergy/AdvReac Type Severity Reaction Status Date / Time No Known Drug Allergies Allergy Verified 09/11/19 09:28 Home Medications Home Medications Medication Instructions Recorded Confirmed Type Combivent Respimat 1 puff INHALATION QID PRN 03/05/19 09/11/19 History Metamucil 2 tbsp PO QAM 03/05/19 09/11/19 History Symbicort 2 puff INHALATION BID 03/05/19 09/11/19 History cetirizine 10 mg PO HS 03/05/19 09/11/19 History ibuprofen 200 mg PO UD PRN 03/05/19 09/11/19 History ipratropium-albuterol 3 ml INHALATION QID PRN 03/05/19 09/11/19 History meclizine 25 mg PO TID PRN 03/05/19 09/11/19 History multivitamin 1 tab PO QAM 03/05/19 09/11/19 History omega 8-lci-pxl-fish oil [Fish Oil] 2 cap PO BID 03/05/19 09/11/19 History pantoprazole 40 mg PO QAM 03/05/19 09/11/19 History senna-fennel 1 tab PO BID 03/05/19 09/11/19 History epinephrine 0.3 mg/0.3 mL 0.3 mg IM UD #1 ea 05/15/19 09/11/19 History injection, auto-injector mepolizumab 100 mg/mL subcutaneous 100 mg SQ .COMPLEX #1 ml 06/09/19 09/11/19 Rx syringe prednisone 10 mg tablet See Rx Instructions PO DAILY #36 08/28/19 09/11/19 Rx tab methylprednisolone [Medrol ([facility]y)] See Rx Instructions .ROUTE 09/11/19 Rx .COMPLEX #21 ea vdevedftxniip-[id number] 1 ea PO UD 09/11/19 09/11/19 History [Theraflu Multi-Symptom Cold] Past Med/Surg History Medical History (Updated 09/11/19 @ 13:13 by Nery Vargas DO) Asthma Diverticulitis (Resolved) GERD (gastroesophageal reflux disease) HLD (hyperlipidemia) Surgical History H/O shoulder surgery Family History Other Asthma Social History Preferred Language: Slovak Communication Ability: Effective 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 Required: No Beliefs That Will Affect Care: None Current Living Situation: Family Feels Safe at Home: Yes Smoking Status: Never smoker Hx Alcohol Use: Yes Alcohol type: beer and hard liquor Hx Substance Use: No Review of Systems Review of Systems: All systems reviewed & are unremarkable except as noted in HPI & below Physical Exam Physical Exam: General: patient resting, speaking in short sentences, non- toxic in appearance, AA&O x 4 Skin: warm, dry, intact, no rashes or lesions HEENT: NC/AT, PERRL, EOMI, anicteric sclera, conjunctiva without injection, external ear normal to inspection and nontender, nares patent, moist mucus membranes, dentition intact, no oropharyngeal lesions, neck supple, trachea midline, no LAD, no thyromegaly, no JVD Heart: +S1/S2, regular, tachycardic, no m/r/g Lungs: Diminished breath sounds bilaterally, diffuse inspiratory and expiratory wheezing, + rhonchi bilaterally, no rales Abd: +BS, soft, NT/ND, no masses/organomegaly/ascites Ext: warm, 2+ pulses in UE/LE bilaterally, no clubbing/cyanosis or edema Neuro: nonfocal, patient AA&O x 4, speech intact, no facial droop, moving all extremities on command with equal strength 5/5 Results & Data Vital Signs (Past 12 Hours) Vital Signs Temp Pulse Pulse Pulse Resp Resp BP 09/11/19 12:41 111 H 20 09/11/19 12:19 09/11/19 12:00 112 H 22 141/78 H 09/11/19 11:36 105 H 18 09/11/19 11:25 09/11/19 11:12 104 H 25 H 09/11/19 11:10 110 H 25 H 09/11/19 10:23 83 18 09/11/19 10:00 74 20 143/88 H 09/11/19 09:00 90 24 159/100 H 09/11/19 08:35 90 17 136/93 09/11/19 08:25 83 19 09/11/19 07:55 09/11/19 07:48 37.1 C 92 H 20 150/101 H BP Pulse Ox Pulse Ox 09/11/19 12:41 92 09/11/19 12:19 92 09/11/19 12:00 89 L 09/11/19 11:36 89 L 09/11/19 11:25 89 L 09/11/19 11:12 157/93 H 09/11/19 11:10 89 L 09/11/19 10:23 90 09/11/19 10:00 91 09/11/19 09:00 94 09/11/19 08:35 95 09/11/19 08:25 91 09/11/19 07:55 93 09/11/19 07:48 91 Laboratory Results Lab Results 09/11/19 09/11/19 09/11/19 Range/Units 08:00 08:32 08:32 WBC 18.01 H (4.8-10.8) K/uL RBC 5.08 (4.7-6.1) M/uL Hgb 15.0 (14.0-18.0) g/dL Hct 43.4 (42-52) % MCV 85.4 (80-100) fL MCH 29.5 (25-34) pg MCHC 34.6 (32-36) g/dL RDW Std Deviation 42.1 (36.4-46.3) fL RDW Coeff of Peyman 13.5 (11.5-14.5) % Plt Count 157 (130-400) K/uL MPV 9.8 (7.4-10.4) fL Immature Gran % (Auto) 0.8 % Neut % (Auto) 76.7 % Lymph % (Auto) 13.2 % [place] % (Auto) 8.5 % Eos % (Auto) 0.7 % Baso % (Auto) 0.1 % Immature Gran # (Auto) 0.15 H (0.00-0.02) K/uL Neut # (Auto) 13.80 H (1.4-6.5) K/uL Lymph # (Auto) 2.38 (1.2-3.4) K/uL [place] # (Auto) 1.53 H (0.11-0.59) K/uL Eos # (Auto) 0.13 (0-0.5) K/uL Baso # (Auto) 0.02 (0-0.2) K/uL Sodium 139 (136-145) mmol/L Potassium 3.6 (3.5-5.1) mmol/L Chloride 106 (98-107) mmol/L Carbon Dioxide 24 (21-32) mmol/L Anion Gap 9.0 (3-11) BUN 18 (7-18) mg/dl Creatinine 0.89 (0.6-1.4) mg/dl Est Cr Clr Drug Dosing 116.5 ml/min Est GFR ( Amer) 115.6 Est GFR (Non-Af Amer) 99.7 BUN/Creatinine Ratio 20.5 H (10-20) Glucose 92 (70-99) mg/dl Calcium 9.0 (8.5-10.1) mg/dl Phosphorus 2.9 (2.5-4.9) mg/dl Total Bilirubin 0.8 (0.2-1) mg/dl AST 17 (15-37) U/L ALT 27 (12-78) U/L Alkaline Phosphatase 80 (45-117) U/L Total Protein 6.7 (6.4-8.2) gm/dl Albumin 3.4 (3.4-5.0) gm/dl Globulin 3.3 (2.5-4.0) gm/dl Albumin/Globulin Ratio 1.0 (0.9-2) Influenza Type A Ag Neg for Influ A (Neg) Influenza Type B Ag Neg for Influ B (Neg) Diagnostic Findings XR chest 2V PA/lateral HISTORY: 49 years-old Male cough, wheezing acute cough with congestion and s hortness of breath COMPARISON: Chest radiograph 03/05/2019 and 10/12/2017, chest CT 01/05/2018. TECHNIQUE: PA and lateral views of the chest FINDINGS: Cardiomediastinal and hilar silhouettes are within normal limits. Opacity of the right cardiophrenic angle suggests prominent epicardial fat pad. No pneumothorax, pleural effusion, overt pulmonary edema or focal airspace consolidation. Mild degenerative changes of the shoulders and spine. IMPRESSION: No acute process. The above report was generated using voice recognition software. It may contain grammatical, syntax or spelling errors. Electronically signed by: Gilbert Crespo M.D. 09/11/2019 9:37 AM Dictated: 09/11/19934 Transcribed: 09/11/19934 ECG Additional Comments: The study shows normal sinus rhythm at 88 bpm, normal axis, CA = 168, QRS = 88, QTc = 445, no evidence of ischemia Code Status & VTE Plan Code Status Full code VTE Prophylaxis Plan VTE Prophylaxis will be ordered: Yes PG Care Time/CCT Total # of Minutes Spent Total Time Spent with Patient: Total time spent is greater than 50% in coordination of care (as documented) at patient's floor/unit and/or counseling patient: (1) Sleep apnea Sleep apnea type: unspecified type Qualified Code(s): G47.30 - Sleep apnea, unspecified (2) Asthma exacerbation Asthma persistence: persistent Asthma severity: moderate Qualified Code(s): J45.41 - Moderate persistent asthma with (acute) exacerbation
[2019-09-11] MEDS ORDERED: SODIUM CHLORIDE 0.65% NA SOLN 45 ML (OCEAN) PRN (14:11)
[2019-09-11] MEDS ORDERED: DOCUSATE SODIUM 100 MG CAP PO PRN (14:11)
[2019-09-11] MEDS ORDERED: ONDANSETRON INJ 2 MG/ML 2 ML VIAL IV PRN (14:11)
[2019-09-11] MEDS ORDERED: ALBUTEROL 0.5% NEB SOLN 2.5 MG/0.5 ML VIAL NEB PRN (14:11)
[2019-09-11] MEDS ORDERED: POLYETHYLENE (MIRALAX) 17 GM PACK PO PRN (14:11)
[2019-09-11] MEDS ORDERED: ACETAMINOPHEN 325 MG TAB PO PRN (14:11)
[2019-09-11] MEDS: ALBUT/IPRATROP 3MG/0.5MG NEB 3 ML VIAL NEB SCH ×3 (15:07→23:30)
[2019-09-11] MEDS: SODIUM CHLORIDE 0.9% 1000ML 1,000 ML IV SCH ×2 (15:26→20:53)
[2019-09-11] MEDS: methylPREDNISolone 30 MG in SYRINGE 0 ML IV SCH ×2 (15:32→20:50)
[2019-09-11] MEDS ORDERED: ENOXAPARIN INJ 40 MG/0.4 ML SYR SQ SCH (16:00)
[2019-09-11] MEDS: BUDESONIDE/FORMOTEROL FUMARATE 160/4.5 60 PUFFS/INHALER INH SCH (20:51)
[2019-09-11] MEDS: SENNA 8.6 MG TAB PO SCH (20:52)
[2019-09-11] MEDS: guaiFENesin 600 MG TABCR PO SCH (20:52)
[2019-09-11] MEDS ORDERED: CETIRIZINE HCL 10 MG TABLET PO SCH (21:00)
[2019-09-12] MEDS: ALBUT/IPRATROP 3MG/0.5MG NEB 3 ML VIAL NEB SCH ×2 (03:13→07:22)
[2019-09-12 07:45] LABS: Hemoglobin 14.7 g/dL (14.0-18.0); Mean Corpuscular Hemoglobin 29.1 pg (25-34); Mean Corpuscular Hgb Conc 33.4 g/dL (32-36); Mean Corpuscular Volume 87.1 fL (80-100); Mean Platelet Volume 9.6 fL (7.4-10.4); Platelet Count 205 K/uL (130-400); RDW Coefficient of Variation 13.8 % (11.5-14.5); Red Blood Count 5.05 M/uL (4.7-6.1); White Blood Count 26.81 K/uL (4.8-10.8)
[2019-09-12] MEDS: SENNA 8.6 MG TAB PO SCH (08:03)
[2019-09-12] MEDS: BUDESONIDE/FORMOTEROL FUMARATE 160/4.5 60 PUFFS/INHALER INH SCH (08:04)
[2019-09-12] MEDS: methylPREDNISolone 30 MG in SYRINGE 0 ML IV SCH (08:04)
[2019-09-12 08:06] LABS: ALC (manual) 1.85 K/uL (1.2-3.4); ANC (manual) 23.81 K/uL (1.4-6.5); Lymphocytes # (manual) 1.85 K/uL (1.2-3.4); Lymphocytes % (manual) 6.9 %; Monocytes # (manual) 1.15 K/uL (0.11-0.59); Monocytes % (manual) 4.3 %; Neutrophils # (manual) 23.81 K/uL (1.4-6.5); Neutrophils % (manual) 88.8 %; RBC Morphology Unremarkable
[2019-09-12 08:16] LABS: BUN Creatinine Ratio 18.1 (10-20); Calcium 9.1 mg/dl (8.5-10.1); Est GFR (African American) 106.4; Est GFR (Non-African American) 91.8; Potassium 4.1 mmol/L (3.5-5.1)
[2019-09-12] MEDS ORDERED: PANTOprazole 40 MG TAB PO SCH (09:00)
[2019-09-12] MEDS ORDERED: PSYLLIUM 58.6% POWDER PACKET PO SCH (09:00)
[2019-09-12] MEDS: guaiFENesin 600 MG TABCR PO SCH (09:04)
--- NOTE | 2019-09-12 09:53 | Discharge Summary ---
Date of Service September 12, 2019 Admission HPI Per Admitting Provider Arya Romero is a pleasant 49-year-old male with history of very severe steroid dependent asthma. He is presently on Mepolizumab (Nucala) 100mcg monthly and prednisone. He follows with Dr. Lopez, last seen 07/26/2019. He has been on fairly high doses of prednisone for at least the last 9 years. Prior attempts to withdraw steroids led to symptoms of adrenal insufficiency. He is presently on a slow steroid taper, decreasing his prednisone by 1 mg/month. Daily dose now 3 mg/day. He receives Nucala injection q. monthly with good response. Last on 08/18/2019. He presents today with persistent shortness of breath/SERNA, cough, wheeze. Also with nasal congestion, rhinorrhea (yellow in color), sinus pressure and frontal headache, sore throat. He had some chills yesterday. No documented fever. Denies chest pain/palpitations. Denies abdominal pain/nausea/vomiting/diarrhea. Symptoms have been ongoing and progressively worsening for at least 2 weeks. Patient notified his PCP with the above symptoms 2 weeks ago and was prescribed a course of Levaquin which he completed and is in the midst of a prednisone taperstarted at 40 mg and currently on 15 mg/day. He has been taking DuoNeb treatment every 4 hours since yesterday. + Sick contactsmultiple family members and coworkers with URIs. No recent travel. Patient did not receive flu shot yet this year. Believes he has received pneumonia vaccine in the past. ER course: Solu-Medrol 125 mg IV, normal saline x1 L, albuterol 3 mL neb x3, albuterol 12 mL neb x1, magnesium sulfate x1 g Admission Exam Per Admitting Provider General: Overweight, middle-aged male, AAO x 3, no distress ENT: No erythema or exudates, no thrush Eyes: ARMOND, EOMI Head and neck: Normocephalic, atraumatic, No JVD, neck is supple. Chest/heart: Nontender, S1,2, RRR, no murmurs, no gallops Lungs: Lungs are largely clear excepting a wheeze which is limited to the left lower lung Abdomen: Nontender, nondistended, BS+ Neuro: AAO x 3, speech is clear, no unilateral weakness or loss of sensation, coordination intact Musculoskeletal: No joint inflammation, muscle tenderness, FROM Skin: No acute rashes or ulcers Extremities: No clubbing, cyanosis, edema Principal Diagnosis 1. Acute asthma exacerbation 2. Gastritis/GERD by history 3. Obstructive sleep apnea by history Discharge Exam Gen: AAOx3, NAD HEENT: neck supple, no JVD. MMM. Heart: RR, no murmurs Lungs: Minimal end expiratory wheezing, otherwise clear to auscultation Abd: soft, nontender, nondistended. Normal BS, obese Neuro: awake, alert. Nonfocal Psych: appropriate mood and affect Ext: No clubbing, cyanosis, edema Discharge Data Allergies Allergy/AdvReac Type Severity Reaction Status Date / Time No Known Drug Allergies Allergy Verified 09/11/19 09:28 Consultations 09/11/19 12:23 ED Decision to Admit Stat Hospital Course (1) Asthma exacerbation: 49-year-old male with history of severe, steroid-dependent asthma on mepolizumab q. monthly presenting with acute asthma exacerbation. Patient received Solu-Medrol, albuterol and magnesium in the ER. Still with markedly diminished breath sounds, diffuse wheezing and speaking in short sentences. No history of intubation. Saturation improved to 94% now with 2 L. No overt evidence of infectious process. -Admit to medical floor -Continuous pulse oximetry -Supplemental oxygen as needed to maintain saturations over 94% -DuoNeb every 4 hours scheduled -Albuterol every 2 hours as needed for shortness of breath or wheeze -Solu-Medrol 30 mg IV 3 times daily -Continue Symbicort -Continue cetirizine --- Patient seen the next morning, feels much better. Completely off oxygen. Exam reveals very minimal wheeze which I suspect is baseline in this patient. Patient feels he is at his baseline ready to be discharged. He was given a prescription for a long course of oral prednisone. He will need to follow-up with his primary care provider as well as with his product support technician. (2) GERD without esophagitis: Chronic. Stable. Continue Protonix daily (3) Sleep apnea: Chronic. Stable. Continue CPAP FENnormal saline at 125 mL/h x 2 L, monitor electrolytes and replete as needed, regular diet as tolerated ProphylaxisLovenox 40 mg daily, continue Protonix Codefull Dispositionadmit to medical floor for management of asthma exacerbation Total Time Total Time Spent Total Time Spent (In Minutes): Discharge took in excess of 30 minutes. Total Time Includes: Examination of the Patient, Discharge Planning and Medication Reconciliation Discharge Plan Discharge Items Patient Disposition: Home - Self-Care Reason For Visit: ASTHMA EXACERBATION Discharge Diagnosis: 1. Severe asthma with exacerbation, typically steroid-dependent 2. History of GERD with esophagitis 3. CPAP dependent sleep apnea Condition on Discharge: Good Activity: Resume your previous activity Lifting: Gradually increase as tolerated Bathing: No limitations Sexual Activity: When tolerated Exercise/Sports: Gradually increase as tolerated Driving/Machine Use: No limitations Weightbearing: Full weightbearing Non-emergency contact: Primary Care Provider Call non-emergency contact if: your symptoms worsen and your temperature is above 101 Follow-up/Referrals: Jarrod Lopez MD [Physician] - Ciera Frye MD [Primary Care Provider] - Diet: Regular Addtl Attending Provider Instructions: Patient call his PCP or product support technician if he has worsening symptoms. Pending Studies at Discharge: No Stand-Alone Forms: My [facility] [email or web address], Smoking Cessation Medications and DC Order Prescriptions: New methylprednisolone [Medrol (Emery)] 4 mg tablets,dose pack See Rx Instructions .ROUTE .COMPLEX Qty: 21 RF: 0 prednisone 10 mg tablet 10 mg PO DAILY Qty: 63 RF: 0 Continued Nucala 100 mg/mL syringe 100 mg SQ .COMPLEX Qty: 1 RF: 11 epinephrine 0.3 mg/0.3 mL auto-injector 0.3 mg IM UD Qty: 1 RF: 0 multivitamin Tablet 1 tab PO QAM RF: 0 ipratropium-albuterol 0.5 mg-3 mg(2.5 mg base)/3 mL Solution For Nebulization 3 ml inhalation QID PRN (Reason: Shortness Of Breath Or Wheezing) RF: 0 cetirizine 10 mg Tablet 10 mg PO HS RF: 0 meclizine 25 mg Tablet 25 mg PO TID PRN (Reason: Dizziness) RF: 0 pantoprazole 40 mg tablet,delayed release (DR/EC) 40 mg PO QAM RF: 0 ibuprofen 200 mg Tablet 200 mg PO UD PRN (Reason: Pain) RF: 0 senna-fennel Tablet 1 tab PO BID RF: 0 Symbicort 160-4.5 mcg/actuation HFA aerosol inhaler 2 puff inhalation BID RF: 0 omega 9-osp-hyr-fish oil [Fish Oil] 1,000 mg (120 mg-180 mg) Capsule 2 cap PO BID RF: 0 Combivent Respimat 20-100 mcg/actuation Mist 1 puff inhalation QID PRN (Reason: Shortness Of Breath Or Wheezing) RF: 0 Metamucil 3.4 gram/5.4 gram Powder 2 tbsp PO QAM RF: 0 Theraflu Multi-Symptom Cold 10-20-500 mg Powder In Packet 1 ea PO UD RF: 0 Discontinued prednisone 10 mg tablet See Rx Instructions PO DAILY Qty: 36 RF: 0 Discharge Orders: Discharge Order (Routine); Ordered 09/12/19 Ordered By: Allan Conway Admission Data Admit Date/Time: 09/11/19 12:46 Attending Provider: Allan Conway Admit Provider: Nery Vargas Primary Care Provider: Ciera Frye Other Providers: Lance Granda ; Nery Vargas
== END 2019-09-12 10:32 | disposition home or self-care (01) | DRG 203 ==
LOC: ED 07:37 → 2N 12:46 → SUATTDRO 12:46 → 2N 13:50

== ENCOUNTER 2023-12-02 10:22 | Inpatient (IN) ==
[2023-12-02] MEDS: SODIUM CHLORIDE 0.9% 1,000 ML IV SCH (10:46)
[2023-12-02] MEDS: SODIUM CHLORIDE 0.9% 500 ML IV SCH (10:48)
--- NOTE | 2023-12-02 10:50 | Emergency Department Note ---
Impression & Plan Acute dyspnea, Acute bronchiolitis due to human metapneumovirus, Acute hypoxic respiratory failure, Elevated lactic acid level ED Provider Note HISTORY OF PRESENT ILLNESS: Patient is a 53-year-old male presenting with shortness of breath and cough. Patient reports he has been having symptoms for the last week. He states that he has a cough productive of a yellow-white sputum. He reports that he had subjective fevers last night. He woke up today and felt lightheaded and dizzy like he was going to pass out. Denies any chest pain with that episode. He does report some nausea when he was lightheaded. He states he has a history of asthma but does not wear any supplemental oxygen. He is on chronic steroids from his asthma and is currently working on being tapered down after almost 15 years on steroids. He reports he is currently on 8 mg daily. He denies any recent antibiotic use. He reports his grandkids were recently sick with a viral illness. Denies any abdominal pain, nausea or vomiting. Denies any history of stents in his heart. Denies any anticoagulation use. Denies any DVT or PE history. ROS: as above PHYSICAL EXAM: Constitutional: Patient appears in no acute distress. HENT: Head: Normocephalic and atraumatic. Eyes: EOMI, PERRL Mouth/Throat: Mucous membranes moist. Neck: Trachea midline. Neck supple. Cardiovascular: RRR, No murmurs, rubs or gallops. Intact distal pulses. Pulmonary/Chest: No respiratory distress. Breath sounds clear and equal bilaterally. Expiratory wheezes bilaterally Abdominal: Abdomen soft, no tenderness, rebound or guarding. Musculoskeletal: No edema, tenderness or deformity noted. Skin: Warm and dry. No rash, erythema, pallor or cyanosis Psychiatric: Appropriate mood and affect for situation. Neurological: Alert and keenly responsive. CN II-XII grossly intact, moving all extremities equally and fully. MDM: - Vitals signs showed hypotension. - History obtained via patient. Patient presents with shortness of breath and cough. Patient reports he has been having symptoms for the last week. He reports a cough productive of yellow-white sputum. He reports he had subjective fevers since last night. He felt lightheaded and dizzy today like he was going to pass out. Denies any chest pain. He did report some nausea when he was lightheaded. Denies any DVT or PE history. Denies any history of anticoagulation or history of stents in his heart. - Chronic conditions affecting care: asthma - Differential diagnoses include, but are not limited to: Congestive heart failure; acute coronary syndrome; COPD/asthma exacerbation; pulmonary edema; pulmonary embolism; pneumonia; pneumothorax; viral syndrome - Order placed for continuous cardiac monitoring. At this time, monitor showed rate of 79 bpm with normal sinus rhythm, per my interpretation. - External medical records reviewed. Wellness visit note dated today was reviewed. Noted to prevent for an illness exam and was complaining of 3 days of cough and headaches. - EKG interpreted by myself showed normal sinus rhythm. Rate 93 bpm. QT 360. No acute ischemic changes. - Laboratory workup interpreted by myself showed slight leukocytosis (WBC 11.84); stable electrolytes; elevated lactic acid (2.3); normal troponin; normal procalcitonin - Blood cultures obtained - Viral respiratory panel positive for human metapneumovirus - CXR negative for pneumonia, per my interpretation - UA negative for infection - VBG shows slight respiratory acidosis with a pH of 7.33 and a pCO2 of 51. - Patient did have transient hypoxia when he was brought back from triage. He was started on 2 L nasal cannula, which is a new oxygen requirement for the patient. - Patient given 2500 mL NS. Repeat lactic acid still elevated at 2.2 - No antibiotics were given to the patient, as concern for bacterial source of sepsis is low. Believe the patient is likely very hypovolemic and that is why his blood pressure was initially low and his lactic is still elevated. - Patient's symptoms likely secondary to dehydration and viral infection. - Discussion was had with direct care specialist about patient's case and need for admission - Hospitalist consulted for admission - Patient admitted to [facility] hospitalist service for further evaluation and management. ASSESSMENT AND PLAN: Diagnosis: Acute dyspnea; acute bronchiolitis due to human metapneumovirus; acute hypoxic respiratory failure; elevated lactic acid level Plan: Admit Past Med/Surg History Medical History Vaccination hesitancy by patient Obesity Sinusitis Status asthmaticus Gout Diverticulitis Surgical History H/O shoulder surgery Family History Mother Asthma Allergies Sister Allergies Asthma Social History (Updated 12/02/23 @ 09:37 by Yvonne Montes De Oca) Smoking Status: Never smoker Second Hand Exposure: No; Do You Dip or Chew Tobacco: No; Hx Alcohol Use: Yes Alcohol type: beer and hard liquor Alcohol Intake Frequency: 2-4 x/Month Hx Substance Use: No Preferred Language: Wolof Communication Ability: Effective Visual Impairment: Diminished Hearing Ability: Normal 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 marital status: Current Living Situation: Significant Other current occupational status: employed Feels Safe at Home: Yes Childhood Exposure to Second-Hand Smoke: Yes Diet: regular caffeine: Yes Physical Activity Frequency: Does not Exercise Seatbelt Use: always Sunscreen Use: No Assistive Devices: None Allergies Allergies Allergy/AdvReac Type Severity Reaction Status Date / Time No Known Drug Allergies Allergy Verified 12/02/23 09:32 Home Meds Home Medications Medication Instructions Recorded Confirmed cetirizine 10 mg tablet 10 mg PO HS 03/05/19 12/02/23 multivitamin 1 tab PO QAM 03/05/19 12/02/23 omega 4-cgl-ziu-fish oil 1,000 mg 2 cap PO BID 03/05/19 12/02/23 (120 mg-180 mg) capsule (Fish Oil) psyllium husk 3.4 gram/5.4 gram 2 tbsp PO QAM 03/05/19 12/02/23 oral powder (Metamucil) senna-fennel tablet 1 tab PO BID 03/05/19 12/02/23 epinephrine 0.3 mg/0.3 mL 0.3 mg IM UD #1 ea 05/15/19 12/02/23 injection, auto-injector ipratropium 20 mcg-albuterol 100 1 puff inhalation QID PRN 12/02/23 12/02/23 mcg/actuation mist for inhalation SOB/WHEEZING (Combivent Respimat) prednisone 1 mg tablet 8 mg PO QAM 12/02/23 12/02/23 prednisone 10 mg tablet 0 mg PO DAILY 12/02/23 12/02/23 rosuvastatin 5 mg tablet (Crestor) 5 mg PO HS 12/02/23 12/02/23 Previous Rx's Medication Instructions Recorded albuterol sulfate 90 mcg/actuation 2 puff inhalation QID PRN 07/19/23 aerosol inhaler (Ventolin HFA) shortness of breath or wheezing #18 grams budesonide-formoterol HFA 160 2 puff inhalation BID #10.2 grams 07/19/23 mcg-4.5 mcg/actuation aerosol inhaler (Symbicort) ipratropium 0.5 mg-albuterol 3 mg 3 ml inhalation QID PRN Shortness 07/19/23 (2.5 mg base)/3 mL nebulization Of Breath Or Wheezing #180 mL soln tiotropium bromide 1.25 2 puff inhalation DAILY #1 inhaler 07/19/23 mcg/actuation mist for inhalation (Spiriva Respimat) ibuprofen 800 mg tablet 800 mg PO TID PRN pain #90 tabs 08/10/23 pantoprazole 40 mg tablet,delayed 40 mg PO QAM #90 tabs 08/10/23 release montelukast 10 mg tablet 10 mg PO DAILY #30 tabs 10/14/23 mepolizumab 100 mg/mL subcutaneous 100 mg subcut .COMPLEX #1 mL 11/30/23 syringe (Nucala) Results & Data (ED) Vital Signs Vital Signs - 24 hr 12/02/23 10:29 12/02/23 10:45 12/02/23 10:52 Temperature 37.1 C Temperature Source Temporal Artery Scan Pulse Rate 84 89 Pulse Rate [Apical] Pulse Rate from SpO2 Sensor Pulse Rhythm [Apical] Pulse Strength [Apical] Respiratory Rate 19 Respiratory Effort / Characteristics Respiratory Depth Blood Pressure 86/56 L Blood Pressure [Right Arm] Blood Pressure Mean 66 Blood Pressure Mean [Right Arm] Pulse Oximetry 96 87 L Oxygen Delivery Method Room Air Nasal Cannula Oxygen Flow Rate 0 Sepsis Recent Fever Within 48 Hours Yes Sepsis New/Unexplained Change in Mental Status N/A Sepsis Action Taken by Nursing No Action Required Oxygen Flow Rate - Titration 2 Pulse Oximetry Post Tiitration 95 12/02/23 10:56 12/02/23 11:00 12/02/23 11:02 Temperature Temperature Source Pulse Rate 87 94 H Pulse Rate [Apical] 91 H Pulse Rate from SpO2 Sensor 86 96 H Pulse Rhythm [Apical] Pulse Strength [Apical] Respiratory Rate 20 19 18 Respiratory Effort / Characteristics Respiratory Depth Blood Pressure Blood Pressure [Right Arm] 121/73 Blood Pressure Mean Blood Pressure Mean [Right Arm] 89 Pulse Oximetry 100 98 98 Oxygen Delivery Method Nasal Cannula Nasal Cannula Nasal Cannula Oxygen Flow Rate 2 2 2 Sepsis Recent Fever Within 48 Hours Sepsis New/Unexplained Change in Mental Status Sepsis Action Taken by Nursing Oxygen Flow Rate - Titration Pulse Oximetry Post Tiitration 12/02/23 11:37 12/02/23 11:45 12/02/23 12:00 Temperature Temperature Source Pulse Rate Pulse Rate [Apical] 97 H 96 H 93 H Pulse Rate from SpO2 Sensor Pulse Rhythm [Apical] Regular Pulse Strength [Apical] Normal Respiratory Rate 20 22 22 Respiratory Effort / Characteristics Non-Labored Respiratory Depth Normal Normal Normal Blood Pressure Blood Pressure [Right Arm] 134/74 134/74 127/99 Blood Pressure Mean Blood Pressure Mean [Right Arm] 94 94 108 Pulse Oximetry 97 97 97 Oxygen Delivery Method Nasal Cannula Nasal Cannula Nasal Cannula Oxygen Flow Rate 2 2 2 Sepsis Recent Fever Within 48 Hours Sepsis New/Unexplained Change in Mental Status Sepsis Action Taken by Nursing Oxygen Flow Rate - Titration Pulse Oximetry Post Tiitration 12/02/23 12:15 12/02/23 12:30 12/02/23 13:00 Temperature Temperature Source Pulse Rate Pulse Rate [Apical] 93 H 94 H 81 Pulse Rate from SpO2 Sensor Pulse Rhythm [Apical] Pulse Strength [Apical] Respiratory Rate 20 18 20 Respiratory Effort / Characteristics Non-Labored Non-Labored Respiratory Depth Normal Normal Blood Pressure Blood Pressure [Right Arm] 140/85 140/85 139/98 Blood Pressure Mean Blood Pressure Mean [Right Arm] 103 103 111 Pulse Oximetry 97 97 97 Oxygen Delivery Method Nasal Cannula Nasal Cannula Nasal Cannula Oxygen Flow Rate 2 2 2 Sepsis Recent Fever Within 48 Hours Sepsis New/Unexplained Change in Mental Status Sepsis Action Taken by Nursing Oxygen Flow Rate - Titration Pulse Oximetry Post Tiitration 12/02/23 13:30 12/02/23 13:45 12/02/23 14:00 Temperature Temperature Source Pulse Rate Pulse Rate [Apical] 81 78 89 Pulse Rate from SpO2 Sensor Pulse Rhythm [Apical] Pulse Strength [Apical] Respiratory Rate 19 18 18 Respiratory Effort / Characteristics Non-Labored Non-Labored Non-Labored Respiratory Depth Normal Normal Normal Blood Pressure Blood Pressure [Right Arm] 139/99 128/80 Blood Pressure Mean Blood Pressure Mean [Right Arm] 112 96 Pulse Oximetry 97 97 Oxygen Delivery Method Nasal Cannula Nasal Cannula Oxygen Flow Rate 2 2 Sepsis Recent Fever Within 48 Hours Sepsis New/Unexplained Change in Mental Status Sepsis Action Taken by Nursing Oxygen Flow Rate - Titration Pulse Oximetry Post Tiitration 12/02/23 14:15 Temperature Temperature Source Pulse Rate Pulse Rate [Apical] 79 Pulse Rate from SpO2 Sensor Pulse Rhythm [Apical] Pulse Strength [Apical] Respiratory Rate 18 Respiratory Effort / Characteristics Non-Labored Respiratory Depth Normal Blood Pressure Blood Pressure [Right Arm] 128/80 Blood Pressure Mean Blood Pressure Mean [Right Arm] 96 Pulse Oximetry 97 Oxygen Delivery Method Nasal Cannula Oxygen Flow Rate 2 Sepsis Recent Fever Within 48 Hours Sepsis New/Unexplained Change in Mental Status Sepsis Action Taken by Nursing Oxygen Flow Rate - Titration Pulse Oximetry Post Tiitration Laboratory Data 12/02/23 10:44 12/02/23 10:44 Lab Results 12/02/23 12/02/23 12/02/23 Range/Units 10:44 10:53 11:08 WBC 11.84 H (4.8-10.8) K/ul RBC 5.39 (4.70-6.10) M/uL Hgb 14.9 (14.0-18.0) g/dl Hct 46.5 (42.0-52.0) % MCV 86.3 (80.0-100.0) fL MCH 27.6 (25.0-34.0) pg MCHC 32.0 (32.0-36.0) g/dL RDW Std Deviation 42.5 (36.4-46.3) fL RDW Coeff of Peyman 13.5 (11.5-14.5) % Plt Count 215 (130-400) K/uL MPV 9.7 (9.4-12.4) fL Immature Gran % (Auto) 1.2 % Neut % (Auto) 75.5 % Lymph % (Auto) 11.7 % [place] % (Auto) 10.8 % Eos % (Auto) 0.3 % Baso % (Auto) 0.5 % Neut # (Auto) 8.94 H (1.40-6.50) K/uL Lymph # (Auto) 1.38 (1.20-3.40) K/uL [place] # (Auto) 1.28 H (0.11-0.59) K/uL Eos # (Auto) 0.04 (0.00-0.50) K/uL Baso # (Auto) 0.06 (0.00-0.20) K/uL Immature Gran # (Auto) 0.14 (0.01-0.20) K/uL VBG pH 7.33 L (7.36-7.41) VBG pCO2 51 H (38-50) mmHg VBG pO2 30 mmHg VBG HCO3 27 mmol/L VBG O2 Saturation < 60.0 % VBG Base Excess 0.2 mEq/L Sodium 137 (136-145) mmol/L Potassium 4.0 (3.5-5.1) mmol/L Chloride 103 (98-107) mmol/L Carbon Dioxide 25 (21-32) mmol/L Anion Gap 9 (3-11) BUN 16 (6-23) mg/dl Creatinine 1.05 (0.6-1.4) mg/dl Est Cr Clr Drug Dosing Not Reportable Est GFR ( Amer) 92.8 ml/min Est GFR (Non-Af Amer) 80.1 ml/min BUN/Creatinine Ratio 15.2 (10-20) Glucose 130 H (70-99(Fasting)) mg/dl Lactate 2.3 H* (0.4-2.0) mmol/L Calcium 9.4 (8.6-10.3) mg/dl Magnesium 1.8 (1.7-2.4) mg/dl Total Bilirubin 0.7 (0.2-1.0) mg/dl Direct Bilirubin 0.1 (0-0.2) mg/dl AST 33 (13-39) U/L ALT 29 (7-52) U/L Alkaline Phosphatase 65 (34-104) U/L Troponin I High Sens 5.3 (0-20) pg/ml Total Protein 7.3 (6.0-8.3) gm/dl Albumin 4.4 (3.4-5.0) gm/dl Procalcitonin 0.05 (0-0.5) ng/ml Urine Color Urine Appearance (Clear) Urine pH (4.5-7.5) Ur Specific [place] (1.000-1.030) Urine Protein (Negative) Urine Glucose (UA) (Negative) Urine Ketones (Negative) Urine Blood (Negative) Urine Nitrite (Negative) Urine Bilirubin (Negative) Urine Urobilinogen (Negative) Ur Leukocyte Esterase (Negative) Adenovirus (PCR) Not Detected (NotDetected) B. pertussis DNA (PCR) Not Detected (NotDetected) B.parapertussis DNA PCR Not Detected (NotDetected) C. pneumoniae DNA (PCR) Not Detected (NotDetected) Coronavirus OC43 (PCR) Not Detected (NotDetected) Coronavirus HKU1 (PCR) Not Detected (NotDetected) Coronavirus 229E (PCR) Not Detected (NotDetected) SARS-CoV-2 (PCR) Not Detected (NotDetected) Coronavirus NL63 (PCR) Not Detected (NotDetected) Human Metapneumovir PCR DETECTED A (NotDetected) Influenza Type A (PCR) Not Detected (NotDetected) Influenza Type B (PCR) Not Detected (NotDetected) M. pneumoniae (PCR) Not Detected (NotDetected) Parainfluenza 1 (PCR) Not Detected (NotDetected) Parainfluenza 2 (PCR) Not Detected (NotDetected) Parainfluenza 3 (PCR) Not Detected (NotDetected) Parainfluenza 4 (PCR) Not Detected (NotDetected) RSV (PCR) Not Detected (NotDetected) Entero/Rhino (PCR) Not Detected (NotDetected) 12/02/23 12/02/23 Range/Units 12:35 Unknown WBC (4.8-10.8) K/ul RBC (4.70-6.10) M/uL Hgb (14.0-18.0) g/dl Hct (42.0-52.0) % MCV (80.0-100.0) fL MCH (25.0-34.0) pg MCHC (32.0-36.0) g/dL RDW Std Deviation (36.4-46.3) fL RDW Coeff of Peyman (11.5-14.5) % Plt Count (130-400) K/uL MPV (9.4-12.4) fL Immature Gran % (Auto) % Neut % (Auto) % Lymph % (Auto) % [place] % (Auto) % Eos % (Auto) % Baso % (Auto) % Neut # (Auto) (1.40-6.50) K/uL Lymph # (Auto) (1.20-3.40) K/uL [place] # (Auto) (0.11-0.59) K/uL Eos # (Auto) (0.00-0.50) K/uL Baso # (Auto) (0.00-0.20) K/uL Immature Gran # (Auto) (0.01-0.20) K/uL VBG pH (7.36-7.41) VBG pCO2 (38-50) mmHg VBG pO2 mmHg VBG HCO3 mmol/L VBG O2 Saturation % VBG Base Excess mEq/L Sodium (136-145) mmol/L Potassium (3.5-5.1) mmol/L Chloride (98-107) mmol/L Carbon Dioxide (21-32) mmol/L Anion Gap (3-11) BUN (6-23) mg/dl Creatinine (0.6-1.4) mg/dl Est Cr Clr Drug Dosing Est GFR ( Amer) ml/min Est GFR (Non-Af Amer) ml/min BUN/Creatinine Ratio (10-20) Glucose (70-99(Fasting)) mg/dl Lactate 2.2 H* (0.4-2.0) mmol/L Calcium (8.6-10.3) mg/dl Magnesium (1.7-2.4) mg/dl Total Bilirubin (0.2-1.0) mg/dl Direct Bilirubin (0-0.2) mg/dl AST (13-39) U/L ALT (7-52) U/L Alkaline Phosphatase (34-104) U/L Troponin I High Sens (0-20) pg/ml Total Protein (6.0-8.3) gm/dl Albumin (3.4-5.0) gm/dl Procalcitonin (0-0.5) ng/ml Urine Color Yellow Urine Appearance Clear (Clear) Urine pH 6.5 (4.5-7.5) Ur Specific [place] 1.011 (1.000-1.030) Urine Protein Negative (Negative) Urine Glucose (UA) Negative (Negative) Urine Ketones Negative (Negative) Urine Blood Negative (Negative) Urine Nitrite Negative (Negative) Urine Bilirubin Negative (Negative) Urine Urobilinogen Negative (Negative) Ur Leukocyte Esterase Negative (Negative) Adenovirus (PCR) (NotDetected) B. pertussis DNA (PCR) (NotDetected) B.parapertussis DNA PCR (NotDetected) C. pneumoniae DNA (PCR) (NotDetected) Coronavirus OC43 (PCR) (NotDetected) Coronavirus HKU1 (PCR) (NotDetected) Coronavirus 229E (PCR) (NotDetected) SARS-CoV-2 (PCR) (NotDetected) Coronavirus NL63 (PCR) (NotDetected) Human Metapneumovir PCR (NotDetected) Influenza Type A (PCR) (NotDetected) Influenza Type B (PCR) (NotDetected) M. pneumoniae (PCR) (NotDetected) Parainfluenza 1 (PCR) (NotDetected) Parainfluenza 2 (PCR) (NotDetected) Parainfluenza 3 (PCR) (NotDetected) Parainfluenza 4 (PCR) (NotDetected) RSV (PCR) (NotDetected) Entero/Rhino (PCR) (NotDetected) Administered Medications Magnesium Sulfate/Dextrose (Magnesium Sulfate / D5w) 1 gm in 100 mls @ 100 mls/hr IV Q1H CATIA Stop: 12/02/23 16:37 Last Admin: 12/02/23 14:48 Dose: 100 mls/hr Documented By: AEF Discontinued Medications Sodium Chloride (Nss) 500 mls @ 999 mls/hr IV .Q31M CATIA Stop: 12/02/23 11:15 Last Infusion: 12/02/23 11:58 Dose: Infused Documented By: Admin: 12/02/23 10:48 Dose: 999 mls/hr Documented By: SHOBHA Sodium Chloride (Nss) 1,000 mls @ 999 mls/hr IV .Q1H1M CATIA Stop: 12/02/23 12:45 Last Infusion: 12/02/23 12:42 Dose: Infused Documented By: Infusion: 12/02/23 12:02 Dose: 999 mls/hr Documented By: Infusion: 12/02/23 12:02 Dose: 0 mls/hr Documented By: Admin: 12/02/23 11:39 Dose: 999 mls/hr Documented By: Infusion: 12/02/23 11:39 Dose: Infused Documented By: Admin: 12/02/23 10:46 Dose: 999 mls/hr Documented By: SHOBHA Imaging Data Radiologist's Impression: Chest X-Ray 12/02/23 10:34 XR chest 1V portable CLINICAL HISTORY: Sepsis. COMPARISON STUDY: Chest CT January 05, 2018. Chest radiograph October 12, 2019. FINDINGS: Lung volumes are normal. Lungs are clear. There is no pneumothorax or pleural effusion. Cardiac size is stable. Mediastinal contours are normal. There is no evidence for pulmonary edema. IMPRESSION: No acute cardiopulmonary findings. No change in appearance of the chest. ACT 112: Negative or not required by law. Electronically signed by: Kye Swain M.D. 12/02/2023 10:59 AM Discharge Plan Visit Data Chief Complaint: Shortness of Breath/Dyspnea Stated Complaint: TROUBLE BREATHING ED Provider: Mckenzie Enaomrado Discharge Problem: Acute dyspnea, Acute bronchiolitis due to human metapneumovirus, Acute hypoxic respiratory failure, Elevated lactic acid level Forms Stand Alone Forms: [facility] Prescriptions Prescriptions: No Action montelukast 10 mg tablet 10 mg PO DAILY Qty: 30 2RF Nucala 100 mg/mL syringe 100 mg SQ .COMPLEX Qty: 1 11RF Rx Instructions: 100 mg SQ EVERY 4 WEEKS APPROVED GOOD 01/05/23-01/04/24 [id number] Through Medical benefit epinephrine 0.3 mg/0.3 mL auto-injector 0.3 mg IM UD Qty: 1 Symbicort 160-4.5 mcg/actuation HFA aerosol inhaler 2 puff inhalation BID Qty: 10.2 11RF Spiriva Respimat 1.25 mcg/actuation mist 2 puff inhalation DAILY Qty: 1 11RF ipratropium-albuterol 0.5 mg-3 mg(2.5 mg base)/3 mL solution for nebulization 3 ml inhalation QID PRN (Reason: Shortness Of Breath Or Wheezing) Qty: 180 5RF albuterol sulfate [Ventolin HFA] 90 mcg/actuation HFA aerosol inhaler 2 puff inhalation QID PRN (Reason: shortness of breath or wheezing) Qty: 18 5RF ibuprofen 800 mg tablet 800 mg PO TID PRN (Reason: pain) Qty: 90 3RF pantoprazole 40 mg tablet,delayed release (DR/EC) 40 mg PO QAM Qty: 90 3RF multivitamin Tablet 1 tab PO QAM cetirizine 10 mg Tablet 10 mg PO HS senna-fennel Tablet 1 tab PO BID omega 7-xgu-mgx-fish oil [Fish Oil] 1,000 mg (120 mg-180 mg) Capsule 2 cap PO BID Metamucil 3.4 gram/5.4 gram Powder 2 tbsp PO QAM prednisone 10 mg tablet 0 mg PO DAILY Rx Instructions: Patient currently holding this medication, patient is using the 1mg tablets until instructed otherwise. prednisone 1 mg tablet 8 mg PO QAM rosuvastatin [Crestor] 5 mg tablet 5 mg PO HS Combivent Respimat 20-100 mcg/actuation mist 1 puff inhalation QID PRN (Reason: SOB/WHEEZING) Rx Instructions: Uses in place of nebulizer if out of the house. Referrals Referrals: Donnie Frausto DO [Primary Care Provider] -
--- NOTE | 2023-12-02 11:00 | XRay Report ---
XR chest 1V portable CLINICAL HISTORY: Sepsis. COMPARISON STUDY: Chest CT January 05, 2018. Chest radiograph October 12, 2019. FINDINGS: Lung volumes are normal. Lungs are clear. There is no pneumothorax or pleural effusion. Car diac size is stable. Mediastinal contours are normal. There is no evidence for pulmonary edema. IMPRESSION: No acute cardiopulmonary findings. No change in appearance of the chest. ACT 112: Negative or not required by law. Electronically signed by: Kye Swain M.D. 12/02/2023 10:59 AM
[2023-12-02 11:14] LABS: Basophils # (auto) 0.06 K/uL (0.00-0.20); Basophils % (auto) 0.5 %; Eosinophils # (auto) 0.04 K/uL (0.00-0.50); Eosinophils % (auto) 0.3 %; Hematocrit (blood only) 46.5 % (42.0-52.0); Hemoglobin 14.9 g/dl (14.0-18.0); Immature Granulocytes # (auto) 0.14 K/uL (0.01-0.20); Immature Granulocytes % (auto) 1.2 %; Lymphocytes # (auto) 1.38 K/uL (1.20-3.40); Lymphocytes % (auto) 11.7 %; Mean Corpuscular Hemoglobin 27.6 pg (25.0-34.0); Mean Corpuscular Volume 86.3 fL (80.0-100.0); Mean Platelet Volume 9.7 fL (9.4-12.4); Monocytes # (auto) 1.28 K/uL (0.11-0.59); Monocytes % (auto) 10.8 %; Neutrophils # (auto) 8.94 K/uL (1.40-6.50); Neutrophils % (auto) 75.5 %; Platelet Count 215 K/uL (130-400); RDW Coefficient of Variation 13.5 % (11.5-14.5); RDW Standard Deviation 42.5 fL (36.4-46.3); Red Blood Count 5.39 M/uL (4.70-6.10); White Blood Count 11.84 K/ul (4.8-10.8)
[2023-12-02 11:23] LABS: Base Excess VBG 0.2 mEq/L; HCO3 VBG 27 mmol/L; Oxygen Saturation VBG < 60.0 %; PCO2 VBG 51 mmHg (38-50); PO2 VBG 30 mmHg; pH VBG 7.33 (7.36-7.41)
[2023-12-02 11:29] LABS: Alanine Aminotransferase 29 U/L (7-52); Albumin Level 4.4 gm/dl (3.4-5.0); Alkaline Phosphatase 65 U/L (34-104); Anion Gap 9 (3-11); Aspartate Aminotransferase 33 U/L (13-39); BUN Creatinine Ratio 15.2 (10-20); Bilirubin Direct 0.1 mg/dl (0-0.2); Bilirubin,Total 0.7 mg/dl (0.2-1.0); Blood Urea Nitrogen 16 mg/dl (6-23); Calcium 9.4 mg/dl (8.6-10.3); Carbon Dioxide 25 mmol/L (21-32); Chloride 103 mmol/L (98-107); Est GFR (African American) 92.8 ml/min; Est GFR (Non-African American) 80.1 ml/min; Glucose 130 mg/dl (70-99(Fasting)); Magnesium 1.8 mg/dl (1.7-2.4); Sodium 137 mmol/L (136-145); Total Protein 7.3 gm/dl (6.0-8.3)
[2023-12-02 11:35] LABS: Troponin I High Sensitivity 5.3 pg/ml (0-20)
[2023-12-02 11:53] LABS: Adenovirus PCR Not Detected (NotDetected); Bordetella parapertussis PCR Not Detected (NotDetected); Bordetella pertussis PCR Not Detected (NotDetected); Chlamydia pneumoniae PCR Not Detected (NotDetected); Coronavirus 229E PCR Not Detected (NotDetected); Coronavirus CoV-2 (COVID19)PCR Not Detected (NotDetected); Coronavirus HKU1 PCR Not Detected (NotDetected); Coronavirus NL63 PCR Not Detected (NotDetected); Coronavirus OC43PCR Not Detected (NotDetected); Human Metapneumovirus PCR DETECTED (NotDetected); Influenza A PCR Not Detected (NotDetected); Influenza B PCR Not Detected (NotDetected); Mycoplasma pneumoniae PCR Not Detected (NotDetected); Parainfluenza Virus 1 PCR Not Detected (NotDetected); Parainfluenza Virus 2 PCR Not Detected (NotDetected); Parainfluenza Virus 3 PCR Not Detected (NotDetected); Parainfluenza Virus 4 PCR Not Detected (NotDetected); Respiratory Syncytial VirusPCR Not Detected (NotDetected); Rhinovirus/Enterovirus PCR Not Detected (NotDetected)
--- NOTE | 2023-12-02 13:02 | Electrocardiogram Report ---
Test Reason : Blood Pressure : / mmHG Vent. Rate : 093 BPM Atrial Rate : 093 BPM P-R Int : 164 ms QRS Dur : 088 ms QT Int : 360 ms P-R-T Axes : 037 049 039 degrees QTc Int : 447 ms Normal sinus rhythm Normal ECG When compared with ECG of 12-OCT-2019 19:50, No significant change was found Confirmed by Hector Salas ([id number]) on 12/02/2023 1:02:02 PM Referred By: Donnie Frausto Confirmed By:Kade Salas
[2023-12-02 13:44] LABS: Appearance Urine Clear (Clear); Bilirubin Urine Negative (Negative); Blood Urine Negative (Negative); Color Urine Yellow; Glucose Urine UA Negative (Negative); Ketones Urine Negative (Negative); Leukocyte Esterase Urine Negative (Negative); Nitrite Urine Negative (Negative); Protein Urine Negative (Negative); Specific Gravity Urine 1.011 (1.000-1.030); Urobilinogen Urine Negative (Negative); pH Urine 6.5 (4.5-7.5)
--- NOTE | 2023-12-02 14:38 | History & Physical Report ---
Date of Service December 02, 2023 Assessment & Plan (1) Acute hypoxic respiratory failure: Plan: -Admit to the PCU on tele and pulse oximetry -Currently hemodynamically stable and stable on 2L NC -Presented to the ED with 4 days of progressive cough, SOB, wheezing, de hydration, and fever -Noted to be hypotensive, hypoxic, and tachycardic on arrival -Initial lactate elevated at 2.3 --> 2.2 on 2 hour repeat -Noted to have a mild leukocytosis on arrival, this could be explained by his chronic prednisone use -CXR was negative for focal consolidations, patient is without other symptoms to suggest acute bacterial infection such as cellulitis, diarrhea/abdominal pain, vomiting, or urinary symptoms -UA is negative for infection -At this time the etiology of the patient's acute hypoxic respiratory failure is due to acute asthma exacerbation from Human Metapneumovirus infection -Blood cultures were obtained -S/P 1.5L NSS in the ED -We will hold abx for now and monitor procal ordered in the ED -Patient is still wheezing on exam and has a significant cough -Will give 125 mg IV solu-medrol now, then continue with 40 mg IV TID tomorrow -Will give 2gm IV mag sulfate now as mag level is 1.8 -Start QIDr DuoNebs -Q6H Guaifenesin/Codeine -PRN tylenol -HH diet -SQ lovenox for DVT PPX -AM CBC, BMP, mag (2) Elevated lactic acid level: Plan: -Initial lactate of 2.3 --> 2.2 after 1.5L NSS in the ED -The patient appears intravascularly depleted on exam and reports poor oral intake due to cough since the start of his symptoms -Will continue maintenance LR x 2 bags for now until symptoms are better controlled (3) Hyperglycemia: Plan: -Noted to have a BSG of 130 today -Likely due to chronic steroid use -Will get AM A1c -Start BSG checks ACHS, goal is 110-160 -Start CF 50 ACHS for now -HH/DMII diet (4) Infection due to human metapneumovirus (hMPV): Plan: -Supportive care per hypoxic respiratory failure plan (5) Asthma exacerbation: Plan: -See acute hypoxic respiratory failure -Will continue home Budesonide/formoterol (6) Hyperlipidemia: Plan: -Continue statin (7) GERD (gastroesophageal reflux disease): Plan: -Conitnue pantoprazole Plan The patient was discussed with Dr. Damon at the time of the admission History of Present Illness Chief Complaint: Fever, cough, SOB, dizziness Primary Care Provider: Donnie Frausto DO Koenig is a 53 year old male with a pMH significant for severe persistent asthma (on chronic prednisone and Mepolizumab therapy), GERD, and hyperlipidemia who presented to the [facility] ED on 12/02/23 with complaints of cough, SOB, dizziness, and fevers. He was noted to be hypotensive at 86/56, hypoxic at 87% on RA, and tachycardic with HR in the 90's on arrival. Labs were significant for a leukocytosis of 11 with neutrophil predominance of 8, VBG pH of 7.33 with pCO2 of 51 and pO2 of 30, glucose of 130, initial lactate of 2.3 --->2.2 on repeat, and full respiratory biofire positive for Human Metapneumovirus. No acute cardiopulmonary findings. No change in appearance of the chest. Prior to admission the patient was given 1.5L NSS with improvement in his vitals. At the time of the exam the patient was lying in bed in no acute distress, he does appear acutely ill. History was obtained from the patient and his at bedside. He states that he started to develop fever, SOB, significant cough, poor oral intake. This am his cough was so severe he was having difficulty speaking in complete sentences. When he initially arrived to the ED he was dizzy when changing positions, this has subsequently resolved after IV fluids. He denies hemoptysis, chest pain, abd pain, vomiting, diarrhea, dysuria, hematuria, melena, LE swelling and recent trauma. He has been using his home nebulizers at home without relief. He is a full code and would want his to make medical decisions for him if we cannot make them himself. Please refer to Dr. Damon' attestation for any changes to the treatment plan Allergies Allergy/AdvReac Type Severity Reaction Status Date / Time No Known Drug Allergies Allergy Verified 12/02/23 09:32 Home Medications Medication Instructions Recorded Confirmed Type cetirizine 10 mg tablet 10 mg PO HS 03/05/19 12/02/23 History multivitamin 1 tab PO QAM 03/05/19 12/02/23 History omega 8-bsj-kuc-fish oil 1,000 mg 2 cap PO BID 03/05/19 12/02/23 History (120 mg-180 mg) capsule (Fish Oil) psyllium husk 3.4 gram/5.4 gram 2 tbsp PO QAM 03/05/19 12/02/23 History oral powder (Metamucil) senna-fennel tablet 1 tab PO BID 03/05/19 12/02/23 History epinephrine 0.3 mg/0.3 mL 0.3 mg IM UD #1 ea 05/15/19 12/02/23 History injection, auto-injector albuterol sulfate 90 mcg/actuation 2 puff inhalation QID PRN 07/19/23 12/02/23 Rx aerosol inhaler (Ventolin HFA) shortness of breath or wheezing #18 grams budesonide-formoterol HFA 160 2 puff inhalation BID #10.2 grams 07/19/23 12/02/23 Rx mcg-4.5 mcg/actuation aerosol inhaler (Symbicort) ipratropium 0.5 mg-albuterol 3 mg 3 ml inhalation QID PRN Shortness 07/19/23 12/02/23 Rx (2.5 mg base)/3 mL nebulization Of Breath Or Wheezing #180 mL soln tiotropium bromide 1.25 2 puff inhalation DAILY #1 inhaler 07/19/23 12/02/23 Rx mcg/actuation mist for inhalation (Spiriva Respimat) ibuprofen 800 mg tablet 800 mg PO TID PRN pain #90 tabs 08/10/23 12/02/23 Rx pantoprazole 40 mg tablet,delayed 40 mg PO QAM #90 tabs 08/10/23 12/02/23 Rx release montelukast 10 mg tablet 10 mg PO DAILY #30 tabs 10/14/23 12/02/23 Rx mepolizumab 100 mg/mL subcutaneous 100 mg subcut .COMPLEX #1 mL 11/30/23 12/02/23 Rx syringe (Nucala) ipratropium 20 mcg-albuterol 100 1 puff inhalation QID PRN 12/02/23 12/02/23 History mcg/actuation mist for inhalation SOB/WHEEZING (Combivent Respimat) prednisone 1 mg tablet 8 mg PO QAM 12/02/23 12/02/23 History prednisone 10 mg tablet 0 mg PO DAILY 12/02/23 12/02/23 History rosuvastatin 5 mg tablet (Crestor) 5 mg PO HS 12/02/23 12/02/23 History Past Med/Surg History Medical History Vaccination hesitancy by patient Obesity Sinusitis Status asthmaticus Gout Diverticulitis Surgical History H/O shoulder surgery Family History Mother Asthma Allergies Sister Allergies Asthma Social History (Updated 12/02/23 @ 09:37 by Yvonne Montes De Oca) Smoking Status: Never smoker Second Hand Exposure: No; Do You Dip or Chew Tobacco: No; Hx Alcohol Use: Yes Alcohol type: beer and hard liquor Alcohol Intake Frequency: 2-4 x/Month Hx Substance Use: No Preferred Language: Estonian Communication Ability: Effective Visual Impairment: Diminished Hearing Ability: Normal Order Packer Required: No marital status: Current Living Situation: Significant Other current occupational status: employed Feels Safe at Home: Yes Childhood Exposure to Second-Hand Smoke: Yes Diet: regular caffeine: Yes Physical Activity Frequency: Does not Exercise Seatbelt Use: always Sunscreen Use: No Assistive Devices: None Physical Exam Physical Exam: Physical Exam: General: In no acute distress, stated age, ill appearing but non-toxic HEENT: Normocephalic, atraumatic, no scleral icterus, pupils around round, symmetrical, and reactive to light, dry mucus membranes, trachea midline, no thyromegaly Chest/Pulm: No respiratory distress, symmetrical chest expansion, expiratory wheezing throughout Cardiac: RRR, no murmurs noted Abdomen: Negative for ascites and bruising, normoactive bowel sounds, soft, non-tender to palpation throughout Musculoskeletal: Symmetrical and without signs of acute trauma, upper and lower extremities with full ROM, no atrophy, spasticity, or flaccidity Extremities: Radial, dorsalis pedis, and posterior tibial pulses are intact and symmetrical, no edema noted in the BL LE's Skin: Warm, dry, no rashes , lesions, or scars noted Neuro: Alert and oriented to person, place, month, year, and president, no focal defects, no tremors noted Psych: No acute distress, calm and cooperative during the exam Results & Data Results & Data Vital Signs (Past 12 Hours) Vital Signs Temp Pulse Pulse Resp BP BP Pulse Ox 12/02/23 14:15 79 18 128/80 97 12/02/23 14:00 89 18 128/80 97 12/02/23 13:45 78 18 139/99 97 12/02/23 13:30 81 19 12/02/23 13:00 81 20 139/98 97 12/02/23 12:30 94 H 18 140/85 97 12/02/23 12:15 93 H 20 140/85 97 12/02/23 12:00 93 H 22 127/99 97 12/02/23 11:45 96 H 22 134/74 97 12/02/23 11:37 97 H 20 134/74 97 12/02/23 11:02 91 H 18 121/73 98 12/02/23 11:00 94 H 19 98 12/02/23 10:56 87 20 100 12/02/23 10:52 89 12/02/23 10:45 87 L 12/02/23 10:29 37.1 C 84 19 86/56 L 96 O2 Del Method O2 Flow Rate 12/02/23 14:15 Nasal Cannula 2 12/02/23 14:00 Nasal Cannula 2 12/02/23 13:45 Nasal Cannula 2 12/02/23 13:30 12/02/23 13:00 Nasal Cannula 2 12/02/23 12:30 Nasal Cannula 2 12/02/23 12:15 Nasal Cannula 2 12/02/23 12:00 Nasal Cannula 2 12/02/23 11:45 Nasal Cannula 2 12/02/23 11:37 Nasal Cannula 2 12/02/23 11:02 Nasal Cannula 2 12/02/23 11:00 Nasal Cannula 2 12/02/23 10:56 Nasal Cannula 2 12/02/23 10:52 12/02/23 10:45 Nasal Cannula 0 12/02/23 10:29 Room Air Laboratory Results Abnormal lab results 12/02/23 12/02/23 12/02/23 Range/Units 10:44 10:53 11:08 WBC 11.84 H (4.8-10.8) K/ul Neut # (Auto) 8.94 H (1.40-6.50) K/uL [place] # (Auto) 1.28 H (0.11-0.59) K/uL VBG pH 7.33 L (7.36-7.41) VBG pCO2 51 H (38-50) mmHg Glucose 130 H (70-99(Fasting)) mg/dl Lactate 2.3 H* (0.4-2.0) mmol/L Human Metapneumovir PCR DETECTED A (NotDetected) 12/02/23 Range/Units 12:35 WBC (4.8-10.8) K/ul Neut # (Auto) (1.40-6.50) K/uL [place] # (Auto) (0.11-0.59) K/uL VBG pH (7.36-7.41) VBG pCO2 (38-50) mmHg Glucose (70-99(Fasting)) mg/dl Lactate 2.2 H* (0.4-2.0) mmol/L Human Metapneumovir PCR (NotDetected) Diagnostic Findings Chest X-Ray 12/02/23 10:34 XR chest 1V portable CLINICAL HISTORY: Sepsis. COMPARISON STUDY: Chest CT January 05, 2018. Chest radiograph October 12, 2019. FINDINGS: Lung volumes are normal. Lungs are clear. There is no pneumothorax or pleural effusion. Cardiac size is stable. Mediastinal contours are normal. There is no evidence for pulmonary edema. IMPRESSION: No acute cardiopulmonary findings. No change in appearance of the chest. ACT 112: Negative or not required by law. Electronically signed by: Kye Swain M.D. 12/02/2023 10:59 AM ECG Additional Comments: Normal sinus rhythm Normal ECG When compared with ECG of 12-OCT-2019 19:50, No significant change was found Confirmed by Hector Salas ([id number]) on 12/02/2023 1:02:02 PM Code Status & VTE Plan Code Status full code VTE Prophylaxis Plan VTE Prophylaxis will be ordered: Yes Supervising Physician Co-Signing Physician Notes I have personally seen, evaluated and examined the patient. I have also personally discussed the management of the patient with the resident physician/PAM and I agree with the exam findings documented in the history and physical examination and the documented assessment and plan unless otherwise stated below. Brief Exam: In general this is a pleasant 53-year-old male who is alert and oriented x 3 at the time my exam interact appropriate presently. HEENT is normocephalic atraumatic Neck: He is not retracted he is not using accessory muscles of respiration currently. Circumference is greater than 18 inches in circumference by my visual estimation consistent with his known history of obstructive sleep apnea however he is not compliant with his CPAP machine at home Heart: Regular rate and rhythm no murmur or ectopy. Lungs: Coarse bilaterally with diffuse expiratory and occasional inspiratory whe ezes. No rhonchi no rales. Extremities: Intact no clubbing cyanosis or edema. Abdomen is protuberant soft and nontender positive bowel sounds. Neurologically: He is alert and oriented x 3 with no focal deficit. Assessment/plan: As described above. Please refer to orders for further planning. PG Care Time/CCT Total # of Minutes Spent Total Time Spent with Patient: Total time spent is greater than 50% in coordination of care (as documented) at patient's floor/unit and/or counseling patient: Coding Level of Care Code 30565 INT INP/OBS CARE MIN Diagnoses Acute hypoxic respiratory failure J96.01 Elevated lactic acid level R79.89 Hyperglycemia R73.9 Infection due to human metapneumovirus (hMPV) B34.8 Asthma exacerbation J45.901 Hyperlipidemia E78.5 GERD (gastroesophageal reflux disease) K21.9
[2023-12-02] MEDS: MAGNESIUM SULFATE / D5W 1 GM/100 ML BAG IV SCH (14:48)
[2023-12-02] MEDS: guaiFENesin/CODEINE 100MG/10MG 5ML UDC PO STA (15:03)
[2023-12-02] MEDS: LACTATED RINGER'S 1,000 ML IV SCH (15:03)
[2023-12-02] MEDS: ENOXAPARIN INJ 40 MG/0.4 ML SYR SQ SCH (15:07)
[2023-12-02] MEDS: methylPREDNISolone 125 MG/2 ML VIAL IV STA (15:09)
[2023-12-02] MEDS ORDERED: GLUCOSE 40% GEL 15 GM TUBE PO PRN (15:16)
[2023-12-02] MEDS ORDERED: DEXTROSE 50% 50 ML SYRINGE IV PRN (15:16)
[2023-12-02] MEDS ORDERED: CARBOHYDRATES FOR HYPOGLYCEMIA PO PRN (15:16)
[2023-12-02] MEDS ORDERED: GLUCAGON FOR INJ 1 MG VIAL SQ PRN (15:16)
[2023-12-02] MEDS ORDERED: GLUCOSE 10 TAB/TUBE PO PRN (15:16)
[2023-12-02] MEDS ORDERED: ALBUTEROL HFA 8 GM INHALER INH PRN (16:00)
[2023-12-02 16:57] LABS: Base Excess VBG 0 mEq/L; HCO3 VBG 25 mmol/L; Oxygen Saturation VBG 78.4 %; PCO2 VBG 43 mmHg (38-50); PO2 VBG 46 mmHg; pH VBG 7.38 (7.36-7.41)
[2023-12-02] MEDS ORDERED: IPRATROPIUM BROMIDE/ALBUTEROL respimat INH INH SCH (17:00)
[2023-12-02] MEDS: INSULIN ASPART PER UNIT CHARGE SC SCH (17:26)
[2023-12-02] MEDS: Albuterol HFA 8 GM Inhaler (Combivent Respimat P&T Subs) INH SCH (19:40)
[2023-12-02] MEDS: Ipratropium HFA Inhaler (Combivent Respimat P&T Subs) INH SCH (19:41)
[2023-12-02] MEDS: CETIRIZINE HCL 10 MG TABLET PO SCH (21:51)
[2023-12-02] MEDS: guaiFENesin/CODEINE 100MG/10MG 5ML UDC PO PRN (21:51)
[2023-12-02] MEDS: ROSUVASTATIN CALCIUM 5 MG TAB PO SCH (21:51)
[2023-12-02] MEDS: OMEGA-3 (PURIFIED FISH OIL) 1 GM CAP PO SCH (21:51)
[2023-12-02] MEDS: SENNA 8.6 MG TAB PO SCH (21:52)
[2023-12-02] MEDS: ACETAMINOPHEN 325 MG TAB PO PRN (22:00)
[2023-12-03 08:57] LABS: Estimated Average Glucose 126 mg/dl
[2023-12-03] MEDS: PSYLLIUM or GUAR GUM FIBER POWDER PACKET PO SCH (09:16)
[2023-12-03] MEDS: MONTELUKAST SODIUM 10 MG TABLET PO SCH (09:17)
[2023-12-03] MEDS: MULTIVITAMIN TAB PO SCH (09:18)
[2023-12-03] MEDS: PANTOprazole 40 MG TAB PO SCH (09:18)
[2023-12-03] MEDS: UMECLIDINIUM BROMIDE 62.5MCG/BLISTER 7 PUFFS/INHALER INH SCH (09:19)
[2023-12-03] MEDS: FLUTICASONE/VILANTEROL 200/25MCG 14 PUFFS/INHALER INH SCH (09:19)
[2023-12-03] MEDS: methylPREDNISolone 40 MG in SYRINGE 0 ML IV SCH (09:20)
--- NOTE | 2023-12-03 10:26 | Hospitalist Progress Note ---
Date of Service December 03, 2023 Assessment & Plan (1) Asthma exacerbation: Plan: Severe persistent baseline asthma on both oral assisted prednisone and Nucala (mepolizumab, IL-5 antagonist) Exacerbation due to human metapneumovirus Significant improvement overnight but still with lots of expiratory wheezing Continue Solu-Medrol 40mg q8h Switch inhalers to duonebs QID Continue routine inhalers, montelukast and cetirizine Recommend at least 48 hours of IV steroids given underlying severe persistent asthma with severe symptoms on admission, stable for transfer to [facility]/surg however, no arrhythmias on telemetry, will likely need long steroid taper and close pulm follow up on discharge (2) Acute hypoxic respiratory failure: Plan: Resolved (3) Elevated lactic acid level: Plan: Suspect secondary to hypoxia rather than a fluid issue. No need to repeat. Appears euvolemic currently. (4) Infection due to human metapneumovirus (hMPV): (5) Hyperlipidemia: Plan: -Continue statin (6) GERD (gastroesophageal reflux disease): Plan: -Stable, Continue pantoprazole (7) Asthma, severe persistent: Plan VTE prophylaxis - Lovenox 40 mg subcu Diet - regular Disposition - transfer to [facility] Admission and Anticipated Discharge Date Admission Date: December 02, 2023 Subjective Reports significant improvement since admission. Continues to be short of breath on exertion. No missed doses of Nucala. Suspected acute exacerbation with human metapneumovirus with significant exposure from his grandchildren. No fevers or chills. He is also weaning down his prednisone dosing since he started his Nucala and his asthma has been much better controlled and therefore did not want to increase this as an outpatient but was still taking 8 mg daily. Review of Systems Review of Systems: All systems reviewed & are unremarkable except as noted in HPI & below Physical Exam Constitutional: WD/WN, vitals as above Eyes: + anicteric sclerae; normal pupil size ENMT: Mouth: oral mucous membranes not dry Neck: trachea midline, no thyromegaly Respiratory: normal respiratory effort; no respiratory distress Auscultation: + wheezes (Expiratory throughout); breath sounds present, no diminished lung sounds, no crackles and no rhonchi Cardiovascular: RRR, no murmur, no edema Gastrointestinal (Abdomen): normal bowel sounds, soft, nontender, no hepatosplenomegaly Results & Data Results & Data Vital Signs (Past 12 Hours) Vital Signs Temp Pulse Pulse Resp BP Pulse Ox O2 Del Method 12/03/23 08:00 Room Air 12/03/23 07:19 36.6 C 95 H 20 132/83 91 Room Air 12/03/23 03:44 37.0 C 90 16 133/82 93 Nasal Cannula 12/03/23 00:43 92 H 12/02/23 23:00 36.5 C 87 18 136/81 92 Nasal Cannula PG Care Time/CCT Total # of Minutes Spent Total Time Spent with Patient: Total time spent is greater than 50% in coordination of care (as documented) at patient's floor/unit and/or counseling patient: Coding Level of Care Code 26847 SUB INP/OBS CARE 3/50MIN Diagnoses Asthma exacerbation J45.901 Acute hypoxic respiratory failure J96.01 Elevated lactic acid level R79.89 Infection due to human metapneumovirus (hMPV) B34.8 Hyperlipidemia E78.5 GERD (gastroesophageal reflux disease) K21.9 Asthma, severe persistent J45.50
[2023-12-03] MEDS: ALBUT/IPRATROP 3MG/0.5MG NEB 3 ML VIAL NEB SCH (20:29)
[2023-12-04 06:12] LABS: Basophils # (auto) 0.01 K/uL (0.00-0.20); Basophils % (auto) 0.1 %; Hematocrit (blood only) 44.1 % (42.0-52.0); Hemoglobin 14.6 g/dl (14.0-18.0); Immature Granulocytes # (auto) 0.09 K/uL (0.01-0.20); Immature Granulocytes % (auto) 0.8 %; Lymphocytes # (auto) 1.46 K/uL (1.20-3.40); Lymphocytes % (auto) 12.4 %; Mean Corpuscular Hemoglobin 28.2 pg (25.0-34.0); Mean Corpuscular Hgb Conc 33.1 g/dL (32.0-36.0); Mean Corpuscular Volume 85.3 fL (80.0-100.0); Mean Platelet Volume 9.6 fL (9.4-12.4); Monocytes % (auto) 5.1 %; Neutrophils # (auto) 9.65 K/uL (1.40-6.50); Neutrophils % (auto) 81.6 %; Platelet Count 242 K/uL (130-400); RDW Coefficient of Variation 13.4 % (11.5-14.5); RDW Standard Deviation 42.2 fL (36.4-46.3); Red Blood Count 5.17 M/uL (4.70-6.10); White Blood Count 11.81 K/ul (4.8-10.8)
[2023-12-04 06:45] LABS: BUN Creatinine Ratio 24.7 (10-20); Calcium 9.4 mg/dl (8.6-10.3); Creatinine Clr Calc Pharmacy 107.4 ml/min; Est GFR (African American) 102.2 ml/min; Est GFR (Non-African American) 88.1 ml/min; Magnesium 2.4 mg/dl (1.7-2.4); Potassium 4.4 mmol/L (3.5-5.1)
[2023-12-04 07:08] VITALS: BP 127/81; TEMP 97.9
[2023-12-04 07:28] VITALS: O2SAT 94
[2023-12-04 11:15] VITALS: PULSE 82; RESP 16
--- NOTE | 2023-12-04 13:56 | Discharge Summary ---
Date of Service December 04, 2023 Admission HPI Per Admitting Provider Arya is a 53 year old male with a pMH significant for severe persistent asthma (on chronic prednisone and Mepolizumab therapy), GERD, and hyperlipidemia who presented to the [facility] ED on 12/02/23 with complaints of cough, SOB, dizziness, and fevers. He was noted to be hypotensive at 86/56, hypoxic at 87% on RA, and tachycardic with HR in the 90's on arrival. Labs were significant for a leukocytosis of 11 with neutrophil predominance of 8, VBG pH of 7.33 with pCO2 of 51 and pO2 of 30, glucose of 130, initial lactate of 2.3 --->2.2 on repeat, and full respiratory biofire positive for Human Metapneumovirus. No acute cardiopulmonary findings. No change in appearance of the chest. Prior to admission the patient was given 1.5L NSS with improvement in his vitals. At the time of the exam the patient was lying in bed in no acute distress, he does appear acutely ill. History was obtained from the patient and his at bedside. He states that he started to develop fever, SOB, significant cough, poor oral intake. This am his cough was so severe he was having difficulty speaking in complete sentences. When he initially arrived to the ED he was dizzy when changing positions, this has subsequently resolved after IV fluids. He denies hemoptysis, chest pain, abd pain, vomiting, diarrhea, dysuria, hematuria, melena, LE swelling and recent trauma. He has been using his home nebulizers at home without relief. He is a full code and would want his to make medical decisions for him if we cannot make them himself. Principal Diagnosis Acute asthma exacerbation secondary to human metapneumovirus Discharge Exam The patient is awake, alert and oriented 3, well developed and well nourished, normocephalic and atraumatic, lying in bed and in no acute distress. HEENT--PERRL, EOMI, mucous membranes and oropharynx mildly dry Neck--supple. No JVD. No bruits. Thyroid normal, trachea midline, no adenopathy . Heart--normal S1 and S2. No murmurs, rubs or gallops. Lungs--clear bilaterally, no respiratory distress, no accessory muscle use. Abdomen--normal bowel sounds and soft. Extremities--no cyanosis or clubbing. No edema. Dermatologic--normal skin turgor, normal color, no abnormal lymph nodes, no rash. Neurologic--cranial nerves II through XII grossly intact. Rheumatologic--normal range of motion. Psychiatric--normal affect. Discharge Data Allergies Allergy/AdvReac Type Severity Reaction Status Date / Time No Known Drug Allergies Allergy Verified 12/02/23 09:32 Consultations 12/02/23 14:29 ED Decision to Admit Stat Hospital Course (1) Asthma exacerbation: Severe persistent baseline asthma on both oral tank terminal gauger prednisone and Nucala (mepolizumab, IL-5 antagonist) Exacerbation due to human metapneumovirus Continue Solu-Medrol 40mg q8h Switch inhalers to duonebs QID Continue routine inhalers, montelukast and cetirizine No wheeze upon exam today Discharge home on steroid taper Active follow-up with her regular se[employer] professional. (2) Acute hypoxic respiratory failure: Resolved (3) Elevated lactic acid level: Suspect secondary to hypoxia rather than a fluid issue. No need to repeat. Appears euvolemic currently. (4) Infection due to human metapneumovirus (hMPV): (5) Hyperlipidemia: -Continue statin (6) GERD (gastroesophageal reflux disease): -Stable, Continue pantoprazole (7) Asthma, severe persistent: Plan VTE prophylaxis - Lovenox 40 mg subcu Diet - regular Disposition -discharge home Total Time Total Time Spent Total Time Spent (In Minutes): 35 Discharge Plan Discharge Items Patient Disposition: Home - Self-Care Reason For Visit: SOB/ASTHMA Discharge Diagnosis: Acute asthma exacerbation, metapneumovirus infection Activity: Resume your previous activity Non-emergency contact: Primary Care Provider Call non-emergency contact if: you have any medication questions Follow-up/Referrals: Donnie Frausto DO [Primary Care Provider] - 12/14/23 2:00 pm (APPOINTMENT WITH BRENDA DIAZ) Diet: Regular Addtl Attending Provider Instructions: Please make appointment to follow-up with her regular PCP Pending Studies at Discharge: No Stand-Alone Forms: My [employer], Smoking Cessation Medications and DC Order Prescriptions: New prednisolone sodium phosphate 10 mg tablet,disintegrating 10 mg PO DAILY Qty: 30 0RF Rx Instructions: 40 mg daily x 4 days 30 mg daily x 3 days 20 mg daily x 2 days 10 mg daily once Continued montelukast 10 mg tablet 10 mg PO DAILY Qty: 30 2RF Nucala 100 mg/mL syringe 100 mg SQ .COMPLEX Qty: 1 11RF Rx Instructions: 100 mg SQ EVERY 4 WEEKS APPROVED GOOD 01/05/23-01/04/24 [id number] Through Medical benefit epinephrine 0.3 mg/0.3 mL auto-injector 0.3 mg IM UD Qty: 1 Symbicort 160-4.5 mcg/actuation HFA aerosol inhaler 2 puff inhalation BID Qty: 10.2 11RF Spiriva Respimat 1.25 mcg/actuation mist 2 puff inhalation DAILY Qty: 1 11RF ipratropium-albuterol 0.5 mg-3 mg(2.5 mg base)/3 mL solution for nebulization 3 ml inhalation QID PRN (Reason: Shortness Of Breath Or Wheezing) Qty: 180 5RF albuterol sulfate [Ventolin HFA] 90 mcg/actuation HFA aerosol inhaler 2 puff inhalation QID PRN (Reason: shortness of breath or wheezing) Qty: 18 5RF ibuprofen 800 mg tablet 800 mg PO TID PRN (Reason: pain) Qty: 90 3RF pantoprazole 40 mg tablet,delayed release (DR/EC) 40 mg PO QAM Qty: 90 3RF multivitamin Tablet 1 tab PO QAM cetirizine 10 mg Tablet 10 mg PO HS senna-fennel Tablet 1 tab PO BID omega 5-niy-ill-fish oil [Fish Oil] 1,000 mg (120 mg-180 mg) Capsule 2 cap PO BID Metamucil 3.4 gram/5.4 gram Powder 2 tbsp PO QAM rosuvastatin [Crestor] 5 mg tablet 5 mg PO HS Combivent Respimat 20-100 mcg/actuation mist 1 puff inhalation QID PRN (Reason: SOB/WHEEZING) Rx Instructions: Uses in place of nebulizer if out of the house. Discontinued prednisone 10 mg tablet 0 mg PO DAILY Rx Instructions: Patient currently holding this medication, patient is using the 1mg tablets until instructed otherwise. prednisone 1 mg tablet 8 mg PO QAM Discharge Orders: Discharge Order (Routine); Ordered 12/04/23 Ordered By: Sue Marsh/Other Patient Handouts: Prediabetes, 5 Steps for Eating Healthier Admission Data Admit Date/Time: 12/02/23 14:45 Attending Provider: Sue Walls Admit Provider: Kashif Damon Primary Care Provider: Donnie Frausto Other Providers: Kashif Damon Other Interventions: Discharge Summary Assessment (RN) Last Done: 12/04/23 11:02 Coding Level of Care Code 93084 INP/OBS DISCH >30 MIN Diagnoses Asthma exacerbation J45.901 Acute hypoxic respiratory failure J96.01 Elevated lactic acid level R79.89 Infection due to human metapneumovirus (hMPV) B34.8 Hyperlipidemia E78.5 GERD (gastroesophageal reflux disease) K21.9 Asthma, severe persistent J45.50 Time Spent (min) 35
== END 2023-12-04 11:43 | disposition home or self-care (01) | DRG 189 ==
LOC: ED 10:22 → SUATTDRO 14:45 → 2S 14:45 → 3W 12-03 20:11